=== PATIENT | female | born 1960 | race Caucasian/White ===

== ENCOUNTER → 2017-04-05 | Outpatient (CLI) | payer MEDICAID | LOC: MERGE 11:41 → CARD 11:41 | PROVIDERS: ATTEND Nurse Practitioner Adult Health | DX: Z51.81 Encounter for therapeutic drug level monitoring (principal); C50.511 Malignant neoplasm of lower-outer quadrant of right female breast; Z79.899 Other long term (current) drug therapy ==

== ENCOUNTER → 2017-04-06 | Outpatient (CLI) | payer MEDICAID ==
[~2017-04-06] MED LIST: BARIUM SUSPENSION 2.1% (VANILLA SILQ) 450 ML PO ONE; IOHEXOL 350 MG/ML 100 ML (OMNIPAQUE 350) VIAL IV ONE; NS 100 ML (IVPB) BAG IV ONE
--- NOTE | 2017-04-06 09:24 | Diagnostic Imaging Report ---
PROCEDURE: CT chest with contrast, CT abdomen and pelvis with and without contrast. TECHNIQUE: Pre and post intravenous contrast axial imaging of the abdomen and pelvis and post contrast axial imaging of the chest were performed. DATE: 04/06/2017. COMPARISON: Chest radiographs 01/21/2017. Nuclear medicine whole-body bone scan 03/25/2017. INDICATION: 56-year-old female, breast cancer. FINDINGS: There is a small sclerotic focus involving the upper sternum on axial image 11 which measures 3 mm in size. This is entirely nonspecific. There is radiotracer activity projecting in the region of the sternum and this bone lesion on comparison nuclear medicine bone scan. There is a calcified left lower lobe pulmonary nodule on axial image 47 which measures 6 mm in size. There is no identified noncalcified pulmonary nodule or lung mass. There is no focal airspace consolidation. There is no pneumothorax. There is no pleural effusion. The central airways are patent. The heart is not enlarged. There is no pericardial effusion. There is no identified central pulmonary embolus. The main pulmonary artery is normal in caliber. There is no identified abnormally enlarged mediastinal or hilar lymph node which meets CT size criteria for adenopathy. There are multiple surgical clips in the right axilla which likely relates to prior axillary lymph node dissection. There are somewhat spiculated areas of soft tissue type attenuation adjacent to the surgical clips which may potentially reflect scarring although are nonspecific. There are also surgical clips in the regions of the soft tissues at the expected locations of the right and left breast. There is no currently identified abnormally enlarged axillary lymph node which specifically meets CT size criteria for adenopathy. The liver is normal in size and contour. There is no identified liver lesion. The main, right, and left portal veins are patent. The superior mesenteric vein is patent. The splenic vein is patent. The patient is status post cholecystectomy. There is no intrahepatic or extrahepatic bile duct dilation. The main pancreatic duct is not abnormally dilated. Unremarkable appearance of the pancreatic parenchyma. The spleen is not enlarged. The adrenal glands are unremarkable. There is a probable accessory splenule on axial image 55. Unremarkable appearance of the renal parenchyma. The urinary collecting systems are not distended. There is no identified renal or ureteral stone. The urinary bladder is unremarkable in appearance. The uterus is not seen and may be surgically absent. The intestinal tract is not distended. There is no free intraperitoneal air. There is no drainable fluid collection. There is no free pelvic fluid. There are atherosclerotic calcifications. There is a retroaortic left renal vein. There is no identified abnormally enlarged lymph node in the abdomen or pelvis which meets CT size criteria for adenopathy. There are mild facet degenerative changes bilaterally at L4-L5. There is mild disc height loss at L4-L5 and L5-S1. There is no CT apparent bone lesion concerning for bone metastasis at the level of L5. There is a previously noted radiotracer uptake in the region of L5 most likely are degenerative related. There is a oblong sclerotic lesion in the right iliac bone measuring 10 mm in size on coronal image 54. This demonstrates internal attenuation of 900 Hounsfield units. This likely relates to a benign bone island. There are small sclerotic foci in the right femoral head measuring up to approximately 5 mm in size. Internal attenuation is measured at up to 850 Hounsfield units for the larger lesion. These lesions are entirely nonspecific. There is no corresponding radiotracer avid lesion on recent bone scan. IMPRESSION: CT CHEST, ABDOMEN AND PELVIS. 1. A 3 mm sclerotic lesion in the sternum which does correlate with an area of radiotracer uptake on comparison nuclear medicine bone scan. This is indeterminate in etiology. Metastatic lesion cannot be excluded. 2. Previously noted radiotracer uptake at the level of L5 is degenerative related. 3. A 10 mm sclerotic lesion in the right iliac bone highly likely to represent benign bone island and sclerotic foci in the right femoral head not able to be definitively characterized. 4. No additional potential metastatic lesion identified at the level of the chest, abdomen, or pelvis. 5. Status post right axillary lymph node dissection. Postoperative changes in the regions of the right and left breast. Dictated by: Dictated on workstation # [id number]
== END ==
LOC: RAD 07:38 → MERGE 08:15
PROVIDERS: ATTEND Nurse Practitioner Adult Health
DX: C50.511 Malignant neoplasm of lower-outer quadrant of right female breast (principal); M89.9 Disorder of bone, unspecified; M54.5 Low back pain; Z98.890 Other specified postprocedural states
CPT/HCPCS: 71260; 74178

== ENCOUNTER → 2017-04-07 | Outpatient (CLI) | payer MEDICAID ==
[~2017-04-07] MED LIST changes: -BARIUM SUSPENSION 2.1% (VANILLA SILQ) 450 ML PO ONE; +GADOBUTROL 7.5 MMOL/7.5 ML (GADAVIST) VIAL IV ONE; -IOHEXOL 350 MG/ML 100 ML (OMNIPAQUE 350) VIAL IV ONE; -NS 100 ML (IVPB) BAG IV ONE
--- NOTE | 2017-04-07 13:51 | Diagnostic Imaging Report ---
PROCEDURE: MRI lumbar spine with and without contrast. TECHNIQUE: Multiplanar, multisequence MRI of the lumbar spine was performed with and without contrast. DATE: 04/07/2017. COMPARISON: CT chest, abdomen and pelvis 04/06/2017. Nuclear medicine whole-body bone scan 03/25/2017. INDICATION: 56-year-old female, followup bone scan. History of breast cancer. Low back pain. FINDINGS: There is normal lumbosacral spine alignment. There is no evidence of diffuse marrow infiltrating or replacing process. There is no identified focal bone lesion concerning for bone metastasis. The visualized cord and conus medullaris is unremarkable and terminates at the L1-L2 level. The disc heights are well preserved. L1-L2: There is no disc bulge. The facet joints and ligamentum flavum are unremarkable. There is no foraminal narrowing. There is no spinal canal stenosis. L2-L3: There is no disc bulge. The facet joints and ligamentum flavum are unremarkable. There is no foraminal narrowing. There is no spinal canal stenosis. L3-L4: There is no disc bulge. The facet joints and ligamentum flavum are unremarkable. There is no foraminal narrowing. There is no spinal canal stenosis. L4-L5: There is minimal diffuse disc bulge. There are moderate bilateral facet degenerative changes. There are small bilateral facet joint effusions. There is enhancement adjacent to the bilateral L4-L5 facet articulations. There is very mild bilateral foraminal narrowing. There is no spinal canal stenosis. L5-S1: There is very mild diffuse disc bulge. The facet joints and ligamentum flavum are unremarkable. There is no foraminal narrowing. There is no spinal canal stenosis. IMPRESSION: 1. Moderate bilateral facet degenerative changes at L4-L5 with small facet joint effusions at this level and adjacent enhancement. This may reflect facet joint synovitis. There is this the likely cause of the radiotracer uptake on comparison nuclear medicine bone scan of 03/25/2017. There is very mild bilateral foraminal narrowing at L4-L5. 2. No evidence of metastatic disease to the lumbar spine. Dictated by: Dictated on workstation # [id number]
== END ==
LOC: RAD 10:38
PROVIDERS: ATTEND Nurse Practitioner Adult Health
DX: C50.511 Malignant neoplasm of lower-outer quadrant of right female breast (principal); M48.061 Spinal stenosis, lumbar region without neurogenic claudication; M47.816 Spondylosis without myelopathy or radiculopathy, lumbar region; M25.48 Effusion, other site
CPT/HCPCS: 72158

== ENCOUNTER 2017-05-25 09:14 | Outpatient (RCR) | payer MEDICAID ==
[2017-03-31 09:49] LABS: BASOPHILS % (AUTO) 1 % (0-10); EOSINOPHILS # (AUTO) 0.3 10^3/uL (0.0-0.3); EOSINOPHILS % (AUTO) 6 % (0-10); HEMATOCRIT 38 % (35-52); LYMPHOCYTES # (AUTO) 1.3 X 10^3 (1.0-4.0); LYMPHOCYTES % (AUTO) 24 % (12-44); MEAN CORPUSCULAR HEMOGLOBIN 31 PG (25-34); MEAN CORPUSCULAR HGB CONC 34 G/DL (32-36); MEAN CORPUSCULAR VOLUME 91 FL (80-99); MEAN PLATELET VOLUME 9.5 FL (7.4-10.4); MONOCYTES # (AUTO) 0.5 X 10^3 (0.0-1.0); MONOCYTES % (AUTO) 10 % (0-12); NEUTROPHILS # (AUTO) 3.2 X 10^3 (1.8-7.8); NEUTROPHILS % (AUTO) 60 % (42-75); PLATELET COUNT 259 10^3/uL (130-400); RED BLOOD COUNT 4.15 10^6/uL (4.35-5.85); RED CELL DISTRIBUTION WIDTH 14.4 % (10.0-14.5); WHITE BLOOD COUNT 5.3 10^3/uL (4.3-11.0)
[2017-03-31 10:12] LABS: ALANINE AMINOTRANSFERASE 42 U/L (0-55); ALBUMIN 3.9 GM/DL (3.2-4.5); ALKALINE PHOSPHATASE 61 U/L (40-136); BILIRUBIN,TOTAL 0.3 MG/DL (0.1-1.0); BUN/CREATININE RATIO 20; CALCIUM 9.6 MG/DL (8.5-10.1); CARBON DIOXIDE 26 MMOL/L (21-32); CHLORIDE 105 MMOL/L (98-107); GFR ESTIMATED > 60; GLUCOSE 114 MG/DL (70-105); SODIUM 142 MMOL/L (135-145); TOTAL PROTEIN 6.7 GM/DL (6.4-8.2)
[2017-04-28 10:00] LABS: BASOPHILS % (AUTO) 1 % (0-10); EOSINOPHILS # (AUTO) 0.3 10^3/uL (0.0-0.3); EOSINOPHILS % (AUTO) 6 % (0-10); HEMATOCRIT 36 % (35-52); HEMOGLOBIN 12.5 G/DL (11.5-16.0); LYMPHOCYTES # (AUTO) 1.2 X 10^3 (1.0-4.0); LYMPHOCYTES % (AUTO) 30 % (12-44); MEAN CORPUSCULAR HEMOGLOBIN 31 PG (25-34); MEAN CORPUSCULAR HGB CONC 35 G/DL (32-36); MEAN CORPUSCULAR VOLUME 90 FL (80-99); MEAN PLATELET VOLUME 9.5 FL (7.4-10.4); MONOCYTES # (AUTO) 0.5 X 10^3 (0.0-1.0); MONOCYTES % (AUTO) 13 % (0-12); NEUTROPHILS # (AUTO) 2.1 X 10^3 (1.8-7.8); NEUTROPHILS % (AUTO) 50 % (42-75); PLATELET COUNT 219 10^3/uL (130-400); RED BLOOD COUNT 4.01 10^6/uL (4.35-5.85); RED CELL DISTRIBUTION WIDTH 13.3 % (10.0-14.5); WHITE BLOOD COUNT 4.1 10^3/uL (4.3-11.0)
[2017-04-28 10:21] LABS: ALANINE AMINOTRANSFERASE 24 U/L (0-55); ALBUMIN 3.8 GM/DL (3.2-4.5); ALKALINE PHOSPHATASE 53 U/L (40-136); BILIRUBIN,TOTAL 0.5 MG/DL (0.1-1.0); BUN/CREATININE RATIO 26; CALCIUM 9.1 MG/DL (8.5-10.1); CARBON DIOXIDE 22 MMOL/L (21-32); CHLORIDE 107 MMOL/L (98-107); CREATININE SERUM 0.87 MG/DL (0.60-1.30); GFR ESTIMATED > 60; GLUCOSE 107 MG/DL (70-105); POTASSIUM 3.8 MMOL/L (3.6-5.0); SODIUM 140 MMOL/L (135-145); TOTAL PROTEIN 6.5 GM/DL (6.4-8.2)
[~2017-05-25] VITALS: Ht 160 cm; Wt 77.6 kg
[~2017-05-25 09:14] MED LIST changes: -GADOBUTROL 7.5 MMOL/7.5 ML (GADAVIST) VIAL IV ONE; +NORMAL SALINE IV SCH; +NS IV 500 ML (CANCER CENTER) IV SCH; +NS IV SCH; +TRASTUZUMAB IV SCH; +morphine INJ 4 MG/ML 1 ML (CANCER CTR) IV ONE; +morphine INJ 4 MG/ML 1 ML (CANCER CTR) ONE
[2017-05-25 09:35] LABS: BASOPHILS # (AUTO) 0.1 10^3/uL (0.0-0.1); BASOPHILS % (AUTO) 1 % (0-10); EOSINOPHILS # (AUTO) 0.2 10^3/uL (0.0-0.3); EOSINOPHILS % (AUTO) 5 % (0-10); HEMATOCRIT 36 % (35-52); HEMOGLOBIN 12.1 G/DL (11.5-16.0); LYMPHOCYTES % (AUTO) 22 % (12-44); MEAN CORPUSCULAR HEMOGLOBIN 31 PG (25-34); MEAN CORPUSCULAR HGB CONC 34 G/DL (32-36); MEAN CORPUSCULAR VOLUME 91 FL (80-99); MEAN PLATELET VOLUME 9.2 FL (7.4-10.4); MONOCYTES # (AUTO) 0.5 X 10^3 (0.0-1.0); MONOCYTES % (AUTO) 10 % (0-12); NEUTROPHILS # (AUTO) 2.8 X 10^3 (1.8-7.8); NEUTROPHILS % (AUTO) 61 % (42-75); PLATELET COUNT 241 10^3/uL (130-400); RED BLOOD COUNT 3.91 10^6/uL (4.35-5.85); RED CELL DISTRIBUTION WIDTH 13.5 % (10.0-14.5); WHITE BLOOD COUNT 4.6 10^3/uL (4.3-11.0)
[2017-05-25 09:55] LABS: ALANINE AMINOTRANSFERASE 34 U/L (0-55); ALBUMIN 3.9 GM/DL (3.2-4.5); ALKALINE PHOSPHATASE 62 U/L (40-136); BILIRUBIN,TOTAL 0.5 MG/DL (0.1-1.0); BUN/CREATININE RATIO 20; CALCIUM 9.1 MG/DL (8.5-10.1); CARBON DIOXIDE 20 MMOL/L (21-32); CHLORIDE 108 MMOL/L (98-107); CREATININE SERUM 0.87 MG/DL (0.60-1.30); GFR ESTIMATED > 60; GLUCOSE 128 MG/DL (70-105); POTASSIUM 3.8 MMOL/L (3.6-5.0); SODIUM 140 MMOL/L (135-145); TOTAL PROTEIN 6.5 GM/DL (6.4-8.2)
== END 2017-06-01 | disposition home or self-care (01) ==
LOC: ONC 09:14
PROVIDERS: ATTEND Internal Medicine Hematology & Oncology
DX: Z51.11 Encounter for antineoplastic chemotherapy (principal); C50.511 Malignant neoplasm of lower-outer quadrant of right female breast; Z80.3 Family history of malignant neoplasm of breast; Z87.891 Personal history of nicotine dependence; Z79.899 Other long term (current) drug therapy
CPT/HCPCS: 36591; 80053; 85025; 96374; 96413

== ENCOUNTER → 2017-07-02 | Outpatient (CLI) | payer MEDICAID | LOC: CARD 08:44 | PROVIDERS: ATTEND Internal Medicine Hematology & Oncology | DX: Z51.81 Encounter for therapeutic drug level monitoring (principal); C50.511 Malignant neoplasm of lower-outer quadrant of right female breast; Z79.899 Other long term (current) drug therapy | CPT/HCPCS: 93306 ==

== ENCOUNTER 2017-08-25 13:21 | Outpatient (RCR) | payer MEDICAID ==
[2017-06-23 11:41] LABS: BASOPHILS # (AUTO) 0.1 10^3/uL (0.0-0.1); BASOPHILS % (AUTO) 1 % (0-10); EOSINOPHILS # (AUTO) 0.3 10^3/uL (0.0-0.3); EOSINOPHILS % (AUTO) 5 % (0-10); HEMATOCRIT 37 % (35-52); HEMOGLOBIN 12.7 G/DL (11.5-16.0); LYMPHOCYTES # (AUTO) 1.6 X 10^3 (1.0-4.0); LYMPHOCYTES % (AUTO) 28 % (12-44); MEAN CORPUSCULAR HEMOGLOBIN 31 PG (25-34); MEAN CORPUSCULAR HGB CONC 35 G/DL (32-36); MEAN CORPUSCULAR VOLUME 90 FL (80-99); MEAN PLATELET VOLUME 9.3 FL (7.4-10.4); MONOCYTES # (AUTO) 0.6 X 10^3 (0.0-1.0); MONOCYTES % (AUTO) 10 % (0-12); NEUTROPHILS # (AUTO) 3.2 X 10^3 (1.8-7.8); NEUTROPHILS % (AUTO) 56 % (42-75); PLATELET COUNT 268 10^3/uL (130-400); WHITE BLOOD COUNT 5.7 10^3/uL (4.3-11.0)
[2017-06-23 12:07] LABS: ALANINE AMINOTRANSFERASE 35 U/L (0-55); ALBUMIN 4.1 GM/DL (3.2-4.5); ALKALINE PHOSPHATASE 66 U/L (40-136); BILIRUBIN,TOTAL 0.3 MG/DL (0.1-1.0); BUN/CREATININE RATIO 19; CALCIUM 9.8 MG/DL (8.5-10.1); CARBON DIOXIDE 30 MMOL/L (21-32); CHLORIDE 105 MMOL/L (98-107); CREATININE SERUM 0.85 MG/DL (0.60-1.30); GFR ESTIMATED > 60; GLUCOSE 120 MG/DL (70-105); POTASSIUM 3.6 MMOL/L (3.6-5.0); SODIUM 142 MMOL/L (135-145); TOTAL PROTEIN 6.7 GM/DL (6.4-8.2)
[2017-08-05 09:01] LABS: BASOPHILS % (AUTO) 1 % (0-10); EOSINOPHILS # (AUTO) 0.3 10^3/uL (0.0-0.3); EOSINOPHILS % (AUTO) 5 % (0-10); HEMATOCRIT 40 % (35-52); HEMOGLOBIN 13.6 G/DL (11.5-16.0); LYMPHOCYTES # (AUTO) 1.7 X 10^3 (1.0-4.0); LYMPHOCYTES % (AUTO) 27 % (12-44); MEAN CORPUSCULAR HEMOGLOBIN 31 PG (25-34); MEAN CORPUSCULAR HGB CONC 34 G/DL (32-36); MEAN CORPUSCULAR VOLUME 91 FL (80-99); MEAN PLATELET VOLUME 9.4 FL (7.4-10.4); MONOCYTES # (AUTO) 0.6 X 10^3 (0.0-1.0); MONOCYTES % (AUTO) 10 % (0-12); NEUTROPHILS # (AUTO) 3.7 X 10^3 (1.8-7.8); NEUTROPHILS % (AUTO) 58 % (42-75); PLATELET COUNT 298 10^3/uL (130-400); RED BLOOD COUNT 4.42 10^6/uL (4.35-5.85); WHITE BLOOD COUNT 6.3 10^3/uL (4.3-11.0)
[2017-08-05 09:21] LABS: ALANINE AMINOTRANSFERASE 35 U/L (0-55); ALBUMIN 4.1 GM/DL (3.2-4.5); ALKALINE PHOSPHATASE 62 U/L (40-136); BILIRUBIN,TOTAL 0.4 MG/DL (0.1-1.0); BUN/CREATININE RATIO 23; CALCIUM 9.2 MG/DL (8.5-10.1); CARBON DIOXIDE 22 MMOL/L (21-32); CHLORIDE 109 MMOL/L (98-107); GFR ESTIMATED > 60; GLUCOSE 137 MG/DL (70-105); POTASSIUM 3.7 MMOL/L (3.6-5.0); SODIUM 142 MMOL/L (135-145); TOTAL PROTEIN 6.8 GM/DL (6.4-8.2)
[~2017-08-25] VITALS: Ht 160 cm; Wt 77.1 kg
[~2017-08-25 13:21] MED LIST changes: -NORMAL SALINE IV SCH; +NS IV ONE; +TRASTUZUMAB IV ONE; -morphine INJ 4 MG/ML 1 ML (CANCER CTR) IV ONE; -morphine INJ 4 MG/ML 1 ML (CANCER CTR) ONE
== END 2017-08-31 | disposition home or self-care (01) ==
LOC: ONC 13:21
PROVIDERS: ATTEND Internal Medicine Hematology & Oncology
DX: Z51.11 Encounter for antineoplastic chemotherapy (principal); C50.511 Malignant neoplasm of lower-outer quadrant of right female breast; C77.3 Secondary and unspecified malignant neoplasm of axilla and upper limb lymph nodes; J06.9 Acute upper respiratory infection, unspecified; R19.5 Other fecal abnormalities; M47.896 Other spondylosis, lumbar region; Z17.0 Estrogen receptor positive status [ER+]; Z87.891 Personal history of nicotine dependence; Z90.13 Acquired absence of bilateral breasts and nipples; Z79.899 Other long term (current) drug therapy; Z79.811 Long term (current) use of aromatase inhibitors; Z80.3 Family history of malignant neoplasm of breast
CPT/HCPCS: 36591; 80053; 85025; 96372; 96413

== ENCOUNTER → 2017-10-07 | Outpatient (CLI) | payer MEDICAID ==
[~2017-10-07] MED LIST changes: +BARIUM SUSPENSION 2.1% (VANILLA SILQ) 450 ML PO ONE; +CATHETER FLUSH 10 ML SYR IV PRN; +IOHEXOL 350 MG/ML 100 ML (OMNIPAQUE 350) VIAL IV ONE; +NS 250 ML (IVPB) BAG IV ONE; -NS IV 500 ML (CANCER CENTER) IV SCH; -NS IV ONE; -NS IV SCH; -TRASTUZUMAB IV ONE; -TRASTUZUMAB IV SCH
--- NOTE | 2017-10-07 12:19 | Diagnostic Imaging Report ---
PROCEDURE: CT chest and abdomen with contrast. TECHNIQUE: Multiple contiguous axial images were obtained through the chest and abdomen after the administration of intravenous contrast. INDICATION: Breast carcinoma. COMPARISON: Comparison is made with prior CT from 04/06/2017. FINDINGS: CT CHEST: Postsurgical changes of bilateral mastectomy is noted. There are surgical clips in the right axilla. Area of soft tissue density in the right axilla similar to prior exam. No definite axillary lymphadenopathy is seen. No internal mammary, mediastinal or hilar lymphadenopathy is detected. No pericardial or pleural fluid is detected. Calcified granuloma left lower lobe is again seen. No noncalcified nodules or masses are identified. Tiny sclerotic focus in the upper sternum is stable. No other bony abnormalities are seen. IMPRESSION: Stable CT chest when compared with exam from 04/06/2017. No thoracic lymphadenopathy or evidence of pulmonary metastatic disease is identified. CT ABDOMEN: No discrete liver mass is detected. The gallbladder is surgically absent. The pancreas and spleen are unremarkable. No adrenal mass is detected. The kidneys are unremarkable. Aorta is non-aneurysmal. No central retroperitoneal or mesenteric lymphadenopathy is seen. Small and large bowel loops are normal caliber. No ascites. IMPRESSION: Stable CT of the abdomen. There is no evidence of abdominal lymphadenopathy or metastatic disease. No acute features seen. Dictated by: Dictated on workstation # [id number]
--- NOTE | 2017-10-07 14:26 | Diagnostic Imaging Report ---
INDICATION: Breast cancer. TECHNIQUE: Patient was administered 26.0 mCi technetium 99m MDP intravenously and whole-body imaging was performed after 3 hour delay. COMPARISON: Correlation is made with prior whole body bone scan from 03/25/2017. FINDINGS: There is normal uptake of activity by the axial and appendicular skeleton. There is uptake by both kidneys with excretion into the urinary bladder. Previously noted small focus of activity in the sternum is similar to prior exam. There is some lower lumbar activity as well asymmetric to the right and left, likely owing to facet degenerative change. No new foci of tracer accumulation is seen. IMPRESSION: Stable whole body bone scan when compared with prior exam from 03/25/2017. Dictated by: Dictated on workstation # [id number]
== END ==
LOC: CARD 10:42
PROVIDERS: ATTEND Nurse Practitioner Adult Health
DX: C50.511 Malignant neoplasm of lower-outer quadrant of right female breast (principal)
CPT/HCPCS: 71260; 74160; 78306

== ENCOUNTER 2017-11-25 09:17 | Outpatient (RCR) | payer MEDICAID ==
[2017-09-01 10:13] LABS: BASOPHILS % (AUTO) 1 % (0-10); EOSINOPHILS # (AUTO) 0.2 10^3/uL (0.0-0.3); EOSINOPHILS % (AUTO) 3 % (0-10); HEMATOCRIT 37 % (35-52); HEMOGLOBIN 12.4 G/DL (11.5-16.0); LYMPHOCYTES # (AUTO) 1.5 X 10^3 (1.0-4.0); LYMPHOCYTES % (AUTO) 26 % (12-44); MEAN CORPUSCULAR HEMOGLOBIN 31 PG (25-34); MEAN CORPUSCULAR HGB CONC 33 G/DL (32-36); MEAN CORPUSCULAR VOLUME 92 FL (80-99); MEAN PLATELET VOLUME 9.1 FL (7.4-10.4); MONOCYTES # (AUTO) 0.7 X 10^3 (0.0-1.0); MONOCYTES % (AUTO) 12 % (0-12); NEUTROPHILS # (AUTO) 3.5 X 10^3 (1.8-7.8); NEUTROPHILS % (AUTO) 59 % (42-75); PLATELET COUNT 244 10^3/uL (130-400); RED BLOOD COUNT 4.02 10^6/uL (4.35-5.85); RED CELL DISTRIBUTION WIDTH 14.6 % (10.0-14.5); WHITE BLOOD COUNT 5.9 10^3/uL (4.3-11.0)
[2017-09-01 10:35] LABS: ALANINE AMINOTRANSFERASE 26 U/L (0-55); ALBUMIN 3.8 GM/DL (3.2-4.5); ALKALINE PHOSPHATASE 67 U/L (40-136); BILIRUBIN,TOTAL 0.3 MG/DL (0.1-1.0); BUN/CREATININE RATIO 24; CALCIUM 9.1 MG/DL (8.5-10.1); CARBON DIOXIDE 23 MMOL/L (21-32); CHLORIDE 107 MMOL/L (98-107); CREATININE SERUM 0.93 MG/DL (0.60-1.30); GFR ESTIMATED > 60; GLUCOSE 104 MG/DL (70-105); SODIUM 141 MMOL/L (135-145); TOTAL PROTEIN 6.5 GM/DL (6.4-8.2)
[2017-10-14 12:54] LABS: BASOPHILS % (AUTO) 1 % (0-10); EOSINOPHILS # (AUTO) 0.2 10^3/uL (0.0-0.3); EOSINOPHILS % (AUTO) 3 % (0-10); HEMATOCRIT 38 % (35-52); HEMOGLOBIN 13.2 G/DL (11.5-16.0); LYMPHOCYTES # (AUTO) 1.7 X 10^3 (1.0-4.0); LYMPHOCYTES % (AUTO) 28 % (12-44); MEAN CORPUSCULAR HEMOGLOBIN 32 PG (25-34); MEAN CORPUSCULAR HGB CONC 35 G/DL (32-36); MEAN CORPUSCULAR VOLUME 92 FL (80-99); MEAN PLATELET VOLUME 9.3 FL (7.4-10.4); MONOCYTES # (AUTO) 0.5 X 10^3 (0.0-1.0); MONOCYTES % (AUTO) 9 % (0-12); NEUTROPHILS # (AUTO) 3.6 X 10^3 (1.8-7.8); NEUTROPHILS % (AUTO) 60 % (42-75); PLATELET COUNT 282 10^3/uL (130-400); RED BLOOD COUNT 4.12 10^6/uL (4.35-5.85); RED CELL DISTRIBUTION WIDTH 14.3 % (10.0-14.5)
[2017-10-14 13:13] LABS: ALANINE AMINOTRANSFERASE 45 U/L (0-55); ALBUMIN 4.2 GM/DL (3.2-4.5); ALKALINE PHOSPHATASE 65 U/L (40-136); BILIRUBIN,TOTAL 0.5 MG/DL (0.1-1.0); BUN/CREATININE RATIO 24; CALCIUM 9.7 MG/DL (8.5-10.1); CARBON DIOXIDE 26 MMOL/L (21-32); CHLORIDE 107 MMOL/L (98-107); CREATININE SERUM 0.89 MG/DL (0.60-1.30); GFR ESTIMATED > 60; GLUCOSE 184 MG/DL (70-105); POTASSIUM 3.7 MMOL/L (3.6-5.0); SODIUM 141 MMOL/L (135-145)
[~2017-11-25 09:17] MED LIST changes: -BARIUM SUSPENSION 2.1% (VANILLA SILQ) 450 ML PO ONE; -CATHETER FLUSH 10 ML SYR IV PRN; -IOHEXOL 350 MG/ML 100 ML (OMNIPAQUE 350) VIAL IV ONE; -NS 250 ML (IVPB) BAG IV ONE; +NS IV 500 ML (CANCER CENTER) IV SCH; +NS IV SCH; +TRASTUZUMAB IV SCH
== END 2017-11-30 | disposition home or self-care (01) ==
LOC: ONC 09:17
PROVIDERS: ATTEND Internal Medicine Hematology & Oncology
DX: Z51.11 Encounter for antineoplastic chemotherapy (principal); C50.511 Malignant neoplasm of lower-outer quadrant of right female breast; C77.3 Secondary and unspecified malignant neoplasm of axilla and upper limb lymph nodes; M47.9 Spondylosis, unspecified; Z17.0 Estrogen receptor positive status [ER+]; Z87.891 Personal history of nicotine dependence; Z79.811 Long term (current) use of aromatase inhibitors; Z79.899 Other long term (current) drug therapy; Z45.2 Encounter for adjustment and management of vascular access device; Z90.13 Acquired absence of bilateral breasts and nipples; Z80.3 Family history of malignant neoplasm of breast
CPT/HCPCS: 36591; 80053; 82306; 83735; 85025; 96413; 96523

== ENCOUNTER 2018-02-17 09:14 | Outpatient (RCR) | payer MEDICAID ==
[2018-01-06 13:48] LABS: BASOPHILS % (AUTO) 0 % (0-10); EOSINOPHILS # (AUTO) 0.2 10^3/uL (0.0-0.3); EOSINOPHILS % (AUTO) 3 % (0-10); HEMATOCRIT 39 % (35-52); HEMOGLOBIN 13.3 G/DL (11.5-16.0); LYMPHOCYTES # (AUTO) 1.4 X 10^3 (1.0-4.0); LYMPHOCYTES % (AUTO) 25 % (12-44); MEAN CORPUSCULAR HEMOGLOBIN 30 PG (25-34); MEAN CORPUSCULAR HGB CONC 34 G/DL (32-36); MEAN CORPUSCULAR VOLUME 89 FL (80-99); MEAN PLATELET VOLUME 9.3 FL (7.4-10.4); MONOCYTES # (AUTO) 0.7 X 10^3 (0.0-1.0); MONOCYTES % (AUTO) 12 % (0-12); NEUTROPHILS # (AUTO) 3.3 X 10^3 (1.8-7.8); NEUTROPHILS % (AUTO) 59 % (42-75); PLATELET COUNT 289 10^3/uL (130-400); RED CELL DISTRIBUTION WIDTH 13.5 % (10.0-14.5); WHITE BLOOD COUNT 5.6 10^3/uL (4.3-11.0)
== END 2018-03-28 14:13 | disposition home or self-care (01) ==
LOC: ONC 09:14
PROVIDERS: ATTEND Internal Medicine Hematology & Oncology
DX: C50.511 Malignant neoplasm of lower-outer quadrant of right female breast (principal); C77.3 Secondary and unspecified malignant neoplasm of axilla and upper limb lymph nodes; Z17.0 Estrogen receptor positive status [ER+]; Z87.891 Personal history of nicotine dependence; Z79.811 Long term (current) use of aromatase inhibitors; Z79.899 Other long term (current) drug therapy; Z90.13 Acquired absence of bilateral breasts and nipples; Z45.2 Encounter for adjustment and management of vascular access device
CPT/HCPCS: 85025; 96523

== ENCOUNTER 2018-03-30 12:36 | Outpatient (RCR) | payer MEDICAID ==
[2018-03-30 13:15] LABS: BASOPHILS # (AUTO) 0.1 10^3/uL (0.0-0.1); BASOPHILS % (AUTO) 1 % (0-10); EOSINOPHILS # (AUTO) 0.2 10^3/uL (0.0-0.3); EOSINOPHILS % (AUTO) 3 % (0-10); HEMATOCRIT 42 % (35-52); HEMOGLOBIN 14.1 G/DL (11.5-16.0); LYMPHOCYTES # (AUTO) 1.8 X 10^3 (1.0-4.0); LYMPHOCYTES % (AUTO) 27 % (12-44); MEAN CORPUSCULAR HEMOGLOBIN 31 PG (25-34); MEAN CORPUSCULAR HGB CONC 34 G/DL (32-36); MEAN CORPUSCULAR VOLUME 91 FL (80-99); MEAN PLATELET VOLUME 9.7 FL (7.4-10.4); MONOCYTES # (AUTO) 0.9 X 10^3 (0.0-1.0); MONOCYTES % (AUTO) 14 % (0-12); NEUTROPHILS # (AUTO) 3.7 X 10^3 (1.8-7.8); NEUTROPHILS % (AUTO) 55 % (42-75); PLATELET COUNT 286 10^3/uL (130-400); RED CELL DISTRIBUTION WIDTH 14.6 % (10.0-14.5); WHITE BLOOD COUNT 6.7 10^3/uL (4.3-11.0)
[2018-03-30 13:33] LABS: ALANINE AMINOTRANSFERASE 22 U/L (0-55); ALBUMIN 4.4 GM/DL (3.2-4.5); ALKALINE PHOSPHATASE 65 U/L (40-136); BILIRUBIN,TOTAL 0.3 MG/DL (0.1-1.0); BUN/CREATININE RATIO 16; CALCIUM 10.2 MG/DL (8.5-10.1); CARBON DIOXIDE 25 MMOL/L (21-32); CHLORIDE 105 MMOL/L (98-107); CREATININE SERUM 0.93 MG/DL (0.60-1.30); GFR ESTIMATED > 60; GLUCOSE 123 MG/DL (70-105); SODIUM 140 MMOL/L (135-145); TOTAL PROTEIN 7.3 GM/DL (6.4-8.2)
== END 2018-05-11 09:27 | disposition home or self-care (01) ==
LOC: ONC 12:36
PROVIDERS: ATTEND Internal Medicine Hematology & Oncology
DX: C50.511 Malignant neoplasm of lower-outer quadrant of right female breast (principal); C77.3 Secondary and unspecified malignant neoplasm of axilla and upper limb lymph nodes; Z17.0 Estrogen receptor positive status [ER+]; Z87.891 Personal history of nicotine dependence; Z79.811 Long term (current) use of aromatase inhibitors; Z79.899 Other long term (current) drug therapy; Z90.13 Acquired absence of bilateral breasts and nipples
CPT/HCPCS: 36591; 80053; 85025

== ENCOUNTER 2018-06-08 11:12 | Emergency (ER) | payer MEDICAID ==
[~2018-06-08] VITALS: Ht 162.6 cm; Wt 68.0 kg
--- OUTSIDE RECORDS SUMMARY | 2018-06-08 11:18 | XMS REPORT ---
Author Author OVIDIO TREVIÑO [facility] [address] Address [address] [place] [address] Care Team Providers Care Stamp Classifier Name Role Phone OVIDIO TREVIÑO Unavailable PROBLEMS Unknown Problems ALLERGIES No Known Allergies ENCOUNTERS Encounter Location Date Diagnosis [facility] [id number] [place] [phone] Feb, [facility] [id number] [place] [phone] Feb, [facility] [address] [place] [phone] Dec, Dental examination Z01.20 and Caries K02.9 [facility] [address] [place] [phone] Nov, Dental examination Z01.20 and Caries K02.9 [facility] [address] [place] [phone] Oct, [facility] [address] [place] [phone] Oct, Dental examination Z01.20 [facility] [id number] [place] [phone] Jun, Dental caries K02.9 [facility] [id number] [place] [phone] Apr, Dental examination Z01.20 [facility] [address] [place] [address] Nov, [facility] [address] [place] [phone] Jun, Dental examination Z01.20 [facility] [place] [address] [place] [address] Jun, Dental examination Z01.20 [facility] [address] [place] [address] 11 May, 2015 Dental examination Z01.20 [facility] [address] [facility] [id number] [place] [phone] Oct, Dental examination V72.2 IMMUNIZATIONS No Known Immunizations SOCIAL HISTORY Never Assessed REASON FOR VISIT Extraction PLAN OF CARE Activity Details Follow Up JUVENCIO Reason:TE? VITAL SIGNS Blood pressure systolic 111 mmHg 2018-01-04 Blood pressure diastolic 64 mmHg 2018-01-04 MEDICATIONS Medication Instructions Dosage Frequency Start Date End Date Duration Status Carney 7.5-325 MG Orally every 6 hrs 1 tablet as needed 6h Nov, Not-Taking D3 Adult Active Magic Mouthwash Apply medicated swab to sore areas of the mouth to numb the pain As needed Dip cotton swab into medication Oct, As needed Not-Taking Magic Mouthwash Apply medicated swab to sore areas of the mouth to numb the pain As needed Dip cotton swab into medication Oct, As needed Not-Taking Omeprazole Active Amoxicillin 500 MG Orally 4 times a day 2 capsules stat and then take 1 capsule 6h Nov, 10 days Not-Taking Amoxicillin 500 MG Orally 4 times a day 2 capsules stat and then take 1 capsule 6h 10 days Not-Taking Xanax Active Furosemide Not-Taking Propranolol HCl Active Diazepam Not-Taking Hydrocodone-Acetaminophen Not-Taking Stool Softener Not-Taking Xiidra Not-Taking Letrozole Active Flexeril Not-Taking Tramadol HCl Active Amoxicillin 500 MG Orally 4 times a day 2 capsules stat and then take 1 capsule 6h 10 days Not-Taking Meloxicam Not-Taking Calcium Active Duloxetine HCl Active Citalopram Hydrobromide Not-Taking RESULTS No Results PROCEDURES Procedure Date Ordered Result Body Site PANORAMIC FILM SEE ALSO CODE 53391 Jan 04, 2018 EXTRAC ERUPTED TOOTH/EXPOSED ROOT Jan 04, 2018 EXTRAC ERUPTED TOOTH/EXPOSED ROOT Jan 04, 2018 INSTRUCTIONS MEDICATIONS ADMINISTERED No Known Medications MEDICAL (GENERAL) HISTORY Type Description Date Medical History heart palpitations Medical History fluid retention Medical History inflammation Medical History depression Medical History glaucoma Medical History muscle spasms Medical History anxiety Medical History Breast cancer-chemo,radiation Surgical History gallbladder Surgical History hysterectomy Surgical History appendectomy Surgical History four left ear surgeries Surgical History carpal tunnel Surgical History both breasts removed Hospitalization History see surgical Hx
--- OUTSIDE RECORDS SUMMARY | 2018-06-08 11:18 | XMS REPORT ---
Author Author OVIDIO TREVIÑO [facility] [address] Address [address] [place] [address] Care Team Providers Care Cutter Down Name Role Phone OVIDIO TREVIÑO Unavailable PROBLEMS Unknown Problems ALLERGIES No Known Allergies ENCOUNTERS Encounter Location Date Diagnosis [facility] [id number] [place] [phone] Feb, [facility] [id number] [place] [phone] Feb, [facility] [place] [address] [place] [phone] Nov, [facility] [address] [place] [phone] Oct, [facility] [address] [place] [phone] Oct, Dental examination Z01.20 [facility] [id number] [place] [phone] Jun, Dental caries K02.9 [facility] [id number] [place] [phone] Apr, Dental examination Z01.20 [facility] [address] [place] [address] Nov, [facility] [address] [place] [address] Jun, Dental examination Z01.20 [facility] [address] [place] [address] Jun, Dental examination Z01.20 [facility] [address] [place] [address] May, Dental examination Z01.20 [facility] [id number] [place] [phone] Oct, Dental examination V72.2 IMMUNIZATIONS No Known Immunizations SOCIAL HISTORY Never Assessed REASON FOR VISIT [facility] PLAN OF CARE Activity Details Follow Up 45 min TE Reason: VITAL SIGNS Blood pressure systolic 114 mmHg 2017-11-04 Blood pressure diastolic 68 mmHg 2017-11-04 MEDICATIONS Medication Instructions Dosage Frequency Start Date End Date Duration Status Amoxicillin 500 MG Orally 4 times a day 2 capsules stat and then take 1 capsule 6h 10 days Active Propranolol HCl Active Diazepam Not-Taking Magic Mouthwash Apply medicated swab to sore areas of the mouth to numb the pain As needed Dip cotton swab into medication Oct, As needed Active Hydrocodone-Acetaminophen Not-Taking Meloxicam Not-Taking Calcium Active Xiidra Not-Taking Duloxetine HCl Active Omeprazole Active Letrozole Active Furosemide Not-Taking Stool Softener Not-Taking Citalopram Hydrobromide Not-Taking Flexeril Not-Taking D3 Adult Active Tramadol HCl Active Xanax Active RESULTS No Results PROCEDURES Procedure Date Ordered Result Body Site LTD ORAL EVALUATION - PROBLEM FOCUS Nov 04, 2017 INTRAORL-PERIAPICAL 1 FILM 81181 Nov 04, 2017 INTRAORL-PERIAPICAL 1 FILM 18750 May 14, 2017 INTRAORL-PERIAPICAL 1 FILM 32141 May 14, 2017 BITEWING - SINGLE FILM May 14, 2017 INSTRUCTIONS MEDICATIONS ADMINISTERED No Known Medications MEDICAL [...]
--- OUTSIDE RECORDS SUMMARY | 2018-06-08 11:18 | XMS REPORT ---
Author Author OVIDIO TREVIÑO [facility] [address] Address [address] [place] [address] Care Team Providers Care Dust Collector Name Role Phone OVIDIO TREVIÑO Unavailable PROBLEMS Unknown Problems ALLERGIES No Known Allergies ENCOUNTERS Encounter Location Date Diagnosis [facility] [id number] [place] [phone] Feb, [facility] [id number] [place] [phone] Feb, [facility] [address] [place] [phone] Dec, [facility] [place] [address] [place] [phone] Nov, Dental examination Z01.20 and Caries K02.9 [facility] [address] [place] [phone] Oct, [facility] [address] [place] [phone] Oct, Dental examination Z01.20 [facility] [id number] [place] [phone] Jun, Dental caries K02.9 [facility] [id number] [place] [phone] Apr, Dental examination Z01.20 [facility] [address] [place] [address] Nov, [facility] [address] [place] [phone] Jun, Dental examination Z01.20 [facility] [address] [place] [phone] Jun, Dental examination Z01.20 [facility] [address] [place] [phone] 11 May, 2015 Dental examination Z01.20 [facility] [id number] [phone] Oct, Dental examination V72.2 IMMUNIZATIONS No Known Immunizations SOCIAL HISTORY Never Assessed REASON FOR VISIT ExtractionTALHA PLAN OF CARE Activity Details Follow Up #28 TE Reason:45 MINS VITAL SIGNS Blood pressure systolic 108 mmHg 2017-12-17 Blood pressure diastolic 85 mmHg 2017-12-17 MEDICATIONS Medication Instructions Dosage Frequency Start Date End Date Duration Status Stool Softener Not-Taking Magic Mouthwash Apply medicated swab to sore areas of the mouth to numb the pain As needed Dip cotton swab into medication Oct, As needed Not-Taking Meloxicam Not-Taking [place]ombe 7.5-325 MG Orally every 6 hrs 1 tablet as needed 6h Nov, Active Xanax Active Xiidra Not-Taking Flexeril Not-Taking Tramadol HCl Active Propranolol HCl Active D3 Adult Active Duloxetine HCl Active Diazepam Not-Taking Amoxicillin 500 MG Orally 4 times a day 2 capsules stat and then take 1 capsule 6h Nov, 10 days Active Citalopram Hydrobromide Not-Taking Magic Mouthwash Apply medicated swab to sore areas of the mouth to numb the pain As needed Dip cotton swab into medication Oct, As needed Not-Taking Calcium Active Hydrocodone-Acetaminophen Not-Taking Furosemide Not-Taking Omeprazole Active Amoxicillin 500 MG Orally 4 times a day 2 capsules stat and then take 1 capsule 6h 10 days Not-Taking Amoxicillin 500 MG Orally 4 times a day 2 capsules stat and then take 1 capsule 6h 10 days Not-Taking Letrozole Active RESULTS No Results PROCEDURES Procedure Date Ordered Result Body Site INTRAORL-PERIAPICAL 1 FILM 68052 Dec 17, 2017 EXTRAC ERUPTED TOOTH/EXPOSED ROOT Dec 17, 2017 EXTRAC ERUPTED TOOTH/EXPOSED ROOT Dec 17, 2017 INSTRUCTIONS MEDICATIONS ADMINISTERED No Known Medications [...]
--- OUTSIDE RECORDS SUMMARY | 2018-06-08 11:18 | XMS REPORT ---
Author Author OVIDIO TREVIÑO Organization [facility] [address] Address [address] [place] [address] Care Team Providers Care Auto Accessories Installer Name Role Phone OVIDIO TREVIÑO Unavailable PROBLEMS Unknown Problems ALLERGIES No Information ENCOUNTERS Encounter Location Date Diagnosis [facility] [id number] [place] [phone] Feb, [facility] [id number] [place] [phone] Feb, [facility] [place] [address] [place] [phone] Nov, [facility] [address] [place] [address] [place] [phone] Oct, [facility] [place] [address] [place] [phone] Oct, Dental examination Z01.20 [facility] [id number] [place] [phone] Jun, Dental caries K02.9 [facility] [id number] [place] [phone] Apr, Dental examination Z01.20 [facility] [address] [place] [address] Nov, [facility] [address] [place] [phone] Jun, Dental examination Z01.20 [facility] [address] [place] [address] Jun, Dental examination Z01.20 [facility] [address] [place] [address] May, Dental examination Z01.20 [facility] [id number] [place] [phone] Oct, Dental examination V72.2 IMMUNIZATIONS No Known Immunizations SOCIAL HISTORY Never Assessed REASON FOR VISIT PLAN OF CARE VITAL SIGNS MEDICATIONS Medication Instructions Dosage Frequency Start Date End Date Duration Status Amoxicillin 500 MG Orally 4 times a day 2 capsules stat and then take 1 capsule 6h 10 days Active Magic Mouthwash Apply medicated swab to sore areas of the mouth to numb the pain As needed Dip cotton swab into medication Oct, As needed Active RESULTS No Results PROCEDURES No Known procedures INSTRUCTIONS MEDICATIONS ADMINISTERED No Known Medications MEDICAL [...]
--- OUTSIDE RECORDS SUMMARY | 2018-06-08 11:18 | XMS REPORT ---
Author Author DENIA ZELAYA [facility] Address Unknown Care Team Providers Care Combat Rifle Crewmember Name Role Phone DENIA ZELAYA Unavailable PROBLEMS Unknown Problems ALLERGIES No Known Allergies ENCOUNTERS Encounter Location Date Diagnosis [facility] [address] [id number] Feb, [facility] [id number] [place] [id number] Feb, [facility] [id number] [place] [phone] Jun, Dental caries K02.9 [facility] [id number] [place] [phone] Apr, Dental examination Z01.20 [facility] [address] [place] [address] Nov, [facility] [address] [place] [phone] Jun, Dental examination Z01.20 [facility] [address] [place] [address] Jun, Dental examination Z01.20 [facility] [address] [place] [address] May, Dental examination Z01.20 [facility] [address] [phone] Oct, Dental examination V72.2 IMMUNIZATIONS No Known Immunizations SOCIAL HISTORY Never Assessed REASON FOR VISIT TE PLAN OF CARE Activity Details Follow Up prn Reason:Hygiene VITAL SIGNS Blood pressure systolic 110 mmHg 2017-06-24 Blood pressure diastolic 70 mmHg 2017-06-24 MEDICATIONS Medication Instructions Dosage Frequency Start Date End Date Duration Status Letrozole Active Xiidra Active Omeprazole Active Hydrocodone-Acetaminophen Active Calcium Active Furosemide Not-Taking Meloxicam Not-Taking D3 Adult Active Stool Softener Active Xanax Active Diazepam Not-Taking Propranolol HCl Active Duloxetine HCl Active Flexeril Not-Taking Citalopram Hydrobromide Not-Taking RESULTS No Results PROCEDURES Procedure Date Ordered Result Body Site EXTRAC ERUPTED TOOTH/EXPOSED ROOT June 24, 2017 INSTRUCTIONS MEDICATIONS ADMINISTERED No Known Medications MEDICAL (GENERAL) HISTORY Type Description Date Medical History heart palpitations Medical History fluid retention Medical History inflammation Medical History depression Medical History glaucoma Medical History muscle spasms Medical History anxiety Surgical History gallbladder Surgical History hysterectomy Surgical History appendectomy Surgical History four left ear surgeries Surgical History carpal tunnel Surgical History both breasts removed Hospitalization History see surgical Hx
--- OUTSIDE RECORDS SUMMARY | 2018-06-08 11:18 | XMS REPORT ---
Author Author DENIA ZELAYA Organization [facility] Address Unknown Care Team Providers Care Casting Inspector Name Role Phone DENIA ZELAYA Unavailable PROBLEMS Unknown Problems ALLERGIES No Known Allergies ENCOUNTERS Encounter Location Date Diagnosis [facility] [address] [facility] [id number] [phone] Feb, [facility] [id number] [phone] Feb, [facility] [address] [phone] Jun, Dental caries K02.9 [facility] [address] [phone] Apr, Dental examination Z01.20 [facility] [place] [id number] [place] [phone] Nov, [facility] [place] [address] [id number] [place] [phone] Jun, Dental examination Z01.20 [facility] [place] [address] [id number] [place] [id number] Jun, Dental examination Z01.20 [facility] [place] [address] [id number] [place] [id number] May, Dental examination Z01.20 [facility] [address] [facility] [id number] [phone] Oct, Dental examination V72.2 IMMUNIZATIONS No Known Immunizations SOCIAL HISTORY Never Assessed REASON FOR VISIT [facility] PLAN OF CARE Activity Details Follow Up prn Reason:TE #31 VITAL SIGNS MEDICATIONS Medication Instructions Dosage Frequency Start Date End Date Duration Status Citalopram Hydrobromide Not-Taking Letrozole Active Furosemide Not-Taking Hydrocodone-Acetaminophen Active Duloxetine HCl Active Xanax Active Stool Softener Active Amoxicillin 500 MG Orally every 8 hrs 1 capsule 8h 23 Apr, 2017 May, 7 days Active Flexeril Not-Taking Omeprazole Active Calcium Active Meloxicam Not-Taking Diazepam Not-Taking Xiidra Active Propranolol HCl Active D3 Adult Active RESULTS No Results PROCEDURES Procedure Date Ordered Result Body Site LTD ORAL EVALUATION - PROBLEM FOCUS May 14, 2017 INTRAORL-PERIAPICAL 1 FILM [id number] May 14, 2017 BITEWING - SINGLE FILM May 14, 2017 INTRAORL-PERIAPICAL EA ADD FILM May 14, 2017 INSTRUCTIONS MEDICATIONS ADMINISTERED [...]
[2018-06-08] MEDS ORDERED: FAMOTIDINE 20 MG (PEPCID) TABLET PO STA (11:26)
[2018-06-08] MEDS ORDERED: ASPIRIN 81 MG CHEW (CHILDREN'S ASA) PO ONE (11:30)
[2018-06-08] MEDS ORDERED: LIDOCAINE 2% VISCOUS 15 ML UDC PO ONE (11:30)
[2018-06-08] MEDS ORDERED: ANTACID SUSP 30 ML UDC (MYLANTA) PO ONE (11:30)
--- NOTE | 2018-06-08 11:36 | ED Chest Pain ---
General Stated Complaint: CHEST PAIN; SOB Source: patient Exam Limitations: no limitations History of Present Illness Date Seen by Provider: Jun 08, 2018 Time Seen by Provider: 11:10 Initial Comments Patient presents to ER by private conveyance with chief complaint of about 20 minutes prior to arrival she had a sharp stabbing midsternal chest pain. Her chest wall is been tender ever since 2016 when she had a bilateral mastectomy with right lymph node dissection. She's been in remission for breast cancer for less than a year. She has no radiation of the pain to her shoulders or neck or jaw. No nausea sweats or chills. Initially she was a little short of breath but that went away along with the pain within the first 30 minutes. She's had a dry nonproductive, nagging cough for the past several months. She denies fever or chills. Bowels are moving okay and no dysuria. She has no history of coronary disease but she has had 2 cardiac catheterizations neither one found any coronary disease per patient report and she has no history of stents or heart attack. No significant familial history. She does have elevated blood pressure and cholesterol but no diabetes, hypothyroidism and she quit smoking many years ago. She was told at the time that she had COPD and had an albuterol inhaler but has not had one in many years and has not needed it. She denies any wheezing. She's not having any palpitations today but she does have a history of palpitations for which she's worn monitors in the past and they've not found anything. They have her on propranolol for her heart palpitations and this has helped. She does not take antiplatelets or blood thinners. Allergies and Home Medications Allergies Coded Allergies: acetaminophen (Verified Allergy, Unknown, 04/05/17) oxycodone (Verified Allergy, Unknown, 04/05/17) Patient Home Medication List Home Medication List Reviewed: Yes Review of Systems Review of Systems Constitutional: No chills, No fever, No malaise EENTM: No Blurred Vision, No Double Vision Respiratory: Cough (nonproductive), Shortness of Air; Denies Wheezing Cardiovascular: See HPI, Chest Pain; Denies Edema, Denies Irregular Heart Rate , Denies Palpitations, Denies Syncope Gastrointestinal: Denies Abdomen Distended, Denies Abdominal Pain, Denies Constipated, Denies Diarrhea, Denies Nausea Genitourinary: Denies Burning, Denies Discharge Musculoskeletal: No back pain, No joint pain Past Lszgogp-Qiqgwt-Khwyqv Hx Patient Social History Alcohol Use: Denies Use Recreational Drug Use: No Smoking Status: Former Smoker Type Used: Cigarettes Recent Foreign Travel: No Physical Exam Vital Signs Capillary Refill : Height, Weight, BMI Height: 5'3.00" Weight: 173lbs. oz. 78.295395vs; BMI Method:Stated General Appearance: WD/WN, Anxious HEENT: PERRL/EOMI, Moist Mucous Membranes, TM Abnormal (L) (mild injection and dull but nontender on manipulation); No TM Abnormal (R), No Tonsillar Exudate, No Tonsillar Enlargement; Other (retropharyngeal erythema and mild nasal congestion) Neck: Full Range of Motion, Normal Inspection, Non Tender Respiratory: Lungs Clear, Normal Breath Sounds, No Accessory Muscle Use, No Respiratory Distress, Other (chest wall is exquisitely tender to direct palpation over the manubrium) Cardiovascular: Regular Rate, Rhythm, No Edema, No Murmur, Normal Peripheral Pulses Gastrointestinal: Normal Bowel Sounds, Non Tender, Soft Neurologic/Psychiatric: Alert, Oriented x3, No Motor/Sensory Deficits Skin: Normal Color, Warm/Dry Progress/Results/Core Measures Results/Orders Lab Results Laboratory Tests Test 06/08/18 11:35 06/08/18 13:35 Range/Units White Blood Count 12.9 H 4.3-11.0 10^3/uL Red Blood Count 4.40 4.35-5.85 10^6/uL Hemoglobin 13.4 11.5-16.0 G/DL Hematocrit 40 35-52 % Mean Corpuscular Volume 92 80-99 FL Mean Corpuscular Hemoglobin 30 25-34 PG Mean Corpuscular Hemoglobin Concent 33 32-36 G/DL Red Cell Distribution Width 14.2 10.0-14.5 % Platelet Count 299 130-400 10^3/uL Mean Platelet Volume 9.4 7.4-10.4 FL Neutrophils (%) (Auto) 68 42-75 % Lymphocytes (%) (Auto) 22 12-44 % Monocytes (%) (Auto) 10 0-12 % Eosinophils (%) (Auto) 0 0-10 % Basophils (%) (Auto) 0 0-10 % Neutrophils # (Auto) 8.8 H 1.8-7.8 X 10^3 Lymphocytes # (Auto) 2.8 1.0-4.0 X 10^3 Monocytes # (Auto) 1.3 H 0.0-1.0 X 10^3 Eosinophils # (Auto) 0.0 0.0-0.3 10^3/uL Basophils # (Auto) 0.0 0.0-0.1 10^3/uL Prothrombin Time 13.5 12.2-14.7 SEC INR Comment 1.0 0.8-1.4 Activated Partial Thromboplast Time 54 H 24-35 SEC Sodium Level 141 135-145 MMOL/L Potassium Level 3.5 L 3.6-5.0 MMOL/L Chloride Level 103 98-107 MMOL/L Carbon Dioxide Level 22 21-32 MMOL/L Anion Gap 16 H 5-14 MMOL/L Blood Urea Nitrogen 14 7-18 MG/DL Creatinine 0.80 0.60-1.30 MG/DL Estimat Glomerular Filtration Rate > 60 BUN/Creatinine Ratio 18 Glucose Level 98 70-105 MG/DL Calcium Level 9.6 8.5-10.1 MG/DL Corrected Calcium 9.4 8.5-10.1 MG/DL Magnesium Level 2.0 1.8-2.4 MG/DL Total Bilirubin 0.4 0.1-1.0 MG/DL Aspartate Amino Transf (AST/SGOT) 16 5-34 U/L Alanine Aminotransferase (ALT/SGPT) 17 0-55 U/L Alkaline Phosphatase 67 40-136 U/L Troponin T <= 6 < 6 <=10 NG/L Pro-B-Type Natriuretic Peptide 172.2 H <75.0 PG/ML Total Protein 7.1 6.4-8.2 GM/DL Albumin 4.3 3.2-4.5 GM/DL My Orders Orders - LANIE,KRUNAL J Cbc With Automated Diff (06/08/18 11:26) Magnesium (06/08/18 11:26) Chest 1 View Ap/Pa Only (06/08/18 11:26) Ekg Tracing (06/08/18 11:26) Comprehensive Metabolic Panel (06/08/18 11:26) Myoglobin Serum (06/08/18 11:26) Protime With Inr (06/08/18 11:26) Partial Thromboplastin Time (06/08/18 11:26) O2 (06/08/18 11:26) Monitor-Rhythm Ecg Trace Only (06/08/18 11:26) Lipid Panel (06/09/18 06:00) Aspirin Chewable Tablet (Baby Aspirin Ch (06/08/18 11:30) Saline Lock/Iv-Start (06/08/18 11:26) Troponin T (06/08/18 11:26) Probnp Fs (06/08/18 11:26) Lidocaine 2% Viscous 15 Ml (Xylocaine Vi (06/08/18 11:30) Famotidine Tablet (Pepcid Tablet) (06/08/18 11:26) Antacid Suspension (Mylanta Suspension (06/08/18 11:30) Troponin T (06/08/18 13:30) Medications Given in ED Current Medications Medications Dose Ordered Sig/Tacho Route Start Time Stop Time Status Last Admin Dose Admin Al Hydrox/Mg Hydrox/Simethicone 30 ml ONCE ONCE PO 06/08/18 11:30 06/08/18 11:31 DC 06/08/18 12:45 30 ML Aspirin 324 mg ONCE ONCE PO 06/08/18 11:30 06/08/18 11:31 DC 06/08/18 12:45 324 MG Lidocaine HCl 15 ml ONCE ONCE PO 06/08/18 11:30 06/08/18 11:31 DC 06/08/18 12:45 15 ML Progress Progress Note #1: Time: 11:39 Progress Note Her pain is only a 1 out of 10 so we plan to give her a GI cocktail instead of nitroglycerin and obtain a chest pain workup. Her report of negative previous angiograms is reassuring. Her chest pain is reproduced on direct palpation. Echocardiogram by Dr. Gaytan June 2017: EF of 60-65%. Normal cavity and wall thickness size. PAP 25 mmHg. ED ACS is 2 points. Low risk by the EDACS Score. If the patient also has: (1) EKG without new ischemic changes and (2) negative initial and 2-hour troponins, then this patient is safe for discharge to early outpatient follow-up investigation (or proceed to earlier inpatient testing). If EKG with ischemic changes or positive troponin, they are not low risk and require normal risk stratification. Progress Note #2: Time: 14:13 Progress Note The patient's pain had resolved before her GI cocktail was given but she's feeling much better and after a delta troponin being negative we are going to allow her to go home. Follow-up with cardiology. Initial ECG Impression Date: Jun 08, 2018 Initial ECG Impression Time: 11:17 Initial ECG Rate: 64 Initial ECG Rhythm: Normal Sinus Initial ECG Intervals: Normal Initial ECG Impression: Normal Initial ECG Comparisson: No Previous ECG Available Comment No ST elevation or depression. Diagnostic Imaging Diagonstic Imaging: Xray Plain Films/CT/US/NM/MRI: chest (1v) Comments No acute cardiopulmonary processes noted. Reviewed: Reviewed by Me Departure Impression Primary Impression: Chest wall pain Disposition: HOME, SELF-CARE Condition: Stable Departure-Patient Inst. Decision time for Depature: 14:15 Referrals: ANIL GAYTAN MD [facility] KEVYN GAMBLE APRN (PCP) Primary Care Physician Patient Instructions: Chest Pain That Is Not Caused by the Heart (DC) Add. Discharge Instructions: Call Dr. Gaytan, cardiology and ask his clinic for an appointment later this week or early next week. Return to the ER if you have significant chest pain that does not go away after a minute or 2. If you have chest pain go ahead and chew up and swallow 325 mg of aspirin. Copy Copies To 1: [facility] [place] Jun 08, 2018 11:36
[2018-06-08 11:51] LABS: HEMATOCRIT 40 % (35-52); HEMOGLOBIN 13.4 G/DL (11.5-16.0); MEAN CORPUSCULAR HEMOGLOBIN 30 PG (25-34); MEAN CORPUSCULAR VOLUME 92 FL (80-99); MEAN PLATELET VOLUME 9.4 FL (7.4-10.4); PLATELET COUNT 299 10^3/uL (130-400); RED CELL DISTRIBUTION WIDTH 14.2 % (10.0-14.5); WHITE BLOOD COUNT 12.9 10^3/uL (4.3-11.0)
[2018-06-08 11:52] LABS: BASOPHILS % (AUTO) 0 % (0-10); EOSINOPHILS % (AUTO) 0 % (0-10); LYMPHOCYTES # (AUTO) 2.8 X 10^3 (1.0-4.0); LYMPHOCYTES % (AUTO) 22 % (12-44); MEAN CORPUSCULAR HGB CONC 33 G/DL (32-36); MONOCYTES # (AUTO) 1.3 X 10^3 (0.0-1.0); MONOCYTES % (AUTO) 10 % (0-12); NEUTROPHILS # (AUTO) 8.8 X 10^3 (1.8-7.8); NEUTROPHILS % (AUTO) 68 % (42-75)
--- NOTE | 2018-06-08 12:03 | Diagnostic Imaging Report ---
Indication: Chest pain Portable chest 10:56 AM Left subclavian Port-A-Cath tip projects over the SVC. Heart size and pulmonary vascular normal. Lungs are clear. There are no effusions or pneumothoraces. Impression: Negative chest Dictated by: Dictated on workstation # [id number]
[2018-06-08 12:29] LABS: ALANINE AMINOTRANSFERASE 17 U/L (0-55); ALKALINE PHOSPHATASE 67 U/L (40-136); BILIRUBIN,TOTAL 0.4 MG/DL (0.1-1.0); BUN/CREATININE RATIO 18; CALCIUM 9.6 MG/DL (8.5-10.1); CARBON DIOXIDE 22 MMOL/L (21-32); CHLORIDE 103 MMOL/L (98-107); GFR ESTIMATED > 60; GLUCOSE 98 MG/DL (70-105); POTASSIUM 3.5 MMOL/L (3.6-5.0); SODIUM 141 MMOL/L (135-145)
[2018-06-08 12:30] LABS: ALBUMIN 4.3 GM/DL (3.2-4.5); TOTAL PROTEIN 7.1 GM/DL (6.4-8.2)
[2018-06-08 12:59] LABS: PROTHROMBIN TIME PATIENT 13.5 SEC (12.2-14.7)
[2018-06-08 14:35] VITALS: BP 117/68
[2018-06-08 15:06] LABS: MYOGLOBIN SERUM 36.9 NG/ML (10.0-92.0)
== END 2018-06-08 14:40 | disposition home or self-care (01) ==
LOC: EDUNIT# 11:12 → ER FS 11:14
DX: R07.89 Other chest pain (principal); Z88.6 Allergy status to analgesic agent; Z88.5 Allergy status to narcotic agent; Z87.891 Personal history of nicotine dependence
CPT/HCPCS: 36415; 71045; 80053; 83735; 83874; 83880; 84484; 85025; 85610; 85730; 93005; 93041

== ENCOUNTER 2018-06-21 10:23 | Outpatient (RCR) | payer MEDICAID ==
[2018-06-21 10:55] LABS: BASOPHILS % (AUTO) 1 % (0-10); EOSINOPHILS # (AUTO) 0.2 10^3/uL (0.0-0.3); EOSINOPHILS % (AUTO) 2 % (0-10); HEMATOCRIT 40 % (35-52); HEMOGLOBIN 13.3 G/DL (11.5-16.0); LYMPHOCYTES # (AUTO) 1.5 X 10^3 (1.0-4.0); LYMPHOCYTES % (AUTO) 23 % (12-44); MEAN CORPUSCULAR HEMOGLOBIN 30 PG (25-34); MEAN CORPUSCULAR HGB CONC 33 G/DL (32-36); MEAN CORPUSCULAR VOLUME 91 FL (80-99); MEAN PLATELET VOLUME 9.7 FL (7.4-10.4); MONOCYTES # (AUTO) 0.8 X 10^3 (0.0-1.0); MONOCYTES % (AUTO) 13 % (0-12); NEUTROPHILS % (AUTO) 62 % (42-75); PLATELET COUNT 258 10^3/uL (130-400); RED CELL DISTRIBUTION WIDTH 14.3 % (10.0-14.5); WHITE BLOOD COUNT 6.5 10^3/uL (4.3-11.0)
[2018-06-21 11:15] LABS: ALANINE AMINOTRANSFERASE 20 U/L (0-55); ALKALINE PHOSPHATASE 63 U/L (40-136); BILIRUBIN,TOTAL 0.6 MG/DL (0.1-1.0); BUN/CREATININE RATIO 21; CARBON DIOXIDE 24 MMOL/L (21-32); CHLORIDE 105 MMOL/L (98-107); GFR ESTIMATED > 60; GLUCOSE 114 MG/DL (70-105); POTASSIUM 4.1 MMOL/L (3.6-5.0); SODIUM 139 MMOL/L (135-145); TOTAL PROTEIN 6.7 GM/DL (6.4-8.2)
[2018-07-24] MEDS ORDERED: ROSU10TA27 (07:33)
[2018-07-24] MEDS ORDERED: DICL100G31 (07:33)
[2018-07-24] MEDS ORDERED: DULO30CA48 (07:33)
[2018-07-24] MEDS ORDERED: EXEM25TA4 (07:33)
[2018-07-24] MEDS ORDERED: ALBUTEROL (07:33)
[2018-07-24] MEDS ORDERED: TRAM50TA2 (07:33)
[2018-07-24] MEDS ORDERED: PROP20TA5 (07:33)
== END 2018-08-09 | disposition home or self-care (01) ==
LOC: ONC 10:23
PROVIDERS: ATTEND Internal Medicine Hematology & Oncology
DX: C50.511 Malignant neoplasm of lower-outer quadrant of right female breast (principal); C77.3 Secondary and unspecified malignant neoplasm of axilla and upper limb lymph nodes; Z17.0 Estrogen receptor positive status [ER+]; Z87.891 Personal history of nicotine dependence; Z79.811 Long term (current) use of aromatase inhibitors; Z79.899 Other long term (current) drug therapy; Z90.13 Acquired absence of bilateral breasts and nipples; Z45.2 Encounter for adjustment and management of vascular access device
CPT/HCPCS: 36591; 80053; 85025; 96523

== ENCOUNTER → 2018-07-20 | Outpatient (CLI) | payer MEDICAID ==
--- NOTE | 2018-07-20 14:37 | Diagnostic Imaging Report ---
INDICATION: Epigastric pain. COMPARISON: 10/07/2017. FINDINGS: Supine and upright views the abdomen demonstrate nonobstructive small bowel gas pattern. Moderate amount of air and stool are seen scattered throughout the ascending and transverse colon. No abnormal air-fluid levels or large collection of free intraperitoneal air is seen. No abnormal extraosseous calcifications or radiopaque foreign bodies are identified. Bony structures are age-appropriate. IMPRESSION: 1. Nonobstructive small bowel gas pattern. 2. Moderate colonic air and stool. Please correlate for constipation. Dictated by: Dictated on workstation # [id number]
== END ==
LOC: RAD FS 13:58
PROVIDERS: ATTEND Nurse Practitioner Family
DX: R10.13 Epigastric pain (principal)
CPT/HCPCS: 74019

== ENCOUNTER 2018-07-24 06:56 | Emergency (ER) | payer MEDICAID ==
[~2018-07-24] VITALS: Ht 160 cm; Wt 78.5 kg
--- OUTSIDE RECORDS SUMMARY | 2018-07-24 07:03 | XMS REPORT | Continuity of Care Document ---
Author Organization Unknown Address Unknown Allergies There is no data. Medications There is no data. Problems There is no data. Procedures There is no data. Results There is no data. Encounters ACCT No. Visit Date/Time Discharge Status Pt. Type Provider Facility Loc./Unit Complaint [id number] 07/14/2018 10:40:00 07/14/2018 23:59:59 CLS Outpatient KEVYN GAMBLE [facility]
[2018-07-24] MEDS ORDERED: BISACODYL 10 MG SUPP (DULCOLAX) ONE (07:05)
[2018-07-24] MEDS ORDERED: NS IV 1000 ML 1,000 ML IV ONE (07:15)
[2018-07-24] MEDS ORDERED: ONDANSETRON 4 MG (ZOFRAN) ORAL DISSOLVE TAB ONE (07:20)
[2018-07-24] MEDS ORDERED: ONDANSETRON 4 MG (ZOFRAN) ORAL DISSOLVE TAB SL STA (07:21)
--- NOTE | 2018-07-24 07:21 | ED Abdominal Pain ---
General Stated Complaint: PROBLEMS GOING TO BATHROOM Source of Information: Patient Exam Limitations: No Limitations History of Present Illness Date Seen by Provider: July 24, 2018 Time Seen by Provider: 07:04 Initial Comments Here with report of constipation and difficulty with stooling for the last 11 days. She had x-ray on 07/20/18 that showed constipation. She has tried over-the- counter therapy including magnesium citrate, Metamucil and stool softeners as well as fleets suppositories. She states she only gets just a little bit of stool that has fairly significant cramping but no significant results. She states that she feels bloated and not well. Does have history of breast cancer with mastectomy bilaterally. She takes oral chemotherapy and states that the cancer has been clear. Timing/Duration: Changing Over Time, Getting Worse, Other (11 days) Severity/Quality: Moderate, Cramping Location: Generalized Abdomen Radiation: No Radiation Activities at Onset: None Modifying Factors: Improves With Defecating Associated Symptoms: No Back Pain, No Chest Pain, No Fever/Chills; Nausea/ Vomiting, Swelling/Mass in Abdomen; No Weakness Allergies and Home Medications Allergies Coded Allergies: acetaminophen (Verified Allergy, Unknown, 04/05/17) oxycodone (Verified Allergy, Unknown, 04/05/17) Patient Home Medication List Home Medication List Reviewed: Yes Review of Systems Review of Systems Constitutional: see HPI; No chills, No fever EENTM: No Symptoms Reported Respiratory: No Symptoms Reported Cardiovascular: No Symptoms Reported Gastrointestinal: See HPI, Abdomen Distended, Abdominal Pain, Constipated, Nausea; Denies Rectal Bleeding; Vomiting Genitourinary: No Symptoms Reported Musculoskeletal: no symptoms reported Skin: no symptoms reported Psychiatric/Neurological: No Symptoms Reported All Other Systems Reviewed Negative Unless Noted: Yes Past Muiqvcs-Fyntig-Jmekie Hx Past Med/Social Hx: Reviewed Nursing Past Med/Soc Hx Patient Social History Alcohol Use: Denies Use Type Used: Cigarettes 2nd Hand Smoke Exposure: No Recent Foreign Travel: No Contact w/Someone Who Travel: No Recent Hopitalizations: No Seasonal Allergies Seasonal Allergies: No Past Medical History Surgeries: Yes (mastectomy) Breast Respiratory: No Cardiac: Yes (heart cath x 2) High Cholesterol Neurological: No Genitourinary: No Gastrointestinal: No Musculoskeletal: No Endocrine: No HEENT: No Cancer: Yes (in remission as of 06/08/18) Breast Did You Recieve Any Treatments: Yes What Type of Treatment Did You: Chemotherapy, Surgical Intervention Psychosocial: No Blood Disorders: No Family Medical History Reviewed Nursing Family Hx Physical Exam Vital Signs Vital Signs - First Documented 07/24/18 07:05 Temp 97.9 Pulse 71 Resp 16 B/P (MAP) 129/102 (111) Pulse Ox 97 Capillary Refill : Height/Weight/BMI Height: 5'4.00" Weight: 150lbs. oz. 68.174966hg; BMI Method:Estimated General Appearance: WD/WN, no apparent distress Respiratory: lungs clear, normal breath sounds Cardiovascular: regular rate, rhythm, no murmur Gastrointestinal: non tender, soft, abnormal bowel sounds (hypoactive) Extremities: non-tender, normal inspection Back: normal inspection, no CVA tenderness, no vertebral tenderness Neurologic/Psychiatric: alert, oriented x 3 Skin: normal color, warm/dry Progress/Results/Core Measures Results/Orders Lab Results Laboratory Tests Test 07/24/18 07:37 07/24/18 08:05 Range/Units White Blood Count 8.9 4.3-11.0 10^3/uL Red Blood Count 4.66 4.35-5.85 10^6/uL Hemoglobin 13.9 11.5-16.0 G/DL Hematocrit 41 35-52 % Mean Corpuscular Volume 89 80-99 FL Mean Corpuscular Hemoglobin 30 25-34 PG Mean Corpuscular Hemoglobin Concent 34 32-36 G/DL Red Cell Distribution Width 14.7 H 10.0-14.5 % Platelet Count 315 130-400 10^3/uL Mean Platelet Volume 9.6 7.4-10.4 FL Neutrophils (%) (Auto) 60 42-75 % Lymphocytes (%) (Auto) 26 12-44 % Monocytes (%) (Auto) 12 0-12 % Eosinophils (%) (Auto) 2 0-10 % Basophils (%) (Auto) 1 0-10 % Neutrophils # (Auto) 5.3 1.8-7.8 X 10^3 Lymphocytes # (Auto) 2.3 1.0-4.0 X 10^3 Monocytes # (Auto) 1.1 H 0.0-1.0 X 10^3 Eosinophils # (Auto) 0.2 0.0-0.3 10^3/uL Basophils # (Auto) 0.1 0.0-0.1 10^3/uL Sodium Level 139 135-145 MMOL/L Potassium Level 3.7 3.6-5.0 MMOL/L Chloride Level 106 98-107 MMOL/L Carbon Dioxide Level 23 21-32 MMOL/L Anion Gap 10 5-14 MMOL/L Blood Urea Nitrogen 14 7-18 MG/DL Creatinine 1.01 0.60-1.30 MG/DL Estimat Glomerular Filtration Rate 56 BUN/Creatinine Ratio 14 Glucose Level 94 70-105 MG/DL Calcium Level 10.1 8.5-10.1 MG/DL Corrected Calcium 9.8 8.5-10.1 MG/DL Magnesium Level 2.1 1.8-2.4 MG/DL Total Bilirubin 0.6 0.1-1.0 MG/DL Aspartate Amino Transf (AST/SGOT) 19 5-34 U/L Alanine Aminotransferase (ALT/SGPT) 22 0-55 U/L Alkaline Phosphatase 70 40-136 U/L Total Protein 7.1 6.4-8.2 GM/DL Albumin 4.4 3.2-4.5 GM/DL Urine Color YELLOW Urine Clarity CLEAR Urine pH 8 5-9 Urine Specific [place] 1.010 L 1.016-1.022 Urine Protein NEGATIVE NEGATIVE Urine Glucose (UA) NEGATIVE NEGATIVE Urine Ketones NEGATIVE NEGATIVE Urine Nitrite NEGATIVE NEGATIVE Urine Bilirubin NEGATIVE NEGATIVE Urine Urobilinogen NORMAL NORMAL MG/DL Urine Leukocyte Esterase NEGATIVE NEGATIVE Urine RBC (Auto) NEGATIVE NEGATIVE Urine RBC NONE /HPF Urine WBC NONE /HPF Urine Squamous Epithelial Cells RARE /HPF Urine Crystals NONE /LPF Urine Bacteria NEGATIVE /HPF Urine Casts NONE /LPF Urine Mucus NEGATIVE /LPF Urine Culture Indicated NO My Orders Orders - DIONNA PAGE MD Bisacodyl Suppository (Dulcolax Supposit (07/24/18 07:05) Cbc With Automated Diff (07/24/18 07:15) Comprehensive Metabolic Panel (07/24/18 07:15) Magnesium (07/24/18 07:15) Ua Culture If Indicated (07/24/18 07:15) Ed Iv/Invasive Line Start (07/24/18 07:15) Ns Iv 1000 Ml (Sodium Chloride 0.9%) (07/24/18 07:15) Ondansetron Oral Dissolve Tab (Zofran (07/24/18 07:21) Ondansetron Oral Dissolve Tab (Zofran (07/24/18 07:20) Ct Abdomen/Pelvis W (07/24/18 08:44) Ondansetron Injection (Zofran Injectio (07/24/18 09:31) Iohexol Injection (Omnipaque 350 Mg/Ml 1 (07/24/18 10:00) Received Contrast (Hold Metformin- Contr (07/24/18 10:00) Medications Given in ED Current Medications Medications Dose Ordered Sig/Tacho Route Start Time Stop Time Status Last Admin Dose Admin Bisacodyl 10 mg STK-MED ONCE .ROUTE 07/24/18 07:05 07/24/18 07:10 DC 07/24/18 07:15 10 MG Iohexol 100 ml ONCE ONCE IV 07/24/18 10:00 07/24/18 10:01 DC 07/24/18 09:52 100 ML Ondansetron HCl 4 mg STK-MED ONCE .ROUTE 07/24/18 09:31 07/24/18 09:34 DC 07/24/18 09:35 4 MG Sodium Chloride 1,000 ml @ 0 mls/hr Q0M ONCE IV 07/24/18 07:15 07/24/18 07:19 DC 07/24/18 07:39 1,000 MLS/HR Vital Signs/I&O 07/24/18 07:05 Temp 97.9 Pulse 71 Resp 16 B/P (MAP) 129/102 (111) Pulse Ox 97 Progress Progress Note : Progress Note Seen and evaluated. IV via port access, labs, normal saline 1 L bolus, Zofran 4 mg by mouth pending access for the nausea and vomiting. Rectal exam performed and Dulcolax suppository 10 mg dose 2 placed. No obvious mass on rectal exam. Hemoccult negative. Anticipate CT scan. Patient did have moderate stool but still has pain. Given her history of cancer we will get CT abdomen and pelvis. 1055: CT complete. No significant findings. There does seem to be a fair amount of stool in the ascending and transverse colon. This was discussed with the patient. We will stop the smgk-zey-nelpnex laxatives and continue only with MiraLAX and clear diet. Patient verbalize understanding. Discharged home with return precautions. Patient verbalize understanding instructions and agreement with plan. Diagnostic Imaging Diagonstic Imaging: CT Plain Films/CT/US/NM/MRI: abdomen, pelvis Comments [facility]. [place], [place] NAME: CHRISTIE CHILDERS [facility] REC#: [id number] PT STATUS: REG ER : 1960 PHYSICIAN: DIONNA PAGE MD ADMIT DATE: 07/24/18/ER Draft Date of Exam:07/24/18 CT ABDOMEN/PELVIS W PROCEDURE: CT abdomen and pelvis with contrast. TECHNIQUE: Multiple contiguous axial images were obtained through the abdomen and pelvis after administration of intravenous contrast. Auto Exposure Controls were utilized during the CT exam to meet ALARA standards for radiation dose reduction. INDICATION: Abdominal pain. COMPARISON: Abdominal radiograph 07/20/2018. CT chest, abdomen and pelvis 04/06/2017. FINDINGS: Calcified granuloma in the left lung base. Mild scarring in the lung bases. Cholecystectomy. The liver, pancreas, spleen, adrenals, kidneys, collecting systems and partially opacified bladder are negative. Hysterectomy. Reported appendectomy. No free intraperitoneal air or fluid. No lymphadenopathy. No evidence of bowel obstruction. Mild atherosclerotic calcifications including a normal caliber abdominal aorta. No acute osseous findings. IMPRESSION: No acute CT findings in the abdomen or pelvis. Chronic and incidental findings as above. Dictated on workstation # [id number] Dict: 07/24/18 1007 Trans: 07/24/18 1040 [place] [id number] Interpreted by: NANCY BRUNO MD Electronically signed by: Departure Impression Primary Impression: Diffuse abdominal pain Additional Impression: Constipation Qualified Codes: K59.00 - Constipation, unspecified Disposition: HOME, SELF-CARE Condition: Improved Departure-Patient Inst. Decision time for Depature: 10:57 Referrals: KEVYN GAMBLE [employer] (PCP/Family) Primary Care Physician Patient Instructions: Acute Abdomen (Belly Pain), Adult (DC), Constipation in Adults Add. Discharge Instructions: You may use MiraLAX or the generic, one capful twice daily for the next 3 days and then one capful daily thereafter to keep stools soft. Do not use laxatives or other stool producing medications for a few days. Clear liquid or light diet for the next few days and then advance as tolerated. Follow-up with your doctor this week for recheck and further evaluation. Return for worse pain, swelling, weakness, breathing problems, blood in your stool, vomiting or other concerns as needed. DIONNA PAGE MD July 24, 2018 07:21
[2018-07-24] MEDS ORDERED: ALBUTEROL (07:33)
[2018-07-24] MEDS ORDERED: DICL100G31 (07:33)
[2018-07-24] MEDS ORDERED: TRAM50TA2 (07:33)
[2018-07-24] MEDS ORDERED: ROSU10TA27 (07:33)
[2018-07-24] MEDS ORDERED: DULO30CA48 (07:33)
[2018-07-24] MEDS ORDERED: EXEM25TA4 (07:33)
[2018-07-24] MEDS ORDERED: PROP20TA5 (07:33)
[2018-07-24 07:46] LABS: BASOPHILS # (AUTO) 0.1 10^3/uL (0.0-0.1); BASOPHILS % (AUTO) 1 % (0-10); EOSINOPHILS # (AUTO) 0.2 10^3/uL (0.0-0.3); EOSINOPHILS % (AUTO) 2 % (0-10); HEMATOCRIT 41 % (35-52); HEMOGLOBIN 13.9 G/DL (11.5-16.0); LYMPHOCYTES # (AUTO) 2.3 X 10^3 (1.0-4.0); LYMPHOCYTES % (AUTO) 26 % (12-44); MEAN CORPUSCULAR HEMOGLOBIN 30 PG (25-34); MEAN CORPUSCULAR HGB CONC 34 G/DL (32-36); MEAN CORPUSCULAR VOLUME 89 FL (80-99); MEAN PLATELET VOLUME 9.6 FL (7.4-10.4); MONOCYTES # (AUTO) 1.1 X 10^3 (0.0-1.0); MONOCYTES % (AUTO) 12 % (0-12); NEUTROPHILS # (AUTO) 5.3 X 10^3 (1.8-7.8); NEUTROPHILS % (AUTO) 60 % (42-75); PLATELET COUNT 315 10^3/uL (130-400); RED CELL DISTRIBUTION WIDTH 14.7 % (10.0-14.5); WHITE BLOOD COUNT 8.9 10^3/uL (4.3-11.0)
[2018-07-24 08:04] LABS: ALBUMIN 4.4 GM/DL (3.2-4.5); BILIRUBIN,TOTAL 0.6 MG/DL (0.1-1.0); CALCIUM 10.1 MG/DL (8.5-10.1); CREATININE SERUM 1.01 MG/DL (0.60-1.30); MAGNESIUM 2.1 MG/DL (1.8-2.4); POTASSIUM 3.7 MMOL/L (3.6-5.0); TOTAL PROTEIN 7.1 GM/DL (6.4-8.2)
[2018-07-24 08:11] LABS: BILIRUBIN,URINE NEGATIVE (NEGATIVE); CLARITY,URINE CLEAR; COLOR,URINE YELLOW; GLUCOSE, URINE (UA) NEGATIVE (NEGATIVE); KETONES,URINE NEGATIVE (NEGATIVE); LEUKOCYTE ESTERASE ,URINE NEGATIVE (NEGATIVE); NITRITE,URINE NEGATIVE (NEGATIVE); PH,URINE 8 (5-9); PROTEIN,URINE NEGATIVE (NEGATIVE); UROBILINOGEN,URINE NORMAL (NORMAL)
[2018-07-24 08:18] LABS: BACTERIA,URINE NEGATIVE /HPF; SQUAMOUS EPITHELIAL CELL,UR RARE /HPF
--- NOTE | 2018-07-24 09:15 | NUR ---
PT HAD BM SMALL BM
[2018-07-24] MEDS ORDERED: ONDANSETRON 4 MG/2 ML (SDV) Z0FRAN ONE (09:31)
[2018-07-24] MEDS ORDERED: IOHEXOL 350 MG/ML 100 ML (OMNIPAQUE 350) VIAL IV ONE (10:00)
[2018-07-24] MEDS ORDERED: HOLD METFORMIN - RECEIVED CONTRAST 20 ML VIAL IV SCH (10:00)
--- NOTE | 2018-07-24 10:40 | Diagnostic Imaging Report ---
PROCEDURE: CT abdomen and pelvis with contrast. TECHNIQUE: Multiple contiguous axial images were obtained through the abdomen and pelvis after administration of intravenous contrast. Auto Exposure Controls were utilized during the CT exam to meet ALARA standards for radiation dose reduction. INDICATION: Abdominal pain. COMPARISON: Abdominal radiograph 07/20/2018. CT chest, abdomen and pelvis 04/06/2017. FINDINGS: Calcified granuloma in the left lung base. Mild scarring in the lung bases. Cholecystectomy. The liver, pancreas, spleen, adrenals, kidneys, collecting systems and partially opacified bladder are negative. Hysterectomy. Reported appendectomy. No free intraperitoneal air or fluid. No lymphadenopathy. No evidence of bowel obstruction. Mild atherosclerotic calcifications including a normal caliber abdominal aorta. No acute osseous findings. IMPRESSION: No acute CT findings in the abdomen or pelvis. Chronic and incidental findings as above. Dictated by: Dictated on workstation # [id number]
[2018-07-24 11:15] VITALS: BP 129/102
== END 2018-07-24 11:17 | disposition home or self-care (01) ==
LOC: EDUNIT# 06:56 → ER 06:58
DX: K59.00 Constipation, unspecified (principal); E78.00 Pure hypercholesterolemia, unspecified; Z95.9 Presence of cardiac and vascular implant and graft, unspecified; Z85.3 Personal history of malignant neoplasm of breast; Z90.13 Acquired absence of bilateral breasts and nipples; Z88.8 Allergy status to other drugs, medicaments and biological substances; Z88.5 Allergy status to narcotic agent; Z92.21 Personal history of antineoplastic chemotherapy
CPT/HCPCS: 36415; 74177; 80053; 81000; 83735; 85025; 96361; 96374

== ENCOUNTER 2018-11-03 10:10 | Outpatient (RCR) | payer MEDICAID ==
[~2018-11-03 10:10] MED LIST changes: +ALBUTEROL; +DICL100G31; +DULO30CA49; +EXEM25TA4; -NS IV 500 ML (CANCER CENTER) IV SCH; -NS IV SCH; +PROP20TA5; +ROSU10TA28; +TRAM50TA2; -TRASTUZUMAB IV SCH
[2018-11-10] MEDS ORDERED: DOCU-143 PO (12:30)
[2018-11-10] MEDS ORDERED: MECL-124 PO (12:30)
== END 2018-12-07 10:09 | disposition home or self-care (01) ==
PROVIDERS: ATTEND Internal Medicine
DX: M54.5 Low back pain (principal)

== ENCOUNTER 2018-11-10 09:47 | Emergency (ER) | payer MEDICAID ==
[~2018-11-10] VITALS: Ht 160 cm; Wt 78.5 kg
[2018-11-10] MEDS ORDERED: morphine INJ 10 MG/ML 1ML (SYR OR VIAL) IVP STA (10:01)
[2018-11-10] MEDS ORDERED: ONDANSETRON 4 MG/2 ML (SDV) Z0FRAN IVP ONE (10:15)
[2018-11-10] MEDS ORDERED: IOHEXOL 350 MG/ML 100 ML (OMNIPAQUE 350) VIAL IV ONE (10:15)
[2018-11-10] MEDS ORDERED: HOLD METFORMIN - RECEIVED CONTRAST 20 ML VIAL IV SCH (10:15)
[2018-11-10] MEDS ORDERED: DIAZEPAM INJ 10 MG/2 ML (VALIUM) SYR IVP PRN (10:15)
[2018-11-10] MEDS ORDERED: NS 100 ML (IVPB) BAG IV ONE (10:15)
[2018-11-10] MEDS ORDERED: CATHETER FLUSH 10 ML SYR IV PRN (10:15)
--- NOTE | 2018-11-10 10:21 | ED Abdominal Pain ---
General Chief Complaint: Abdominal/GI Problems Stated Complaint: DISTENDED ABD; DIZZINESS Nursing Triage Note: Patient c/o abdominal pain, bloating, dizziness, and headache. States that her abdominal pain and bloating has been going on four the past 4 days. Reports that when she stands her abdomen becomes distended, hard, and feels as though its going to explode. She states that she felt this way in the past when she had a growth on her colon the size of an egg that she had to have removed. She also reports that her headache and dizziness started 2 days ago. She was seen at urgent care earlier this week and they told her that her liver enzymes are elevated. Sepsis Screen: No Definite Risk History of Present Illness Date Seen by Provider: Nov 10, 2018 Time Seen by Provider: 09:50 Initial Comments The patient is a very pleasant 58-year-old female who presents for evaluation of abdominal pain and bloating, dizziness, and headache. She reports that the abdom inal pain and distention has been present for the last 4 days. She says that when she lays flat it seems that her abdomen is soft when she stands up it seems to feel more firm. She states that she went to an urgent care last week and was told that her liver enzymes were elevated. She says she had a similar abdominal discomfort and distention when she was told that she had a growth on her colon which she had to have removed. She is also complaining of a headache and some dizziness/vertigo. This is been bothering her since yesterday. She is alert and oriented 4, calm, appears uncomfortable, but is in no distress at this time. She denies fevers or chills, neck pain or neck stiffness, vision changes, focal weakness or focal numbness, back or flank pain, chest pain or shortness of breath, rectal bleeding, hematemesis, urinary complaints, vaginal bleeding or discharge, palpitations, or syncope. Allergies and Home Medications Allergies Coded Allergies: acetaminophen (Verified Allergy, Unknown, 04/05/17) oxycodone (Verified Allergy, Unknown, 04/05/17) Patient Home Medication List Home Medication List Reviewed: Yes Review of Systems Review of Systems Constitutional: dizziness EENTM: No Symptoms Reported Respiratory: No Symptoms Reported Cardiovascular: No Symptoms Reported Gastrointestinal: Abdomen Distended, Abdominal Pain, Constipated Genitourinary: No Symptoms Reported Musculoskeletal: no symptoms reported Skin: no symptoms reported Psychiatric/Neurological: No Symptoms Reported Endocrine: No Symptoms Reported Hematologic/Lymphatic: No Symptoms Reported All Other Systems Reviewed Negative Unless Noted: Yes Past Nedypug-Uczgrc-Wdyiim Hx Past Med/Social Hx: Reviewed Nursing Past Med/Soc Hx Patient Social History Type Used: Cigarettes 2nd Hand Smoke Exposure: No Recent Foreign Travel: No Contact w/Someone Who Travel: No Recent Infectious Disease Expo: No Recent Hopitalizations: No Physical Abuse: No Sexual Abuse: No Mistreated: No Fear: No Seasonal Allergies Seasonal Allergies: No Past Medical History Surgeries: Yes (mastectomy) Breast Respiratory: No Cardiac: Yes (heart cath x 2) High Cholesterol Neurological: No [employer]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 oz. 78.795538oc; BMI Method:Stated General Appearance: WD/WN, no apparent distress HEENT: PERRL/EOMI, normal ENT inspection Neck: non-tender, full range of motion, supple, normal inspection Respiratory: chest non-tender, lungs clear, normal breath sounds, no respiratory distress Cardiovascular: regular rate, rhythm, no edema, no JVD Gastrointestinal: normal bowel sounds, soft, no organomegaly, no pulsatile mass, other (idkw-vl-dgodfttt distention, mild generalized tenderness, no focal tenderness) Extremities: non-tender, no pedal edema, no calf tenderness Back: normal inspection, no CVA tenderness, no vertebral tenderness 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, no motor/sensory deficits, alert, normal mood/affect, oriented x 3 Skin: normal color, warm/dry Progress/Results/Core Measures Results/Orders Lab Results Laboratory Tests Test 11/10/18 09:50 11/10/18 10:00 Range/Units Urine Color YELLOW Urine Clarity CLEAR Urine pH 7.0 5-9 Urine Specific [place] <=1.005 1.016-1.022 Urine Protein NEGATIVE NEGATIVE Urine Glucose (UA) NEGATIVE NEGATIVE Urine Ketones NEGATIVE NEGATIVE Urine Nitrite NEGATIVE NEGATIVE Urine Bilirubin NEGATIVE NEGATIVE Urine Urobilinogen 0.2 NORMAL MG/DL Urine Leukocyte Esterase NEGATIVE NEGATIVE Urine RBC (Auto) NEGATIVE NEGATIVE Urine RBC NONE /HPF Urine WBC RARE /HPF Urine Squamous Epithelial Cells RARE /HPF Urine Crystals NONE /LPF Urine Bacteria NEGATIVE /HPF Urine Casts NONE /LPF Urine Mucus NEGATIVE /LPF Urine Culture Indicated NO White Blood Count 6.7 4.3-11.0 10^3/uL Red Blood Count 4.36 4.35-5.85 10^6/uL Hemoglobin 13.8 11.5-16.0 G/DL Hematocrit 41 35-52 % Mean Corpuscular Volume 95 80-99 FL Mean Corpuscular Hemoglobin 32 25-34 PG Mean Corpuscular Hemoglobin Concent 33 32-36 G/DL Red Cell Distribution Width 14.8 H 10.0-14.5 % Platelet Count 261 130-400 10^3/uL Mean Platelet Volume 9.6 7.4-10.4 FL Neutrophils (%) (Auto) 58 42-75 % Lymphocytes (%) (Auto) 27 12-44 % Monocytes (%) (Auto) 11 0-12 % Eosinophils (%) (Auto) 3 0-10 % Basophils (%) (Auto) 1 0-10 % Neutrophils # (Auto) 3.9 1.8-7.8 X 10^3 Lymphocytes # (Auto) 1.8 1.0-4.0 X 10^3 Monocytes # (Auto) 0.8 0.0-1.0 X 10^3 Eosinophils # (Auto) 0.2 0.0-0.3 10^3/uL Basophils # (Auto) 0.1 0.0-0.1 10^3/uL Sodium Level 142 135-145 MMOL/L Potassium Level 3.5 L 3.6-5.0 MMOL/L Chloride Level 100 98-107 MMOL/L Carbon Dioxide Level 27 21-32 MMOL/L Anion Gap 15 H 5-14 MMOL/L Blood Urea Nitrogen 18 7-18 MG/DL Creatinine 1.03 0.60-1.30 MG/DL Estimat Glomerular Filtration Rate 55 BUN/Creatinine Ratio 17 Glucose Level 90 70-105 MG/DL Calcium Level 9.5 8.5-10.1 MG/DL Corrected Calcium 9.3 8.5-10.1 MG/DL Total Bilirubin 0.3 0.1-1.0 MG/DL Aspartate Amino Transf (AST/SGOT) 20 5-34 U/L Alanine Aminotransferase (ALT/SGPT) 29 0-55 U/L Alkaline Phosphatase 73 40-136 U/L Troponin I < 0.30 <0.30 NG/ML Total Protein 6.7 6.4-8.2 GM/DL Albumin 4.3 3.2-4.5 GM/DL Amylase Level 77 25-125 U/L Lipase 50 8-78 U/L Smear Scan My Orders Orders - TOSHA GUY DO Comprehensive Metabolic Panel (11/10/18 10:01) Lipase (11/10/18 10:01) Amylase (11/10/18 10:01) Ua Culture If Indicated (11/10/18 10:01) Ed Iv/Invasive Line Start (11/10/18 10:01) Cbc With Automated Diff (11/10/18 10:01) Ct Abdomen/Pelvis W (11/10/18 10:01) Ct Head Wo (11/10/18 10:01) Ondansetron Injection (Zofran Injectio (11/10/18 10:15) Morphine Injection (Morphine Injection (11/10/18 10:01) Meclizine Tablet (Antivert Tablet) (11/10/18 10:30) Iohexol Injection (Omnipaque 350 Mg/Ml 1 (11/10/18 10:15) Received Contrast (Hold Metformin- Contr (11/10/18 10:15) Sodium Chloride Flush (Catheter Flush Sy (11/10/18 10:15) Ns (Ivpb) (Sodium Chloride 0.9% Ivpb Bag (11/10/18 10:15) Fentanyl Injection (Sublimaze Injection (11/10/18 10:30) Fentanyl Injection (Sublimaze Injection (11/10/18 10:22) Troponin I (11/10/18 10:38) Ekg Tracing (11/10/18 10:38) Creatine Kinase Mb (11/10/18 10:00) Medications Given in ED Current Medications Medications Dose Ordered Sig/Tacho Route Start Time Stop Time Status Last Admin Dose Admin Fentanyl Citrate 50 mcg ONCE ONCE IVP 11/10/18 10:30 11/10/18 10:31 DC 11/10/18 10:34 50 MCG Iohexol 100 ml ONCE ONCE IV 11/10/18 10:15 11/10/18 10:24 DC 11/10/18 11:29 100 ML Meclizine HCl 25 mg ONCE ONCE PO 11/10/18 10:30 11/10/18 10:31 DC 11/10/18 10:35 25 MG Ondansetron HCl 4 mg ONCE ONCE IVP 11/10/18 10:15 11/10/18 10:16 DC 11/10/18 10:10 4 MG Sodium Chloride 10 ml NEEDED PRN IV 11/10/18 10:15 11/10/18 11:30 10 ML Sodium Chloride 100 ml ONCE ONCE IV 11/10/18 10:15 11/10/18 10:24 DC 11/10/18 11:29 80 ML Vital Signs/I&O 11/10/18 09:55 Temp 97.9 Pulse 70 Resp 18 B/P (MAP) 121/66 (84) Pulse Ox 100 O2 Delivery Room Air Blood Pressure Mean: 84 Progress Progress Note : Progress Note @1222 - Patient on lab and imaging results which are essentially unremarkable. Workup today fails to reveal any emergent pathology. The patient states she is feeling better and has no complaints. Advised patient to follow up with her PCP in the next 24 hours and to return to the emergency Department immediately for new or worsening symptoms. She expresses verbal understanding and agreement with the plan and is stable for discharge. EKG : Comment @1120 - Normal sinus rhythm, rate of 63, normal axis, no acute ischemic findings noted, no STEMI, reviewed and interpreted by myself Diagnostic Imaging Comments [facility]. [place], [place] NAME: CHRISTIE CHILDERS [facility] REC#: [id number] PT STATUS: REG ER : 1960 PHYSICIAN: TOSHA GUY DO ADMIT DATE: 11/10/18/ER FS Draft Date of Exam:11/10/18 CT HEAD WO Clinical indication: Patient has been very dizzy. Exam: Axial CT scan of the brain performed without IV contrast. Comparison: None. Findings: There is no evidence of acute cerebral infarct, intracranial hemorrhage, or gross mass effect. The brain parenchymal volume appears appropriate for patient's age. There are a few very subtle focal low-attenuation white matter changes involving both cerebral hemispheres, likely related to minimal chronic small vessel ischemic changes. There is normal aly-white matter distinction. There is no significant midline shift or herniation. There is no evidence of hydrocephalus. The basal cisterns are unremarkable. The skull, extracranial soft tissue, and orbits are unremarkable. The paranasal sinuses are unremarkable. There is hypo-aeration of the left mastoid process with sclerosis. Impression: 1: Unremarkable CT scan of the brain for age. 2: Suspected chronic left mastoid bone changes. Dictated on workstation # [id number] Dict: 11/10/18 1124 Trans: 11/10/18 1131 [facility] [id number] Interpreted by: KIM ARMSTRONG MD Electronically signed by: Departure Impression Primary Impression: Abdominal pain Additional Impression: Abdominal distension Disposition: 01 HOME, SELF-CARE Condition: Stable Departure-Patient Inst. Decision time for Depature: 12:30 Referrals: [facility]/ (PCP) Primary Care Physician KEVYN GAMBLE APRN (Family) Primary Care Physician Patient Instructions: Acute Abdomen (Belly Pain) Add. Discharge Instructions: Follow-up with your doctor in the next 24 hours. Return to the emergency De partment immediately for new or worsening symptoms. Take the prescribed medications as directed. Scripts Meclizine HCl (Meclizine HCl) 25 Mg Tab.chew 25 MG PO Q6H PRN for DIZZINESS, #20 TAB Prov: TOSHA GUY DO 11/10/18 Docusate Sodium (Colace) 100 Mg Capsule 100 MG PO TID PRN for CONSTIPATION-1ST LINE for 20 Days, CAP Prov: TOSHA GUY DO 11/10/18 TOSHA GUY DO Nov 10, 2018 10:21
[2018-11-10] MEDS ORDERED: fentaNYL INJECTION 100 MCG/2 ML AMP ONE (10:22)
[2018-11-10] MEDS ORDERED: fentaNYL INJECTION 100 MCG/2 ML AMP IVP ONE (10:30)
[2018-11-10] MEDS ORDERED: MECLIZINE 25 MG (ANTIVERT) TAB PO ONE (10:30)
[2018-11-10 10:37] LABS: BACTERIA,URINE NEGATIVE /HPF; BILIRUBIN,URINE NEGATIVE (NEGATIVE); CLARITY,URINE CLEAR; COLOR,URINE YELLOW; GLUCOSE, URINE (UA) NEGATIVE (NEGATIVE); KETONES,URINE NEGATIVE (NEGATIVE); LEUKOCYTE ESTERASE ,URINE NEGATIVE (NEGATIVE); NITRITE,URINE NEGATIVE (NEGATIVE); PROTEIN,URINE NEGATIVE (NEGATIVE); UROBILINOGEN,URINE 0.2 MG/DL (NORMAL); WBC,URINE RARE /HPF
[2018-11-10 10:38] LABS: HEMATOCRIT 41 % (35-52); HEMOGLOBIN 13.8 G/DL (11.5-16.0); MEAN CORPUSCULAR HEMOGLOBIN 32 PG (25-34); MEAN CORPUSCULAR VOLUME 95 FL (80-99); WHITE BLOOD COUNT 6.7 10^3/uL (4.3-11.0)
[2018-11-10 10:38] LABS: SQUAMOUS EPITHELIAL CELL,UR RARE /HPF
[2018-11-10 10:39] LABS: BASOPHILS # (AUTO) 0.1 10^3/uL (0.0-0.1); BASOPHILS % (AUTO) 1 % (0-10); EOSINOPHILS # (AUTO) 0.2 10^3/uL (0.0-0.3); EOSINOPHILS % (AUTO) 3 % (0-10); LYMPHOCYTES # (AUTO) 1.8 X 10^3 (1.0-4.0); LYMPHOCYTES % (AUTO) 27 % (12-44); MEAN CORPUSCULAR HGB CONC 33 G/DL (32-36); MEAN PLATELET VOLUME 9.6 FL (7.4-10.4); MONOCYTES # (AUTO) 0.8 X 10^3 (0.0-1.0); MONOCYTES % (AUTO) 11 % (0-12); NEUTROPHILS # (AUTO) 3.9 X 10^3 (1.8-7.8); NEUTROPHILS % (AUTO) 58 % (42-75); PLATELET COUNT 261 10^3/uL (130-400); RED CELL DISTRIBUTION WIDTH 14.8 % (10.0-14.5)
[2018-11-10 11:03] LABS: BILIRUBIN,TOTAL 0.3 MG/DL (0.1-1.0); CALCIUM 9.5 MG/DL (8.5-10.1); CREATININE SERUM 1.03 MG/DL (0.60-1.30); POTASSIUM 3.5 MMOL/L (3.6-5.0)
[2018-11-10 11:04] LABS: ALBUMIN 4.3 GM/DL (3.2-4.5); TOTAL PROTEIN 6.7 GM/DL (6.4-8.2)
--- NOTE | 2018-11-10 11:32 | Diagnostic Imaging Report ---
Clinical indication: Patient has been very dizzy. Exam: Axial CT scan of the brain performed without IV contrast. Comparison: None. Findings: There is no evidence of acute cerebral infarct, intracranial hemorrhage, or gross mass effect. The brain parenchymal volume appears appropriate for patient's age. There are a few very subtle focal low-attenuation white matter changes involving both cerebral hemispheres, likely related to minimal chronic small vessel ischemic changes. There is normal aly-white matter distinction. There is no significant midline shift or herniation. There is no evidence of hydrocephalus. The basal cisterns are unremarkable. The skull, extracranial soft tissue, and orbits are unremarkable. The paranasal sinuses are unremarkable. There is hypo-aeration of the left mastoid process with sclerosis. Impression: 1: Unremarkable CT scan of the brain for age. 2: Suspected chronic left mastoid bone changes. Dictated by: Dictated on workstation # [id number]
--- NOTE | 2018-11-10 11:58 | Diagnostic Imaging Report ---
PROCEDURE: CT abdomen and pelvis with contrast. TECHNIQUE: Multiple contiguous axial images were obtained through the abdomen and pelvis after administration of intravenous contrast. Auto Exposure Controls were utilized during the CT exam to meet ALARA standards for radiation dose reduction. INDICATION: Upper abdominal pain for 4 days. Patient also complains of bloating. Correlation is made with prior CT from 07/24/2018. The lung bases are clear. No discrete liver mass is detected. The gallbladder is surgically absent. No biliary ductal dilatation is seen. The pancreas and spleen are unremarkable. No adrenal mass is detected. Kidneys are unremarkable. The aorta is non-aneurysmal. No central retroperitoneal or mesenteric lymphadenopathy is identified. The small and large bowel loops are normal caliber. No obstruction is identified. There is no ascites. Bladder is unremarkable. No pelvic lymphadenopathy is seen. No inflammatory changes are identified. The bony structures are nonacute. IMPRESSION: Essentially unremarkable CT of the abdomen and pelvis. No acute feature is detected. Dictated by: Dictated on workstation # [id number]
[2018-11-10] MEDS ORDERED: DOCU-143 PO (12:30)
[2018-11-10] MEDS ORDERED: MECL-124 PO (12:30)
[2018-11-10 12:47] VITALS: BP 127/72
== END 2018-11-10 12:52 | disposition home or self-care (01) ==
LOC: EDUNIT# 09:47 → ER FS 09:48
DX: R14.0 Abdominal distension (gaseous) (principal); R10.84 Generalized abdominal pain; E78.00 Pure hypercholesterolemia, unspecified; Z90.710 Acquired absence of both cervix and uterus; Z88.5 Allergy status to narcotic agent; Z85.3 Personal history of malignant neoplasm of breast; Z95.9 Presence of cardiac and vascular implant and graft, unspecified
CPT/HCPCS: 36415; 70450; 74177; 80053; 81000; 82150; 82553; 83690; 84484; 85025; 93005

== ENCOUNTER 2018-11-22 13:48 | Emergency (ER) | payer MEDICAID ==
[~2018-11-22] VITALS: Ht 160 cm; Wt 78.5 kg
[~2018-11-22 13:48] MED LIST changes: +DOCU-143 PO; +MECL-124 PO
[2018-11-22] MEDS ORDERED: HYDROcodone/APAP 5 MG/325 MG (LORTAB) TAB PO ONE (14:15)
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
[2018-11-22] MEDS ORDERED: KETOROLAC 30 MG/ML VIAL IM ONE (14:30)
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
[2018-11-22 15:54] VITALS: BP 132/86
== END 2018-11-22 15:54 | disposition home or self-care (01) ==
LOC: EDUNIT# 13:48 → ER 13:50
DX: S00.83XA Contusion of other part of head, initial encounter (principal); E78.00 Pure hypercholesterolemia, unspecified; Z88.5 Allergy status to narcotic agent; Z85.3 Personal history of malignant neoplasm of breast; Z90.13 Acquired absence of bilateral breasts and nipples; Z90.710 Acquired absence of both cervix and uterus; Y04.8XXA Assault by other bodily force, initial encounter
CPT/HCPCS: 70450; 71046; 72100; 72125

== ENCOUNTER 2018-12-22 12:34 | Outpatient (RCR) | payer MEDICAID ==
[2018-09-29 13:24] LABS: BASOPHILS % (AUTO) 1 % (0-10); EOSINOPHILS # (AUTO) 0.1 10^3/uL (0.0-0.3); EOSINOPHILS % (AUTO) 2 % (0-10); HEMATOCRIT 40 % (35-52); HEMOGLOBIN 13.6 G/DL (11.5-16.0); LYMPHOCYTES # (AUTO) 1.8 X 10^3 (1.0-4.0); LYMPHOCYTES % (AUTO) 30 % (12-44); MEAN CORPUSCULAR HEMOGLOBIN 31 PG (25-34); MEAN CORPUSCULAR HGB CONC 34 G/DL (32-36); MEAN CORPUSCULAR VOLUME 91 FL (80-99); MEAN PLATELET VOLUME 9.4 FL (7.4-10.4); MONOCYTES # (AUTO) 0.5 X 10^3 (0.0-1.0); MONOCYTES % (AUTO) 8 % (0-12); NEUTROPHILS # (AUTO) 3.6 X 10^3 (1.8-7.8); NEUTROPHILS % (AUTO) 60 % (42-75); PLATELET COUNT 260 10^3/uL (130-400); RED CELL DISTRIBUTION WIDTH 14.3 % (10.0-14.5); WHITE BLOOD COUNT 6.1 10^3/uL (4.3-11.0)
[2018-09-29 13:43] LABS: ALBUMIN 4.2 GM/DL (3.2-4.5); BILIRUBIN,TOTAL 0.4 MG/DL (0.1-1.0); CALCIUM 9.7 MG/DL (8.5-10.1); CREATININE SERUM 0.96 MG/DL (0.60-1.30); POTASSIUM 3.7 MMOL/L (3.6-5.0); TOTAL PROTEIN 6.7 GM/DL (6.4-8.2)
[2018-12-22 13:37] LABS: BASOPHILS % (AUTO) 1 % (0-10); EOSINOPHILS # (AUTO) 0.2 10^3/uL (0.0-0.3); EOSINOPHILS % (AUTO) 4 % (0-10); HEMATOCRIT 40 % (35-52); HEMOGLOBIN 13.5 G/DL (11.5-16.0); LYMPHOCYTES # (AUTO) 1.9 X 10^3 (1.0-4.0); LYMPHOCYTES % (AUTO) 32 % (12-44); MEAN CORPUSCULAR HEMOGLOBIN 31 PG (25-34); MEAN CORPUSCULAR HGB CONC 34 G/DL (32-36); MEAN CORPUSCULAR VOLUME 93 FL (80-99); MEAN PLATELET VOLUME 9.7 FL (7.4-10.4); MONOCYTES # (AUTO) 0.6 X 10^3 (0.0-1.0); MONOCYTES % (AUTO) 10 % (0-12); NEUTROPHILS # (AUTO) 3.2 X 10^3 (1.8-7.8); NEUTROPHILS % (AUTO) 54 % (42-75); PLATELET COUNT 241 10^3/uL (130-400); WHITE BLOOD COUNT 5.9 10^3/uL (4.3-11.0)
[2018-12-22 13:56] LABS: ALBUMIN 4.3 GM/DL (3.2-4.5); BILIRUBIN,TOTAL 0.4 MG/DL (0.1-1.0); CALCIUM 9.7 MG/DL (8.5-10.1); CREATININE SERUM 0.99 MG/DL (0.60-1.30); POTASSIUM 3.8 MMOL/L (3.6-5.0); TOTAL PROTEIN 6.8 GM/DL (6.4-8.2)
== END 2018-12-28 | disposition home or self-care (01) ==
LOC: ONC 12:34
PROVIDERS: ATTEND Internal Medicine Hematology & Oncology
DX: C50.511 Malignant neoplasm of lower-outer quadrant of right female breast (principal); C77.3 Secondary and unspecified malignant neoplasm of axilla and upper limb lymph nodes; Z17.0 Estrogen receptor positive status [ER+]; Z87.891 Personal history of nicotine dependence; Z79.811 Long term (current) use of aromatase inhibitors; Z79.899 Other long term (current) drug therapy; Z90.13 Acquired absence of bilateral breasts and nipples; Z45.2 Encounter for adjustment and management of vascular access device
CPT/HCPCS: 36591; 80053; 85025

== ENCOUNTER 2019-02-03 13:57 | Emergency (ER) | payer MEDICAID ==
[~2019-02-03] VITALS: Ht 160 cm; Wt 79.7 kg
[2019-02-03] MEDS ORDERED: NS IV 1000 ML 1,000 ML IV SCH (14:33)
[2019-02-03] MEDS ORDERED: DIAZEPAM 2 MG (VALIUM) TAB PO PRN (14:45)
[2019-02-03] MEDS ORDERED: KETOROLAC 30 MG/ML VIAL IVP ONE (14:45)
[2019-02-03] MEDS ORDERED: DIAZEPAM 5 MG (VALIUM) TABLET ONE (14:56)
--- NOTE | 2019-02-03 14:57 | ED General ---
General Chief Complaint: General Problems/Pain Stated Complaint: MUSCLE SPASMS History of Present Illness Date Seen by Provider: Feb 03, 2019 Time Seen by Provider: 14:20 Initial Comments The patient is a 58-year-old female with a history of essential tremor on propanolol as well as hyperlipidemia, recurrent problems with muscle spasm and cramping on home Flexeril, chronic pain on home opiates. The patient presents with concern for acute onset of generalized muscle spasm and cramping affecting bilateral arms and back worse than other areas, all with onset about 1.5 hours prior to arrival and largely resolved within the past 20 minutes, though continuing to have some mild symptoms. Patient reports that symptoms had onset while she was walking around [facility] with family. She reports that after the cramping started she began feeling lightheaded and as though she would faint, although she did not. She went out to the car and took a Flexeril and family were concerned that she was hypoglycemic and took her to [place] but eating did not seem to help her spasms or lightheadedness so she elected to present to the emergency department for evaluation. The patient was in her normal state of health before onset of symptoms. She specifically denies fevers, headache, focal weakness, numbness, tingling, neck stiffness/pain/meningismus, vision changes aside from some mild narrowing of vision when she was lightheaded, shortness of breath or chest pain at any time prior to, during or subsequent to other symptoms, abdominal pain, flank pain, dysuria or hematuria, changes in bowel habits. Patient is speaking comfortably in full sentences and is alert and oriented in absolutely no distress with appropriate vital signs upon initial evaluation in the emergency department. She states that since her Flexeril has kicked in she feels much better. Allergies and Home Medications Allergies Coded Allergies: acetaminophen (Verified Allergy, Unknown, 04/05/17) oxycodone (Verified Allergy, Unknown, 04/05/17) Home Medications Docusate Sodium 100 Mg Capsule, 100 MG PO TID PRN for CONSTIPATION-1ST LINE Prescribed by: TOSHA GUY on 11/10/18 1230 Meclizine HCl 25 Mg Tab.chew, 25 MG PO Q6H PRN for DIZZINESS Prescribed by: TOSHA GUY on 11/10/18 1230 Patient Home Medication List Home Medication List Reviewed: Yes Review of Systems Review of Systems Constitutional: see HPI All Other Systems Reviewed Negative Unless Noted: Yes (Negative excepted noted.) Past Scfttig-Afneoj-Ftcrfg Hx Past Med/Social Hx: Reviewed Nursing Past Med/Soc Hx Patient Social History Type Used: Cigarettes 2nd Hand Smoke Exposure: No Recent Hopitalizations: No Seasonal Allergies Seasonal Allergies: No Past Medical History Surgeries: Yes (Bilateral Mastectomy) Breast Respiratory: No Cardiac: Yes (heart cath x 2) High Cholesterol, Palpitations 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 oz. 78.212816uv; BMI Method:Stated General Appearance: No Apparent Distress Comments This is an older female appearing nontoxic and in no acute distress. Head is normocephalic and atraumatic. Neck is supple and nontender. Oropharynx is moist. Lungs are clear to auscultation in all stations. There is a normal S1 and S2 without rubs or gallops and capillary refill is appropriate, less than 2 seconds globally. Abdomen is soft, nontender and nondistended. Skin is warm and dry without cyanosis, clubbing or edema. Psychiatrically, the patient demonstrates appropriate mood and affect and is alert. Neurologically, cranial nerves II through XII are intact and there are no lateralizing deficits noted. Speech is normal. Language is normal. Coordination is normal. There is no dysmetria with alktkm-qy-tcqf or ofaa-nl-hgog bilaterally. Strength is 5 out of 5 in all joints of bilateral upper and lower extremities. Sensation is intact to light touch in bilateral upper and lower extremities. Patient is ambulatory with a narrow, steady gait in the emergency department. She is alert and oriented 4. Progress/Results/Core Measures Suspected Sepsis SIRS Temperature: Pulse: Respiratory Rate: Laboratory Tests 02/03/19 14:54: White Blood Count 6.8 Blood Pressure / Mean: Laboratory Tests 02/03/19 14:54: Creatinine 0.94, Platelet Count 265, Total Bilirubin 0.4 Results/Orders Lab Results Laboratory Tests Test 02/03/19 14:54 Range/Units White Blood Count 6.8 4.3-11.0 10^3/uL Red Blood Count 4.52 4.35-5.85 10^6/uL Hemoglobin 14.2 11.5-16.0 G/DL Hematocrit 42 35-52 % Mean Corpuscular Volume 93 80-99 FL Mean Corpuscular Hemoglobin 31 25-34 PG Mean Corpuscular Hemoglobin Concent 34 32-36 G/DL Red Cell Distribution Width 13.2 10.0-14.5 % Platelet Count 265 130-400 10^3/uL Mean Platelet Volume 9.5 7.4-10.4 FL Neutrophils (%) (Auto) 69 42-75 % Lymphocytes (%) (Auto) 19 12-44 % Monocytes (%) (Auto) 9 0-12 % Eosinophils (%) (Auto) 2 0-10 % Basophils (%) (Auto) 1 0-10 % Neutrophils # (Auto) 4.6 1.8-7.8 X 10^3 Lymphocytes # (Auto) 1.3 1.0-4.0 X 10^3 Monocytes # (Auto) 0.6 0.0-1.0 X 10^3 Eosinophils # (Auto) 0.2 0.0-0.3 10^3/uL Basophils # (Auto) 0.1 0.0-0.1 10^3/uL Sodium Level 141 135-145 MMOL/L Potassium Level 4.0 3.6-5.0 MMOL/L Chloride Level 102 98-107 MMOL/L Carbon Dioxide Level 25 21-32 MMOL/L Anion Gap 14 5-14 MMOL/L Blood Urea Nitrogen 20 H 7-18 MG/DL Creatinine 0.94 0.60-1.30 MG/DL Estimat Glomerular Filtration Rate > 60 BUN/Creatinine Ratio 21 Glucose Level 173 H 70-105 MG/DL Calcium Level 9.5 8.5-10.1 MG/DL Corrected Calcium 9.3 8.5-10.1 MG/DL Magnesium Level 1.9 1.6-2.4 MG/DL Total Bilirubin 0.4 0.1-1.0 MG/DL Aspartate Amino Transf (AST/SGOT) 20 5-34 U/L Alanine Aminotransferase (ALT/SGPT) 15 0-55 U/L Alkaline Phosphatase 63 40-136 U/L Troponin I < 0.30 <0.30 NG/ML Total Protein 7.1 6.4-8.2 GM/DL Albumin 4.3 3.2-4.5 GM/DL My Orders Orders - GERALDINE JANG MD Cbc With Automated Diff (02/03/19 14:33) Comprehensive Metabolic Panel (02/03/19 14:33) Creatine Kinase (02/03/19 14:33) Magnesium (02/03/19 14:33) Phosphorus (02/03/19 14:33) Troponin I Fs (02/03/19 14:33) Ekg Tracing (02/03/19 14:33) Chest 1 View Ap/Pa Only (02/03/19 14:33) Diazepam Tablet (Valium Tablet) (02/03/19 14:45) Ketorolac Injection (Toradol Injection) (02/03/19 14:45) Ed Iv/Invasive Line Start (02/03/19 14:33) Ns Iv 1000 Ml (Sodium Chloride 0.9%) (02/03/19 14:33) Vitamin D 25-Hydroxy (02/03/19 14:39) Diazepam Tablet (Valium Tablet) (02/03/19 14:56) Medications Given in ED Current Medications Medications Dose Ordered Sig/Tacho Route Start Time Stop Time Status Last Admin Dose Admin Diazepam 2.5 mg Q6H PRN PO 02/03/19 14:45 02/03/19 15:02 2.5 MG Ketorolac Tromethamine 30 mg ONCE ONCE IVP 02/03/19 14:45 02/03/19 14:46 DC 02/03/19 15:02 30 MG Vital Signs/I&O 02/03/19 14:09 Temp 36.7 Pulse 111 Resp 18 B/P (MAP) 129/79 (96) Pulse Ox 97 Capillary Refill : Progress Note : Time: 14:59 Progress Note 58-year-old female without any known cardiorespiratory comorbidities and with a history of chronic pain and muscle spasm who presents with an apparent episode of relatively generalized muscle spasm beginning about an hour prior to arrival and much improved after Flexeril. Associated lightheadedness which may represent vasovagal response in the setting of pain from muscle spasm. We will check labs including full electrolyte panel as noted, CPK and troponin/EKG/chest x-ray given lightheadedness, though as above patient is low risk by Hume criteria for her presyncope and I do suspect a vasovagal response. We'll give some IV fluids, a small dose of Valium and some Toradol. We will then reevaluate. If workup is reassuring and the patient feels better, likely plan will be for discharge to follow up very closely with primary care after the weekend. Patient and family understand and agree with this plan of care. Update 1610: Patient is resting comfortably in no acute distress and states that symptoms remain essentially resolved at this time. Workup unremarkable and reassuring. In re-discussing the patient's presenting symptoms with her and her family members, she now discloses to me that she was profusely diaphoretic for at least an hour and that in fact the lightheadedness and diaphoresis and shortness of breath started well before the muscle spasms, making a vasovagal cause for presyncope rather unlikely. In view of the diaphoresis and shortness of breath, I do feel that this patient merits an observation admission for telemetry monitoring, likely echocardiogram and further care as indicated. Dr. Garcia graciously accepts. ECG EKG : Comment Sinus rhythm, rate 105, no acute ST elevation or depression, [place] 148, QRS 99, QTc 442, EP interpretation. Departure Impression Primary Impression: Pre-syncope Additional Impression: Muscle spasm Disposition: XFER SHT-TRM HOSP Condition: Stable Transfer Transfer Reason: Patient preference Time Spoke to Accepting Phy: 16:00 Transfer Progress Notes Patient and family state they get all of their care at [facility] and want to be admitted there. Transfer Facility: [facility] Method of Transfer: EMS Departure-Patient Inst. Referrals: ADITHYA AMIN DO (PCP) Primary Care Physician NO,LOCAL PHYSICIAN (Family) Primary Care Physician GERALDINE JANG MD Feb 03, 2019 14:57 POS
[2019-02-03 15:05] LABS: BASOPHILS # (AUTO) 0.1 10^3/uL (0.0-0.1); BASOPHILS % (AUTO) 1 % (0-10); EOSINOPHILS # (AUTO) 0.2 10^3/uL (0.0-0.3); EOSINOPHILS % (AUTO) 2 % (0-10); HEMATOCRIT 42 % (35-52); HEMOGLOBIN 14.2 G/DL (11.5-16.0); LYMPHOCYTES # (AUTO) 1.3 X 10^3 (1.0-4.0); LYMPHOCYTES % (AUTO) 19 % (12-44); MEAN CORPUSCULAR HEMOGLOBIN 31 PG (25-34); MEAN CORPUSCULAR HGB CONC 34 G/DL (32-36); MEAN CORPUSCULAR VOLUME 93 FL (80-99); MEAN PLATELET VOLUME 9.5 FL (7.4-10.4); MONOCYTES # (AUTO) 0.6 X 10^3 (0.0-1.0); MONOCYTES % (AUTO) 9 % (0-12); NEUTROPHILS # (AUTO) 4.6 X 10^3 (1.8-7.8); NEUTROPHILS % (AUTO) 69 % (42-75); PLATELET COUNT 265 10^3/uL (130-400); RED CELL DISTRIBUTION WIDTH 13.2 % (10.0-14.5); WHITE BLOOD COUNT 6.8 10^3/uL (4.3-11.0)
[2019-02-03 15:22] LABS: ALANINE AMINOTRANSFERASE 15 U/L (0-55); ALBUMIN 4.3 GM/DL (3.2-4.5); ALKALINE PHOSPHATASE 63 U/L (40-136); BILIRUBIN,TOTAL 0.4 MG/DL (0.1-1.0); BUN/CREATININE RATIO 21; CALCIUM 9.5 MG/DL (8.5-10.1); CARBON DIOXIDE 25 MMOL/L (21-32); CHLORIDE 102 MMOL/L (98-107); CREATININE SERUM 0.94 MG/DL (0.60-1.30); GFR ESTIMATED > 60; GLUCOSE 173 MG/DL (70-105); MAGNESIUM 1.9 MG/DL (1.6-2.4); SODIUM 141 MMOL/L (135-145); TOTAL PROTEIN 7.1 GM/DL (6.4-8.2)
--- NOTE | 2019-02-03 15:26 | Diagnostic Imaging Report ---
Patient History: Muscle spasms. Not feeling well.. Technique: Frontal view of the chest. Comparison: 11/22/2018 FINDINGS: The left-sided port-a-cath tip projects over the cavoatrial junction. Multiple surgical clips overlie the chest. Lung volumes are normal. No focal consolidation is seen. There is no pleural effusion or pneumothorax. The cardiac silhouette is normal in size. IMPRESSION: No acute pulmonary abnormality seen. Dictated by: Dictated on workstation # [id number]
[2019-02-03 16:57] VITALS: BP 137/60
[2019-02-04 15:14] LABS: CREATINE KINASE 59 U/L (29-168); PHOSPHORUS 2.9 MG/DL (2.3-4.7)
== END 2019-02-03 18:24 | disposition short-term general hospital (02) ==
LOC: EDUNIT# 13:57 → ER FS 13:59
DX: R55 Syncope and collapse (principal); M62.838 Other muscle spasm; E78.5 Hyperlipidemia, unspecified; E78.00 Pure hypercholesterolemia, unspecified; Z90.710 Acquired absence of both cervix and uterus; Z95.9 Presence of cardiac and vascular implant and graft, unspecified; Z85.3 Personal history of malignant neoplasm of breast; Z88.6 Allergy status to analgesic agent; Z88.5 Allergy status to narcotic agent; Z90.13 Acquired absence of bilateral breasts and nipples
CPT/HCPCS: 36415; 71045; 80053; 82306; 82550; 83735; 84100; 84484; 85025; 93005; 96361; 96374

== ENCOUNTER 2019-04-27 12:24 | Outpatient (RCR) | payer MEDICAID ==
[~2019-04-27 12:24] MED LIST changes: -TRAM50TA2; +TRM50T
== END 2019-05-03 | disposition home or self-care (01) ==
LOC: ONC 12:24
PROVIDERS: ATTEND Internal Medicine Hematology & Oncology
DX: C50.919 Malignant neoplasm of unspecified site of unspecified female breast (principal); C77.3 Secondary and unspecified malignant neoplasm of axilla and upper limb lymph nodes; Z17.0 Estrogen receptor positive status [ER+]; Z87.891 Personal history of nicotine dependence; Z79.811 Long term (current) use of aromatase inhibitors; Z79.899 Other long term (current) drug therapy; Z90.13 Acquired absence of bilateral breasts and nipples; Z45.2 Encounter for adjustment and management of vascular access device
CPT/HCPCS: 96523

== ENCOUNTER → 2019-07-21 | Outpatient (CLI) | payer MEDICAID ==
--- NOTE | 2019-07-21 09:14 | Diagnostic Imaging Report ---
INDICATION: Trauma to nasal bone. FINDINGS: There does appear to be mild indentation along the right anterior aspect of the nasal bone. The bridge of the nasal bones intact. Nasal septum is intact. Paranasal sinuses are clear. IMPRESSION: Probable minimal depressed fracture along the tip of the nasal bone on the right side. This could be acute or chronic. Clinical correlation. Dictated by: Dictated on workstation # [id number]
--- NOTE | 2019-07-21 09:16 | Diagnostic Imaging Report ---
INDICATION: Pain in the right shoulder, fall. Time of exam 8:56 AM 2 views right shoulder were obtained. Glenohumeral and acromioclavicular alignment are normal. Acromiohumeral space is normal. No fracture or dislocation is seen. Multiple surgical clips overlie the right chest and right axilla. IMPRESSION: No acute bony abnormality is detected. Dictated by: Dictated on workstation # [id number]
== END ==
LOC: RAD FS 08:43
PROVIDERS: ATTEND Nurse Practitioner Family
DX: S09.92XA Unspecified injury of nose, initial encounter (principal); M25.511 Pain in right shoulder; W19.XXXA Unspecified fall, initial encounter
CPT/HCPCS: 70140; 73030

== ENCOUNTER → 2019-08-15 | Outpatient (CLI) | payer MEDICAID ==
--- NOTE | 2019-08-15 13:14 | Diagnostic Imaging Report ---
INDICATION: Postmenopausal state. COMPARISON: 03/25/2017 FINDINGS: AP Spine L1-L4: [BMD (g/cm2): 1.083] [T-Score: -1.0] [Z-Score: -0.3] [BMD Previous: 1.143] [BMD % Change: -5.2] LT Hip Neck: [BMD (g/cm2): 0.813] [T-Score: -1.6] [Z-Score: -0.7] LT Hip Total: [BMD (g/cm2):0.902] [T-Score:-0.8] [Z-Score: -0.3] [BMD Previous: 0.891] [BMD % Change: 1.2] RT Hip Neck: [BMD (g/cm2):0.886] [T-Score:-1.1] [Z-Score:-0.2] RT Hip Total: [BMD (g/cm2):0.967] [T-score:-0.3] [Z-Score:0.2] [BMD Previous:0.955] [BMD % Change:1.3] *Indicates significant change from prior examination based on 95% confidence level. World Health Organization criteria for BMD interpretation classify patients as Normal (T-score at or above -1.0), Osteopenic (T-score between -1.0 and -2.5) or Osteoporotic (T-score at or below -2.5). LIMITATIONS AND MODIFICATION: None. FRACTURE RISK (FRAX SCORE): The ten year probability of (%): Major Osteoporotic Fracture: [13] Hip Fracture: [1.5] IMPRESSION: 1. Osteopenia (Low bone mass). 2. No significant change in bone mineral density since prior examination. 3. See below National Osteoporosis Foundation guidelines on when to potentially initiate pharmacologic therapy. Based on the National Osteoporosis Foundation Guidelines, pharmacologic treatment should be initiated in any of the following, unless clinical conditions suggest otherwise: * Any patient with prior fragility fracture of the hip or vertebrae. A spine fracture indicates 5X risk for subsequent spine fracture and 2X risk for subsequent hip fracture. * Osteoporosis (T-score <-2.5). * Postmenopausal women and men age 50 and older with low bone mass/osteopenia (T-score between -1.0 and -2.5) by DXA and 10-year major osteoporotic fracture greater than 20% or a 10-year probability of hip fracture greater than 3%. These fracture risks are supplied above in the FRAX score, if applicable. * Clinician judgement and/or patient preferences may indicate treatment for people with 10-year fracture probabilities above or below these levels. Dictated by: Dictated on workstation # [id number]
== END ==
LOC: RAD 10:33
PROVIDERS: ATTEND Nurse Practitioner Adult Health
DX: M85.89 Other specified disorders of bone density and structure, multiple sites (principal); C50.511 Malignant neoplasm of lower-outer quadrant of right female breast; Z79.811 Long term (current) use of aromatase inhibitors; Z78.0 Asymptomatic menopausal state
CPT/HCPCS: 77080

== ENCOUNTER 2019-12-25 11:00 | Outpatient (CLI) | payer MEDICAID ==
[~2019-12-25] VITALS: Ht 160 cm; Wt 78.6 kg
[~2019-12-25 11:00] MED LIST changes: -EXEM25TA4; +EXEM25TA4 PO; -PROP20TA5; +PROP20TA5 PO; -TRM50T; +TRM50T PO
[2019-12-25] MEDS ORDERED: CYCL10TA9 PO (11:25)
[2019-12-25] MEDS ORDERED: CLON0.5T4 PO (11:25)
[2019-12-25] MEDS ORDERED: DULO60CA59 PO (11:25)
[2019-12-25] MEDS ORDERED: TURM500C4 PO (11:25)
[2019-12-25] MEDS ORDERED: CLC600T PO (11:25)
== END 2019-12-25 12:15 ==
LOC: PREOP 11:00
PROVIDERS: ATTEND Surgery
DX: Z01.818 Encounter for other preprocedural examination (principal)

== ENCOUNTER → 2019-12-26 | Outpatient (CLI) | payer MEDICAID ==
[~2019-12-26] MED LIST changes: +CLC600T PO; +CLON0.5T4 PO; +CYCL10TA9 PO; +DULO60CA59 PO; +TURM500C4 PO
== END ==
LOC: LABNPT 06:08
PROVIDERS: ATTEND Surgery
DX: Z01.812 Encounter for preprocedural laboratory examination (principal); Z20.828 Contact with and (suspected) exposure to other viral communicable diseases
CPT/HCPCS: 87635

== ENCOUNTER 2019-12-27 08:48 | Day surgery (SDC) | payer MEDICAID ==
[~2019-12-27] VITALS: Ht 160 cm; Wt 78.6 kg
--- NOTE | 2019-12-27 08:54 | Progress Note-Pre Operative ---
Pre-Operative Progress Note H&P Reviewed The H&P was reviewed, patient examined and no changes noted. Time Seen by Provider: 08:54 Date H&P Reviewed: Dec 27, 2019 Time H&P Reviewed: 08:54 Pre-Operative Diagnosis: Lucy-cath removal FITZ SHAH DO Dec 27, 2019 08:54
[2019-12-27] MEDS ORDERED: LACTATED RINGERS 1,000 ML IV PRN (09:12)
[2019-12-27] MEDS ORDERED: ceFAZolin 2 GM IV Premixed 50 ML IV ONE (09:15)
[2019-12-27 09:28] VITALS: BP 133/68
[2019-12-27] MEDS ORDERED: BUP/EPI 0.25% 1:200,000 (MARCAINE) 30 ML VIAL ONE (09:43)
[2019-12-27] MEDS ORDERED: CATHETER FLUSH 10 ML SYR IV PRN (09:45)
[2019-12-27] MEDS ORDERED: PROPOFOL INJECTION 50 ML IV ONE (10:05)
[2019-12-27] MEDS ORDERED: MIDAZOLAM 2 MG/2 ML (VERSED) VIAL ONE (10:05)
[2019-12-27] MEDS ORDERED: fentaNYL INJECTION 100 MCG/2 ML AMP ONE (10:07)
--- NOTE | 2019-12-27 10:43 | Progress Note-Post Operative ---
Post-Operative Progess Note Surgeon (s)/Mechanical Cad Drafter (s) Surgeon FITZ SHAH DO Mechanical Cad Drafter: RON Lawrence Pre-Operative Diagnosis Lucy-cath removal Post-Operative Diagnosis same Procedure & Operative Findings Date of Procedure 12/27/19 Procedure Performed/Findings PROCEDURE: Removal of port, Left anterior chest wall. COMPLICATIONS: None. INDICATIONS: The patient is a 59 year-old female who had a port previously placed. Patient is ok to have port removed. The patient was explained risk and benefits of the procedure and wished to proceed with procedure. Consent was signed on the chart. PROCEDURE: The patient was taken to the operating suite and was prepped and draped in sterile fashion. A surgical pause was performed. Local anesthetic was infiltrated to the area around the port. A number 15 blade scalpel was used to make an incision. Cautery was used to dissect down to the port which was then grasped and then dissected around. The catheter was removed in its entirety. The port was then able to be dissected out of the pocket and elevated. The wound was then irrigated with copious amounts of irrigation. Hemostasis had been achieved. The subcutaneous tissues were then reapproximated using 3-0 Vicryl. Skin was then closed using 4-0 Vicryl with three interrupted subcuticular stitches. The area was then washed and dried and Skin Affix placed over the incision. The patient tolerated the procedure well without complication and was taken to recovery room in stable condition. Anesthesia Type IV sedation by PALS SPECIALIST Estimated Blood Loss Estimated blood loss (mL): scant Specimens/Packing Specimens Removed port - not sent to pathology FITZ SHAH DO Dec 27, 2019 10:43
[2019-12-27 10:44] VITALS: BP 139/83
--- NOTE | 2019-12-27 10:44 | Discharge Inst-Surgical ---
Discharge Inst-Surgical Depart Medication/Instructions New, Converted or Re-Newed RX: Other (take ibuprofen at home for pain) Patient Instructions Follow up Appt: Make appointment for 1 week. [phone] Instructions: No lifting greater than 20 pounds. No strenuous activity. May shower in 24 hours, no tub bath or soaking. Use incentive spirometer at home as directed. No Smoking Skin/Wound Care: May remove bandages in am. You need to leave the Dermabond on incision it will fall off on it's own. Symptoms to Report: Appetite Changes, Extremity Discoloration, Numbness/Tingling, Swelling Increased, Bleeding Excessive, Eyesight Changes, Pain Increased, Urine Color Change, Constipation(Persistent), Fever over 101 degree F, Pain/Pressure in ch est, Urinating Difficulty, Cough Up/Vomit Blood, Heart Beat Irreg/Pounding, Pain/Pressure in jaw, Cramps in feet or legs, Lightheadedness, Pain/Pressure in shoulder, Diarrhea(Persistent), Memory Changes Suddenly, Questions/Concerns, Weight gain consecutive days, Dizziness/Fainting, Nausea/Vomiting, Shortness of Breath, Weight gain over 2 pounds If questions or concerns contact your physician Or seek help at emergency department. Activity Activity as Tolerated: Yes Activity Instructions: Avoid Stress to Incision Driving Instructions: You May Drive Diet Discharge Diet: No Restrictions Diet After 24 Hours: Clear Liquid if Nauseous If Any Problems/Questions/Issu: Contact Your Physician, Go to Emergency Room Skin/Wound Care Infection Signs and Symptoms: Increased Redness, Foul Odor of Wound, Increased Drainage, Skin Itchy or Has a Rash, Increased Swelling, Temperature Above 101 F Bathing Instructions: Shower Stitches/[place]/Dermabond Dis: Dermabond Ice Pack: Ice On and Off Site FITZ SHAH DO Dec 27, 2019 10:44
[2019-12-27 10:50] VITALS: BP 133/85
[2019-12-27 11:00] VITALS: BP 133/85
--- NOTE | 2019-12-27 11:02 | Anesthesia-General Post-Op ---
MAC Patient Condition Mental Status/LOC: Same as Preop Cardiovascular: Satisfactory Nausea/Vomiting: Absent Respiratory: Satisfactory Pain: Controlled Complications: Absent Post Op Complications Complications None Follow Up Care/Instructions Patient Instructions None needed. Anesthesiology Discharge Order Discharge Order Patient is doing well, no complaints, stable vital signs, no apparent adverse anesthesia problems. No complications reported per nursing. LUIS DOCKERY CRNA Dec 27, 2019 11:02
[2019-12-27 11:10] VITALS: BP_SYST 134; BP_SYST 141; BP_DIAS 86; BP_DIAS 89
[2019-12-27 11:40] VITALS: BP 144/96
== END 2019-12-27 11:40 | disposition home or self-care (01) ==
LOC: SDC 08:48
PROVIDERS: ATTEND Surgery
DX: Z45.2 Encounter for adjustment and management of vascular access device (principal); F41.9 Anxiety disorder, unspecified; Z79.899 Other long term (current) drug therapy; Z88.5 Allergy status to narcotic agent; Z87.891 Personal history of nicotine dependence; Z90.710 Acquired absence of both cervix and uterus; Z85.3 Personal history of malignant neoplasm of breast; Z86.010 Personal history of colon polyps; Z80.3 Family history of malignant neoplasm of breast; Z80.49 Family history of malignant neoplasm of other genital organs; Z83.3 Family history of diabetes mellitus
CPT/HCPCS: 87081

== ENCOUNTER → 2020-01-30 | Outpatient (CLI) | payer MEDICAID ==
--- NOTE | 2020-01-30 13:15 | Diagnostic Imaging Report ---
INDICATION: Cough. Time of exam 12:55 p.m. Comparison is made with prior chest from 02/03/2019. Heart size is stable. There are surgical clips overlying the right chest. The lungs are clear. No infiltrates are seen. There is no effusion or pneumothorax. IMPRESSION: No acute cardiopulmonary process is detected. Dictated by: Dictated on workstation # [id number]
== END ==
LOC: RAD FS 12:49
PROVIDERS: ATTEND Nurse Practitioner Family
DX: R05 Cough (principal)
CPT/HCPCS: 71046

== ENCOUNTER → 2020-03-21 | Outpatient (CLI) | payer MEDICAID ==
--- NOTE | 2020-03-21 12:47 | Diagnostic Imaging Report ---
INDICATION: Bilateral foot pain COMPARISON: None. FINDINGS: Multiple radiographic views of the bilateral feet were obtained and demonstrate no acute fracture or dislocation. There are no focal osseous lesions. There is no soft tissue swelling. Joint spaces are well maintained. No radiopaque foreign bodies are seen. IMPRESSION: Unremarkable radiographic exam of the bilateral feet. Dictated by: Dictated on workstation # [id number]
== END ==
LOC: RAD FS 10:44
PROVIDERS: ATTEND Nurse Practitioner Family
DX: M79.671 Pain in right foot (principal); M79.672 Pain in left foot

== ENCOUNTER → 2020-04-09 | Outpatient (CLI) | payer MEDICAID | LOC: LAB FS 10:00 | PROVIDERS: ATTEND Emergency Medicine | DX: Z01.812 Encounter for preprocedural laboratory examination (principal); Z20.822 Contact with and (suspected) exposure to COVID-19 | CPT/HCPCS: 87635 ==

== ENCOUNTER → 2020-04-25 | Outpatient (CLI) | payer MEDICAID ==
[2020-04-25 11:17] LABS: BASOPHILS # (AUTO) 0.1 10^3/uL (0.0-0.1); BASOPHILS % (AUTO) 1 % (0-10); EOSINOPHILS # (AUTO) 0.2 10^3/uL (0.0-0.3); EOSINOPHILS % (AUTO) 3 % (0-10); HEMATOCRIT 44 % (35-52); HEMOGLOBIN 14.9 g/dL (11.5-16.0); LYMPHOCYTES # (AUTO) 1.8 10^3/uL (1.0-4.0); LYMPHOCYTES % (AUTO) 26 % (12-44); MEAN CORPUSCULAR HEMOGLOBIN 31 pg (25-34); MEAN CORPUSCULAR HGB CONC 34 g/dL (32-36); MEAN CORPUSCULAR VOLUME 93 fL (80-99); MEAN PLATELET VOLUME 9.3 fL (9.0-12.2); MONOCYTES # (AUTO) 0.8 10^3/uL (0.0-1.0); MONOCYTES % (AUTO) 11 % (0-12); NEUTROPHILS # (AUTO) 4.3 10^3/uL (1.8-7.8); NEUTROPHILS % (AUTO) 60 % (42-75); PLATELET COUNT 310 10^3/uL (130-400); WHITE BLOOD COUNT 7.2 10^3/uL (4.3-11.0)
[2020-04-25 11:40] LABS: ALBUMIN 4.5 GM/DL (3.2-4.5); BILIRUBIN,TOTAL 0.7 MG/DL (0.1-1.0); CALCIUM 9.8 MG/DL (8.5-10.1); CREATININE SERUM 0.96 MG/DL (0.60-1.30); POTASSIUM 3.6 MMOL/L (3.6-5.0); TOTAL PROTEIN 7.3 GM/DL (6.4-8.2)
== END ==
LOC: EDSTATUS 11-06 14:33 → ONC 10:57
PROVIDERS: ATTEND Internal Medicine Hematology & Oncology
DX: C50.511 Malignant neoplasm of lower-outer quadrant of right female breast (principal); M85.80 Other specified disorders of bone density and structure, unspecified site; I10 Essential (primary) hypertension; Z79.811 Long term (current) use of aromatase inhibitors
CPT/HCPCS: 80053; 85025; G0463; 99213

== ENCOUNTER 2020-07-16 11:35 | Emergency (ER) | payer MEDICAID ==
[~2020-07-16] VITALS: Ht 160 cm; Wt 76.1 kg
[~2020-07-16 11:35] MED LIST changes: +CALC600T91 PO; -CLC600T PO
[2020-07-16 12:06] LABS: HEMATOCRIT 42 % (35-52); HEMOGLOBIN 14.3 G/DL (11.5-16.0); MEAN CORPUSCULAR HEMOGLOBIN 31 PG (25-34); WHITE BLOOD COUNT 7.3 10^3/uL (4.3-11.0)
[2020-07-16 12:07] LABS: BASOPHILS % (AUTO) 1 % (0-10); EOSINOPHILS % (AUTO) 4 % (0-10); LYMPHOCYTES % (AUTO) 31 % (12-44); MEAN CORPUSCULAR HGB CONC 34 G/DL (32-36); MEAN CORPUSCULAR VOLUME 91 FL (80-99); MEAN PLATELET VOLUME 9.1 FL (7.4-10.4); MONOCYTES % (AUTO) 11 % (0-12); NEUTROPHILS % (AUTO) 53 % (42-75); PLATELET COUNT 327 10^3/uL (130-400)
[2020-07-16 12:08] LABS: BASOPHILS # (AUTO) 0.1 10^3/uL (0.0-0.1); EOSINOPHILS # (AUTO) 0.3 10^3/uL (0.0-0.3); LYMPHOCYTES # (AUTO) 2.2 X 10^3 (1.0-4.0); MONOCYTES # (AUTO) 0.8 X 10^3 (0.0-1.0); NEUTROPHILS # (AUTO) 3.9 X 10^3 (1.8-7.8)
[2020-07-16 12:28] LABS: CARBON DIOXIDE 23 MMOL/L (21-32); CHLORIDE 106 MMOL/L (98-107); POTASSIUM 3.7 MMOL/L (3.6-5.0); SODIUM 142 MMOL/L (135-145)
[2020-07-16 12:29] LABS: ALANINE AMINOTRANSFERASE 31 U/L (0-55); ALBUMIN 4.5 GM/DL (3.2-4.5); ALKALINE PHOSPHATASE 69 U/L (40-136); BILIRUBIN,TOTAL 0.4 MG/DL (0.1-1.0); BUN/CREATININE RATIO 21; CALCIUM 10.6 MG/DL (8.5-10.1); CREATININE SERUM 0.86 MG/DL (0.60-1.30); GFR ESTIMATED > 60; GLUCOSE 93 MG/DL (70-105)
[2020-07-16] MEDS ORDERED: CATHETER FLUSH 10 ML SYR IV PRN (12:45)
[2020-07-16] MEDS ORDERED: IOHEXOL 350 MG/ML 100 ML (OMNIPAQUE 350) VIAL IV ONE (12:45)
[2020-07-16] MEDS ORDERED: HOLD METFORMIN - RECEIVED CONTRAST 20 ML VIAL IV SCH (12:45)
[2020-07-16] MEDS ORDERED: NS 100 ML (IVPB) BAG IV ONE (12:45)
--- NOTE | 2020-07-16 13:41 | Diagnostic Imaging Report ---
PROCEDURE: CT angiography of the head and CT angiography of the neck with and without contrast. TECHNIQUE: Contiguous noncontrast images were obtained from the skull base through the vertex. After intravenous contrast administration, helical CT angiography of the neck was performed. Source data was reformatted into 3D MIP projections. Delayed post contrast acquisition was also obtained. Auto Exposure Controls were utilized during the CT exam to meet ALARA standards for radiation dose reduction. INDICATION: Blurred vision and headache. FINDINGS: The noncontrast head CT demonstrates ventricles and sulci to be within normal limits. No sulcal effacement or midline shift is identified. No acute intra-axial or extra-axial hemorrhage is detected. The delayed postcontrast imaging is without evidence of an enhancing lesion. CT angiogram neck: Right and left common carotid arteries are widely patent. The right and left carotid bifurcations are widely patent. There is some tortuosity to the internal carotid arteries, however these appear to be widely patent to the skull base. The left vertebral artery is dominant. Right and left vertebral arteries are widely patent. No stenosis is identified. CTA head: Basilar artery is widely patent. The right and left posterior cerebral arteries appear widely patent. The bilateral carotid siphons are widely patent. The M1 and M2 segments of the right and left middle cerebral arteries appear to be patent. No filling defect or thromboembolism is identified. Right and left anterior cerebral arteries appear to be patent. IMPRESSION: Unremarkable CT angiogram of the head and neck. No large branch occlusion is identified. Dictated by: Dictated on workstation # [id number]
--- NOTE | 2020-07-16 14:08 | ED General ---
General Chief Complaint: Eye Problems Stated Complaint: LT EYE ALTERED VISION Nursing Triage Note: Patient reports she was driving and the vision in her left eye became obscured. 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 She reports a headache on arrival to the ED. Nursing Sepsis Screen: No Definite Risk History of Present Illness Date Seen by Provider: Jul 16, 2020 Time Seen by Provider: 12:35 Initial Comments Patient is a 59-year-old female who presents with loss of vision in the left eye lateral visual arango 2 hours prior to ED arrival. Patient initially reports kaleidoscope vision in the left eye followed by blurring or loss of vision in left lateral visual arango. Vision has since started to return.. Patient also reports mild headache to this region. She denies tenderness over temporal artery, nausea, vomiting, sweats. She denies chest pain palpitations. She denies history of arrhythmia. She does not have focal extremity weakness or loss of sensation. She denies dizziness lightheadedness loss of balance, change of smell taste or difficulty speaking. No other acute symptoms or complaints. Patient has had cataract repair. No history of glaucoma. She is scheduled to see her eye doctor tomorrow. Timing/Duration: 1-3 Hours Severity: Moderate Modifying Factors: improves with Other Allergies and Home Medications Allergies Coded Allergies: acetaminophen (Verified Adverse Reaction, Unknown, itching, 07/16/20) oxycodone (Verified Adverse Reaction, Unknown, itching, 07/16/20) Home Medications Calcium Carbonate 600 Mg Tablet, 600 MG PO DAILY, (Reported) Clonazepam 0.5 Mg Tablet, 0.5 MG PO DAILY, (Reported) Cyclobenzaprine HCl 10 Mg Tablet, 10 MG PO BID, (Reported) Duloxetine HCl 60 Mg Capsule.dr, 60 MG PO BID, (Reported) Exemestane 25 Mg Tablet, 25 MG PO DAILY, (Reported) Propranolol HCl 20 Mg Tablet, 20 MG PO TID, (Reported) Tramadol HCl 50 Mg Tablet, 50 MG PO QID PRN for PAIN-MODERATE (5-7), (Reported) Turmeric/Turmeric Root Extract 1 Each Capsule, 1 EACH PO DAILY, (Reported) Patient Home Medication List Home Medication List Reviewed: Yes Review of Systems Review of Systems Constitutional: see HPI EENTM: see HPI Respiratory: see HPI Cardiovascular: see HPI Genitourinary: see HPI Musculoskeletal: see HPI Skin: see HPI Psychiatric/Neurological: See HPI Hematologic/Lymphatic: See HPI Immunological/Allergic: see HPI All Other Systems Reviewed Negative Unless Noted: Yes Past Jqhnzlr-Cnnpyz-Lhsnid Hx Past Med/Social Hx: Reviewed Nursing Past Med/Soc Hx Patient Social History Alcohol Use: Denies Use Smoking Status: Former Smoker Type Used: Cigarettes Former Smoker, Quit: Dec 24, 2005 2nd Hand Smoke Exposure: No Recent Infectious Disease Expo: No Recent Hopitalizations: No Seasonal Allergies Seasonal Allergies: No Past Medical History Surgeries: Yes (Bilateral Mastectomy, port, ear sx x4) Appendectomy, Breast, Gallbladder, Hysterectomy Respiratory: No Cardiac: Yes (heart cath x 2) High Cholesterol, Irregular Heartbeat, Palpitations Neurological: No 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 oz. 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 Norm as Tested Focused Exam Sepsis Stage: Ruled Out Progress/Results/Core Measures Suspected Sepsis Recent Fever Within 48 Hours: No Infection Criteria Present: None New/Unexplained Altered Menta: No Sepsis Screen: No Definite Risk SIRS Temperature: Pulse: 84 Respiratory Rate: 16 Laboratory Tests 07/16/20 12:00: White Blood Count 7.3 Blood Pressure 124 /74 Mean: 91 Laboratory Tests 07/16/20 12:00: Creatinine 0.86, Platelet Count 327, Total Bilirubin 0.4 Results/Orders Lab Results Laboratory Tests Test 07/16/20 12:00 Range/Units White Blood Count 7.3 4.3-11.0 10^3/uL Red Blood Count 4.64 4.35-5.85 10^6/uL Hemoglobin 14.3 11.5-16.0 G/DL Hematocrit 42 35-52 % Mean Corpuscular Volume 91 80-99 FL Mean Corpuscular Hemoglobin 31 25-34 PG Mean Corpuscular Hemoglobin Concent 34 32-36 G/DL Red Cell Distribution Width 14.0 10.0-14.5 % Platelet Count 327 130-400 10^3/uL Mean Platelet Volume 9.1 7.4-10.4 FL Immature Granulocyte % (Auto) 1 % Neutrophils (%) (Auto) 53 42-75 % Lymphocytes (%) (Auto) 31 12-44 % Monocytes (%) (Auto) 11 0-12 % Eosinophils (%) (Auto) 4 0-10 % Basophils (%) (Auto) 1 0-10 % Neutrophils # (Auto) 3.9 1.8-7.8 X 10^3 Lymphocytes # (Auto) 2.2 1.0-4.0 X 10^3 Monocytes # (Auto) 0.8 0.0-1.0 X 10^3 Eosinophils # (Auto) 0.3 0.0-0.3 10^3/uL Basophils # (Auto) 0.1 0.0-0.1 10^3/uL Immature Granulocyte # (Auto) 0.1 0.0-0.1 10^3/uL Sodium Level 142 135-145 MMOL/L Potassium Level 3.7 3.6-5.0 MMOL/L Chloride Level 106 98-107 MMOL/L Carbon Dioxide Level 23 21-32 MMOL/L Anion Gap 13 5-14 MMOL/L Blood Urea Nitrogen 18 7-18 MG/DL Creatinine 0.86 0.60-1.30 MG/DL Estimat Glomerular Filtration Rate > 60 BUN/Creatinine Ratio 21 Glucose Level 93 70-105 MG/DL Calcium Level 10.6 H 8.5-10.1 MG/DL Corrected Calcium 10.2 H 8.5-10.1 MG/DL Total Bilirubin 0.4 0.1-1.0 MG/DL Aspartate Amino Transf (AST/SGOT) 26 5-34 U/L Alanine Aminotransferase (ALT/SGPT) 31 0-55 U/L Alkaline Phosphatase 69 40-136 U/L Total Protein 7.0 6.4-8.2 GM/DL Albumin 4.5 3.2-4.5 GM/DL My Orders Orders - RYAN CHILDERS DO Cbc With Automated Diff (07/16/20 11:45) Comprehensive Metabolic Panel (07/16/20 11:45) Ct Angio Head/Neck (07/16/20 11:45) Ekg Tracing (07/16/20 11:45) Iohexol Injection (Omnipaque 350 Mg/Ml 1 (07/16/20 12:45) Received Contrast (Hold Metformin- Contr (07/16/20 12:45) Sodium Chloride Flush (Catheter Flush Sy (07/16/20 12:45) Ns (Ivpb) (Sodium Chloride 0.9% Ivpb Bag (07/16/20 12:45) Medications Given in ED Current Medications Medications Dose Ordered Sig/Tacho Route Start Time Stop Time Status Last Admin Dose Admin Iohexol 75 ml ONCE ONCE IV 07/16/20 12:45 07/16/20 12:46 DC 07/16/20 13:01 75 ML Sodium Chloride 10 ml NEEDED PRN IV 07/16/20 12:45 07/16/20 13:01 10 ML Sodium Chloride 100 ml ONCE ONCE IV 07/16/20 12:45 07/16/20 12:46 DC 07/16/20 13:01 80 ML Vital Signs/I&O 07/16/20 11:36 Temp 36.9 Pulse 84 Resp 16 B/P (MAP) 124/74 (91) Pulse Ox 97 O2 Delivery Room Air Capillary Refill : Less Than 3 Seconds Blood Pressure Mean: 91 Departure Communication (Admissions) EK07/16/2020 normal sinus rhythm, normal TN interval, normal QRS, and no acute ST-T wave changes. Patient with no focal motor or neurologic deficits suggestive of stroke symptoms. CT angio does not show evidence of vasculitis or occlusion. Suspect vitreous/retinal detachment. 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 Return precautions reviewed. Patient verbalizes understanding agreement discharge instructions prior to departure. Impression Primary Impression: Blurred vision, left eye Disposition: 01 HOME, SELF-CARE Condition: Stable Departure-Patient Inst. Decision time for Depature: 14:07 Referrals: KEVYN GAMBLE APRN (PCP) Primary Care Physician [facility]ANNE MARIE (Family) Primary Care Physician Add. Discharge Instructions: You were evaluated in the emergency department for partial vision loss involving your left eye. Please take daily baby aspirin and follow-up with your eye doctor tomorrow as scheduled. Return to the ED if new or concerning symptoms. All discharge instructions reviewed with patient and/or family. Voiced understanding. RYAN CHILDERS DO Jul 16, 2020 14:08
[2020-07-16 14:12] VITALS: BP 127/87
== END 2020-07-16 14:15 | disposition home or self-care (01) ==
LOC: EDUNIT# 11:35 → ER FS 11:37
DX: H53.8 Other visual disturbances (principal); F41.9 Anxiety disorder, unspecified; Z88.5 Allergy status to narcotic agent; Z88.6 Allergy status to analgesic agent; Z87.891 Personal history of nicotine dependence; Z79.899 Other long term (current) drug therapy
CPT/HCPCS: 36415; 70496; 70498; 80053; 85025; 93005

== ENCOUNTER → 2020-09-05 | Outpatient (CLI) | payer MEDICAID ==
--- NOTE | 2020-09-05 10:54 | Diagnostic Imaging Report ---
Right ankle at 10:30 INDICATION: Ankle pain 3 views were obtained. There are no prior studies available for comparison. There is no fracture, dislocation or acute bony abnormality evident. The ankle mortise is not widened and the talar dome is smooth. There is soft tissue edema over the lateral malleolus. IMPRESSION: There is no evidence for an acute bony abnormality. Dictated by: Dictated on workstation # [id number]
== END ==
LOC: RAD FS 10:17
PROVIDERS: ATTEND Nurse Practitioner Family
DX: S99.911A Unspecified injury of right ankle, initial encounter (principal); X58.XXXA Exposure to other specified factors, initial encounter
CPT/HCPCS: 73610

== ENCOUNTER → 2020-11-29 | Outpatient (CLI) | payer MEDICAID ==
[~2020-11-29] MED LIST changes: +DICL100G13; -DICL100G31
--- NOTE | 2020-11-29 16:04 | Diagnostic Imaging Report ---
PROCEDURE: US carotid duplex, bilateral. TECHNIQUE: Multiple real-time grayscale images were obtained over the carotid arteries in various projections, bilaterally. Additional spectral analysis and color Doppler duplex images were also obtained. INDICATION: Amaurosis fugax of the right eye. COMPARISON: None available. FINDINGS: Mild plaque noted. The peak systolic velocities and the IC:CC ratios demonstrate no evidence of hemodynamically significant stenosis in the internal carotid arteries. No significant common carotid artery or external carotid artery stenosis. Bilateral vertebral arteries demonstrate antegrade flow. IMPRESSION:1. No evidence of hemodynamically significant stenosis. Parameters based on the consensus panel Preciado-Scale and Doppler ultrasound criteria published January 2003, Radiology, Volume 229. DOPPLER (peak systolic velocity M/S Right Left CCA .83 1.2 ICA Proximal .60 .88 ICA Mid .90 .57 ICA Distal .80 .79 RATIO 1.1 .8 ECA .85 .81 VERT .49 .52 Dictated by: Dictated on workstation # [id number]
== END ==
LOC: RAD 12:30
PROVIDERS: ATTEND Allergy & Immunology
DX: G45.3 Amaurosis fugax (principal)
CPT/HCPCS: 93880

== ENCOUNTER → 2020-12-03 | Outpatient (CLI) | payer MEDICAID ==
--- NOTE | 2020-12-03 15:16 | Diagnostic Imaging Report ---
Clinical indication: Patient has been having headaches and recent loss of vision/amaurosis fugax of right eye. EXAM: MRA of the [place] performed without IV contrast using 3-D [id number]. Rotating 3-D MIP images were created. COMPARISON: CT angiogram of the head/neck dated 07/16/2020. FINDINGS: There is interval development of tapering of the proximal aspect of left P2 NEEDLE LOOM TENDER leading to a focal area of severe stenosis. There is diminished signal seen distal to this area of severe stenosis and also demonstrates decreased caliber involving the distal left P2 and P3 NEEDLE LOOM TENDER vessels. This finding is new compared to the prior CT angiogram. The remainder of the visualized [place] vascular structures are stable and patent with no other significant stenosis, vascular malformation, aneurysm, as visualized. IMPRESSION: 1: There is interval development of severe focal stenosis involving the proximal left P2 NEEDLE LOOM TENDER with diminished signal and diminished caliber of the distal left P2 and P3 NEEDLE LOOM TENDER regions. Given that the patient has recent correlating symptoms and a previous normal comparison CT angiogram exam, intravascular clot is of concern. Referral to a tertiary center stroke service for evaluation is recommended. CT angiogram of the head and neck and/or digital subtraction cerebral angiogram would also help better evaluate. 2: The remainder of the [place] vascular structures are stable and patent, as visualized. Results of this report discussed with Dr. Indira Wang via the telephone on 12/03/2020 at 1316 hours. Dictated by: Dictated on workstation # [id number]
== END ==
LOC: RAD 11:00
PROVIDERS: ATTEND Allergy & Immunology
DX: G45.3 Amaurosis fugax (principal)
CPT/HCPCS: 70544

== ENCOUNTER 2020-12-15 13:52 | Emergency (ER) | payer MEDICAID ==
[~2020-12-15] VITALS: Ht 160 cm; Wt 72.0 kg
--- OUTSIDE RECORDS SUMMARY | 2020-12-15 13:56 | XMS REPORT | Encounter Summary ---
Author Author [facility] Organization [facility] Address Unknown Phone Unavailable Care Team Providers Care Recovery Room Rn Name Role Phone Valentine Goodman MD Unavailable Chin Tolentino MD Unavailable Ingrid Cavazos AUD Unavailable Magdalene Newton PA-C Unavailable Anika Ac AUD Unavailable Cindi Esquivel NP PCP Reason for Visit * Reason Onset Date Comments Follow-up Phone Call 12/06/2020 Encounter Details Care Team Description Date Type Department Amarjit Casiano MD [address] [place] [id number] Follow-up Phone Call 12/06/2020 Telephone Neurosurgery: [facility] [place], [address] [place] [address] Social History Date Tobacco Use Types Packs/Day Years Used Quit: 05/21/2005 Former Smoker Cigarettes 1 34 Smokeless Tobacco: Never Used Comments Alcohol Use Standard Drinks/Week No 0 (1 standard drink = 0.6 o z pure alcohol) Sex Assigned at Date Recorded Not on file Date Recorded COVID-19 Exposure Response 12/04/2020 9:31 AM CDT In the last month, have you been in contact with No / Unsure someone who was confirmed or suspected to have Coronavirus / COVID-19? documented as of this encounter Functional Status Date of Assessment Functional Status Response 03/20/2019 Does the patient have a hearing impairment: No 03/20/2019 Does the patient have a visual impairment: Yes 03/20/2019 Does the patient have impaired ambulation: No 03/20/2019 Does the patient have an activity of daily living No (ADL) impairment: 03/20/2019 Does the patient have an instrumental activity of No daily living (IADL) impairment: Date of Assessment Cognitive Status Response 03/20/2019 Does the patient have a cognitive impairment: No documented as of this encounter Miscellaneous Notes * Telephone Encounter - Dacia Stearns BSN - 12/06/2020 11:08 AM CDT Call placed to [facility] with no answer. Left voice message informing her that Dr.Mi grullon would like an Angiogram sometime next week. Contacted IR to set up an eduin ointment. documented in this encounter Plan of Treatment Not on filedocumented as of this encounter Visit Diagnoses Not on filedocumented in this encounter Additional Health Concerns Assessment Noted Time A fall risk assessment has been completed for the pat ient 12/04/2020 10:00 AM CDT documented as of this encounter
--- OUTSIDE RECORDS SUMMARY | 2020-12-15 13:56 | XMS REPORT | Clinical Summary ---
Author Author [facility] Organization [facility] Address Unknown Phone Unavailable Care Team Providers Care Sample Preparation Supervisor Name Role Phone Valentine Goodman MD Unavailable Chin Tolentino MD Unavailable Ingrid Cavazos AUD Unavailable Magdalene Newton PAPennyC Unavailable Anika Ac AUD Unavailable Cindi Esquivel NP PCP Source Comments Some departments are not documenting in the electronic medical record. If you d o not see the information that you expected, contact Release of Information in Pending sale to [facility] Information Management department at [phone] for further assistan ce in locating additional records.[facility] Allergies Comments Active Allergy Reactions Severity Noted Date Per patient "got red bumps that itch across shoulders and neck, also red bumps in mouth and gums were sore" Iodinated Contrast Media HIVES, High 06/07 BLISTERS Oxycodone-Acetaminophen ITCHING Medium 2012 Medications End Date Status Medication Sig Dispensed Refills Start Date Active propranolol (INDERAL) 10 Take 10 mg by 0 mg tablet mouth twice daily. Active duloxetine DR (CYMBALTA) Take 1 Cap by 90 Cap 3 30 mg capsule mouth daily. 7 x7 days. Then take 2 tablets daily. Additional Information Patient taking differently: 30 mg Oral AT BEDTIME DAILY, x7 days. Then take 2 tablets daily., Reported on 10/29/2016 Active cholecalciferol (VITAMIN Take 2,000 0 D-3) 1,000 units tablet Units by mouth daily. Active calcium carbonate Take 1 tablet 0 (CALCIUM 600 PO) by mouth daily. Active exemestane (AROMASIN) 25 Take 25 mg by 0 mg tab mouth daily. Take after a meal. Active rosuvastatin (CRESTOR) 10 Take 10 mg by 0 mg tablet mouth daily. Active aspirin 325 mg tablet Take 325 mg 0 by mouth daily. Take with food. Active predniSONE (DELTASONE) 50 Take one 3 tablet 0 mg tablet tablet by 1 mouth daily. Active Problems Problem Noted Date TIA (transient ischemic attack) 12/04/2020 Hypercholesterolemia 12/04/2020 Palpitations 12/04/2020 Malignant neoplasm of central portion of right breast in female, estrogen 05/07/2016 receptor positive Cancer Staging: Clinical stage from 04/23: Stage IIB (T2, N1, M0) - Signed by Arnulfo Pop MD on 2016 Pathologic stage from 10/29/2016: Stage IIA (yT1b, N1a, cM0) - Signed by Deb Gillette PA-C on 02/26/2017 Overview: Formatting of this note might be differ ent from the original. DIAGNOSIS: 1. Right grade 2 IDC (ER100%, PR3%, HER 2 3+, Ki-67 37%) SA with involved axillary lymph node, dx 04/2016 2. Rickey negative HISTORY: Ms. Malone is a femal e who presented to [facility] on 05/25/2016 at age 55 for evaluation of right breast cancer. She initially saw Kasia Godfrey PA-C on 05/07/2016 for evaluation of right nipple inversion and breast redne ss. Ms. Malone noted right breast redness next to the areola at the begin of April 2016. Ms Malone has a history of a right breast excisional bi opsy in 2011 which showed atypical columnar cell hyperplasia. A right skin punch biopsy was performed on 05/07/16 () which revealed somewhat di lated lymphatic spaces. Right breast sono-guided biopsy 05/12/16 () grade 2 invasive ductal carcinoma. Right axillary sono-guided biopsy 05/12/16 ( ) revealed metastatic carcinoma. Ms. Malone underwent breast MRI and there was 4.8 cm of nonmass enhancement surrounding the known cancer. An MR-rao ded biopsy was recommended to evaluate extent of disease since Ms. Florez ll preferred BCT. Right MR-guided biopsy 06/03/16 ([facility]) revealed nodular sc lerosing adenosis, associated with microcalcifications. Ms. Malone underwent bilateral total mastectomy/right ALND on 10/29/16. Final pathology reveal ed ER/OR positive HER2 negative IDC and she was previously HER2 positive. She completed radiation therapy with Dr. Garcia in [place], [place]. PATHOLOGY: Tumor: Size/Extent of Tumor Bed: 3.1 x 2.7 cm Size/Extent of Residual Invasive Tumor: 0.8 x 0.2 cm Overall Residual Cellularity of the Gordon or Bed: 20 % Margins Free From Tumor: Yes ER: positive OR: negative Her 2: negative Grade: 2 Lymph Nodes: 05/09; largest met 5 mm LVSI: no Extranodal extension: yes BREAST IMAGING: Mammogram: -- Bilateral screening mammogram 08/22/15 ([place], [place]) revealed heterogeneously dense breast tissue. Dean rgical changes were present in the right breast. No residual suspicious ca lcifications. No suspicious masses or architectural distortion. -- Right diagnostic mammogram 05/07/16 ( ) revealed scattered fibroglandular densities. In the inferi or right breast, deep near the chest wall there was an irregular high densit y mass with indistinct margins measuring approximately 2 cm. There was skin thickening seen about the nipple and areola. Ultrasound: -- Targeted right breast ultrasound 04/22 09/05 ([facility]) revealed at 6:00, 4 cm from the nipple there was a hypoechoic irregular mass with spiculated margins and internal areas of increased echogenicity measuring 1.6 x 1.3 x 1.2 cm highly suspicious for breast can cer. Skin thickening was present surrounding the areola measuring up to 0.6 cm thickness. In the right axilla there was a rounded lymph node w hich measures 1.9 x 1.1 cm with eccentric thickening of the cortex ramona uring up to 1.4 cm thickness, suspicious for young metastasis. Sonogr aphic guided sono guided biopsy of the right breast mass and right axillar y lymph node will be scheduled. MRI: -- Bilateral breast MRI 05/26/16 ([facility]) rev ealed in the right breast at 6:00, posterior depth there was an irregular enhancing mass measuring 1.8 cm AP x 2.1 cm TV x 1.7 cm CC with predominant washout kinetics. Biopsy clip artifact was noted centrally within the mass. There was contiguous linear nonmass enhancement with washout kineti cs extending anteriorly from posterior to mid depth measuring 4.8 cm AP when included within the mass. There is bright T2 signal involving the skin of the periareolar right breast without significant enhancement or appreciable skin thickening consistent with the biopsy reporting di lated lymphatic spaces. There was a single morphologically abnormal right a xillary lymph node measuring 1.7 cm with biopsy clip noted. This node was l ocated at the lateral margin of the pectoralis minor and is felt to be a le jimi 1 node rather than an interpectoral node (Judi's node). In the left breast there was no suspicious mass or nonmass enhancement. No axillary/internal mammary adenopathy . Other: -- CT CAP 06/05/16 () revealed CHEST: 1. Right breast mass and mildly enlarged right axillary lymph node, con sistent with previously biopsied tumor and metastasis. No additional jnanet picious thoracic adenopathy is identified. 2. Small left lower lobe groundglass nodule, likely benign. Attention on future follow is recommend ed. 3. Injected intravenous contrast surrounding in the left chest wall secondary to infiltration after port injection. Clinical follow-up is r ecommended. ABDOMEN AND PELVIS: No metastatic disease the abdomen or pelvi s. -- Bone scan 06/05/16 ([facility]) revealed limi roland examination due to extensive extravasation of administered radionucl angel. There was no evidence of osseous metastatic disease. REPRODUCTIVE HEALTH: Age at first Menarche: 15 Age at First Live : 20 Age at Menopause: BRANDAN/BSO at 51, no HR T : 4 Para: 4 : 2-3 months PROCEDURE: 1. Right breast excisional biopsy, 2011 (outside) 2. Bilateral total mastectomy/right ALN D, 10/29/16 ([facility]) PERTINENT PMH: GERD, back pain, IBS, a nxiety FAMILY HISTORY: Mother-Breast cancer; Sister-Ovarian cancer PHYSICAL EXAM on PRESENTATION: Left - No palpable breast masses. No skin, nipple, or areolar change. Right - Well healed excisional biopsy. 4 x 2 cm area of redness medial to the areola. N ipple inversion present for 5 years. No supraclavicular or axillary adenopat hy. MEDICAL ONCOLOGY: Dr. May/Dr. Henrietta butler NEOADJUVANT THERAPY: TCPH - perjeta removed after cycle 2 due to si de effects; finished 09/21/16 PRESENT THERAPY: Letrozole, switched to [facility] in REFERRED BY: Self Last Assessment & Plan: Formatting of this note might be differ ent from the original. Impression: 1. Stage IIB (cT2 N1 M0) high-grade ER positive, HER-2 positive, invasive ductal carcinoma of the right breast on elvin-adjuvant TCHP 2. Grade 2 nausea 3. Grade 2 rash 4. Grade 1 diarrhea 5. Recent extravasation of IV contrast 6. Right axillary lymph node metastasis , biopsy-proven 7. Non-mass enhancement of the right br east extending to the subareolar region with benign findings on biopsy 8. Subcentimeter ground glass pulmonary nodule 9. Family history of breast and cervica l cancers in first-degree relatives with negative BRCA 1 and 2 testing 10. Former 34 pack/year smoker 11. Significant anxiety improved on Cym katelyn 12. Fibromyalgia, improved on Cymbalta 13. Irritable bowel syndrome 14. History of multiple back injuries 15. Palpitations with two normal heart catheterizations 16. ECOG PS 0 Plan: 1. Doing well. Reviewed her staging im aging. Overall, there are no compelling features suggestive of metas tatic disease and I do not recommend further investigation right now. Her L LL nodule requires follow up given her smoking history and a [address] is indicated. We will get this in November 2016. 2. She additionally has had a significa nt rash that has developed. It is unclear to me whether this represents a contrast allergy or reaction to her docetaxel. We will see if it develops with her next cycle of treatment. If not, then we will add intravenous co ntrast as an allergy. 3. Add fosaprepitant on day 1 with next cycle given grade 2 nausea 4. Instructed on taking loperamide 2 ta blets twice a day until diarrhea resolves. She can take more with a max imum of up to 8 tablets daily. 5. Complete Benadryl and Medrol Dosepak . Prescribed triamcinolone today for her rash. 6. Continue TCHP at standard dosing wit h C1D8 = 06/08/16. 7. Neulasta day 4 = 06/04/16 8. She was not a candidate for the [facility] study. 9. Genetics referral for completion mujica el testing has been placed with results pending. 10. Continue Cymbalta 60mg PO daily. H er fibromyalgia and anxiety symptoms have dramatically improved with this. 11. She is considering having some of h er treatments performed later on down in the [place] area under the d irection of Dr. Alma Harman. I let her know that this would be perfectly f ine and that we can work out the timing moving forward. 12. RTC with me in 2 weeks or sooner sh ould new or concerning symptoms develop. I have discussed the diagnosis and surjit tment plan with the patient and she expresses understanding and wishes to p jong. Tympanic membrane retraction 01/24/2013 Overview: Formatting of this note might be differ ent from the original. Left with hx of type 1 tymp x 2 elsewhe re, now with residual conductive hearing loss myringostapediopexy. OR 12-'13 - large pocket resection. Sec ond look September 2013 Osteoarthritis 05/22/2011 Degenerative disc disease 05/22/2011 Resolved Problems Problem Noted Date Resolved Date Tympanic membrane perforation 01/24/2013 01/25/20 13 Encounters Care Team Description Date Type Specialty Amarjit Casiano MD Coppenbarger, Tina, RN Lacy Orellana, RT(R)(CT)(),LRT Tiago Campa MD TIA (transient ischemic attack) 12/11/2020 Hospital Radiology Encounter 12/11/2020 Travel Fidelia Layne RN 12/06/2020 Orders Only Radiology Amarjit Casiano MD Follow-up Phone Call 12/06/2020 Telephone Neurosurgery 12/05/2020 Documentation Radiology Amarjit Casiano MD Headache 12/05/2020 Telephone Neurosurgery Amarjit Casiano MD TIA (transient ischemic attack) (Primary Dx); Hypercholesterolemia; Palpitations 12/04/2020 Office Visit Neurosurgery Amarjit Casiano MD Referral 12/04/2020 Telephone Neurosurgery 12/04/2020 Travel Arrived 12/03/2020 Hospital Radiology Encounter Arrived 11/29/2020 Hospital Radiology Encounter Delano Ibrahim, DO Cancer Follow up 10/09/2020 Telephone Oncology Delano Ibrahim, DO Breast Cancer 10/09/2020 Telephone Oncology from Last 3 Months Immunizations Name Administration Dates Next Due FLU VACCINE >3YO 12/02/2010 (Preservative Free) Flu Vaccine =>3 YO 11/28/2017, 12/14/2016, , 11/14/2014, (Historical) 12/29/2013, 12/07/2012 Flu Vaccine =>6 Months 12/07/2018 Quadrivalent PF Tdap Vaccine 10/01/2016, 08/19/2010 Surgical History Surgery Date Site/Laterality Comments HX APPENDECTOMY COLONOSCOPY HX POLYPECTOMY Colon CYSTOURETHROSCOPY HX TUBAL LIGATION 1988 TYMPANOMASTOIDECTOMY 03/01/13 Dr Tolentino, LEFT umu astic graft, 2nd look 12/02 CARPAL TUNNEL RELEASE OTHER SURGICAL HISTORY radial tunnel TYMPANOMASTOIDECTOMY 10/19/2013 Dr Tolentino, 2nd look , PET, cartilage HX HYSTERECTOMY 2011 OOPHORECTOMY 2011 LAP CHOLECYSTECTOMY unknown HEART CATHETERIZATION 2001,2005 MASTECTOMY 10/29/2016 Breast/Bilatera Bilateral Tota l Mastectomy, Right [place] Lymph l Node Biopsy performed by Delano Ramesh DO at [facility] OR/PERIOP LYMPH NODE DISSECTION 10/29/2016 Axilla/Right Axillary Lymph Node Injection performed by Delano Ibrahim DO at [facility] OR/PERIOP PORTACATH PLACEMENT 05/28/2016 Chest/Left INSERTION VENOUS ACCESS PORT performed by Evaristo Neely MD at [facility] OR/PERIOP Medical devices from this surgery are i n the Implants section. Medical History Medical History Date Comments Back injury Panic attacks Colon polyps Heart palpitations Cluster headache Headache(784.0) GERD (gastroesophageal reflux disease) IBS (irritable bowel syndrome) Arthritis Cancer (HCC) 04/2016 R breast High cholesterol Atrial fibrillation (HCC) Depression Glaucoma Family History Medical History Relation Name Comments Alcohol abuse Brother Arthritis Brother Asthma Brother COPD Brother Cancer Brother Diabetes Brother Hearing Loss Brother Heart Disease Brother Hernia Brother Hypertension Brother Arthritis Father COPD Father Cancer Father Diabetes Father Heart Attack Father Heart Disease Father Stroke Father Arthritis Mother Cancer Mother Breast Cancer-Breast Mother Heart Disease Mother Cancer Sister Cervical Relation Name Status Comments Brother Father Alive Mother Alive Sister Social History Date Tobacco Use Types Packs/Day Years Used Quit: 05/21/2005 Former Smoker Cigarettes 1 34 Smokeless Tobacco: Never Used Comments Alcohol Use Standard Drinks/Week No 0 (1 standard drink = 0.6 o z pure alcohol) Sex Assigned at Date Recorded Not on file Date Recorded COVID-19 Exposure Response 12/11/2020 10:14 AM CDT In the last month, have you been in contact with No / Unsure someone who was confirmed or suspected to have Coronavirus / COVID-19? 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 Respiratory Rate 98% 12/11/2020 4:00 PM CDT Oxygen Saturation - - Inhaled Oxygen Concentration 83 kg (183 lb) 12/04/2020 9:53 AM CDT Weight 160 cm (5' 3") 12/04/2020 9:53 AM CDT Height 32.42 12/04/2020 9:53 AM CDT Body Mass Index Plan of Treatment Health Maintenance Due Date Last Done Comments HIV SCREENING 07/30/1975 PHYSICAL (COMPREHENSIVE) 1978 EXAM CERVICAL CANCER SCREENING 1981 BREAST CANCER SCREENING 2000 COLORECTAL CANCER 2010 SCREENING SHINGLES RECOMBINANT 2010 VACCINE (1 of 2) INFLUENZA VACCINE 10/20/2020 11/16/2019, 12/07/2018, 11/28/2017, Additional history exists DTAP/TDAP VACCINES (3 - 10/01/2026 10/01/2016, Td or Tdap) 08/19/2010 HEPATITIS C SCREENING Completed 05/22/2011 Implants Device Identifier Shelf Expiration Date Model / Serial / L ot Implanted Type Area Manufactur er 02/16/2017 [id number] / N/A / [id number] Port Implantable 8 Float Point Unit Left: Chest C R Siom Intermediate BARD:ACCES Implanted: Qty: 1 on 05/28/2016 by Evaristo Anaya Jr., MD at [facility] [id number] 05/19/2022 [id number] / N/A / [id number] Dev Clsr Vasc Exoseal 6f - Sn/A CORDIS Implanted: Qty: 1 on 12/11/[address] [facility] Procedures Comments Procedure Name Priority Date/Time Associated Diag nosis IR CEREBRAL ARTERIOGRAM Routine 12/11/2020 TIA (t ransient ischemic DIAGNOSTIC 1:37 PM CDT attack) MRA HEAD EXTERNAL IMAGING Routine 12/03/2020 12:00 AM CDT US CAROTID EXTERNAL Routine 11/29/2020 IMAGING 12:00 AM CDT from Last 3 Months Results * IR CEREBRAL ARTERIOGRAM DIAGNOSTIC (12/11/2020 1:37 PM CDT) Specimen Impressions Performed At 1. Focal moderate to high-grade stenosi s of the proximal left P2 segment of the [facility] RES[facility] posterior cerebral artery. This could p otentially reflect a focal area of intracranial atherosclerotic disease al though no other vascular territory demonstrates this finding. Alternativel y, this could have reflected an area of mild focal narrowing which underwent mo re remote thrombosis with subsequent recanalization. 2. The rest of the vasculature remains smooth and normal caliber. No angiographic evidence for vasculitis. I, Tiago aCmpa M.D., the attendi interventional radiologist, performed the entire procedure, personally review ed the images, and formulated the interpretations and opinions expressed in this report. @TT Finalized by Tiago Campa M.D. on 8:10 AM. Dictated by Tiago Campa M.D. on 12/12/2020 7:55 AM. Narrative Performed At Diagnostic cerebral angiogram [facility] Ultrasound-guided femoral artery access CLINICAL HISTORY: Left ASSOCIATE SOFTWARE APPLICATION ENGINEER stenosis, stroke, TIA, homonymous hemianopsia INTERVENTIONALIST: Edison Campa M.D. COMPARISON STUDY: MRA December 03 0, CTA July 16, 2020 PROCEDURES PERFORMED: Cerebral angiogra phy with selective catheterization and angiographic interpretation of: 10 ve ssels Right common femoral arteriogram Brachiocephalic arteriogram with cervic al view Bilateral common carotid arteriograms w ith cervical views Bilateral internal carotid arteriograms with intracranial views Bilateral external carotid arteriograms with cranial views Bilateral vertebral arteriograms with i ntracranial views Ultrasound-guided common femoral artery access RADIATION DOSE: 1517 mgy SEDATION: I was personally responsible for the administration of moderate sedation services during the procedure performed and I confirm requirements described in CPT section on moderate se dation were followed, including the use of an independent trained observer who had no other duties during the procedure. See nursing log for complete details ; the drugs utilized were: IV fentanyl, Versed MEDICATIONS: 2% lidocaine CONTRAST: 150 mL Omnipaque 300 ACCESS SITE: Right common femoral art tanisha. Access was obtained under ultrasound guidance. The needle was visualized ent ering the vessel was documented. A hardcopy ultrasound image was saved and stored in PACS. HEMOSTASIS: Exoseal PROCEDURE: The risks, benefits, and alternatives t o the procedure and sedation were explained to the patient, and written i nformed consent obtained. The patient was placed in supine positi on on the angiography table and both groins were prepped and draped in the u sual sterile fashion. The skin and subcutaneous tissue overlying the right common femoral artery were infiltrated with 2% lidocaine for local anesthetic. The common femoral artery was accessed with micropuncture technique and a 4F t ransitional sheath was placed. Access was obtained under ultrasound guidance with direct visualization of the needle entering the vessel. A sheath angiogram was performed demonstrating the common femoral artery to be of normal size and appearance for closure device. The transitional catheter was exchanged for a 6 Nauruan vascular sheath which was attached to a heparinized pressurized b ag of saline. A 5 F Berenstein catheter was attached to a continuous flush syst em. This catheter and a 0.038 Glidewire was then advanced into the proximal janice cending aorta and after ensuring an air free system, the above mentioned vessel s were selected and diagnostic angiograms were obtained. Following the diagnostic study, the cat heter and sheath were removed and hemostasis was achieved with the closur e device. The procedure was well-tolerated, and the patient dischar ged in stable baseline neurologic condition. FINDINGS: Right common femoral artery: Widely pat ent with normal size for closure device. Right common carotid artery: Carotid bi furcation is widely patent with no stenosis identified. Right external carotid artery: External carotid artery and branches are widely patent. Vessels are smooth. No dural AV fistula identified. Right internal carotid artery: Cervical ICA is widely patent and smooth. Anterior and middle cerebral arteries a re also widely patent. Vessel caliber is normal. Vessels are smooth. No stenosis , aneurysm, or AVM is identified. Capillary and venous phases are normal. Dural venous sinuses are patent. Brachiocephalic artery: Mild tortuosity of the brachiocephalic artery and proximal subclavian artery. Common dasilva tid artery is widely patent. Right vertebral artery: Distal cervical vertebral artery is normal. Posterior inferior cerebellar artery is also with in normal limits with a low takeoff. Basilar artery and both posterior cereb ral arteries are patent. Distal vasculature is otherwise smooth. Focal narrowing of the left proximal P2 junction which will be described on lef t vertebral artery injection. No aneurysm is identified. Capillary and venous pha ses are normal. Left vertebral artery: Distal cervical vertebral artery is normal. Posterior inferior cerebellar artery is also norm al. There is a focal moderate to high-grade stenosis of the proximal lef t P2 segment of the posterior cerebral artery. Although there is minimally dec reased asymmetrical flow compared to the right ASSOCIATE SOFTWARE APPLICATION ENGINEER, the overall perfusion of the left ASSOCIATE SOFTWARE APPLICATION ENGINEER territory is robust. There are duplicated superior cerebellar salvatore leonarda which is a normal variant. Capillary and venous phases are normal. Dural lorena ous sinuses are patent. Left common carotid artery: Carotid bif urcation is widely patent with no stenosis identified. Left internal carotid artery: Mild tort uosity of the cervical ICA. Anterior and middle cerebral arteries are widely pat ent with no intracranial aneurysm, stenosis, or AVM. There is filling of t he posterior communicating artery which also shows the focal stenosis of the pr oximal left P2 segment. Visualization of the middle meningeal artery arising fro m a branch of the ophthalmic artery is noted as a normal variant. Otherwise, c apillary and venous phases are normal. Dural venous sinuses are patent. Left external carotid artery: External carotid artery branches are widely patent. Middle meningeal artery is not visualized as this is a normal variant. It arises from the ophthalmic artery as described above. Procedure Note Interface, Radiant Results - 12/12/2020 8:13 AM CDT Diagnostic cerebral angiogram Ultrasound-guided femoral artery access CLINICAL HISTORY: Left ASSOCIATE SOFTWARE APPLICATION ENGINEER stenosis, stroke, TIA, homonymous hemianopsia INTERVENTIONALIST: Edison Campa M.D. COMPARISON STUDY: MRA December 04, 2019, CTA July 16, 2020 PROCEDURES PERFORMED: Cerebral angiography with selective catheterization and angiographic interpretation of: 10 vessels Right common femoral arteriogram Brachiocephalic arteriogram with cervical view Bilateral common carotid arteriograms with cervical views Bilateral internal carotid arteriograms with intracranial views Bilateral external carotid arteriograms with cranial views Bilateral vertebral arteriograms with intracranial views Ultrasound-guided common femoral artery access RADIATION DOSE: 1517 mgy SEDATION: I was personally responsible for the administration of moderate sedation services during the procedure performed and I confirm requirements described in CPT section on moderate sedation were followed, including the use of an independent trained observer who had no other duties during the procedure. See nursing log for complete details; the drugs utilized were: IV fentanyl, Versed MEDICATIONS: 2% lidocaine CONTRAST: 150 mL Omnipaque 300 ACCESS SITE: Right common femoral artery. Access was obtained under ultrasound guidance. The needle was visualized entering the vessel was documented. A hardcopy ultrasound image was saved and stored in PACS. HEMOSTASIS: Exoseal PROCEDURE: The risks, benefits, and alternatives to the procedure and sedation were explained to the patient, and written informed consent obtained. The patient was placed in supine position on the angiography table and both groins were prepped and draped in the usual sterile fashion. The skin and subcutaneous tissue overlying the right common femoral artery were infiltrated with 2% lidocaine for local anesthetic. The common femoral artery was accessed with micropuncture technique and a 4F transitional sheath was placed. Access was obtained under ultrasound guidance with direct visualization of the needle entering the vessel. A sheath angiogram was performed demonstrating the common femoral artery to be of normal size and appearance for closure device. The transitional catheter was exchanged for a 6 [place] vascular sheath which was attached to a heparinized pressurized bag of saline. A 5 F Berenstein catheter was attached to a continuous flush system. This catheter and a 0.038 Glidewire was then advanced into the proximal descending aorta and after ensuring an air free system, the above mentioned vessels were selected and diagnostic angiograms were obtained. Following the diagnostic study, the catheter and sheath were removed and hemostasis was achieved with the closure device. The procedure was well- tolerated, and the patient discharged in stable baseline neurologic condition. FINDINGS: Right common femoral artery: Widely patent with normal size for closure device. Right common carotid artery: Carotid bifurcation is widely patent with no stenosis identified. Right external carotid artery: External carotid artery and branches are widely patent. Vessels are smooth. No dural AV fistula identified. Right internal carotid artery: Cervical ICA is widely patent and smooth. Anterior and middle cerebral arteries are also widely patent. Vessel caliber is normal. Vessels are smooth. No stenosis, aneurysm, or AVM is identified. Capillary and venous phases are normal. Dural venous sinuses are patent. Brachiocephalic artery: Mild tortuosity of the brachiocephalic artery and proximal subclavian artery. Common carotid artery is widely patent. Right vertebral artery: Distal cervical vertebral artery is normal. Posterior inferior cerebellar artery is also within normal limits with a low takeoff. Basilar artery and both posterior cerebral arteries are patent. Distal vasculature is otherwise smooth. Focal narrowing of the left proximal P2 junction which will be described on left vertebral artery injection. No aneurysm is identified. Capillary and venous phases are normal. Left vertebral artery: Distal cervical vertebral artery is normal. Posterior inferior cerebellar artery is also normal. There is a focal moderate to high- grade stenosis of the proximal left P2 segment of the posterior cerebral artery. 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 There are duplicated superior cerebellar arteries which is a normal variant. Capillary and venous phases are normal. Dural venous sinuses are patent. Left common carotid artery: Carotid bifurcation is widely patent with no stenosis identified. Left internal carotid artery: Mild tortuosity of the cervical ICA. Anterior and middle cerebral arteries are widely patent with no intracranial aneurysm, stenosis, or AVM. There is filling of the posterior communicating artery which also shows the focal stenosis of the proximal left P2 segment. Visualization of the middle meningeal artery arising from a branch of the ophthalmic artery is noted as a normal variant. Otherwise, capillary and venous phases are normal. Dural venous sinuses are patent. Left external carotid artery: External carotid artery branches are widely patent. Middle meningeal artery is not visualized as this is a normal variant. It arises from the ophthalmic artery as described above. IMPRESSION 1. Focal moderate to high-grade stenosis of the proximal left P2 segment of the posterior cerebral artery. This could potentially reflect a focal area of intracranial atherosclerotic disease although no other vascular territory demonstrates this finding. Alternatively, this could have reflected an area of mild focal narrowing which underwent more remote thrombosis with subsequent recanalization. 2. The rest of the vasculature remains s mooth and normal caliber. No angiographic evidence for vasculitis. I, Tiago J Madarang, M.D., the attending interventional radiologist, performed the entire procedure, personally reviewed the images, and formulated the interpretations and opinions expressed in this report. @TT Finalized by Tiago Campa M.D. on 12/12/2020 8:10 AM. Dictated by Tiago Campa M.D. on 12/12/2020 7:55 AM. Performing Organization Address City/State/ZIP Code P cresencio Number [facility] RESULTS * [facility] HEAD EXTERNAL IMAGING (12/03/2020 12:00 AM CDT) Specimen Narrative Performed At This order has been auto finalized and does not contain a result. * US CAROTID EXTERNAL IMAGING (11/29/2020 12:00 AM CDT) Specimen Narrative Performed At This order has been auto finalized and does not contain a result. 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 10/30/2016 5:20 PM Full Code 10/29/2016 6:21 PM Provider has discussed Code Status Yes w/Patient or Family?
--- OUTSIDE RECORDS SUMMARY | 2020-12-15 13:56 | XMS REPORT | Encounter Summary ---
Author Author [facility] Organization [facility] Address Unknown Phone Unavailable Care Team Providers Care Medical Director/Head Team Physician Name Role Phone Valentine Goodman MD Unavailable Chin Tolentino MD Unavailable Ingrid Cavazos AUD Unavailable Magdalene Newotn PA-C Unavailable Anika Ac AUD Unavailable Cindi Esquivel NP PCP Encounter Details Care Team Description Date Type Department 12/05/2020 Documentation Imaging: [facility] [place] [address] [place] [address] Social History Date Tobacco Use [...] impairment: No documented as of this encounter Plan of Treatment Not on filedocumented as of this encounter Visit Diagnoses Not on filedocumented in this encounter Additional Health Concerns Assessment Noted Time A fall risk assessment has been completed for the pat ient 12/04/2020 10:00 AM CDT documented as of this encounter
--- OUTSIDE RECORDS SUMMARY | 2020-12-15 13:56 | XMS REPORT | Encounter Summary ---
Author Author [facility] Organization [facility] Address Unknown Phone Unavailable Care Team Providers Care Tooth Cutter Pinion Name Role Phone Valentine Goodman MD Unavailable Chin Tolentino MD Unavailable Ingrid Cavazos AUD Unavailable Magdalene Newton PA-C Unavailable Anika Ac AUD Unavailable Cindi Esquivel NP PCP Encounter Details Care Team Description Date Type Department 12/11/2020 Travel Social History Date Tobacco Use Types Packs/Day [...] has been completed for the pat ient 12/11/2020 11:15 AM CDT documented as of this encounter
--- OUTSIDE RECORDS SUMMARY | 2020-12-15 13:56 | XMS REPORT | Encounter Summary ---
Author Author [facility] Organization [facility] Address Unknown Phone Unavailable Care Team Providers Care Topper Press Operator Automatic Name Role Phone Valentine Goodman MD Unavailable Chin Tolentino MD Unavailable Ingrid Cavazos AUD Unavailable Magdalene Newton PAPennyC Unavailable Anika Ac AUD Unavailable Cindi Esquivel NP PCP Encounter Details Care Team Description Date Type Department Fidelia Layne RN 12/06/2020 Orders Only Interventional Radi oly: [facility] [place], [address], [address] [facility] [place] [id number] Social History Date Tobacco Use Types Packs/Day [...] impairment: No documented as of this encounter Ordered Prescriptions Start Date End Date Prescription Sig Dispensed Refills 12/06/2020 predniSONE (DELTASONE) 50 Take one 3 tablet 0 mg tablet tablet by mouth daily. documented in this encounter Plan of Treatment Not on filedocumented as of this encounter Visit Diagnoses Not on filedocumented in this encounter Additional Health Concerns Assessment Noted Time A fall risk assessment has been completed for the pat ient 12/04/2020 10:00 AM CDT documented as of this encounter
--- OUTSIDE RECORDS SUMMARY | 2020-12-15 13:56 | XMS REPORT | Encounter Summary ---
Author Author [facility] Address Unknown Phone Unavailable Care Team Providers Care Set Up Person Name Role Phone Valentine Goodman MD Unavailable Chin Tolentino MD Unavailable Ingrid Cavazos AUD Unavailable Magdalene Newton PA-C Unavailable Anika Ac AUD Unavailable Cindi Esquivel NP PCP Reason for Referral * Radiology Services (Routine) Referred By Contact Referred To Contact Status Reason Specialty Diagnoses / Procedures Amarjit Casiano MD [address] [place] [address] Ca[address] [place] [address] [place] [phone] Authorized Radiology Diagnoses TIA (transient ischemic attack) P rocedures IR CEREBRAL ARTERIOGRAM DIAGNOSTIC Electronically signed by Amarjit Casiano MD at Reason for Visit * Radiology Services (Routine) Referred By Contact Referred To Contact Status Reason Specialty Diagnoses / Procedures Amarjit Casiano MD [address] [place] [address] [place] [address] [place] [id number] Authorized Radiology Diagnoses TIA (transient ischemic attack) P rocedures IR CEREBRAL ARTERIOGRAM DIAGNOSTIC Encounter Details Care Team Description Date Type Department Amarjit Casiano MD [address] [place] [address] Florina Peters, Lacy Brown, RT(R)(CT)(),LRT Tiago Campa MD [address] [place] [address] TIA (transient ischemic attack) 12/11/2020 Hospital [facility] [address] [facility] [address] [place] [address] Social History Date Tobacco Use Types Packs/Day [...] / COVID-19? documented as of this encounter Last Filed Vital Signs Reading Time Taken Comments Vital Sign 124/81 12/11/2020 4:00 PM CDT Blood Pressure 82 12/11/2020 4:00 PM CDT Pulse 36.9 C (98.4 F) 12/11/2020 1:50 PM CDT Temperature - - Respiratory Rate 98% 12/11/2020 4:00 PM CDT Oxygen Saturation - - Inhaled Oxygen Concentration - - Weight - - Height - - Body Mass Index documented in this encounter Functional Status Date of Assessment [...] impairment: No documented as of this encounter Discharge Instructions * Patient Instructions* Cyndee Barajas, KAT - 12/11/2020 10:51 AM CDT Images from the original note were not included. INTERVENTIONAL RADIOLOGY DISCHARGE INSTRUCTIONS At [facility] [place], [place] ARTERIOGRAM An arteriogram or angiogram is a procedure in which a tiny catheter is inserted into an artery and fluoroscopy (x-rays) and contrast dye are used by the Interve ntional Radiologist to diagnose or treat certain conditions. Some examples of conditions that involve arteriography include narrowed or blocked arteries, salvatore rial malformations, and arterial bleeding that may occur from trauma. Arteriogra phy can be used in many different parts of the body and may also be used during treatment of certain malignancies. AFTER YOUR PROCEDURE: You will recover in Interventional Radiology for a minimum of 2 hours after y our procedure. During that period you must remain completely flat. POST-PROCEDURE PAIN: Pain control following your procedure is a priority for both you and your Phy sicians. Some soreness or tenderness at the site is to be expected for several days. W e recommend taking over the counter analgesics to help relieve this pain. Alternative methods for pain relief include but not limited to heat or cold c ompress, relaxation techniques, rest, and changing of positions. If pain continues after 5-7 days or you have severe pain not relieved by medi cation, please contact us as directed below. POST-PROCEDURE ACTIVITY: A responsible adult must drive you home. If you receive sedation, narcotic pain medication or anesthesia for the proce dure, you should not drive or operate heavy machinery or do anything that requir es concentration for at least 24 hours after procedure completion. It is recommended that a responsible adult be with you until morning. Avoid any exertion for one week. Exertion is lifting over 10 lbs., pushing, pulling or straining. Avoid excessive bending, stooping, or stair climbing for 2 days. It is okay to go up stairs or bend over but take it slowly and keep it to a minimum. You may be up and about while relaxing at home as you recover. POST-PROCEDURE SITE CARE: You will have a small bandage over the procedure site. Keep this dry. You may remove it in 24 hours. You may shower in 24 hours, after removing the bandage. Do not submerge the procedure site for 1 week (no bathtub, swimming, hot tub, etc.) Do not use ointments, creams or powders on the puncture site. Be sure your hands are clean when touching near the site Inspect the site daily. DIET/MEDICATIONS: You may resume your previous diet after the procedure. If you receive sedation or narcotic pain medications, avoid any foods or beve rages containing alcohol for at least 24 hours after the procedure. Please see the Medication Reconciliation sheet for instructions regarding res uming your home medications WHEN TO CALL THE DOCTOR: If you have significant bleeding (more than a teaspoon) or swelling at the si te (bigger than a golf ball), lie down, apply firm pressure to the site and call 911. Bleeding from a large vessel requires professional help. If you havesevere pain unrelieved by medication. It is common to have mil d soreness or slight swelling at the puncture site for 1-2 weeks. If you have numbness, tingling, or weakness in the leg below the puncture sit e or your leg becomes cold and pale. If you have persistent nausea or vomiting. You have signs of infection such as: fever greater than 101F, chills, redness , warmth, swelling, drainage or pus from the puncture site. For any of the above symptoms or for problems or concerns related to the procedu re that was performed at the [facility], [phone] Mo nd-Wednesday from 7-5p. After-hours and weekends, please [phone] and ask for the Interventional Group Controller on-call. YOU OR YOUR CAREGIVER SHOULD CALL 911 FOR ANY SEVERE SYMPTOMS SUCH EXCESSIVE BLEEDING, SEVERE DIZZINESS, TROUBLE BREATHING OR LOSS OF CONSCIOUSNESS. documented in this encounter Medications at Time of Discharge Start Date End Date Medication Sig Dispensed Refills aspirin 325 mg tablet Take 325 mg 0 by mouth daily. Take with food. calcium carbonate Take 1 tablet 0 (CALCIUM 600 PO) by mouth daily. cholecalciferol (VITAMIN Take 2,000 0 D-3) 1,000 units tablet Units by mouth daily. 05/19/[address] (CYMBALTA) Take 1 Cap by 90 Cap 3 30 mg capsule mouth daily. x7 days. Then take 2 tablets daily. exemestane (AROMASIN) 25 Take 25 mg by 0 mg tab mouth daily. Take after a meal. 12/06/2020 predniSONE (DELTASONE) 50 Take one 3 tablet 0 mg tablet tablet by mouth daily. propranolol (INDERAL) 10 Take 10 mg by 0 mg tablet mouth twice daily. rosuvastatin (CRESTOR) 10 Take 10 mg by 0 mg tablet mouth daily. documented as of this encounter Discharge Disposition Code Departure Means Destination Disposition Wheelchair Home or Self Care documented in this encounter Progress Notes * Cyndee Barajas BSN - 12/11/2020 4:06 PM CDT Pt recovery complete. Ambulatory status: Ambulatory. Vitals stable. Dressing is clean, dry, and intact. Pain level returned to baseline. Discharge instructions reviewed with: patient AVS signed and provided to patient. Pt discharged to [facility] via wheelchair transport. * Cyndee Barajas BSN - 12/11/2020 12:43 PM CDT Sedation physician present in room. Recent vitals and patient condition reviewed between sedating physician and nurse. Reassessment completed. Determination made to proceed with planned sedation. * Fidelia Layne RN - 12/11/2020 12:00 PM CDT Dear Charito Thank you for choosing [facility] Interventional Rad iology for your procedure. Your appointment information is listed below: You are scheduled for a Cerebral angiogram with Dr Campa on 12/11 at 1200 PM. Please check into admission of the [facility] A at 1100am and bring a drive r. [facility] [place]: [address] [place] [address] Parking: [address] INTERVENTIONAL RADIOLOGY PRE-PROCEDURE INSTRUCTIONS SEDATION You are scheduled for a procedure in Interventional Radiology with procedural se dation. Please follow these instructions and any direction from your Primary Ca re/Managing Physician. If you have questions about your procedure or need to re schedule please call [phone]. Medication Instructions: You may take your medications with a sip of water. Prednisone has been called to your pharmacy, please take 50mg 13hrs. 7hrs and 1 hr prior to the procedure Diet Instructions: a. At 4 AM on 12/11, (8) hours before your procedure, stop your regular diet and start a clear liquid diet. b. At 6 Rishabh 12/11, (6) hours before your procedure, discontinue tube feedings an d chewing tobacco. c. At 10 AM on 12/11, (2) hours before your procedure discontinue clear liquids. You should have nothing by mouth. This includes GUM or CANDY. Clear Liquid Diet Water Apple or White Grape Juice Coffee or tea without cr eam Tea White Cranberry Juice Chicken Bouillon or Broth (no noodles) Soda Pop Popsicles Beef Bouillon o r Broth (no noodles) Day of Exam Instructions: 1. Bathe or shower with an antibacterial soap prior to your appointment. 2. If you have a history of Obstructive Sleep Apnea (NOÉ) bring your CPAP/BIPAP. 3. Bring a list of your current medications and the dosages. 4. Wear comfortable clothing and leave valuables at home. 5. Arrive (1) hour prior to your appointment. This time will be spent registeri ng, interviewing, assessing, educating and preparing you for the test. You will be with us anywhere from 30 minutes to 6 hours after your exam marlys kumari on your procedure. 6. You may be sedated for the procedure. A responsible adult must drive you home (no Uber, taxis or buses are allowed) and stay with you overnight. If you do not have a non cdl driver we will be unable to perform your procedure. 7. You will not be able to return to work or drive the same day if receiving sed ation. documented in this encounter H&P Notes * Angelique Enriquez APRN-DEVONTE - 12/11/2020 11:22 AM CDT Pre Procedure History and Physical/Sedation Plan-OP Procedure Date: 12/11/2020 Planned Procedure(s): Cerebral angiogram Indication for exam: Diagnostic testing Chief Complaint: Episodic TIA History of Present Illness: Charito Malone is a 60 y.o. female with episodic T IAs who presents for procedure today. Pt denies complaints. Patient Active Problem List Diagnosis Date Noted TIA (transient ischemic attack) 12/04/2020 Hypercholesterolemia 12/04/2020 Palpitations 12/04/2020 Malignant neoplasm of central portion of right breast in female, estrogen re ceptor positive (HCC) 05/07/2016 Tympanic membrane retraction 01/24/2013 Osteoarthritis 05/22/2011 Degenerative disc disease 05/22/2011 Medical History: Diagnosis Date Arthritis Atrial fibrillation (HCC) Back injury Cancer (HCC) 04/2016 R breast Cluster headache Colon polyps Depression GERD (gastroesophageal reflux disease) Glaucoma Headache(784.0) Heart palpitations High cholesterol IBS (irritable bowel syndrome) Panic attacks Surgical History: Procedure Laterality Date HX TUBAL LIGATION 1988 HX HYSTERECTOMY 2011 OOPHORECTOMY 2011 TYMPANOMASTOIDECTOMY 03/01/13 Dr Tolentino, LEFT silastic graft, 2nd look 12/02 TYMPANOMASTOIDECTOMY 10/19/2013 Dr Tolentino, 2nd look, PET, cartilage INSERTION VENOUS ACCESS PORT Left 05/28/2016 Performed by Evaristo Neely MD at [facility] OR Bilateral Total Mastectomy, Right [place] Lymph Node Biopsy Bilateral 2016 Performed by Delano Ibrahim DO at [facility] OR Axillary Lymph Node Injection Right 10/29/2016 Performed by Delano Ibrahim DO at [facility] OR CARPAL TUNNEL RELEASE COLONOSCOPY CYSTOURETHROSCOPY HEART CATHETERIZATION 2001,2005 HX APPENDECTOMY HX POLYPECTOMY Colon LAP CHOLECYSTECTOMY unknown OTHER SURGICAL HISTORY radial tunnel Medications Prior to Admission Medication Sig Dispense Refill Last Dose aspirin 325 mg tablet Take 325 mg by mouth daily. Take with food. calcium carbonate (CALCIUM 600 PO) Take 1 tablet by mouth daily. 12/10/2020 cholecalciferol (VITAMIN D-3) 1,000 units tablet Take 2,000 Units by mouth d aily. 12/10/[address] (CYMBALTA) 30 mg capsule Take 1 Cap by mouth daily. x7 days. T hen take 2 tablets daily. (Patient taking differently: Take 30 mg by mouth at be dtime daily. x7 days. Then take 2 tablets daily.) 90 Cap 3 12/10/2020 exemestane (AROMASIN) 25 mg tab Take 25 mg by mouth daily. Take after a meal . 12/10/2020 predniSONE (DELTASONE) 50 mg tablet Take one tablet by mouth daily. 3 tablet 0 12/11/2020 propranolol (INDERAL) 10 mg tablet Take 10 mg by mouth twice daily. >1 Month rosuvastatin (CRESTOR) 10 mg tablet Take 10 mg by mouth daily. 12/10/2020 Allergies Allergen Reactions Iv Contrast Dye, Iodine Containing [Iodinated Contrast Media] HIVES and BLIS TERS Per patient "got red bumps that itch across shoulders and neck, also red bumps in mouth and gums were sore" Percocet [Oxycodone-Acetaminophen] ITCHING Social History: Social History Tobacco Use Smoking status: Former Smoker Packs/day: 1.00 Years: 34.00 Pack years: 34.00 Types: Cigarettes Quit date: 05/21/2005 Years since quittin.5 Smokeless tobacco: Never Used Substance Use Topics Alcohol use: No Alcohol/week: 0.0 standard drinks Family History Problem Relation Age of Onset Cancer Mother Breast Arthritis Mother Cancer-Breast Mother Heart Disease Mother Heart Disease Father Cancer Father Arthritis Father Stroke Father Heart Attack Father COPD Father Diabetes Father Cancer Sister Cervical Heart Disease Brother Cancer Brother Arthritis Brother Hearing Loss Brother Alcohol abuse Brother Asthma Brother COPD Brother Diabetes Brother Hernia Brother Hypertension Brother Review of Systems Constitutional: negative for fevers Respiratory: negative for cough or increased work of breathing Cardiovascular: negative for chest pain Gastrointestinal: negative for nausea and vomiting Previous Anesthetic/Sedation History: Reviewed Code Status: Full Code Physical Exam: Vital Signs: Last Filed In 24 Hours Vital Signs: 24 Hour Range BP: 139/90 (12/11 1105) Temp: 36.8 C (98.3 F) (12/11 1105) Pulse: 93 (12/11 1105) Respirations: 13 PER MINUTE (12/11 1105) SpO2: 98 % (12/11 1105) SpO2 Pulse: 93 (12/11 1105) BP: (139)/(90) Temp: [36.8 C (98.3 F)] Pulse: [93] Respirations: [13 PER MINUTE] SpO2: [98 %] General appearance: alert and no distress Neurologic: Grossly normal, at baseline Lungs: Nonlabored with normal effort Abdomen: soft, non-tender. Extremities: extremities normal, atraumatic, no cyanosis or edema Airway: airway assessment performed Mallampati I (soft palate, uvula, fauces, tonsillar pillars visible) Anesthesia Classification: ASA III (A patient with a severe systemic disease th at limits activity, but is not incapacitating) Pre procedure anxiolysis plan: Midazolam Sedation/Medication Plan: Fentanyl, Lidocaine and Midazolam Personal history of sedation complications: Denies adverse event. Family history of sedation complications: Denies adverse event. Medications for Reversal: Naloxone and Flumazenil Discussion/Reviews: Physician has discussed risks and alternatives of this type of sedation and above planned procedures with patient NPO Status: Acceptable Status: Not Lab/Radiology/Other Diagnostic Tests: Labs: No pertinent labs Angelique Enriquez APRN-EDUCATION PROGRAM SPECIALIST Pager [phone] documented in this encounter Miscellaneous Notes * Procedures (Immed Post or Bedside) - Sheila Torrez MD - 12/11/2020 2:40 PM CDT Immediate Post Procedure Note Date: 12/11/2020 Attending Physician: Jax Campa MD Operating Physician: Sheila Torrez M.D. Consent: Consent obtained from patient. Time out performed: Consent obtained, correct patient verified, correct procedur e verified, correct site verified, patient marked as necessary. Pre/Post Procedure Diagnosis/Indication: Episodic TIA Anesthesia: moderate sedation Procedure(s): Diagnostic angiogram. Please see separate PACS dictation for furt her detail. Findings: high grade stenosis of the left P2 segment Estimated Blood Loss: None/Negligible Specimen(s) Removed/Disposition: none Complications: None Patient Tolerated Procedure: Well Post-Procedure Condition: Stable documented in this encounter Plan of Treatment Not on filedocumented as of this encounter Procedures Comments Procedure Name Priority Date/Time Associated Diag nosis IR CEREBRAL ARTERIOGRAM Routine 12/11/2020 TIA (t ransient ischemic DIAGNOSTIC 1:37 PM CDT attack) documented in this encounter Results * IR CEREBRAL ARTERIOGRAM DIAGNOSTIC (12/11/2020 [...] normal caliber. No angiographic evidence for vasculitis. ITiago M.D., the attendi interventional radiologist, performed the entire procedure, personally review ed the images, and formulated the interpretations and opinions expressed in this report. @TT Finalized by Tiago Campa M.D. on 8:10 AM. Dictated by Tiago Campa M.D. on 12/12/2020 7:55 AM. Narrative Performed At Diagnostic cerebral angiogram [facility] Ultrasound-guided femoral artery access CLINICAL HISTORY: Left OUTBOARD SYSTEM OPERATOR stenosis, stroke, TIA, homonymous hemianopsia INTERVENTIONALIST: Edison [...] transitional catheter was exchanged for a 6 Peruvian vascular sheath which was attached to a [...] reased asymmetrical flow compared to the right OUTBOARD SYSTEM OPERATOR, the overall perfusion of the left OUTBOARD SYSTEM OPERATOR territory is robust. There are duplicated superior [...] Ultrasound-guided femoral artery access CLINICAL HISTORY: Left OUTBOARD SYSTEM OPERATOR stenosis, stroke, TIA, homonymous hemianopsia INTERVENTIONALIST: Edison [...] transitional catheter was exchanged for a 6 Peruvian vascular sheath which was attached to a [...] decreased asymmetrical flow compared to the right OUTBOARD SYSTEM OPERATOR, the overall perfusion of the left OUTBOARD SYSTEM OPERATOR territory is robust. There are duplicated superior [...] normal caliber. No angiographic evidence for vasculitis. ITiago M.D., the attending interventional radiologist, performed the entire procedure, personally reviewed the images, and formulated the interpretations and opinions expressed in this report. @ Finalized by Tiago Campa M.D. on 12/12/2020 8:10 AM. Dictated by Tiago Campa M.D. on 12/12/2020 7:55 AM. Performing Organization Address City/State/ZIP Code P cresencio Number [facility] documented in this encounter Visit Diagnoses Diagnosis TIA (transient ischemic attack) Unspecified transient cerebral ischemia documented in this encounter Administered Medications Action Date Dose Rate Site Medication Order MAR Action 12/11/2020 12:00 PM CDT 50 mg diphenhydrAMINE HCL (BENADRYL) injection Given 50 mg 50 mg, Intravenous, ONCE, 1 dose, On 12/11/20 at 1245 12/11/2020 1:35 PM CDT 50 mcg fentaNYL citrate PF (SUBLIMAZE) Given injection INTRA-PROCEDURE MED, Starting on Wed12/11/20 at 1243, Until Wed12/11/20 at 1335 50 mcg Given 12/11/2020 12:59 PM CDT 50 mcg Given 12/11/2020 12:43 PM CDT 12/11/2020 1:48 PM CDT 150 mL iohexoL (OMNIPAQUE-300) 300 mg/mL Given injection 150 mL 150 mL, Intra-arterial, ONCE, 1 dose, O n Wed12/11/20 at 1400, NOTE: This is a HIGH ALERT Medication. 12/11/2020 12:30 PM CDT 1 mg midazolam (VERSED) injection 1 mg Given 1 mg, Intravenous, ONCE, 1 dose, On Wed12/11/20 at 1245 12/11/2020 1:24 PM CDT 1 mg midazolam (VERSED) injection Given INTRA-PROCEDURE MED, Starting on Wed12/11/20 at 1247, Until Wed12/11/20 at 1324 1 mg Given 12/11/2020 12:47 PM CDT documented in this encounter Active and Recently Administered Medications Times are shown in CDT. 12/10/2020 12/11/2020 Medication Order 12/09/2020 1200 (Given - Provider: Anju Khan RN) diphenhydrAMINE HCL (BENADRYL) injectio n 50 mg (COMPLETED) 50 mg, Intravenous, ONCE, 1 dose, On d 12/11/20 at 1245 1348 (Given - Provider: Heath Jiang(R)(),LRT) iohexoL (OMNIPAQUE-300) 300 mg/mL injection 150 mL (COMPLETED) 150 mL, Intra-arterial, ONCE, 1 dose, O n Wed12/11/20 at 1400, NOTE: This is a HIGH ALERT Medication. 1230 (Given - Provider: Tata Frazier) midazolam (VERSED) injection 1 mg (COMPLETED) 1 mg, Intravenous, ONCE, 1 dose, On Wed12/11/20 at 1245 12/10/2020 12/11/2020 Medication Order 12/09/2020 1243 (Given - Provider: Tata Frazier)1259 (Given - Provider: Florina Peters, CELSO)1335 (Given - Provider: Florina Peters RN) fentaNYL citrate PF (SUBLIMAZE) injection (COMPLETED) INTRA-PROCEDURE MED, Starting on Wed12/11/20 at 1243, Until Wed12/11/20 at 1335 1247 (Given - Provider: Tata Frazier)1324 (Given - Provider: Florina Peters RN) midazolam (VERSED) injection (COMPLETED ) INTRA-PROCEDURE MED, Starting on Wed12/11/20 at 1247, Until Wed12/11/20 at 1324 documented in this encounter Additional Health Concerns Assessment Noted Time A fall risk assessment has been completed for the pat ient 12/11/2020 11:15 AM CDT documented as of this encounter
--- OUTSIDE RECORDS SUMMARY | 2020-12-15 13:56 | XMS REPORT | Encounter Summary ---
Author Author [facility] Organization [facility] Address Unknown Phone Unavailable Care Team Providers Care International Specialist Name Role Phone Valentine Goodman MD Unavailable Chin Tolentino MD Unavailable Ingrid Cavazos AUD Unavailable Magdalene Newton PA-C Unavailable Anika Ac AUD Unavailable Cindi Esquivel NP PCP Reason for Visit * Reason Onset Date Comments Headache 12/05/2020 Encounter Details Care Team Description Date Type Department Amarjit Casiano MD [address] [place] [id number] Headache 12/05/2020 Telephone Neurosurgery: [facility], [address] [place] [address] Social History Date Tobacco Use [...] encounter Miscellaneous Notes * Telephone Encounter - Anju Tate RN - 12/05/2020 1:10 PM CDT Patient called and reported that she had a mild headache. Denies any other neuro logical symptoms. Educated patient to present to ED with any change in neurologi elzbieta symptoms or in the event of a thunderclap or severe/intractable MENDEZ. Patient verbalized understanding and will call clinic with any additional questions or c oncerns. documented in this encounter Plan of Treatment Not on filedocumented as of this encounter Visit Diagnoses Not on filedocumented in this encounter Additional Health Concerns Assessment Noted Time A fall risk assessment has been completed for the pat ient 12/04/2020 10:00 AM CDT documented as of this encounter
--- OUTSIDE RECORDS SUMMARY | 2020-12-15 13:57 | XMS REPORT | Encounter Summary ---
Author Author [facility] Organization [facility] Address Unknown Phone Unavailable Care Team Providers Care Senior Escrow Officer Name Role Phone Valentine Goodman MD Unavailable Chin Tolentino MD Unavailable Ingrid Cavazos AUD Unavailable Magdalene Newton PA-C Unavailable Anika Ac AUD Unavailable Cindi Esquivel NP PCP Reason for Referral * Radiology Services (Routine) Referred By Contact Referred To Contact Status Reason Specialty Diagnoses / Procedures Amarjit Casiano MD [address] [place] [address] Ca2 [facility] [address] [facility] [address] [place] [address] Authorized Radiology Diagnoses TIA (transient ischemic attack) P rocedures IR CEREBRAL ARTERIOGRAM DIAGNOSTIC Electronically signed by Amarjit Casiano MD at * Consult, Test & Treat (Urgent) Referred By Contact Referred To Contact Status Reason Specialty Diagnoses / Procedures Amarjit Casiano MD [address] [place] [address] [facility] [address] [place] [address] Authorized Specialty Services Neurology Diagnoses Required TIA (transient ischemic attack) Hypercholesterolem ia Scheduling Instructions Contact Phone Numbers for each area if questions arise: General: [phone] Epilepsy: [phone] Multiple Sclerosis: [phone] Parkinson's: [phone] [facility]: Stroke & Neuromuscular: [place]: [phone] Comments Stroke neurology. [place] TIA. Right homonymous hemifield flashing, episode of visual loss. Episodes of visual-spatial disorientation and word finding/speech hesitancy. Left P2 stenosis on MRA. NSGY office is getting carotid u/s and (?MRI) from via [facility] (if done). Electronically signed by Amarjit Casiano MD at Reason for Visit * Reason Comments New Patient Discuss Homonymous hemiano psia * Consult, Test & Treat (Routine) Referred By Contact Referred To Contact Status Reason Specialty Diagnoses / Procedures Cindi Esquivel, DEVONTE [address] [place] [address] [facility] [address] [facility] [place] [address] New Request Neurological Diagnoses Surgery / Abnormal findings Neurosurgery on diagnostic imaging of other specified body structures Amaurosis fugax Encounter Details Care Team Description Date Type Department Amarjit Casiano MD [address] [place] [address] TIA (transient ischemic attack) (Primary Dx); Hypercholesterolemia; Palpitations 12/04/2020 Office Visit Neurosurgery: [facility] [place] [address] [facility] [place] [address] Social History Date Tobacco Use [...] Signs Reading Time Taken Comments Vital Sign 110/73 12/04/2020 9:53 AM CDT Blood Pressure 93 12/04/2020 9:53 AM CDT Pulse - - Temperature - - Respiratory Rate - - Oxygen Saturation - - Inhaled Oxygen Concentration 83 kg (183 lb) 12/04/2020 9:53 AM CDT Weight 160 cm (5' 3") 12/04/2020 9:53 AM CDT Height 32.42 12/04/2020 9:53 AM CDT Body Mass Index documented in this encounter [...] impairment: No documented as of this encounter Progress Notes * Amarjit Casiano MD - 12/04/2020 9:45 AM CDT NEUROSURGERY CLINIC CONSULT NOTE 12/04/2020 NAME: Charito Malone : 1960 PRIMARY CARE PROVIDER: Cindi Esquivel REFERRING PROVIDER: Cindi Esquivel NP CONSULT DATE: 12/04/2020 Reason for Visit: New Patient (Discuss Homonymous hemianopsia) HISTORY OF PRESENT ILLNESS: I am seeing Charito Malone in neurosurgical consultatio n today at the request of Cindi Esquivel NP for the evaluation of and treatment recommendations regarding episodes of visual change and MRA evidence of left P2 segment BIOCHEMICAL ENGINEER stenosis. She is a 60 y.o. female with a history of mixed hyperlipid emia, peripheral edema, breast cancer currently in remission, and a history of p alpitations previously on propranolol who on approximately 11/25/2020 experienced 3 episodes of a sparkling sensation in the right side of her vision that was vis ible both in the right eye and the left eye. She experienced associated headach e. She reports of the recent but separate episodes of difficulties with word fi nding/speech arrest as well as separate episodes of disorientation/confusion. S he saw her local eye doctor, Dr. Benjamin, in [place], [place]. He told her he found no evidence of visual abnormality but was concerned that the episodes repr esented TIA/stroke and recommended an urgent evaluation by her primary care prov ider. She reports that she was sent for carotid ultrasound but has not yet hear d the results. She also had an MRA which demonstrated stenosis/irregularity of the left P2 segment with possible intravascular thrombosis. She is not certain if she had an MRI of the brain. After the MRA results, she was instructed to be gin aspirin 325 mg daily. She was referred for neurosurgical evaluation of the BIOCHEMICAL ENGINEER segment abnormality. She denies any recurrent episodes since starting aspirin. She denies any curren t or previous symptoms with hemibody numbness or weakness, dysarthria, dysphagia , diplopia, facial weakness or numbness, dysarthria. She currently denies any v isual symptoms, gait difficulties, imbalance, vertigo, disequilibrium, speech di fficulties, difficulties with left or right. I reviewed her MRA of the head performed without contrast on 12/03/2020. This de monstrates an area of focal signal dropout at the P1/P2 junction with decreased flow signal throughout the remainder of the BIOCHEMICAL ENGINEER distally. I reviewed recent laboratory studies from 11/28/2020 which included total choleste rol 260, LDL 176, triglycerides 176, glucose 98, creatinine 1.03, sodium 142, po tassium 4.1, and normal liver function tests. PAST MEDICAL HISTORY: Medical History: Diagnosis Date Arthritis Atrial fibrillation (HCC) Back injury Cancer (HCC) 04/2016 R breast Cluster headache Colon polyps Depression GERD (gastroesophageal reflux disease) Glaucoma Headache(784.0) Heart palpitations High cholesterol IBS (irritable bowel syndrome) Panic attacks PAST SURGICAL HISTORY: Surgical History: Procedure Laterality Date HX TUBAL LIGATION 1988 HX HYSTERECTOMY 2011 OOPHORECTOMY 2011 TYMPANOMASTOIDECTOMY 03/01/13 Dr Tolentino, LEFT silastic graft, 2nd look 12/02 TYMPANOMASTOIDECTOMY 10/19/2013 Dr Tolentino, 2nd look, PET, cartilage INSERTION VENOUS ACCESS PORT Left 05/28/2016 Performed by Evaristo Neely MD at [facility] OR Bilateral Total Mastectomy, Right [place] Lymph Node Biopsy Bilateral 2016 Performed by Delano Ibrahim DO at [facility] OR Axillary Lymph Node Injection Right 10/29/2016 Performed by Delano Ibrahim DO at [facility] OR CARPAL TUNNEL RELEASE COLONOSCOPY CYSTOURETHROSCOPY HEART CATHETERIZATION 2001,2005 HX APPENDECTOMY HX POLYPECTOMY Colon LAP CHOLECYSTECTOMY unknown OTHER SURGICAL HISTORY radial tunnel ALLERGIES: Allergies Allergen Reactions Iv Contrast Dye, Iodine Containing [Iodinated Contrast Media] HIVES and BLIS TERS Per patient "got red bumps that itch across shoulders and neck, also red bumps in mouth and gums were sore" Percocet [Oxycodone-Acetaminophen] ITCHING HOME MEDICATIONS: aspirin 325 mg tablet Take 325 mg by mouth daily. Take with food. calcium carbonate (CALCIUM 600 PO) Take 1 tablet by mouth daily. cholecalciferol (VITAMIN D-3) 1,000 units tablet Take 2,000 Units by mouth d aily. duloxetine DR (CYMBALTA) 30 mg capsule Take 1 Cap by mouth daily. x7 days. T hen take 2 tablets daily. (Patient taking differently: Take 30 mg by mouth at be dtime daily. x7 days. Then take 2 tablets daily.) exemestane (AROMASIN) 25 mg tab Take 25 mg by mouth daily. Take after a meal . propranolol (INDERAL) 10 mg tablet Take 10 mg by mouth twice daily. rosuvastatin (CRESTOR) 10 mg tablet Take 10 mg by mouth daily. FAMILY HISTORY: Family History Problem Relation Age of Onset Cancer Mother Breast Arthritis Mother Cancer-Breast Mother Heart Disease Mother Heart Disease Father Cancer Father Arthritis Father Stroke Father Heart Attack Father COPD Father Diabetes Father Cancer Sister Cervical Heart Disease Brother Cancer Brother Arthritis Brother Hearing Loss Brother Alcohol abuse Brother Asthma Brother COPD Brother Diabetes Brother Hernia Brother Hypertension Brother SOCIAL HISTORY: Social History Tobacco Use Smoking status: Former Smoker Packs/day: 1.00 Years: 34.00 Pack years: 34.00 Types: Cigarettes Quit date: 05/21/2005 Years since quittin.5 Smokeless tobacco: Never Used Substance Use Topics Alcohol use: No Alcohol/week: 0.0 standard drinks Drug use: Not Currently Types: Methamphetamines Comment: quit in 2005 REVIEW OF SYSTEMS: Review of Systems Constitutional: Positive for fatigue and unexpected weight change. HENT: Positive for hearing loss. Eyes: Positive for visual disturbance. Respiratory: Negative. Cardiovascular: Positive for palpitations. Gastrointestinal: Positive for constipation. Heart burn Endocrine: Positive for cold intolerance. Cold feet Genitourinary: Positive for enuresis, frequency and urgency. Musculoskeletal: Positive for back pain, myalgias and neck pain. Skin: Negative. Allergic/Immunologic: Negative. Neurological: Positive for dizziness, weakness and headaches. Unsteady gait Hematological: Bruises/bleeds easily. Psychiatric/Behavioral: Positive for decreased concentration, dysphoric mood and sleep disturbance. The patient is nervous/anxious. PHYSICAL EXAM: Vitals: 12/04/20 0953 BP: 110/73 BP Source: Arm, Left Upper Patient Position: Sitting Pulse: 93 Weight: 83 kg (183 lb) Height: 160 cm (63") PainSc: Four Neuro: Awake and alert. Speech-language are normal. Extraocular movements are fu ll without nystagmus or diplopia. Visual arango full to confrontation. Trigemina l sensation is intact. Facial movement is symmetric. The palate elevates symmetr ically. The tongue protrudes in the midline. Strength is full in both upper and lower extremities. Sensation is intact to light touch throughout both upper and lower extremities. Station and gait are normal and steady. Cewgnc-abqs-relpiv an d rapid alternating movements are normal. ASSESSMENT/PLAN: 1. TIA (transient ischemic attack) 2. Hypercholesterolemia 3. Palpitations Charito Malone is a 60 y.o. woman with a history of hyperlipidemia and palpita tions currently being evaluated for possible underlying atrial fibrillation who presents after recently experiencing multiple episodes of 3 distinct neurologic types (a) sparkling sensation in the right hemifield of both eyes, (b) difficult ies with word finding/speech arrest, (c) 3D visual-spatial disorientation/confus ion. She also reports a single episode of vision loss involving the right eye. All of these episodes have been transient. She is currently asymptomatic. Her MRA demonstrates a proximal stenosis of the left P2 segment. All of her sympto matic episodes could be related to TIA phenomenon in the left BIOCHEMICAL ENGINEER territory. Rj hammond has had no further spells since starting aspirin. Apparently she was told she was going to need acute intervention, however since she is neurologically asymp tomatic, there is no indication for acute stroke intervention or hospitalization . There is no surgical intervention for thrombosis or atherosclerosis in the po sterior cerebral artery territory. She needs an urgent work-up based on her recent history of TIA symptoms. She is going to be evaluated by a desktop manager for atrial fibrillation. Her hyperlipi demia remains poorly controlled despite Crestor 10 mg daily. Her primary care p aurelio will need to complete her stroke risk factor adjustment and prescribe ap propriate additional/changes to her medical management. I will refer her to [facility] neurology for an urgent/TIA work-up. We will obtain imaging and reports for any other stroke work-up studies that hav e been completed so far, particularly her carotid ultrasound, and an MRI of the head if one was done. All of her symptoms are referable to the left temporal parietal occipital juncti on region except for the episode of complete vision loss in the right eye (possi ble amaurosis fugax) which if related to artery to artery embolus would have to be related to high-grade right internal carotid artery stenosis, a distinct vasc ular territory. I will review her locally performed carotid ultrasound report. If there is high-grade right internal carotid artery stenosis, it would be reas onable to consider carotid endarterectomy after she completes an urgent TIA work -up. If the carotid ultrasound demonstrates no evidence of high-grade stenosis, she would require no neurosurgical follow-up. ADDENDUM: 12/06/20 1015. Reviewed at multidisciplinary cerebrovascular case tobias siu. Additional differential diagnostic consideration was raised: vasculitis. Options of CTA vs cerebral angio were discussed. Groups consensus recommendation is cerebral angiogram. Attempted to contact patient to discuss. Voice mail w/o identifying message. Will ask clinical staff to contact patient and arrange frederick bell. Amarjit Casiano MD FAANS Carpenter Maintenance - Neurosurgery [facility] O: [phone] F: [phone] P: [phone] documented in this encounter Plan of Treatment Order Schedule Name Type Priority Associated Diag noses Ordered: 12/04/2020 AMB REFERRAL TO NEUROLOGY Outpatient [facility] TIA (transient ischemic Referral attack) Hypercholesterolemia documented as of this encounter Results * IR CEREBRAL ARTERIOGRAM [...] No angiographic evidence for vasculitis. I, Tiago Campa M.D., the attendi interventional radiologist, performed the entire procedure, personally review ed the images, and formulated the interpretations and opinions expressed in this report. @TT Finalized by Tiago Campa M.D. on 8:10 AM. Dictated by Tiago Campa M.D. on 12/12/2020 7:55 AM. Narrative Performed At Diagnostic cerebral angiogram [facility] RESULTS Ultrasound-guided femoral artery access CLINICAL HISTORY: Left BIOCHEMICAL ENGINEER stenosis, stroke, TIA, homonymous hemianopsia INTERVENTIONALIST: Edison Campa M.D. COMPARISON STUDY: MRA December 03, CTA July 16, 2020 PROCEDURES PERFORMED: Cerebral [...] transitional catheter was exchanged for a 6 [place] vascular sheath which was attached to a [...] reased asymmetrical flow compared to the right BIOCHEMICAL ENGINEER, the overall perfusion of the left BIOCHEMICAL ENGINEER territory is robust. There are duplicated [...] Ultrasound-guided femoral artery access CLINICAL HISTORY: Left BIOCHEMICAL ENGINEER stenosis, stroke, TIA, homonymous hemianopsia INTERVENTIONALIST: [...] transitional catheter was exchanged for a 6 [place] vascular sheath which was attached to a heparinized pressurized bag of saline. A 5 F [employer] catheter was attached to a continuous flush [...] decreased asymmetrical flow compared to the right BIOCHEMICAL ENGINEER, the overall perfusion of the left BIOCHEMICAL ENGINEER territory is robust. There are duplicated [...] No angiographic evidence for vasculitis. I, Tiago Campa M.D., the attending interventional radiologist, performed the [...] Visit Diagnoses Diagnosis TIA (transient ischemic attack) - Prima ry Unspecified transient cerebral ischemia Hypercholesterolemia Pure hypercholesterolemia Palpitations documented in this encounter Historical Medications * This list may reflect changes made after this encounter. Start Date End Date Medication Sig Dispensed Refills aspirin 325 mg tablet Take 325 mg 0 by mouth daily. Take with food. added in this encounter Additional Health Concerns Assessment Noted Time A fall risk assessment has been completed for the pat ient 12/04/2020 10:00 AM CDT documented as of this encounter
--- OUTSIDE RECORDS SUMMARY | 2020-12-15 13:57 | XMS REPORT | Encounter Summary ---
Author Author [facility] Organization [facility] Address Unknown Phone Unavailable Care Team Providers Care Payroll Auditor Name Role Phone Valentine Goodman MD Unavailable Chin Tolentino MD Unavailable Ingrid Cavazos AUD Unavailable Magdalene Newton PA-C Unavailable Anika Ac AUD Unavailable Cindi Esquivel NP PCP Encounter Details Care Team Description Date Type Department Arrived 11/29/2020 Hospital [facility]: [facility] [place] [address], [address] [place] [address] Social History Date Tobacco Use Types Packs/Day Years Used Quit: 05/21/2005 Former Smoker Cigarettes 1 34 Smokeless Tobacco: Never Used Comments Alcohol Use Standard Drinks/Week No 0 (1 standard drink = 0.6 o z pure alcohol) Sex Assigned at Date Recorded Not on file documented as of this encounter Functional Status [...] impairment: No documented as of this encounter Medications at Time of Discharge Start Date End Date Medication Sig Dispensed Refills calcium carbonate Take 1 tablet 0 (CALCIUM [...] tab mouth daily. Take after a meal. propranolol (INDERAL) 10 Take 10 mg by 0 mg tablet mouth twice daily. rosuvastatin (CRESTOR) 10 Take 10 mg by 0 mg tablet mouth daily. documented as of this encounter Discharge Disposition Code Departure Means Destination Disposition Home Home or Self Care documented in this encounter Plan of Treatment Not on filedocumented as of this encounter Procedures Comments Procedure Name Priority Date/Time Associated Diag nosis US CAROTID EXTERNAL Routine 11/29/2020 IMAGING 12:00 AM CDT documented in this encounter Results * US CAROTID EXTERNAL IMAGING (11/29/2020 12:00 AM CDT) Specimen Narrative Performed At This order has been auto finalized and does not contain a result. documented in this encounter Visit Diagnoses Not on filedocumented in this encounter Additional Health Concerns Assessment Noted Time A fall risk assessment has been completed for the pat ient 03/20/2019 10:32 AM CONSTRUCTION SALES REPRESENTATIVE documented as of this encounter
--- OUTSIDE RECORDS SUMMARY | 2020-12-15 13:57 | XMS REPORT | Encounter Summary ---
Author Author [facility] Organization [facility] Address Unknown Phone Unavailable Care Team Providers Care Tile Presser Name Role Phone Valentine Goodman MD Unavailable Chin Tolentino MD Unavailable Ingrid Cavazos AUD Unavailable Magdalene Newton PA-C Unavailable Anika Ac AUD Unavailable Cindi Esquivel NP PCP Encounter Details Care Team Description Date Type Department 12/04/2020 Travel Social History Date Tobacco Use Types [...]
--- OUTSIDE RECORDS SUMMARY | 2020-12-15 13:57 | XMS REPORT | Encounter Summary ---
Author Author [facility] Organization [facility] Address Unknown Phone Unavailable Care Team Providers Care Rolloff Truck Driver Name Role Phone Valentine Goodman MD Unavailable Chin Tolentino MD Unavailable Ingrid Cavazos AUD Unavailable Magdalene Newton PA-C Unavailable Anika Ac AUD Unavailable Cindi Esquivel NP PCP Reason for Visit * Reason Onset Date Comments Referral 12/04/2020 Encounter Details Care Team Description Date Type Department Amarjit Casiano MD [address] [place] [address] Referral 12/04/2020 Telephone Neurosurgery: [facility], [address] [place] [address] Social History Date Tobacco Use [...] encounter Miscellaneous Notes * Telephone Encounter - Magdalene Soto MA - 12/04/2020 2:40 PM CDT Sister Michelle P: [phone] left message; states her sister was scheduled with Dr Friedman 01/22/21, and told to contact Dr. Casiano for him to try and get her a ppt moved to an earlier date. documented in this encounter Plan of Treatment Not on filedocumented as of this encounter Visit Diagnoses Not on filedocumented in this encounter Additional Health Concerns Assessment Noted Time A fall risk assessment has been completed for the pat ient 12/04/2020 10:00 AM CDT documented as of this encounter
--- OUTSIDE RECORDS SUMMARY | 2020-12-15 13:57 | XMS REPORT | Encounter Summary ---
Author Author [facility] Organization [facility] Address Unknown Phone Unavailable Care Team Providers Care Cryptologic Technician Operator/Analyst Name Role Phone Valentine Goodman MD Unavailable Chin Tolentino MD Unavailable Ingrid Cavazos AUD Unavailable Magdalene Newton PA-C Unavailable Anika Ac AUD Unavailable Cindi Esquivel NP PCP Encounter Details Care Team Description Date Type Department Arrived 12/03/2020 Hospital [facility] [place] [address] [place] [address] Social History Date Tobacco Use [...] Procedure Name Priority Date/Time Associated Diag nosis MRA HEAD EXTERNAL IMAGING Routine 12/03/2020 12:00 AM CDT documented in this encounter Results * MRA HEAD EXTERNAL IMAGING (12/03/2020 12:00 AM CDT) Specimen Narrative Performed At This order has been auto finalized and does not contain a result. documented in this encounter Visit Diagnoses Not on filedocumented in this encounter Additional Health Concerns Assessment Noted Time A fall risk assessment has been completed for the pat ient 03/20/2019 10:32 AM MUTUEL CLERK documented as of this encounter
[2020-12-15 14:18] LABS: HEMATOCRIT 41 % (35-52); HEMOGLOBIN 14.2 g/dL (11.5-16.0); MEAN CORPUSCULAR HEMOGLOBIN 31 pg (25-34); MEAN CORPUSCULAR HGB CONC 35 g/dL (32-36); MEAN CORPUSCULAR VOLUME 90 fL (80-99); MEAN PLATELET VOLUME 9.3 fL (9.0-12.2); NEUTROPHILS % (AUTO) 54 % (42-75); PLATELET COUNT 328 10^3/uL (130-400); WHITE BLOOD COUNT 8.2 10^3/uL (4.3-11.0)
[2020-12-15 14:19] LABS: BASOPHILS # (AUTO) 0.1 10^3/uL (0.0-0.1); BASOPHILS % (AUTO) 1 % (0-10); EOSINOPHILS # (AUTO) 0.3 10^3/uL (0.0-0.3); EOSINOPHILS % (AUTO) 4 % (0-10); LYMPHOCYTES # (AUTO) 2.5 X 10^3 (1.0-4.0); LYMPHOCYTES % (AUTO) 30 % (12-44); MONOCYTES # (AUTO) 0.9 X 10^3 (0.0-1.0); MONOCYTES % (AUTO) 11 % (0-12); NEUTROPHILS # (AUTO) 4.4 X 10^3 (1.8-7.8)
--- NOTE | 2020-12-15 14:21 | ED General ---
General Chief Complaint: Eye Problems Stated Complaint: BLURRY VISION Nursing Triage Note: PT WAS DRIVING AND HAD SUDDEN BLURRED VISION AND FLOATERS. EMS ARRIVED AND CHECKED HER BLOOD SUGAR AND IT WAS 61, SH EHAD NOT EATEN SINCE 0800. AFTER THE 1/2 AMP OF D50 HER VISION RETURNED TO NORMAL AND SHE FEELS FINE. Source of Information: Patient Exam Limitations: No Limitations History of Present Illness Date Seen by Provider: Dec 15, 2020 Time Seen by Provider: 13:55 Initial Comments Patient is a 60-year-old female presents with decreased vision with sparkles in the right eye lasting 5 minutes generalized weakness. Symptoms lasted 5 minutes. On EMS arrival, the patient had a blood sugar of 60. D50 was given and symptoms resolved. Patient denies headache, facial weakness, difficulty speaking, difficulty swallowing or focal extremity weakness or loss of sensation. No dizziness, confusion headache nausea or vomiting. Timing/Duration: 1/2 Hour Severity: Mild Modifying Factors: improves with Other Associated Systoms: Other Allergies and Home Medications Allergies Coded Allergies: acetaminophen (Verified Adverse Reaction, Unknown, itching, 07/16/20) oxycodone (Verified Adverse Reaction, Unknown, itching, 07/16/20) Patient Home Medication List Home Medication List Reviewed: Yes Calcium Carbonate (Calcium) 600 Mg Tablet, 600 MG PO DAILY, (Reported) Entered as Reported by: VASQUEZ ANDERSEN on 12/25/191124 Clonazepam (Clonazepam) 0.5 Mg Tablet, 0.5 MG PO DAILY, (Reported) Entered as Reported by: VASQUEZ ANDERSEN on 12/25/191124 Cyclobenzaprine HCl (Cyclobenzaprine HCl) 10 Mg Tablet, 10 MG PO BID, (Reported) Entered as Reported by: VASQUEZ ANDERSEN on 12/25/19 112 Duloxetine HCl (Duloxetine HCl) 60 Mg Capsule.dr, 60 MG PO BID, (Reported) Entered as Reported by: VASQUEZ ANDERSEN on 12/25/19 112 Exemestane (Exemestane) 25 Mg Tablet, 25 MG PO DAILY, (Reported) Entered as Reported by: MARISA MCCLELLAN on 07/24/18 0733 Propranolol HCl (Propranolol HCl) 20 Mg Tablet, 20 MG PO TID, (Reported) Entered as Reported by: MARISA MCCLELLAN on 07/24/18 0733 Tramadol HCl (Tramadol HCl) 50 Mg Tablet, 50 MG PO QID PRN for PAIN-MODERATE (5- 7), (Reported) Entered as Reported by: MARISA MCCLELLAN on 07/24/18 0733 Turmeric/Turmeric Root Extract (Turmeric 500 mg Capsule) 1 Each Capsule, 1 EACH PO DAILY, (Reported) Entered as Reported by: VASQUEZ ANDERSEN on 12/25/19 1125 Review of Systems Review of Systems Constitutional: see HPI EENTM: see HPI Respiratory: see HPI Cardiovascular: see HPI Gastrointestinal: see HPI Genitourinary: see HPI Musculoskeletal: see HPI Skin: see HPI Psychiatric/Neurological: See HPI Hematologic/Lymphatic: See HPI Immunological/Allergic: see HPI All Other Systems Reviewed Negative Unless Noted: Yes Past Lkfxetg-Jufptc-Baacwz Hx Patient Social History Tobacco Use?: Yes Smoking Status: Former Smoker Use of E-Cig and/or Vaping dev: No Substance use?: No Alcohol Use?: No Pt feels they are or have been: No Immunizations Up To Date First/Initial COVID19 Vaccinat: SEPTEMBER 2020 Second COVID19 Vaccination Micheal: OCTOBER 2020 COVID19 Vaccine City Designer: xAd Seasonal Allergies Seasonal Allergies: No Past Medical History Surgeries: Yes (Bilateral Mastectomy, port, ear sx x4) Appendectomy, Breast, Gallbladder, Hysterectomy Respiratory: No Cardiac: Yes (heart cath x 2) High Cholesterol, Irregular Heartbeat, Palpitations Neurological: No 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 oz. 78.815309bb; 28.00 BMI Method:Stated General Appearance: No Apparent Distress, WD/WN Eyes: Bilateral Eye Normal Inspection, Bilateral Eye PERRL, Bilateral Eye EOMI HEENT: PERRL/EOMI, Normal ENT Inspection, Pharynx Normal Neck: Full Range of Motion, Normal Inspection, Non Tender Respiratory: Lungs Clear Cardiovascular: Regular Rate, Rhythm Gastrointestinal: Non Tender, Soft Extremity: Non Tender Neurologic/Psychiatric: Oriented x3, No Motor/Sensory Deficits, supervising chef II-XII Norm as Tested Skin: Normal Color Focused Exam Sepsis Stage: Ruled Out Progress/Results/Core Measures Suspected Sepsis SIRS Temperature: Pulse: 94 Respiratory Rate: 18 Laboratory Tests 12/15/20 14:13: White Blood Count 8.2 Blood Pressure 132 /88 Mean: 103 Laboratory Tests 12/15/20 14:13: Creatinine 1.04, INR Comment 1.0, Platelet Count 328, Total Bilirubin 0.3 Results/Orders Lab Results Laboratory Tests Test 12/15/20 13:59 12/15/20 14:13 Range/Units Glucometer 198 H 70-110 MG/DL White Blood Count 8.2 4.3-11.0 10^3/uL Red Blood Count 4.60 3.80-5.11 10^6/uL Hemoglobin 14.2 11.5-16.0 g/dL Hematocrit 41 35-52 % Mean Corpuscular Volume 90 80-99 fL Mean Corpuscular Hemoglobin 31 25-34 pg Mean Corpuscular Hemoglobin Concent 35 32-36 g/dL Red Cell Distribution Width 14.3 10.0-14.5 % Platelet Count 328 130-400 10^3/uL Mean Platelet Volume 9.3 9.0-12.2 fL Immature Granulocyte % (Auto) 1 % Neutrophils (%) (Auto) 54 42-75 % Lymphocytes (%) (Auto) 30 12-44 % Monocytes (%) (Auto) 11 0-12 % Eosinophils (%) (Auto) 4 0-10 % Basophils (%) (Auto) 1 0-10 % Neutrophils # (Auto) 4.4 1.8-7.8 X 10^3 Lymphocytes # (Auto) 2.5 1.0-4.0 X 10^3 Monocytes # (Auto) 0.9 0.0-1.0 X 10^3 Eosinophils # (Auto) 0.3 0.0-0.3 10^3/uL Basophils # (Auto) 0.1 0.0-0.1 10^3/uL Immature Granulocyte # (Auto) 0.1 0.0-0.1 10^3/uL Prothrombin Time 13.1 12.2-14.7 SEC INR Comment 1.0 0.8-1.4 Activated Partial Thromboplast Time 24 24-35 SEC Sodium Level 140 135-145 MMOL/L Potassium Level 3.3 L 3.6-5.0 MMOL/L Chloride Level 104 98-107 MMOL/L Carbon Dioxide Level 24 21-32 MMOL/L Anion Gap 12 5-14 MMOL/L Blood Urea Nitrogen 20 H 7-18 MG/DL Creatinine 1.04 0.60-1.30 MG/DL Estimat Glomerular Filtration Rate 54 BUN/Creatinine Ratio 19 Glucose Level 142 H 70-105 MG/DL Calcium Level 9.7 8.5-10.1 MG/DL Corrected Calcium 9.6 8.5-10.1 MG/DL Magnesium Level 1.9 1.6-2.4 MG/DL Total Bilirubin 0.3 0.1-1.0 MG/DL Aspartate Amino Transf (AST/SGOT) 17 5-34 U/L Alanine Aminotransferase (ALT/SGPT) 14 0-55 U/L Alkaline Phosphatase 59 40-136 U/L Total Protein 6.7 6.4-8.2 GM/DL Albumin 4.1 3.2-4.5 GM/DL My Orders Orders - RYAN CHILDERS DO Cbc With Automated Diff (12/15/20 13:58) Comprehensive Metabolic Panel (12/15/20 13:58) Ekg-Prn For Chest Pain Or Rhyt (12/15/20 13:58) Ct Head Wo (12/15/20 13:58) Accucheck Stat ONCE (12/15/20 13:58) Protime With Inr (12/15/20 13:58) Partial Thromboplastin Time (12/15/20 13:58) Urinalysis (12/15/20 13:58) Magnesium (12/15/20 13:58) Ct Angio Head/Neck (12/15/20 14:01) Ekg Tracing (12/15/20 14:09) Diphenhydramine Injection (Benadryl Inje (12/15/20 14:45) Methylprednisolone Sod Succ (Solu-Medrol (12/15/20 14:45) Iohexol Injection (Omnipaque 350 Mg/Ml 1 (12/15/20 15:00) Received Contrast (Hold Metformin- Contr (12/15/20 15:00) Sodium Chloride Flush (Catheter Flush Sy (12/15/20 15:00) Ns (Ivpb) (Sodium Chloride 0.9% Ivpb Bag (12/15/20 15:00) Medications Given in ED Current Medications Medications Dose Ordered Sig/Tacho Route Start Time Stop Time Status Last Admin Dose Admin Diphenhydramine HCl 25 mg ONCE ONCE IM 12/15/20 14:45 12/15/20 14:46 DC 12/15/20 14:41 25 MG Methylprednisolone Sodium Succinate 125 mg ONCE ONCE IM 12/15/20 14:45 12/15/20 14:46 DC 12/15/20 14:41 125 MG Vital Signs/I&O 12/15/20 13:55 Temp 36.6 Pulse 94 Resp 18 B/P (MAP) 132/88 (103) Pulse Ox 99 O2 Delivery Room Air Capillary Refill : Less Than 3 Seconds Blood Pressure Mean: 103 Point of Care Testing Finger Stick Blood Glucose: 198 Blood Glucose Action Taken: NONE Departure Communication (Admissions) CT Head: EKG: Sinus rhythm, rate 85, no acute ST-T wave changes. Patient with NIH stroke score of 0. Symptoms fully resolved. Lab and imaging EKG reviewed nondiagnostic. Given patient's history of vertebrobasilar insufficiency it is recommended the patient have a CT angio of head and neck with results to reviewed with [facility] with possible transfer. Patient does not wish to have a CT angiogram or have any additional care. She requests for the IV to be removed so she can go home and eat. She states after eating she will drive to . I explained to the patient that she is at risk of missed and delayed diagnosis due to incomplete testing and neurologic consultation with [facility] specialist prior to leaving the emergency department. I explained this does not meet the standard of care. Patient verbalizes understanding the risk benefits of alternatives of co ntinued treatment in the emergency department and will be discharged home at her request AMA. Impression Primary Impression: Blurry vision, right eye Additional Impression: CVA (cerebral vascular accident) Disposition: 01 HOME, SELF-CARE Condition: Against Medical Advice Departure-Patient Inst. Decision time for Depature: 15:18 Referrals: KEVYN GAMBLE APRN (PCP) Primary Care Physician [facility] (Family) Primary Care Physician Patient Instructions: Risk Factors for Stroke Add. Discharge Instructions: You were evaluated in the emergency department for possible stroke. No diagnosis was made or excluded. It is important that since you have declined further evaluation in the emergency department that you follow-up with your stroke specialist as soon as possible. If you change your mind regarding further evaluation, return to the emergency department immediately. All discharge instructions reviewed with patient and/or family. Voiced understanding. RYAN CHILDERS DO Dec 15, 2020 14:21
[2020-12-15 14:30] LABS: PROTHROMBIN TIME PATIENT 13.1 SEC (12.2-14.7)
--- NOTE | 2020-12-15 14:32 | Diagnostic Imaging Report ---
EXAMINATION: CT head without contrast. TECHNIQUE: Multiple contiguous axial images were obtained through the brain without the use of intravenous contrast. All CT scans use one or more of the following dose optimizing techniques: automated exposure control, MA and/or KvP adjustment based on patient size and exam type or iterative reconstruction. HISTORY: Altered mental status COMPARISON: 07/16/2020 FINDINGS: The aly-white matter differentiation is normal. No mass effect or midline shift. The ventricles are normal in size and configuration. Basilar cisterns are patent. There are no intra- or extra-axial fluid collections. There is no intracranial hemorrhage. The orbits are normal. Paranasal sinuses are normal. Mastoid air cells are clear. No soft tissue abnormality is seen. No osseus lesions or fractures are seen. IMPRESSION: 1. No acute intracranial abnormality. Dictated by: Dictated on workstation # [id number]
[2020-12-15 14:37] LABS: ALBUMIN 4.1 GM/DL (3.2-4.5); BILIRUBIN,TOTAL 0.3 MG/DL (0.1-1.0); CALCIUM 9.7 MG/DL (8.5-10.1); CREATININE SERUM 1.04 MG/DL (0.60-1.30); MAGNESIUM 1.9 MG/DL (1.6-2.4); POTASSIUM 3.3 MMOL/L (3.6-5.0); TOTAL PROTEIN 6.7 GM/DL (6.4-8.2)
[2020-12-15] MEDS ORDERED: diphenhydrAMINE 50 MG/ML INJ (BENADRYL) IM ONE (14:45)
[2020-12-15] MEDS ORDERED: methylPREDNISolone 125 MG (Solu-MEDROL) VIAL IM ONE (14:45)
[2020-12-15] MEDS ORDERED: NS 100 ML (IVPB) BAG IV ONE (15:00)
[2020-12-15] MEDS ORDERED: CATHETER FLUSH 10 ML SYR IV PRN (15:00)
[2020-12-15] MEDS ORDERED: HOLD METFORMIN - RECEIVED CONTRAST 20 ML VIAL IV SCH (15:00)
[2020-12-15] MEDS ORDERED: IOHEXOL 350 MG/ML 100 ML (OMNIPAQUE 350) VIAL IV ONE (15:00)
[2020-12-15 15:23] VITALS: BP 119/65
== END 2020-12-15 15:25 | disposition home or self-care (01) ==
LOC: EDUNIT# 13:52 → ER FS 13:53
DX: I63.9 Cerebral infarction, unspecified (principal); F41.9 Anxiety disorder, unspecified; R29.700 NIHSS score 0; Z87.891 Personal history of nicotine dependence; Z79.899 Other long term (current) drug therapy
CPT/HCPCS: 36415; 70450; 80053; 82947; 83735; 85025; 85610; 85730; 93005

== ENCOUNTER → 2020-12-16 | Outpatient (CLI) | payer MEDICAID | LOC: LAB 13:32 | PROVIDERS: ATTEND Internal Medicine Cardiovascular Disease | DX: E66.3 Overweight (principal); I70.90 Unspecified atherosclerosis; Z86.73 Personal history of transient ischemic attack (TIA), and cerebral infarction without residual deficits | CPT/HCPCS: 36415; 81240; 81241; 83036; 84443; 85307; 85610; 85613; 85705; 85730; 86146; 86147 ==

== ENCOUNTER 2020-12-24 15:00 | Outpatient (RCR) | payer MEDICAID ==
[~2020-12-24 15:00] MED LIST changes: +CYCL10TA25 PO; -CYCL10TA9 PO
--- NOTE | 2021-01-28 08:39 | 30 Day Event Recorder ---
30-DAY EVENT RECORDER 30-DAY EVENT RECORDER DATE OF PROCEDURE: 12/27/2020-01/25/2021. INDICATION: Personal history of transient ischemic attack. PROCEDURE: A 30-day event recorder was obtained for a total of 22 days and 18 hours. 38 rhythm strips were presented for review. The study quality is adequate except not obtained for the full 30 days. RESULTS: 1. Baseline sinus rhythm with an average heart rate of 87 bpm, ranging from 55- 146 bpm with rare, isolated premature supraventricular and premature ventricular complexes each representing less than 1% of the total recording time. 2. There was no evidence of atrial fibrillation. 3. There were 8 patient triggered events that correlated to sinus rhythm during 5 events and sinus tachycardia during 3 events with heart rates ranging from 90- 113 bpm with an isolated premature supraventricular complex during 2 of the events. IMPRESSION: 1. This is a 30-day event recorder that was obtained for total of 22 days and 18 hours and 38 rhythm strips were presented for review. 2. Baseline sinus rhythm with an average heart rate of 87 bpm, ranging from 55- 146 bpm with rare, isolated premature supraventricular and premature ventricular complexes each representing less than 1% of the total recording time. 2. There was no evidence of atrial fibrillation. 3. There were 8 patient triggered events that correlated to sinus rhythm during 5 events and sinus tachycardia during 3 events with heart rates ranging from 90- 113 bpm with an isolated premature supraventricular complex during 2 of the events. Certain portions of this document may have been dictated utilizing voice recog nition technology. Inherent to this technology, typographical and grammatical errors may exist. As much as I am diligent to identify and correct these mistakes, some errors may remain in the document. OVIDIO JOLLY JR, MD Jan 28, 2021 08:39
== END 2021-03-21 | disposition home or self-care (01) ==
LOC: CARD 15:00
PROVIDERS: ATTEND Internal Medicine Cardiovascular Disease
DX: Z86.73 Personal history of transient ischemic attack (TIA), and cerebral infarction without residual deficits (principal)

== ENCOUNTER → 2020-12-24 | Outpatient (CLI) | payer MEDICAID ==
[~2020-12-24] MED LIST changes: +GADOBUTROL 7.5 MMOL/7.5 ML (GADAVIST) VIAL IV ONE
--- NOTE | 2020-12-24 15:03 | Diagnostic Imaging Report ---
PROCEDURE: MR imaging of the brain with and without contrast. TECHNIQUE: Multiplanar, multisequence MR imaging of the brain was performed with and without contrast. INDICATION: Vision loss. Headaches. COMPARISON: 12/03/2020. Findings: No acute ischemia, mass, or hemorrhage. No abnormal enhancement. Small amount of focal T2 hyperintense signal lesions are seen in the subcortical white matter, greatest in the left parietal lobe. The ventricles, cortical sulci, and basilar cisterns are symmetric and unremarkable. The sellar and suprasellar regions have a normal appearance. The brainstem and posterior fossa are unremarkable. The paranasal sinuses and mastoid air cells demonstrate normal signal characteristics. The globes and orbits are symmetric and unremarkable. The scalp and calvarium have a normal appearance. IMPRESSION: 1. No acute ischemia, mass, or hemorrhage. No abnormal enhancement. 2. Small amount of focal T2 hyperintense signal in the subcortical white matter, greatest in the left parietal lobe. Findings can be seen with sequelae of migraine and/or chronic microvascular disease. Demyelination can also have this appearance in the correct clinical setting. Dictated by: Dictated on workstation # [id number]
== END ==
LOC: CARD 11:51
PROVIDERS: ATTEND Internal Medicine Cardiovascular Disease
DX: H54.7 Unspecified visual loss (principal); R51.9 Headache, unspecified; Z86.73 Personal history of transient ischemic attack (TIA), and cerebral infarction without residual deficits
CPT/HCPCS: 70553; 93306

== ENCOUNTER → 2020-12-31 | Outpatient (CLI) | payer MEDICAID ==
[~2020-12-31] MED LIST changes: -CYCL10TA25 PO; +CYCL10TA9 PO; -GADOBUTROL 7.5 MMOL/7.5 ML (GADAVIST) VIAL IV ONE
[2020-12-31 14:52] LABS: BASOPHILS # (AUTO) 0.1 10^3/uL (0.0-0.1); BASOPHILS % (AUTO) 1 % (0-10); EOSINOPHILS # (AUTO) 0.3 10^3/uL (0.0-0.3); EOSINOPHILS % (AUTO) 4 % (0-10); HEMATOCRIT 44 % (35-52); HEMOGLOBIN 14.7 g/dL (11.5-16.0); LYMPHOCYTES % (AUTO) 25 % (12-44); MEAN CORPUSCULAR HEMOGLOBIN 31 pg (25-34); MEAN CORPUSCULAR HGB CONC 34 g/dL (32-36); MEAN CORPUSCULAR VOLUME 91 fL (80-99); MEAN PLATELET VOLUME 9.5 fL (9.0-12.2); MONOCYTES % (AUTO) 12 % (0-12); NEUTROPHILS # (AUTO) 4.6 10^3/uL (1.8-7.8); NEUTROPHILS % (AUTO) 58 % (42-75); PLATELET COUNT 323 10^3/uL (130-400)
[2020-12-31 15:12] LABS: ALBUMIN 4.5 GM/DL (3.2-4.5); BILIRUBIN,TOTAL 0.8 MG/DL (0.1-1.0); CALCIUM 10.3 MG/DL (8.5-10.1); CREATININE SERUM 1.07 MG/DL (0.60-1.30); POTASSIUM 3.6 MMOL/L (3.6-5.0); TOTAL PROTEIN 7.6 GM/DL (6.4-8.2)
== END ==
LOC: ONC 14:39
PROVIDERS: ATTEND Internal Medicine Hematology & Oncology
DX: C50.511 Malignant neoplasm of lower-outer quadrant of right female breast (principal); M85.88 Other specified disorders of bone density and structure, other site; E66.9 Obesity, unspecified; Z92.21 Personal history of antineoplastic chemotherapy; Z90.13 Acquired absence of bilateral breasts and nipples; Z92.3 Personal history of irradiation
CPT/HCPCS: 80053; 82306; 85025; G0463; 99213

== ENCOUNTER → 2021-02-20 | Day surgery (SDC) | payer MEDICAID ==
[~2021-02-20] VITALS: Ht 160 cm; Wt 73.0 kg
[~2021-02-20] MED LIST changes: +CYCL10TA25 PO; -CYCL10TA9 PO; +LIDOCAINE 1% INJ 20 ML 20 ML VIAL INJ ONE; +LIDOCAINE 1% INJ 20 ML 20 ML VIAL ONE
--- OUTSIDE RECORDS SUMMARY | 2021-02-20 08:19 | XMS REPORT | Encounter Summary ---
Author Author [facility] Organization [facility] Address Unknown Phone Unavailable Care Team Providers Care Ensemble Member Name Role Phone Valentine Goodman MD Unavailable Chin Tolentino MD Unavailable Ingrid Cavazos AUD Unavailable Magdalene Newton PA-C Unavailable Anika Ac AUD Unavailable Cindi Esquivel NP PCP Reason for Visit * Reason Comments Research [id number] [facility] 937 Meeting Rem ion Call Encounter Details Care Team Description Date [place] [address] [place] [address] Research ([id number] [facility] 937 Meeting Remind er Call) 02/18/2021 Documentation Oncology: Jeni resendez, [facility] [address] [place] [id number] Social History Date Tobacco Use Types Packs/Day Years Used Quit: 05/21/2005 Former Smoker Cigarettes 1 34 Smokeless Tobacco: Never Used Comments Alcohol Use Standard Drinks/Week No 0 (1 standard drink = 0.6 o z pure alcohol) Sex Assigned at Date Recorded Not on file documented as of this encounter Functional Status Date of Assessment Functional Status Response 12/23/2020 Does the patient have a hearing impairment: No 12/23/2020 Does the patient have a visual impairment: Yes 12/23/2020 Does the patient have impaired ambulation: No 12/23/2020 Does the patient have an activity of daily living No (ADL) impairment: 12/23/2020 Does the patient have an instrumental activity of No daily living (IADL) impairment: Date of Assessment Cognitive Status Response 12/23/2020 Does the patient have a cognitive impairment: No documented as of this encounter Miscellaneous Notes * Research - Omaira Ley - 02/18/2021 2:29 PM CUSTOMER SERVICE OFFICER CLINICAL RESEARCH NOTE FOR [facility] [place]#[id number] "A Randomized Phase III Trial Evaluating the Role of Axillary Lymph Node Dissection in Breast Cancer Patients (cT1-3 N1) Who Have Positive Haskell Lymph Node Disease After Neoadjuvant Chemotherapy" [facility] [place]: 937 PID# [id number] Addition of biobank option for study participants requires reconsent for patient s continuing to be followed in the above-named trial. Participant continues in f ollow-up for trial. Participant has also not signed Addendum A to extend trial f ollow-up from 5 years to 8 years. automotive parts coordinator called participant previously to meet participant at [facility] on on 02/19/2021 after appointment with [facility] to complete consenting. [facility] coordinator called participant to remind her of planned meeting. Lab draw dong s been scheduled. Omaira Ley [phone] OMER SERVICE OFFICER documented in this encounter Plan of Treatment Not on filedocumented as of this encounter Visit Diagnoses Not on filedocumented in this encounter Additional Health Concerns Noted Time Assessment 12/23/2020 12:23 PM CDT PHQ-2 Depression Total Score: 0 documented as of this encounter Care Teams Start Date End Date Ensemble Member Relationship Specialty 02/16/18 Cindi Esquivel NP PCP - General Nurse [address] [place] [address] Practitioner [place], [place] [id number] 05/13/11 Valentine Goodman MD Rheumatology [address] [place] [id number] 01/24/13 Chin Tolentino MD Otolaryngolo [address] [facility] [address] [place] [address] 08/15/13 Ingrid Cavazos AUD Otolaryngolo [address] [place] [address] 10/24/13 Magdalene Newton, [facility] Otolaryngolo [address] [facility] [address] [place] [id number] 11/27/14 Anika Ac AUD [address] [facility] [address] [place] [id number] documented as of this encounter
--- OUTSIDE RECORDS SUMMARY | 2021-02-20 08:19 | XMS REPORT | Clinical Summary ---
Author Author [facility] Organization [facility] Address Unknown Phone Unavailable Care Team Providers Care Hospitalist Physician Name Role Phone Valentine Goodman MD Unavailable Chin Tolentino MD Unavailable Ingrid Cavazos AUD Unavailable Magdalene Newton PA-C Unavailable Anika Ac AUD Unavailable Cindi Esquivel NP PCP Source Comments Some departments are not documenting in the electronic medical record. If you d o not see the information that you expected, contact Release of Information in [facility] Information Management department at [phone] for further assistan ce in locating additional records.[facility] Allergies Comments Active Allergy Reactions Severity Noted [...] mouth daily. Take after a meal. Active aspirin 325 mg tablet Take 325 mg 0 by mouth daily. Take with food. Active predniSONE (DELTASONE) 50 Take one 3 tablet 0 mg tablet tablet by 1 mouth daily. Active Miscellaneous Medical Take 1-2 1 each 0 Supply misc times per 1 day. Active atorvastatin (LIPITOR) 80 Take one 90 tablet 1 mg tablet tablet by 1 mouth daily. 02/19/2021 Discontinued (Per Provider) rosuvastatin (CRESTOR) 10 Take 10 mg by 0 mg tablet mouth daily. 02/19/2021 Discontinued (Per Provider) omeprazole DR (PRILOSEC) Take one 90 capsule 1 1 40 mg capsule capsule by 1 mouth daily before breakfast. Active Problems Problem Noted Date TIA (transient [...] on 02/26/2017 Overview: Formatting of this note is different fr om the original. DIAGNOSIS: 1. Right grade 2 [...] next to the areola at the begin April 2016. Ms Malone has a history [...] ll preferred BCT. Right MR-guided biopsy 06/03/16 () revealed nodular sc lerosing adenosis, associated with microcalcifications. Ms. Malone underwent bilateral total mastectomy/right ALND on 10/29/16. Final pathology reveal ed ER/AR positive HER2 negative IDC and she was previously HER2 positive. She completed radiation therapy with Dr. Garcia in [place], [place]. PATHOLOGY: Tumor: Size/Extent of Tumor Bed: 3.1 x 2.7 cm Size/Extent of Residual Invasive Tumor: 0.8 x 0.2 cm Overall Residual Cellularity of the Gordon or Bed: 20 % Margins Free From Tumor: Yes ER: positive AR: negative Her 2: negative Grade: 2 Lymph Nodes: /18; largest met 5 mm LVSI: no Extranodal extension: yes BREAST IMAGING: Mammogram: -- Bilateral screening mammogram 08/22/15 ([place], [place]) revealed heterogeneously dense breast tissue. Dean [...] -- Targeted right breast ultrasound 04/22 09/05 () revealed at 6:00, 4 cm from the [...] scheduled. MRI: -- Bilateral breast MRI 05/26/16 () rev ealed in the right breast at [...] previously biopsied tumor and metastasis. No additional jannet picious thoracic adenopathy is identified. 2. Small left lower lobe groundglass nodule, likely benign. Attention on future follow is recommend ed. 3. Injected intravenous contrast surrounding in the left chest wall secondary to infiltration after port injection. Clinical follow-up is r ecommended. ABDOMEN AND PELVIS: No metastatic disease the abdomen or pelvi s. -- Bone scan 06/05/16 () revealed limi roland examination due to extensive [...] finished 09/21/16 PRESENT THERAPY: Letrozole, switched to Lambert in REFERRED BY: Self Last Assessment & [...] She was not a candidate for the [facility] study. 9. Genetics referral for completion mujica el testing has been placed with results pending. 10. Continue Cymbalta 60mg PO daily. H er fibromyalgia and anxiety symptoms have dramatically improved with this. 11. She is considering having some of h er treatments performed later on down in the [facility] under the d irection of Dr. Alma [...] Encounters Care Team Description Date Type Specialty Isatu Haas MD Cognitive changes (Primary Dx); Visual field defect; History of cerebral artery stenosis 02/19/2021 Office Visit Neurology Delano Ibrahim, DO Research ([id number] [facility] 937 Step 2 Registr ation) 02/19/2021 Documentation Oncology Delano Ibrahim DO Research ([id number] [facility] 937 Reconsent) 02/19/2021 Documentation Oncology 02/19/2021 Travel Delano Ibrahim DO Research ([id number] [facility] 937 Meeting Remind er Call) 02/18/2021 Documentation Oncology Delano Ibrahim DO Examination of participant in clinical t rial (Primary Dx); Malignant neoplasm of central portion of right breast in female, estrogen receptor positive (HCC) 02/17/2021 Orders Only Oncology Delano Ibrahim DO Research ([id number] [address] ) 02/12/2021 Documentation Oncology Isatu Haas MD Imaging 01/15/2021 Telephone Neurology Isatu Haas MD 01/09/2021 Telephone Neurology 12/24/2020 Hospital Radiology Encounter Ross Friedman MD Slavin, Sabreena J, MD TIA (transient ischemic attack) (Primary Dx) 12/23/2020 Office Visit Neurology 12/23/2020 Travel Amarjit Casiano MD Eye Problem; Low Blood Sugar 12/16/2020 Telephone Neurosurgery Davie Luna, CELSO 12/16/2020 Documentation Neurosurgery Amarjit Casiano MD Coppenbarger, Tina, RN Lacy Orellana, RT(R)(CT)(),LRT Tiago Campa MD TIA (transient ischemic attack) 12/11/2020 Hospital Radiology Encounter 12/11/2020 Travel Fidelia Layne, CELSO 12/06/2020 Orders Only Radiology Amarjit Casiano MD Follow-up Phone Call 12/06/2020 Telephone Neurosurgery 12/05/2020 Documentation Radiology Amarjit Casiano MD Headache 12/05/2020 Telephone Neurosurgery Amarjit Casiano MD TIA (transient ischemic attack) (Primary Dx); Hypercholesterolemia; Palpitations 12/04/2020 Office Visit Neurosurgery Amarjit Casiano MD Referral 12/04/2020 Telephone Neurosurgery 12/04/2020 Travel 12/03/2020 Hospital Radiology Encounter 11/29/2020 Hospital Radiology Encounter from Last 3 Months Immunizations Name Administration [...] 10/29/2016 Breast/Bilatera Bilateral Tota l Mastectomy, Right [place] Lymph l Node Biopsy performed by Delano Ramesh DO at [facility] OR/PERIOP LYMPH NODE DISSECTION 10/29/2016 Axilla/Right Axillary Lymph Node Injection performed by Delano Ibrahim DO at [facility] OR/PERIOP PORTACATH PLACEMENT 05/28/2016 Chest/Left INSERTION VENOUS ACCESS PORT performed by Evaristo Neely MD at [facility] OR/PERIOP Medical devices from this surgery are i n the Implants section. Medical History Medical History Date Comments Back injury Panic attacks Colon polyps Heart palpitations Cluster headache Headache(784.0) GERD (gastroesophageal reflux disease) IBS (irritable bowel syndrome) Arthritis Cancer (HCC) 04/2016 R breast High cholesterol Atrial fibrillation (HCC) Depression Glaucoma Stroke (HCC) Family History Medical History Relation Name Comments [...] on file Date Recorded COVID-19 Exposure Response 02/19/2021 9:01 AM PRODUCT DEVELOPER In the last month, have you been [...] Signs Reading Time Taken Comments Vital Sign 121/87 02/19/2021 9:05 AM PRODUCT DEVELOPER Blood Pressure 89 02/19/2021 9:05 AM PRODUCT DEVELOPER Pulse 36.7 C (98.1 F) 12/23/2020 12:14 PM CDT Temperature 18 02/19/2021 9:05 AM PRODUCT DEVELOPER Respiratory Rate 99% 12/23/2020 12:14 PM CDT RA Oxygen Saturation - - Inhaled Oxygen Concentration 73 kg (161 lb) 02/19/2021 9:05 AM PRODUCT DEVELOPER Weight 160 cm (5' 2.99") 02/19/2021 9:05 AM PRODUCT DEVELOPER Height 28.53 02/19/2021 9:05 AM PRODUCT DEVELOPER Body Mass Index Plan of Treatment Health Maintenance Due Date Last Done Comments HIV SCREENING 07/30/1975 PHYSICAL (COMPREHENSIVE) 1978 EXAM CERVICAL CANCER SCREENING 1981 BREAST CANCER SCREENING 2000 COLORECTAL CANCER 2010 SCREENING SHINGLES RECOMBINANT 2010 VACCINE (1 of 2) INFLUENZA VACCINE 10/20/2020 12/07/2018, 11/28/2017, 12/14/2016, Additional history exists DTAP/TDAP VACCINES (3 - 10/01/2026 10/01/2016, Td or Tdap) 08/19/2010 HEPATITIS C SCREENING Completed 05/22/2011 Implants Device Identifier Shelf Expiration Date Model / Serial / L ot Implanted Type Area Manufactur er 02/16/2017 [id number] / N/A / [id number] Port Implantable 8 Float Point Unit Left: Chest C R Siom Intermediate BARD:ACCES Implanted: Qty: 1 on 05/28/2016 by Evaristo Anaya Jr., MD at [facility] [id number] 05/19/2022 [id number] / N/A / [id number] Dev Clsr Vasc Exoseal 6f - Sn/A CORDIS Implanted: Qty: 1 on 12/11/2020 at [facility] Procedures Comments Procedure Name Priority Date/Time Associated Diag nosis MRI HEAD EXTERNAL IMAGING Routine 12/24/2020 12:00 AM CDT IR CEREBRAL ARTERIOGRAM Routine 12/11/2020 TIA (t ransient ischemic DIAGNOSTIC 1:37 PM CDT attack) MRA HEAD EXTERNAL IMAGING Routine 12/03/2020 12:00 AM CDT US CAROTID EXTERNAL Routine 11/29/2020 IMAGING 12:00 AM CDT from Last 3 Months Results * MRI HEAD EXTERNAL IMAGING (12/24/2020 12:00 AM CDT) Modality Anatomical Region Laterality Computed Radiography Specimen Narrative Scheduling, Silent - 01/15/2021 12:49 PM CDT This order has been auto finalized and does not contain a result. * IR CEREBRAL ARTERIOGRAM DIAGNOSTIC (12/11/2020 1:37 PM CDT) Modality Anatomical Region Laterality X-Ray Angiography Specimen Impressions [facility] RAD RESULTS - 12/12/2020 8:10 AM CDT 1. Focal moderate to high-grade stenosis of [...] Campa M.D. on 12/12/2020 7:55 AM. Narrative [facility] RAD RESULTS - 12/12/2020 8:10 AM CDT Diagnostic cerebral angiogram Ultrasound-guided femoral artery access CLINICAL HISTORY: Left LIQUOR BRIDGE OPERATOR HELPER stenosis, stroke, TIA, homonymous hemianopsia INTERVENTIONALIST: Edison [...] transitional catheter was exchanged for a 6 Beninese vascular sheath which was attached to a [...] decreased asymmetrical flow compared to the right LIQUOR BRIDGE OPERATOR HELPER, the overall perfusion of the left LIQUOR BRIDGE OPERATOR HELPER territory is robust. There are duplicated superior [...] ophthalmic artery as described above. Procedure Note Tiago Campa MD - 12/12/2020 Diagnostic cerebral angiogram Ultrasound-guided femoral artery access CLINICAL HISTORY: Left LIQUOR BRIDGE OPERATOR HELPER stenosis, stroke, TIA, homonymous hemianopsia INTERVENTIONALIST: Edison [...] transitional catheter was exchanged for a 6 Beninese vascular sheath which was attached to a [...] decreased asymmetrical flow compared to the right LIQUOR BRIDGE OPERATOR HELPER, the overall perfusion of the left LIQUOR BRIDGE OPERATOR HELPER territory is robust. There are duplicated superior [...] HEAD EXTERNAL IMAGING (12/03/2020 12:00 AM CDT) Modality Anatomical Region Laterality Computed Radiography Specimen Narrative Scheduling, Silent - 12/05/2020 12:30 PM CDT This order has been auto finalized and does not contain a result. * US CAROTID EXTERNAL IMAGING (11/29/2020 12:00 AM CDT) Modality Anatomical Region Laterality Computed Radiography Specimen Narrative Scheduling, Silent - 12/05/2020 12:32 PM CDT This order has been auto finalized and does not contain a result. from Last 3 Months Insurance Type Payer Benefit Subscriber ID Effective Phone Address Plan / Dates Group Medicaid [facility] MEDICAID [facility] [id number] 2018-P [address] [facility] [address] [place] [address] 7770 1 Advance Directives Patient Brass Sorter Explanation Type Date Recorded Advance 08/25/2017 8:52 AM Directive/DPOA Date Inactivated Comments Code Status Date Activated 12/11/2020 6:13 PM Full Code 12/11/2020 11:50 AM Provider has discussed Code Status Yes w/Patient or Family? 10/30/2016 5:20 PM Full Code 10/29/2016 6:21 PM Provider has discussed Code Status Yes w/Patient or Family? Care Teams Start Date End Date Hospitalist Physician Relationship Specialty 02/16/18 Cindi Esquivel NP PCP - General Nurse [address] [place] [address] [place] [address] 05/13/11 Valentine Goodman MD Rheumatology [address] [place] [address] 01/24/13 Chin Tolentino MD [facility] [address]vl [address] [place] [address] 08/15/13 Ingrid Cavazos AUD Otolaryngolo [address] [place] [address] 10/24/13 Magdalene Newton, GLORIA Otolaryngolo [address] gy Ortho/Med Pavilion Lvl [address] [place] [address] 11/27/14 Anika Ac AUD [address] Ortho/Med Pavilion Lvl [address] [place] [address] [phone]
--- OUTSIDE RECORDS SUMMARY | 2021-02-20 08:19 | XMS REPORT | Encounter Summary ---
Author Author [facility] Organization [facility] Address Unknown Phone Unavailable Care Team Providers Care Residential Case Manager Name Role Phone Valentine Goodman MD Unavailable Chin Tolentino MD Unavailable Ingrid Cavazos AUD Unavailable Magdalene Newton PAPennyC Unavailable Anika Ac AUD Unavailable Cindi Esquivel NP PCP Encounter Details Care Team Description Date Type Department Delano Ibrahim, [address] [place] [address] Examination of participant in clinical t rial (Primary Dx); Malignant neoplasm of central portion of right breast in female, estrogen receptor positive (HCC) 02/17/2021 Orders Only Oncology: [facility] [address] 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 In the last month, have you been [...] filedocumented as of this encounter Visit Diagnoses Diagnosis Examination of participant in clinical trial - Primary Malignant neoplasm of central portion o f right breast in female, estrogen receptor positive (HCC) documented in this encounter Additional Health Concerns Noted Time Assessment 12/23/2020 12:23 PM CDT PHQ-2 Depression Total Score: 0 documented as of this encounter Care Teams Start Date End Date Residential Case Manager Relationship Specialty 02/16/18 Cindi Esquivel NP PCP - General Nurse [address] [place] [address] [place] [address] 05/13/11 Valentine Goodman MD Rheumatology [address] [place], [place] [id number] 01/24/13 Chin Tolentino MD Otolaryngolo [address] gy Ortho/Med Pavilion Lvl [address] [place] [address] 08/15/13 Ingrid Cavazos AUD Otolaryngolo [address] [place] [address] 10/24/13 Magdalene Newton PA-C Otolaryngolo [address] gy Ortho/Med Pavilion Lvl [address] [place] [address] 11/27/14 Anika Ac AUD [address] [facility]ilion [address] [address] documented as of this encounter
--- OUTSIDE RECORDS SUMMARY | 2021-02-20 08:19 | XMS REPORT | Encounter Summary ---
Author Author [facility] Organization [facility] Address Unknown Phone Unavailable Care Team Providers Care Reinsurance Accountant Name Role Phone Valentine Goodman MD Unavailable Chin Tolentino MD Unavailable Ingrid Cavazos AUD Unavailable Magdalene Newton PA-C Unavailable Anika Ac AUD Unavailable Cindi Esquivel NP PCP Reason for Visit * Reason Comments Research [id number] [facility] 937 Step [address] Cecile [address]ation Encounter Details Care Team Description Date Type Department Delano Ibrahim, [address] [place] [address] Research ([id number] [facility] 937 Step 2 Registr ation) 02/19/2021 Documentation Oncology: [facility] [address] [place] [address] Social History Date Tobacco Use Types Packs/Day Years Used Quit: 05/21/2005 Former Smoker Cigarettes 1 34 Smokeless Tobacco: Never Used Comments Alcohol Use Standard Drinks/Week No 0 (1 standard drink = 0.6 o z pure alcohol) Sex Assigned at Date Recorded Not on file Date Recorded COVID-19 Exposure Response 02/19/2021 9:01 AM BUSINESS INFORMATION CONSULTANT In the last month, have you been [...] Notes * Research - Omaira Ley - 02/19/2021 11:41 AM BUSINESS INFORMATION CONSULTANT Images from the original note were not included. Study Title: A Randomized Phase III Trial Comparing Axillary Lymph Node Dissecti on to Axillary Radiation in Breast Cancer Patients (cT1-3 N1) who have Positive [place] Lymph Node Disease after Neoadjuvant Chemotherapy HSC: 937 Consent Version Date: Version #7, PVD 09/30/20 PID: [id number] Treatment Arm: Treatment Arm 1: ALND + Tanner RT Participant consented "yes" to Consent Addendum B: Optional [id number] Biobanking t o collect biosamples at time of registration, 5-6 years after surgery, and 8 yea rs after end of radiation therapy. Participant was registered to Step 2 in OPEN. Per protocol, tissue specimen will be requested to send to central lab. NESS INFORMATION CONSULTANT documented in this encounter Plan of Treatment Not on filedocumented as of this encounter Visit Diagnoses Not on filedocumented in this encounter Additional Health Concerns Noted Time Assessment 02/19/2021 9:17 AM BUSINESS INFORMATION CONSULTANT A fall risk assessment has been complet ed for the patient 02/19/2021 9:17 AM BUSINESS INFORMATION CONSULTANT PHQ-2 Depression Total Score: 0 documented as of this encounter Care Teams Start Date End Date Reinsurance Accountant Relationship Specialty 02/16/18 Cindi Esquivel NP PCP - General Nurse [address] [place] [address] Practitioner [place], [place] [address] 05/13/11 Valentine Goodman MD Rheumatology [address] [place] [address] 01/24/13 Chin Tolentino MD Otolaryngolo [address] gy Ortho/Med Pavilion Lvl [address] [place] [address] 08/15/13 Ingrid Cavazos AUD Otolaryngolo [address] [place] [address] 10/24/13 Magdalene Newton, PAPennyC Otolaryngolo [address] gy Ortho/Med Pavilion Lvl [address] [place] [address] 11/27/14 Anika Ac AUD [address] Ortho/Med Pavilion Lvl [address] [place] [address] documented as of this encounter
--- OUTSIDE RECORDS SUMMARY | 2021-02-20 08:19 | XMS REPORT | Encounter Summary ---
Author Author [facility] Organization [facility] Address Unknown Phone Unavailable Care Team Providers Care Litigation Counsel Name Role Phone Valentine Goodman MD Unavailable Chin Tolentino MD Unavailable Ingrid Cavazos AUD Unavailable Magdalene Newton PA-C Unavailable Anika Ac AUD Unavailable Cindi Esquivel NP PCP Encounter Details Care Team Description Date Type Department 12/24/2020 Hospital Imaging: [facility] [address], [address] [place] [address] Social History Date Tobacco Use Types Packs/Day Years Used Quit: 05/21/2005 Former Smoker Cigarettes 1 34 Smokeless Tobacco: Never Used Comments Alcohol Use Standard Drinks/Week No 0 (1 standard drink = 0.6 o z pure alcohol) Sex Assigned at Date Recorded Not on file Date Recorded COVID-19 Exposure Response 12/23/2020 11:45 AM CDT In the last month, have [...] 0 by mouth daily. Take with food. 12/23/2020 atorvastatin (LIPITOR) 80 Take one 90 tablet 1 mg tablet tablet by mouth daily. calcium carbonate Take 1 tablet 0 (CALCIUM 600 PO) by mouth daily. cholecalciferol (VITAMIN Take 2,000 0 D-3) 1,000 units tablet Units by mouth daily. 05/19/2016 duloxetine (CYMBALTA) Take 1 Cap by 90 Cap 3 30 mg capsule mouth daily. x7 days. Then take 2 tablets daily. exemestane (AROMASIN) 25 Take 25 mg by 0 mg tab mouth daily. Take after a meal. 12/23/2020 Miscellaneous Medical Take 1-2 1 each 0 Supply misc times per day. 12/06/2020 predniSONE (DELTASONE) 50 Take one 3 tablet 0 mg tablet tablet by mouth daily. propranolol (INDERAL) 10 Take 10 mg by 0 mg tablet mouth twice daily. 12/23/2020 02/19/2021 omeprazole (PRILOSEC) Take one 90 capsule 1 40 mg capsule capsule by mouth daily before breakfast. 02/19/2021 rosuvastatin (CRESTOR) 10 Take 10 mg by 0 mg tablet mouth daily. documented as of this encounter Discharge Disposition Code Departure Means Destination Disposition Home Home or Self Care documented in this encounter Plan of Treatment Not on filedocumented as of this encounter Procedures Comments Procedure Name Priority Date/Time Associated Diag nosis MRI HEAD EXTERNAL IMAGING Routine 12/24/2020 12:00 AM CDT documented in this encounter Results * MRI HEAD EXTERNAL IMAGING (12/24/2020 [...] encounter Care Teams Start Date End Date Litigation Counsel Relationship Specialty 02/16/18 Cindi Esquivel NP PCP - General Nurse [address] [place] [address] [place] [address] 05/13/11 Valentine Goodman MD Rheumatology [address] [place], [place] [phone] 01/24/13 Chin Tolentino MD Otolaryngolo [address] Ortho/Med Pavilion Lvl [address] [place] [address] 08/15/13 Ingrid Cavazos AUD Otolaryngolo [address] [place] [address] 10/24/13 Magdalene Newton, PA-C Otolaryngolo [address] Ortho/Med Pavilion Lvl [address] [place] [address] 11/27/14 Anika Ac AUD [address] Ortho/Med Pavilion Lvl [address] [place] [address] documented as of this encounter
--- OUTSIDE RECORDS SUMMARY | 2021-02-20 08:19 | XMS REPORT | Encounter Summary ---
Author Author [facility] Organization [facility] Address Unknown Phone Unavailable Care Team Providers Care Oil Driller Name Role Phone Valentine Goodman MD Unavailable Chin Tolentino MD Unavailable Ingrid Cavazos AUD Unavailable Magdalene Newton PA-C Unavailable Anika Ac AUD Unavailable Cindi Esquivel NP PCP Reason for Visit * Reason Comments Research [id number] [facility] 937 Biobank [facility] Encounter Details Care Team Description Date [place] [address] [place] [address] Research ([id number] [facility] 937 Biobank Meetup ) 02/12/2021 Documentation Oncology: Jeni resendez, [facility] [address] [place] [phone] Social History Date Tobacco Use Types Packs/Day [...] Notes * Research - Omaira Ley - 02/12/2021 10:58 AM BRUSH HEAD MAKER CLINICAL RESEARCH NOTE FOR [facility]#[id number] "A Randomized Phase III Trial Evaluating the Role of Axillary Lymph Node Dissection in Breast Cancer Patients (cT1-3 N1) Who Have Positive [place] Lymph Node Disease After Neoadjuvant Chemotherapy" [facility]: 937 PID# [id number] Addition of biobank option for study participants requires reconsent for patient s continuing to be followed in the above-named trial. Participant continues in f ollow-up for trial. Participant has also not signed Addendum A to extend trial f ollow-up from 5 years to 8 years. milieu coordinator called participant to assess interest in biobank and interest in extended follow-up. Participant is interested in biobank and extended follow- up. milieu coordinator arranged time to meet participant at location on 2020 after appointment with [facility] to complete consenting. Study melanie dumont also sent scheduling request to O scheduling for lab draw. Omaira Jil [phone] H HEAD MAKER documented in this encounter Plan of Treatment Not on filedocumented as of this encounter Visit Diagnoses Not on filedocumented in this encounter Additional Health Concerns Noted Time Assessment 12/23/2020 12:23 PM CDT PHQ-2 Depression Total Score: 0 documented as of this encounter Care Teams Start Date End Date Oil Driller Relationship Specialty 02/16/18 Cindi Esquivel NP PCP - General Nurse [address] [place] [address] Practitioner [place], [place] [address] 05/13/11 Valentine Goodman MD Rheumatology [address] [place] [address] 01/24/13 Chin Tolentino MD Otolaryngolo [address] Ortho/Med Pavilion [address] [place] [address] 08/15/13 Ingrid Cavazos AUD Otolaryngolo [address] [place] [address] 10/24/13 Magdalene Newton, GLORIA Otolaryngolo [address] Ortho/Med Pavilion [address]vl [address] [place] [address] 11/27/14 Anika Ac AUD [address] Ortho/Med Pavilion Lvl [address] [place] [address] documented as of this encounter
--- OUTSIDE RECORDS SUMMARY | 2021-02-20 08:19 | XMS REPORT | Encounter Summary ---
Author Author [facility] Organization [facility] Address Unknown Phone Unavailable Care Team Providers Care Gambling Floor Supervisor Name Role Phone Valentine Goodman MD Unavailable Chin Tolentino MD Unavailable Ingrid Cavazos AUD Unavailable Magdalene Newton PA-C Unavailable Anika Ac AUD Unavailable Cindi Esquivel NP PCP Reason for Visit * Reason Comments Research [id number] [facility] Reconsent Encounter Details Care Team Description Date Type Department Delano Ibrahim, [address] [place] [address] Research ([id number] [facility] Reconsent) 02/19/2021 Documentation Oncology: [facility] [address] [place] [address] Social History Date Tobacco Use Types Packs/Day Years Used Quit: 05/21/2005 Former Smoker Cigarettes 1 34 Smokeless Tobacco: Never Used Comments Alcohol Use Standard Drinks/Week No 0 (1 standard drink = 0.6 o z pure alcohol) Sex Assigned at Date Recorded Not on file Date Recorded COVID-19 Exposure Response 02/19/2021 9:01 AM COUNSELLORS In the last month, have you been [...] * Research - Omaira Ley - 02/19/2021 11:08 AM COUNSELLORS Re-Consent Template Clinical research note for Study # [id number] Consent version: Version #7, 09/30/20 Most recent approved IRB consent was discussed with the participant during this visit. Participant was alert and oriented during consent discussion. We again di scussed the research nature of the trial. Participant was informed that clinical trial is voluntary and she may withdraw consent at any time for any reason by n otifying study team. New changes involving follow-up extension from 5 years to 8 years and biobanking option were also discussed in detail and participant verb alized understanding. Participant was given time to consider participation. Questions asked were answered to participant's satisfaction and participant voic ed desire to sign consent today. She continues to give consent for study partic ipation. She signed consent without coercion and undue influence. A copy of the signed consent was given to the participant and scanned to participant's medical record. Participant consented yes to follow-up extension from 5 years to 8 years, and ye s to biobank. Biobank registration will be documented in a separate note. Omaira Ley [phone] SELLORS documented in this encounter Plan of Treatment Not on filedocumented as of this encounter Visit Diagnoses Not on filedocumented in this encounter Additional Health Concerns Noted Time Assessment 02/19/2021 9:17 AM COUNSELLORS A fall risk assessment has been complet ed for the patient 02/19/2021 9:17 AM COUNSELLORS PHQ-2 Depression Total Score: 0 documented as of this encounter Care Teams Start Date End Date Gambling Floor Supervisor Relationship Specialty 02/16/18 Cindi Esquivel NP PCP - General Nurse [address] [place] [address] [place] [address] 05/13/11 Valentine Goodman MD [facility] [address] [place] [address] 01/24/13 Chin Tolentino MD Otolaryngolo [address] [facility] L[facility] [address] [place] [address] 08/15/13 Ingrid Cavaozs AUD Otolaryngolo [address] [place] [address] 10/24/13 Magdalene Newton, PAPennyC Otolaryngolo [address] [facility] Lvl [address] [place] [address] 11/27/14 Anika Ac AUD [address] [facility] Lvl [address] [place] [address] documented as of this encounter
--- OUTSIDE RECORDS SUMMARY | 2021-02-20 08:19 | XMS REPORT | Encounter Summary ---
Author Author [facility] Organization [facility] Address Unknown Phone Unavailable Care Team Providers Care Industrial Locomotive Operator Name Role Phone Valentine Goodman MD Unavailable Chin Tolentino MD Unavailable Ingrid Cavazos AUD Unavailable Magdalene Newton PA-C Unavailable Anika Ac AUD Unavailable Cindi Esquivel NP PCP Encounter Details Care Team Description Date Type Department 12/23/2020 Travel Social History Date Tobacco Use Types [...] encounter Care Teams Start Date End Date Industrial Locomotive Operator Relationship Specialty 02/16/18 Cindi Esquivel NP PCP - General Nurse [address] [place] [address] [place] [address] 05/13/11 Valentine Goodman MD Rheumatology [address] [place], [place] [id number] 01/24/13 Chin Tolentino MD Otolaryngolo [address] [facility] Lvl [address] [place] [address] 08/15/13 Ingrid Cavazos AUD Otolaryngolo [address] [place] [address] 10/24/13 Magdalene Newton, PA-C Otolaryngolo [address] [facility] Lvl [address] [place] [address] 11/27/14 Anika Ac AUD [address] [facility] Lvl [address] [place] [address] documented as of this encounter
--- OUTSIDE RECORDS SUMMARY | 2021-02-20 08:19 | XMS REPORT | Encounter Summary ---
Author Author [facility] Organization [facility] Address Unknown Phone Unavailable Care Team Providers Care Preparation Department Supervisor Name Role Phone Valentine Goodman MD Unavailable Chin Tolentino MD Unavailable Ingrid Cavazos AUD Unavailable Magdalene Newton PA-C Unavailable Anika Ac AUD Unavailable Cindi Esquivel NP PCP Reason for Visit * Reason Comments New Patient stroke * Consult, Test & Treat (Urgent) - Authorized Diagnoses / Procedures Referred By Contact Referred To Conta ct Specialty Diagnoses TIA (transient ischemic attack) Hypercholesterolemia Amarjit Casiano MD [address] [place] [address] [facility] [address] [place] [address]. [place] [address] Neurology Referral ID Status Reason Start Date Expiration Visits Vi sits Date Requested Authorized [id number] Authorized Specialty Services 12/04/2020 12/04/2021 1 1 Required Encounter Details Care Team Description Date Type Department Ross Friedman MD [address] [place] [address] Isatu Haas MD [address] [place] [address] TIA (transient ischemic attack) (Primary Dx) 12/23/2020 Office Visit Neurology: [facility] [address] [place] [id number] Social History Date Tobacco Use Types Packs/Day [...] Signs Reading Time Taken Comments Vital Sign 111/70 12/23/2020 12:14 PM CDT Blood Pressure 88 12/23/2020 12:14 PM CDT Pulse 36.7 C (98.1 F) 12/23/2020 12:14 PM CDT Temperature 18 12/23/2020 12:14 PM CDT Respiratory Rate 99% 12/23/2020 12:14 PM CDT RA Oxygen Saturation - - Inhaled Oxygen Concentration 73.5 kg (162 lb) 12/23/2020 12:14 PM CDT Weight 160 cm (5' 2.99") 12/23/2020 12:14 PM CDT Height 28.7 12/23/2020 12:14 PM CDT Body Mass Index documented in this [...] Date End Date Prescription Sig Dispensed Refills 12/23/2020 atorvastatin (LIPITOR) 80 Take one 90 tablet 1 mg tablet tablet by mouth daily. 12/23/2020 Miscellaneous Medical Take 1-2 1 each 0 Supply misc times per day. 12/23/2020 02/19/[address] ([facility]) Take one 90 capsule 1 40 mg capsule capsule by mouth daily before breakfast. documented in this encounter Progress Notes * Isatu Haas MD - 12/23/2020 12:00 PM CDT Date of Service: 12/23/2020 Referring physician: Dr. Amarjit Aviles Subjective: Charito Malone is a 60 y.o. female who is presenting for visual symptoms and c oncern for stroke/TIA. History of Present Illness Ms. Malone is a 60 year old woman with history of HLD, smoking (quit in 2005), alan ast cancer in remission, who is presenting for visual symptoms, headaches, memor y changes, word finding difficulty. She reports that the first onset of visual c hanges occurred in 11/25/20 - this consisted of sparkling lights in the right side of her vision which persisted when she closed either eye. This lasted about 5 m inutes and resolved. Since then, she has had at least five more episodes of estefany lar symptoms. She also gets a bilateral severe headache associated with these sy mptoms that last 10 minutes and goes away. The last episode was on 12/15/20 and a lso consisted of her vision going completely out on the R side for 5 minutes, fo r which she called 911 and was taken to ED and was noted that her blood sugar wa s in the 60's. There are other times separate from these vision changes when Ms. Malone has had word finding difficulties where she has intact comprehension, but cannot get her words out. These episodes began several years ago but have been m ore frequent recently. She also reports poor memory since her visual symptoms be nora. This is described as forgetting conversations, getting lost while driving, leaving the stove on. She lives with her son currently. She denies a history of diabetes or HTN. She does not typically take her blood sugar or blood pressure a t home. Since symptoms began, Ms. 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 Lipid panel on 11/28/20 showed LDL of 176. Since then, she has been on ASA 325 and Rosuvastatin 10. She was referred to Dr. Kathia melendez [place] [facility] [place] stenosis, which is not interventional. She then had an angiogram on 12/11 which confirmed this area of stenosis, otherwise vessel s are patent. Since her last episode of visual changes on 12/15, she saw cardiolo geno and has been started on Plavix. She is scheduled to get an MRI of her brain, echo, and have a 30 day Holter monitor tomorrow through [facility]. Of note, she has "atrial fibrillation" documented in her history, but denies carie post being diagnosed with this in the past. She does report subjective palpitations . She reports that since she started her Plavix, she has had some burning epigas tric sensation. Review of Systems Constitutional: Positive for fatigue. HENT: Negative. Eyes: Positive for visual disturbance. Respiratory: Positive for shortness of breath. Cardiovascular: Negative. Gastrointestinal: Positive for abdominal distention, abdominal pain, constipatio n and nausea. Endocrine: Positive for polyuria. Genitourinary: Positive for frequency. Musculoskeletal: Positive for arthralgias, back pain, gait problem, myalgias and neck pain. Allergic/Immunologic: Negative. Neurological: Positive for speech difficulty, weakness and headaches. Hematological: Bruises/bleeds easily. Psychiatric/Behavioral: The patient is nervous/anxious. All other systems reviewed and are negative. Objective: Medical History: Diagnosis Date Arthritis Atrial fibrillation (HCC) Back injury Cancer (HCC) 04/2016 R breast Cluster headache Colon polyps Depression GERD (gastroesophageal reflux disease) Glaucoma Headache(784.0) Heart palpitations High cholesterol IBS (irritable bowel syndrome) Panic attacks Stroke (HCC) Social History Socioeconomic History Marital status: Spouse name: Not on file Number of children: Not on file Years of education: Not on file Highest education level: Not on file Occupational History Not on file Tobacco Use Smoking status: Former Smoker Packs/day: 1.00 Years: 34.00 Pack years: 34.00 Types: Cigarettes Quit date: 05/21/2005 Years since quittin.6 Smokeless tobacco: Never Used Vaping Use Vaping Use: Never used Substance and Sexual Activity Alcohol use: No Alcohol/week: 0.0 standard drinks Drug use: Not Currently Types: Methamphetamines Comment: quit in 2005 Sexual activity: Not on file Other Topics Concern Not on file Social History Narrative Not on file Family History Problem Relation Age of Onset Cancer Mother Breast Arthritis Mother Cancer-Breast Mother Heart Disease Mother Heart Disease Father Cancer Father Arthritis Father Stroke Father Heart Attack Father COPD Father Diabetes Father Cancer Sister Cervical Heart Disease Brother Cancer Brother Arthritis Brother Hearing Loss Brother Alcohol abuse Brother Asthma Brother COPD Brother Diabetes Brother Hernia Brother Hypertension Brother aspirin 325 mg tablet Take 325 mg [...] mouth daily. Take after a meal . predniSONE (DELTASONE) 50 mg tablet Take one tablet by mouth daily. propranolol (INDERAL) 10 mg tablet Take 10 mg by mouth twice daily. rosuvastatin (CRESTOR) 10 mg tablet Take 10 mg by mouth daily. Vitals: 12/23/20 1214 BP: 111/70 BP Source: Arm, Left Upper Patient Position: Sitting Pulse: 88 Resp: 18 Temp: 36.7 C (98.1 F) TempSrc: Oral SpO2: 99% Weight: 73.5 kg (162 lb) Height: 160 cm (62.99") PainSc: Zero Body mass index is 28.7 kg/m. Physical Exam General: Well-appearing, well nourished, in no apparent distress HEENT: Normocephalic, atraumatic, moist mucus membranes CV: Regular rate and rhythm, no murmurs, no carotid bruits, intact peripheral pu lses Lungs: Clear to auscultation bilaterally Abdomen: Soft, nontender Extremities: Normal range of motion Neuro Exam: Mental Status: Alert and oriented to all modalities. Normal gross attention, mem ory, concentration, cognition Speech: Fluent without dysarthria CN: Visual arango full to confrontation, PERRLA, EOMI, no facial numbness, stren gth of facial muscles is full and symmetric, hearing intact to conversation, sym metric palate elevation, tongue midline, intact shoulder shrug Motor: Normal tone/bulk, strength 5/5 throughout Sensory: Grossly intact to light touch throughout DTRs: 2/4 and symmetric bilaterally Coordination: Normal finger to nose bilaterally, negative Romberg Gait: Normal, intact tandem gait Formal angiogram 12/11/20: IMPRESSION 1. Focal moderate to high-grade stenosis [...] normal caliber. No angiographic evidence for vasculitis. Assessment and Plan: Ms. Malone is a 60 year old woman with history of HLD, smoking (quit in 2005), alan ast cancer in remission, who is presenting for episodic R visual field symptoms, headaches, memory changes, word finding difficulty. 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 Plan - procedures: recommend 30 day event monitor, also consider implantable loop rec order if event monitor nondiagnostic - imaging: agree with MRI brain and echocardiogram which are scheduled - recommending antiplatelet medication of ASA + Plavix for at least 90 days for intracranial stenosis. After 90 days, may decide on monotherapy if symptoms have stabilized. While on dual antiplatelet, can also take Omeprazole for epigastric pain. Notify if continues or if any signs of GI bleeding - recommending risk factor management - control BP less than 130/80. Recommend to take BP 1-2 times daily - the patient's LDL is above goal of 70, recommending Atorvastatin 80 for maxim um benefit as LDL is above 170. Stop Rosuvastatin. Notify if side effects. - diabetic screening per PCP - patient nonsmoker - continue diet and exercise - patient has no symptoms or signs of sleep apnea - no therapy needs - risk factor education was completed with patient in clinic - stroke warning signs were discussed with patient, and instructed to call 911 i f experiencing any signs of stroke - continue routine follow up with primary care physician Will call for results of testing above after completion. RTC in 3 months. Isatu Haas MD documented in this encounter Miscellaneous Notes * Patient Instructions - Isatu Haas MD - 12/23/2020 12:00 PM CDT You have a blockage of one of the large arteries to the back of the brain on the left side, which controls vision on the right side of your body and it can also control spatial awareness, navigation, etc. The MRI of the brain will look for strokes in this area as well as other areas of the brain. You may have also had strokes in other areas of the brain that is affecting your memory. 1. Get the MRI brain, echo of your heart, and personnel monitor as you have been d irected to do at [facility]. We will call and get the results of you r tests after they are done. 2. Take your blood pressure at home 1-2 times a day for the next 2 months. Keep a log and bring this into your next primary care doctor appointment. If you have visual symptoms, take your blood pressure right away. 3. Stop taking your Rosuvastatin. Instead, take Atorvastatin 80 mg daily. Let us know if you have any side effects. 4. Take Aspirin and Plavix together for at least the next 3 months. 5. Take Omeprazole once a day while you are on Aspirin and Plavix together. If y ou still notice any stomach burning, or if you have any signs of bleeding in you r gut such as blood in stools, vomiting blood, or very black stools, let us know . 6. Stay on a heart healthy diet. Can also try the MIND diet for stroke. 7. Come back to see us here in 3 months. documented in this encounter Plan of Treatment Not on filedocumented as of this encounter Visit Diagnoses Diagnosis TIA (transient ischemic attack) - Prima ry Unspecified transient cerebral ischemia documented in this encounter Additional Health Concerns Noted Time Assessment 12/23/2020 12:23 PM CDT PHQ-2 Depression Total Score: 0 documented as of this encounter Care Teams Start Date End Date Preparation Department Supervisor Relationship Specialty 02/16/18 Cindi Esquivel NP PCP - General Nurse [address] [place] [address] [place] [address] 05/13/11 Valentine Goodman MD [address] [address] 01/24/13 Chin Tolentino MD Otolaryngolo [address] [facility] Lvl [address] [place] [address] 08/15/13 Ingrid Cavazos AUD Otolaryngolo [address] [place] [address] 10/24/13 Magdalene Newton, PA-C Otolaryngolo [address] [facility] Lvl [address] [place] [address] 11/27/14 Ankia Ac AUD [address] [facility] Lvl [address] [place] [address] documented as of this encounter
--- OUTSIDE RECORDS SUMMARY | 2021-02-20 08:19 | XMS REPORT | Encounter Summary ---
Author Author [facility] Organization [facility] Address Unknown Phone Unavailable Care Team Providers Care Impregnating Tank Operator Name Role Phone Valentine Goodman MD Unavailable Chin Tolentino MD Unavailable Ingrid Cavazos AUD Unavailable Magdalene Newton PA-C Unavailable Anika Ac AUD Unavailable Cindi Esquivel NP PCP Reason for Visit * Reason Onset Date Comments Imaging 01/15/2021 Encounter Details Care Team Description Date Type Department Isatu Haas MD [address] [place] [address] Imaging 01/15/2021 Telephone Neurology: [facility] [address] [facility] [place] [address] Social History Date Tobacco Use Types Packs/Day [...] encounter Care Teams Start Date End Date Impregnating Tank Operator Relationship Specialty 02/16/18 Cindi Esquivel NP PCP - General Nurse [address] [place] [address] [place] [address] 05/13/11 Valentine Goodman MD Rheumatology [address] [place] [address] 01/24/13 Chin Tolentino MD Otolaryngolo [address] [facility] Lvl [address] [place] [address] 08/15/13 Ingrid Cavazos AUD Otolaryngolo [address] [place] [address] 10/24/13 Magdalene Newton PAPennyC Otolaryngolo [address] [facility] Lvl [address] [place] [address] 11/27/14 Anika Ac AUD [address] [facility] Lvl [address] [place] [address] documented as of this encounter
--- OUTSIDE RECORDS SUMMARY | 2021-02-20 08:19 | XMS REPORT | Encounter Summary ---
Author Author [facility] Organization [facility] Address Unknown Phone Unavailable Care Team Providers Care Mattress Renovator Name Role Phone Valentine Goodman MD Unavailable Chin Tolentino MD Unavailable Ingrid Cavazos AUD Unavailable Magdalene Newton PA-C Unavailable Anika Ac AUD Unavailable Cindi Esquivel NP PCP Encounter Details Care Team Description Date Type Department Isatu Haas MD [address] [place] [address] 01/09/2021 Telephone Neurology: [facility] [address] [facility] [place] [address] Social History Date Tobacco Use [...] encounter Miscellaneous Notes * Telephone Encounter - Kanu Swan RN - 01/10/2021 9:19 AM CDT MRI result received, scanned and emailed to Dr. Haas for review. * Telephone Encounter - Kanu Swan RN - 01/09/2021 2:21 PM CDT Patient and her sister called and left voice message wanting to know if Dr. Blank in had seen patient's MRI. I have provided fax number for the report and let th em know I would be happy to scan it to Dr. Haas for review for them. She will call me back and let me know when they have done this. Ordering provider was gumaro van's spot sprayer Dr. Mooney?. documented in this encounter Plan of Treatment Not on filedocumented as of this encounter Visit Diagnoses Not on filedocumented in this encounter Additional Health Concerns Noted Time Assessment 12/23/2020 12:23 PM CDT PHQ-2 Depression Total Score: 0 documented as of this encounter Care Teams Start Date End Date Mattress Renovator Relationship Specialty 02/16/18 Cindi Esquivel NP PCP - General Nurse [address] [place] [address] Practitioner [place], [place] [phone] 05/13/11 Valentine Goodman MD Rheumatology [address] [place] [phone] 01/24/13 Chin Tolentino MD Otolaryngolo [address] [facility] [address] [place] [address] 08/15/13 Ingrid Cavazos AUD Otolaryngolo [address] [place] [address] 10/24/13 Magdalene Newton, PAMagda Otolaryngolo [address] [facility] Lvl [address] [place] [address] 11/27/14 Anika Ac AUD [address] [facility] Lvl [address] [place] [address] documented as of this encounter
--- OUTSIDE RECORDS SUMMARY | 2021-02-20 08:19 | XMS REPORT | Encounter Summary ---
Author Author [facility] Organization [facility] Address Unknown Phone Unavailable Care Team Providers Care Rn Mds Coordinator Name Role Phone Valentine Goodman MD Unavailable Chin Tolentino MD Unavailable Ingrid Cavazos AUD Unavailable Magdalene Newton PA-C Unavailable Anika Ac AUD Unavailable Cindi Esquivel NP PCP Encounter Details Care Team Description Date Type Department 02/19/2021 Travel Social History Date Tobacco Use Types Packs/Day Years Used Quit: 05/21/2005 Former Smoker Cigarettes 1 34 Smokeless Tobacco: Never Used Comments Alcohol Use Standard Drinks/Week No 0 (1 standard drink = 0.6 o z pure alcohol) Sex Assigned at Date Recorded Not on file Date Recorded COVID-19 Exposure Response 02/19/2021 9:01 AM NEON LIGHT INSTALLER In the last month, have you been [...] Concerns Noted Time Assessment 02/19/2021 9:17 AM NEON LIGHT INSTALLER A fall risk assessment has been complet ed for the patient 02/19/2021 9:17 AM NEON LIGHT INSTALLER PHQ-2 Depression Total Score: 0 documented as of this encounter Care Teams Start Date End Date Rn Mds Coordinator Relationship Specialty 02/16/18 Cindi Esquivel NP PCP - General Nurse [address] [place] [address] [place] [address] 05/13/11 Valentine Goodman MD Rheumatology [address] [place] [address] [phone] 01/24/13 Chin Tolentino MD Otolaryngolo [address] [facility] Lvl [address] [place] [address] 08/15/13 Ingrid Cavazos AUD Otolaryngolo [address] [place] [address] 10/24/13 Magdalene Newton, PA-C Otolaryngolo [address] [facility] Lvl [address] [place] [address] 11/27/14 Anika Ac AUD [address] [facility] Lvl [address] [place] [address] documented as of this encounter
--- OUTSIDE RECORDS SUMMARY | 2021-02-20 08:21 | XMS REPORT | Encounter Summary ---
Author Author [facility] Organization [facility] Address Unknown Phone Unavailable Care Team Providers Care Administrative Receptionist Name Role Phone Valentine Goodman MD Unavailable [...] Recorded COVID-19 Exposure Response 02/19/2021 9:01 AM FACILITY PRACTICE SPECIALIST In the last month, have you been [...] Concerns Noted Time Assessment 02/19/2021 9:17 AM FACILITY PRACTICE SPECIALIST A fall risk assessment has been complet ed for the patient 02/19/2021 9:17 AM FACILITY PRACTICE SPECIALIST PHQ-2 Depression Total Score: 0 documented as of this encounter Care Teams Start Date End Date Administrative Receptionist Relationship Specialty 02/16/18 Cindi Esquivel NP PCP - General Nurse [address] [place] [address] [place] [address] 05/13/11 Valentine Goodman MD Rheumatology [address] [place] [address] [id number] 01/24/13 Chin Tolentino MD Otolaryngolo [address] [facility] Lvl [address] [place] [address] 08/15/13 Ingrid Cavazos AUD Otolaryngolo [address] [place] [address] 10/24/13 Magdalene Newton, PA-C Otolaryngolo [address] [facility] Lvl [address] [place] [address] 11/27/14 Anika Ac AUD [address] [facility]ilion Lvl [address] [place] [address] documented as of this encounter
--- OUTSIDE RECORDS SUMMARY | 2021-02-20 08:21 | XMS REPORT | Encounter Summary ---
Author Author [facility] Organization [facility] Address Unknown Phone Unavailable Care Team Providers Care Egg Factory Worker Name Role Phone Valentine Goodman MD Unavailable Chin Tolentino MD Unavailable Ingrid Cavazos AUD Unavailable Magdalene Newton PA-C Unavailable Anika Ac AUD Unavailable Cindi Esquivel NP PCP Reason for Visit * Reason Comments Research [id number] [facility] [address] Encounter Details Care Team Description Date Type Department Delano Ibrahim, [address] [place] [address] Research ([id number] [facility] 937 Step 2 Registr ation) 02/19/2021 Documentation Oncology: [facility] [address] [place] [address] Social History Date Tobacco Use Types Packs/Day Years Used Quit: 05/21/2005 Former Smoker Cigarettes 1 34 Smokeless Tobacco: Never Used Comments Alcohol Use Standard Drinks/Week No 0 (1 standard drink = 0.6 o z pure alcohol) Sex Assigned at Date Recorded Not on file Date Recorded COVID-19 Exposure Response 02/19/2021 9:01 AM FLYING SQUAD SALESPERSON In the last month, have you been [...] - Omaira Ley - 02/19/2021 11:41 AM FLYING SQUAD SALESPERSON Images from the original note were not included. Study Title: A Randomized Phase III Trial Comparing Axillary Lymph Node Dissecti on to Axillary Radiation in Breast Cancer Patients (cT1-3 N1) who have Positive [place] Lymph Node Disease after Neoadjuvant Chemotherapy HSC: 937 Consent Version Date: Version #7, PVD 09/30/20 PID: [id number] Treatment Arm: Treatment Arm 1: ALND + Tanner RT Participant consented "yes" to Consent Addendum B: Optional [id number] Biobanking t o collect biosamples at time of registration, 5-6 years after surgery, and 8 yea rs after end of radiation therapy. Participant was registered to Step 2 in OPEN. Per protocol, tissue specimen will be requested to send to central lab. NG SQUAD SALESPERSON documented in this encounter Plan of Treatment Not on filedocumented as of this encounter Visit Diagnoses Not on filedocumented in this encounter Additional Health Concerns Noted Time Assessment 02/19/2021 9:17 AM FLYING SQUAD SALESPERSON A fall risk assessment has been complet ed for the patient 02/19/2021 9:17 AM FLYING SQUAD SALESPERSON PHQ-2 Depression Total Score: 0 documented as of this encounter Care Teams Start Date End Date Egg Factory Worker Relationship Specialty 02/16/18 Cindi Esquivel NP PCP - General Nurse [address] [place] [address] Practitioner [place], [place] [phone] 05/13/11 Valentine Goodman MD Rheumatology [address] [place] [address] 01/24/13 Chin Tolentino MD Otolaryngolo [address] [facility] Lvl [address] [place] [address] 08/15/13 Ingrid Cavazos AUD Otolaryngolo [address] [place] [address] 10/24/13 Magdalene Newton, PAPennyC Otolaryngolo [address] [facility] Lvl [address] [place] [address] 11/27/14 Anika Ac AUD [address] [facility]ilion Lvl [address] [place] [address] documented as of this encounter
--- OUTSIDE RECORDS SUMMARY | 2021-02-20 08:21 | XMS REPORT | Encounter Summary ---
Author Author [facility] Organization [facility] Address Unknown Phone Unavailable Care Team Providers Care Furnace Charger Name Role Phone Valentine Goodman MD Unavailable Chin Tolentino MD Unavailable Ingrid Cavazos AUD Unavailable Magdalene Newton PAPennyC Unavailable Anika Ac AUD Unavailable Cindi Esquivel NP PCP Encounter Details Care Team Description Date Type Department Delano Ibrahim, [address] [place] [address] Examination of participant in clinical t rial (Primary Dx); Malignant neoplasm of central portion of right breast in female, estrogen receptor positive (HCC) 02/17/2021 Orders Only Oncology: [facility] [address] [place] [address] Social History Date Tobacco Use Types Packs/Day Years Used Quit: 05/21/2005 Former Smoker Cigarettes 1 34 Smokeless Tobacco: Never Used Comments Alcohol Use Standard Drinks/Week No 0 (1 standard drink = 0.6 o z pure alcohol) Sex Assigned at Date Recorded Not on file Date Recorded COVID-19 Exposure Response 02/19/2021 9:01 AM DYE RANGE OPERATOR In the last month, have you been [...] encounter Care Teams Start Date End Date Furnace Charger Relationship Specialty 02/16/18 Cindi Esquivel NP PCP - General Nurse [address] [place] [address] [place] [address] 05/13/11 Valentine Goodman MD Rheumatology [address] [place], [place] [phone] 01/24/13 Chin Tolentino MD Otolaryngolo [address] [place] [address] [facility] Lvl [address] [place] [address] 08/15/13 Ingrid Cavazos AUD Otolaryngolo [address] [place] [address] 10/24/13 Magdalene Newton PA-C Otolaryngolo [address] [place] [address] [facility] Pavilion [address]vl [address] [place] [address] 11/27/14 Anika Ac AUD [address] [facility] Pavilion [address] [address] documented as of this encounter
--- OUTSIDE RECORDS SUMMARY | 2021-02-20 08:21 | XMS REPORT | Encounter Summary ---
Author Author [facility] Organization [facility] Address Unknown Phone Unavailable Care Team Providers Care Manager Military Name Role Phone Valentine Goodman MD Unavailable Chin Tolentino MD Unavailable Ingrid Cavazos AUD Unavailable Magdalene Newton PA-C Unavailable Anika Ac AUD Unavailable Cindi Esquivel NP PCP Reason for Visit * Reason Comments Research [id number] [facility] 937 Meeting Rem ion Call Encounter Details Care Team Description Date [place] [address] [place] [address] Research ([id number] [facility] 937 Meeting Remind er Call) 02/18/2021 Documentation Oncology: Jeni resendez, [facility] [address] [place] [phone] Social History Date Tobacco Use Types Packs/Day [...] - Omaira Ley - 02/18/2021 2:29 PM BLIND HANGER CLINICAL RESEARCH NOTE FOR [facility]#[id number] "A Randomized Phase III Trial Evaluating the Role of Axillary Lymph Node Dissection in Breast Cancer Patients (cT1-3 N1) Who Have Positive [place] Lymph Node Disease After Neoadjuvant Chemotherapy" [facility]: 937 PID# [id number] Addition of biobank option for study participants requires reconsent for patient s continuing to be followed in the above-named trial. Participant continues in f ollow-up for trial. Participant has also not signed Addendum A to extend trial f ollow-up from 5 years to 8 years. facilities coordinator called participant previously to meet participant at [facility] on on 02/19/2021 after appointment with [facility] to complete consenting. [facility] coordinator called participant to remind her of planned meeting. Lab draw dong s been scheduled. Omaira Ley [phone] D HANGER documented in this encounter Plan of Treatment Not on filedocumented as of this encounter Visit Diagnoses Not on filedocumented in this encounter Additional Health Concerns Noted Time Assessment 12/23/2020 12:23 PM CDT PHQ-2 Depression Total Score: 0 documented as of this encounter Care Teams Start Date End Date Manager Military Relationship Specialty 02/16/18 Cindi Esquivel NP PCP - General Nurse [address] [place] [address] Practitioner [place], [place] [address] 05/13/11 Valentine Goodman MD Rheumatology [address] [place] [address] 01/24/13 Chin Tolentino MD Otolaryngolo [address] Orth[facility] Pavilion Lvl [address] [place] [address] 08/15/13 Ingrid Cavazos AUD Otolaryngolo [address] [place] [address] 10/24/13 Magdalene Newton, CANDACEC Otolaryngolo [address] [facility]ilion Lvl [address] [place] [address] 11/27/14 Anika Ac AUD [address] [facility] Pavilion Lvl [address] [place] [address] documented as of this encounter
--- OUTSIDE RECORDS SUMMARY | 2021-02-20 08:21 | XMS REPORT | Encounter Summary ---
Author Author [facility] Organization [facility] Address Unknown Phone Unavailable Care Team Providers Care Local Government Legislator Name Role Phone Valentine Goodman MD Unavailable Chin Tolentino MD Unavailable Ingrid Cavazos AUD Unavailable Magdalene Newton PA-C Unavailable Anika Ac AUD Unavailable Cindi Esquivel NP PCP Reason for Visit * Reason Onset Date Comments Imaging 01/15/2021 Encounter Details Care Team Description Date Type Department Isatu Haas MD [address] [place] [address] Imaging 01/15/2021 Telephone Neurology: [facility] [address] [facility] [place] [address] Social History Date Tobacco Use [...] encounter Care Teams Start Date End Date Local Government Legislator Relationship Specialty 02/16/18 Cindi Esquivel NP PCP - General Nurse [address] [place] [address] [place] [address] 05/13/11 Valentine Goodman MD Rheumatology [address] [place] [address] 01/24/13 Chin Tolentino MD Otolaryngolo [address] [facility] Lvl [address] [place] [address] 08/15/13 Ingrid Cavazos AUD Otolaryngolo [address] [place] [address] 10/24/13 Magdalene Newton PAPennyC Otolaryngolo [address] [facility] Lvl [address] [place] [address] 11/27/14 Anika Ac AUD [address] [facility]ilion Lvl [address] [place] [address] documented as of this encounter
--- OUTSIDE RECORDS SUMMARY | 2021-02-20 08:21 | XMS REPORT | Encounter Summary ---
Author Author [facility] Organization [facility] Address Unknown Phone Unavailable Care Team Providers Care Diesel Mechanic Helper Name Role Phone Valentine Goodman MD Unavailable Chin Tolentino MD Unavailable Ingrid Cavazos AUD Unavailable Magdalene Newton PA-C Unavailable Anika Ac AUD Unavailable Cindi Esquivel NP PCP Reason for Visit * Reason Comments Research [id number] [facility] 937 Reconsent Encounter Details Care Team Description Date Type Department Delano Ibrahim, [address] [place] [address] Research ([id number] [facility] 937 Reconsent) 02/19/2021 Documentation Oncology: [facility] [address] [place] [address] Social History Date Tobacco Use Types Packs/Day Years Used Quit: 05/21/2005 Former Smoker Cigarettes 1 34 Smokeless Tobacco: Never Used Comments Alcohol Use Standard Drinks/Week No 0 (1 standard drink = 0.6 o z pure alcohol) Sex Assigned at Date Recorded Not on file Date Recorded COVID-19 Exposure Response 02/19/2021 9:01 AM ARTILLERY OR NAVAL GUNFIRE OBSERVER In the last month, have you been [...] - Omaira Ley - 02/19/2021 11:08 AM ARTILLERY OR NAVAL GUNFIRE OBSERVER Re-Consent Template Clinical research note for Study [...] in a separate note. Omaira Ley [phone] LLERY OR NAVAL GUNFIRE OBSERVER documented in this encounter Plan of Treatment Not on filedocumented as of this encounter Visit Diagnoses Not on filedocumented in this encounter Additional Health Concerns Noted Time Assessment 02/19/2021 9:17 AM ARTILLERY OR NAVAL GUNFIRE OBSERVER A fall risk assessment has been complet ed for the patient 02/19/2021 9:17 AM ARTILLERY OR NAVAL GUNFIRE OBSERVER PHQ-2 Depression Total Score: 0 documented as of this encounter Care Teams Start Date End Date Diesel Mechanic Helper Relationship Specialty 02/16/18 Cindi Esquivel NP PCP - General Nurse [address] [place] [address] [place] [address] 05/13/11 Valentine Goodman MD [facility] [address] [place] [address] 01/24/13 Chin Tolentino MD Otolaryngolo [address] [facility]ilion Lvl [address] [place] [address] 08/15/13 Ingrid Cavazos AUD Otolaryngolo [address] [place] [address] 10/24/13 Magdalene Newton, PAPennyC Otolaryngolo [address] [facility]ilion Lvl [address] [place] [address] 11/27/14 Anika Ac AUD [address] [facility] Pavilion Lvl [address] [place] [address] documented as of this encounter
--- OUTSIDE RECORDS SUMMARY | 2021-02-20 08:21 | XMS REPORT | Encounter Summary ---
Author Author [facility] Organization [facility] Address Unknown Phone Unavailable Care Team Providers Care Core Driller Helper Name Role Phone Valentine Goodman MD Unavailable Chin Tolentino MD Unavailable Ingrid Cavazos AUD Unavailable Magdalene Newton PA-C Unavailable Anika Ac AUD Unavailable Cindi Esquivel NP PCP Encounter Details Care Team Description Date Type Department Isatu Haas MD [address] [place] [address] 01/09/2021 Telephone Neurology: [facility] [address] [place] [address] Social History Date Tobacco Use [...] done this. Ordering provider was gumaro van's chalk extruding machine operator Dr. Mooney?. documented in this encounter Plan of Treatment Not on filedocumented as of this encounter Visit Diagnoses Not on filedocumented in this encounter Additional Health Concerns Noted Time Assessment 12/23/2020 12:23 PM CDT PHQ-2 Depression Total Score: 0 documented as of this encounter Care Teams Start Date End Date Core Driller Helper Relationship Specialty 02/16/18 Cindi Esquivel NP PCP - General Nurse [address] [place] [address] Practitioner [place], [place] [phone] 05/13/11 Valentine Goodman MD Rheumatology [address] [place] [address] [phone] 01/24/13 Chin Tolentino MD Otolaryngolo [address] [facility] Pavilion [address] [place] [address] 08/15/13 Ingrid Cavazos AUD Otolaryngolo [address] [place] [address] 10/24/13 Magdalene Newton, PAMagda Otolaryngolo [address] [facility] [address] [place] [address] 11/27/14 Anika Ac AUD [address] [facility] Lvl [address] [place] [address] documented as of this encounter
--- OUTSIDE RECORDS SUMMARY | 2021-02-20 08:21 | XMS REPORT | Encounter Summary ---
Author Author [facility] Organization [facility] Address Unknown Phone Unavailable Care Team Providers Care Risk And Insurance Manager Name Role Phone Valentine Goodman MD Unavailable Chin Tolentino MD Unavailable Ingrid Cavazos AUD Unavailable Magdalene Newton PA-C Unavailable Anika Ac AUD Unavailable Cindi Esquivel NP PCP Reason for Referral * Consult, Test & Treat (Routine) - New Request Diagnoses / Procedures Referred By [facility] Cognitive changes Isatu Haas MD [address] [place] [address] [facility] [address] [place] [address] Neuropsychology Referral ID Status Reason Start Date Expiration Visits Vi sits Date Requested Authorized [id number] New Request Specialty Services 02/19/2021 02/19/2022 1 1 Required Answer Question Neuropsychological Testing reasons Comments Symptoms of forgetting conversations, getting lost in neighborhood, leaving appliances on. Strong family history of Alzheimer's E FASTENERS INSPECTOR Reason for Visit * Reason Comments Follow Up Encounter Details Care Team Description Date Type Department Isatu Haas MD [address] [place] [address] Cognitive changes (Primary Dx); Visual field defect; History of cerebral artery stenosis 02/19/2021 Office Visit Neurology: [facility] [address] [place] [address] Social History Date Tobacco Use Types Packs/Day Years Used Quit: 05/21/2005 Former Smoker Cigarettes 1 34 Smokeless Tobacco: Never Used Comments Alcohol Use Standard Drinks/Week No 0 (1 standard drink = 0.6 o z pure alcohol) Sex Assigned at Date Recorded Not on file Date Recorded COVID-19 Exposure Response 02/19/2021 9:01 AM [employer] FASTENERS INSPECTOR In the last month, have you been in contact with No / Unsure someone who was confirmed or suspected to have Coronavirus / COVID-19? documented as of this encounter Last Filed Vital Signs Reading Time Taken Comments Vital Sign 121/87 02/19/2021 9:05 AM [employer]IDE FASTEN[employer] INSPECTOR Blood Pressure 89 02/19/2021 9:05 AM [employer]IDE FASTENERS INSPECTOR Pulse - - Temperature 18 02/19/2021 9:05 AM SLIDE FASTENERS INSPECTOR Respiratory Rate - - Oxygen Saturation - - Inhaled Oxygen Concentration 73 kg (161 lb) 02/19/2021 9:05 AM [employer]IDE FASTENERS INSPECTOR Weight 160 cm (5' 2.99") 02/19/2021 9:05 AM SLIDE FASTENERS INSPECTOR Height 28.53 02/19/2021 9:05 AM SLIDE FASTENERS INSPECTOR Body Mass Index documented in this encounter [...] as of this encounter Progress Notes * Isatu Haas MD - 02/19/2021 9:00 AM SLIDE FASTENERS INSPECTOR Date of Service: 02/19/2021 Subjective: Charito Malone is a 60 y.o. female who is following up post vascular stenosis. History of Present Illness Ms. Malone is a 60 year old woman with history of HLD, smoking (quit in 2005), alan ast cancer in remission, who is presenting for episodes of R sided visual sympto ms (consisting of sparkling in that visual field as well as complete blacking ou t of vision, headaches, memory changes, word finding difficulty which began in . She has had at least 6 episodes of symptoms, lasting few minutes each arpit e. She is also reporting cognitive and memory changes over the last several years. This is described as forgetting conversations, getting lost while driving, leavi ng the stove on. She lives with her son currently. She denies a history of diabe charles or HTN. Since symptoms began, Ms. 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 Lipid panel on 11/28/20 showed LDL of 176. Since then, she has been on ASA 325 and Rosuvastatin 10. She then had an angiogram on 12/11 which confirmed this area of stenosis, otherwise vessels are patent. Since her last episode of visual changes on 12/15, she saw cardiology and has been star roland on Plavix. Since starting on Plavix, she has not had any further visual epis odes. Since last visit, she obtained an MRI which was normal except for a small area o f L parietal white matter disease, and a 30 day Holter, which was reportedly unr emarkable. She is planning on getting an implantable loop recorder this week. Review of Systems Constitutional: Positive for fatigue. HENT: Negative. Eyes: Positive for visual disturbance. Respiratory: Negative. Cardiovascular: Positive for chest pain and palpitations. Endocrine: Negative. Genitourinary: Positive for frequency and urgency. Musculoskeletal: Positive for arthralgias, back pain and neck pain. Skin: Negative. Allergic/Immunologic: Negative. Neurological: Positive for headaches. Hematological: Bruises/bleeds easily. Psychiatric/Behavioral: Positive for confusion, decreased concentration and slee p disturbance. All other systems reviewed and are negative. Objective: aspirin 325 mg tablet Take 325 mg by mouth daily. Take with food. atorvastatin (LIPITOR) 80 mg tablet Take one tablet by mouth daily. calcium carbonate (CALCIUM 600 PO) Take 1 [...] mouth daily. Take after a meal . Miscellaneous Medical Supply misc Take 1-2 times per day. omeprazole DR (PRILOSEC) 40 mg capsule Take one capsule by mouth daily befor e breakfast. predniSONE (DELTASONE) 50 mg tablet Take one tablet by mouth daily. propranolol (INDERAL) 10 mg tablet Take 10 mg by mouth twice daily. rosuvastatin (CRESTOR) 10 mg tablet Take 10 mg by mouth daily. Vitals: 02/19/21 0905 Height: 160 cm (62.99") Body mass index is 28.7 kg/m. Physical Exam General: Well-appearing, well nourished, in no apparent distress HEENT: Normocephalic, atraumatic, moist mucus membranes Extremities: Normal range of motion Neuro Exam: Mental Status: Alert and oriented to all modalities. Normal gross attention, mem ory, concentration, cognition Speech: Fluent without dysarthria CN: Visual arango full to confrontation, PERRLA, EOMI, no facial numbness, stren gth of facial muscles is full and symmetric, hearing intact to conversation, sym metric palate elevation, tongue midline, intact shoulder shrug Motor: Normal tone/bulk, strength grossly intact Sensory: Grossly intact to light touch throughout Coordination: Normal finger to nose bilaterally, negative Romberg Gait: Normal casual gait MRI brain from [facility] 12/24/20: "small amount of focal T2 hyperintense signal is in the subcortical white matter , greatest in the left parietal lobe." Formal angiogram 12/11/20: IMPRESSION 1. Focal moderate [...] whi ch is likely causing fluctuating L DRYWALLER TIA's vs stroke with unmasking of symptom s, possibly triggered by hypoglycemia or BP fluctuations. Plan - procedures: recommend implantable loop recorder - imaging: no imaging at this time, will obtain records of echocardiogram which was done - recommending antiplatelet medication of ASA + Plavix for at least 90 days for intracranial stenosis. After 90 days, may decide on monotherapy if symptoms have stabilized. Plan to d/c ASA on 03/25/21. - recommending risk factor management - control BP less than 130/80. Recommend to take BP 1-2 times daily - the patient's LDL is above goal of 70, recommending Atorvastatin 80 for maximum benefit - diabetic screening per PCP - patient nonsmoker - continue diet and exercise - patient has no symptoms or signs of sleep apnea - no therapy needs - risk factor education was completed with patient in clinic - refer to neuropsychological testing for cognitive changes and family history o f Alzheimer's - stroke warning signs were discussed with patient, and instructed to call 911 i f experiencing any signs of stroke - continue routine follow up with primary care physician RTC in 3 months. Isatu Haas MD E FASTENERS INSPECTOR documented in this encounter Miscellaneous Notes * Patient Instructions - Isatu Haas MD - 02/19/2021 9:00 AM SLIDE FASTENERS INSPECTOR 1. In March 25, you can stop taking Aspirin and just stay on Plavix. 2. If your overedge sewer shows any arrhythmias that can cause strokes, we will start you on a stronger blood thinner. 3. Someone will call to schedule neuropsychological testing 4. Return here in 3-4 months. E FASTENERS INSPECTOR documented in this encounter Plan of Treatment Order Schedule Name Type Priority Associated Diag noses Ordered: 02/19/2021 AMB REFERRAL TO Outpatient Routine Cognitive blackwell ges NEUROPSYCHOLOGY Referral documented as of this encounter Visit Diagnoses Diagnosis Cognitive changes - Primary Other signs and symptoms involving cogn ition Visual field defect Visual field defect, unspecified History of cerebral artery stenosis Personal history of other diseases of c irculatory system documented in this encounter Discontinued Medications Start Date End Date Medication Sig Discontinue Reason 02/19/2021 rosuvastatin (CRESTOR) 10 Take 10 mg Per Provider mg tablet by mouth daily. 12/23/2020 02/19/[address] (PRILOSE) Take one Per Provider 40 mg capsule capsule by mouth daily before breakfast. documented as of this encounter Additional Health Concerns Noted Time Assessment 02/19/2021 9:17 AM SLIDE FASTENERS INSPECTOR A fall risk assessment has been complet ed for the patient 02/19/2021 9:17 AM SLIDE FASTENERS INSPECTOR PHQ-2 Depression Total Score: 0 documented as of this encounter Care Teams Start Date End Date Risk And Insurance Manager Relationship Specialty 02/16/18 Cindi Esquivel NP PCP - General Nurse [address] [place] [address] [place] [address] 05/13/11 Valentine Goodman MD Rheumatology [address] [place], [place] [id number] 01/24/13 Chin Tolentino MD Otolaryngolo [address] [facility] [address] [place] [id number] 08/15/13 Ingrid Cavazos AUD Otolaryngolo [address] [place] [address] 10/24/13 Magdalene Newton, PAPennyC Otolaryngolo [address] [facility] [address] [place] [id number] 11/27/14 Anika Ac, ELY [facility] [address] [id number] documented as of this encounter
[2021-02-20 08:24] VITALS: BP 140/77
--- NOTE | 2021-02-20 09:29 | Cardiac Procedure Note ---
Cardiology Procedures Date of Procedure 02/20/2021 LOOP RECORDER IMPLANTATION INDICATION: History of transient ischemic attack. PROCEDURE: After informed consent, the left pectoral area was prepped and draped in the usual sterile fashion. The skin and subcutaneous tissues were infiltrated with 15 mL of 2% lidocaine for local anesthesia. I subsequently made a chris in the skin in the midclavicular line at the fourth intercostal space with the insertion kit. Using the insertion tool, a Medtronic LINQ II loop recorder was inserted. Serial number [id number]. Dermabond was applied to the incision and a sterile antibiotic dressing was applied. IMPRESSION: 1. Status post implantable loop recorder insertion with a Medtronic LINQ II device, serial number [id number]. Certain portions of this document may have been dictated utilizing voice recognition technology. Inherent to this technology, typographical and grammatical errors may exist. As much as I am diligent to identify and correct these mistakes, some errors may remain in the document. OVIDIO JOLLY JR, MD Feb 20, 2021 09:29
== END | disposition home or self-care (01) ==
LOC: CATH 09:30
PROVIDERS: ATTEND Internal Medicine Cardiovascular Disease
DX: Z86.73 Personal history of transient ischemic attack (TIA), and cerebral infarction without residual deficits (principal); I65.23 Occlusion and stenosis of bilateral carotid arteries; I70.90 Unspecified atherosclerosis; E78.2 Mixed hyperlipidemia; E66.3 Overweight; I10 Essential (primary) hypertension; Z87.891 Personal history of nicotine dependence; Z79.899 Other long term (current) drug therapy; Z79.82 Long term (current) use of aspirin; Z79.811 Long term (current) use of aromatase inhibitors; Z85.3 Personal history of malignant neoplasm of breast; Z68.28 Body mass index [BMI] 28.0-28.9, adult
CPT/HCPCS: 33285; C1764

== ENCOUNTER 2021-04-16 14:06 | Emergency (ER) | payer MEDICAID ==
[~2021-04-16] VITALS: Ht 160 cm; Wt 72.9 kg
[~2021-04-16 14:06] MED LIST changes: -LIDOCAINE 1% INJ 20 ML 20 ML VIAL INJ ONE; -LIDOCAINE 1% INJ 20 ML 20 ML VIAL ONE
[2021-04-16] MEDS ORDERED: DICYCLOMINE 10 MG/ML (BENTYL) 2 ML AMP IM STA (14:23)
[2021-04-16] MEDS ORDERED: NS IV 1000 ML 1,000 ML IV STA (14:23)
[2021-04-16] MEDS ORDERED: ONDANSETRON 4 MG/2 ML (SDV) Z0FRAN IVP STA (14:23)
--- NOTE | 2021-04-16 14:27 | ED GI ---
General Chief Complaint: Abdominal/GI Problems Stated Complaint: ABD PAIN Source of Information: Patient History of Present Illness Date Seen by Provider: Apr 16, 2021 Time Seen by Provider: 14:08 Initial Comments 60-year-old female presenting with complaints of over 2 weeks of abdominal bloating and diffuse pain. She states that she has had x-rays and blood work that have not shown anything specific. She has had prior polyp removed from her colon. She does have a history of breast cancer and she has a family history of colon cancer. She is scheduled to have a follow-up with a provider in [place] and have a colonoscopy done but that is not until next week. Because she was continuing to have symptoms the clinic suggested that she go to the emergency department for CT scan. She is not having any fever, chills, vomiting but has had some dry heaves with nausea. She denies any blood in her urine or stool. She did take magnesium citrate because she thought she might be constipated but feels that she is completely cleaned out at this point. She states drinking water or take anything by mouth makes her feel bloated and makes her abdomen tight and distended. Timing/Duration: Other (over 2 weeks) Severity/Quality: Other (bloating) Location: Generalized Abdomen Activities at Onset: None Modifying Factors: Worsens With Eating Associated Symptoms: No Back Pain, No Chest Pain, No Diaphoresis, No Fever/Chills, No Fatigue, No Headache, No Heartburn; Nausea/Vomiting (nausea and dry heaves); No Rash, No Shortness of Air; Swelling/Mass in Abdomen (feels like abdomen swells and bloated); No Syncope, No Weakness Allergies and Home Medications Allergies Coded Allergies: acetaminophen (Verified Adverse Reaction, Unknown, itching, 07/16/20) oxycodone (Verified Adverse Reaction, Unknown, itching, 07/16/20) Patient Home Medication List Home Medication List Reviewed: Yes Calcium Carbonate (Calcium) 600 Mg Tablet, 600 MG PO DAILY, (Reported) Entered as Reported by: VASQUEZ ANDERSEN on 12/25/19 112 Clonazepam (Clonazepam) 0.5 Mg Tablet, 0.5 MG PO DAILY, (Reported) Entered as Reported by: VASQUEZ ANDERSEN on 12/25/19 1126 Cyclobenzaprine HCl (Cyclobenzaprine HCl) 10 Mg Tablet, 10 MG PO BID, (Reported) Entered as Reported by: VASQUEZ ANDERSEN on 12/25/19 112 Duloxetine HCl (Duloxetine HCl) 60 Mg Capsule.dr, 60 MG PO BID, (Reported) Entered as Reported by: VASQUEZ ANDERSEN on 12/25/191124 Exemestane (Exemestane) 25 Mg Tablet, 25 MG PO DAILY, (Reported) Entered as Reported by: MARISA MCCLELLAN on 07/24/1833 Ondansetron (Ondansetron Odt) 4 Mg Tab.rapdis, 4 MG PO Q6H PRN for NAUSEA/VOMITING Prescribed by: JOSH BAL on 04/16/211655 Pantoprazole Sodium (Pantoprazole Sodium) 40 Mg Tablet.dr, 40 MG PO DAILY Prescribed by: JOSH BAL on 04/16/211655 Propranolol HCl (Propranolol HCl) 20 Mg Tablet, 20 MG PO TID, (Reported) Entered as Reported by: MARISA MCCLELLAN on 07/24/18 0733 Tramadol HCl (Tramadol HCl) 50 Mg Tablet, 50 MG PO QID PRN for PAIN-MODERATE (5- 7), (Reported) Entered as Reported by: MARISA MCCLELLAN on 07/24/18 0733 Turmeric/Turmeric Root Extract (Turmeric 500 mg Capsule) 1 Each Capsule, 1 EACH PO DAILY, (Reported) Entered as Reported by: VASQUEZ ANDERSEN on 12/25/191124 Review of Systems Review of Systems Constitutional: No chills, No fever EENTM: No Symptoms Reported Respiratory: No Symptoms Reported Cardiovascular: No Symptoms Reported Gastrointestinal: See HPI Genitourinary: Denies Burning Musculoskeletal: no symptoms reported Skin: no symptoms reported Psychiatric/Neurological: Anxiety Past Nnserjq-Twdmnc-Wjkfje Hx Patient Social History Tobacco Use?: No Immunizations Up To Date First/Initial COVID19 Vaccinat: SEPTEMBER 2020 Second COVID19 Vaccination Micheal: OCTOBER 2020 Seasonal Allergies Seasonal Allergies: No Past Medical History Surgery/Hospitalization HX: Breast Cancer, Bilateral Mastectomy, Colon mass Surgeries: Yes (Bilateral Mastectomy, port, ear sx x4) Appendectomy, Breast, Gallbladder, Hysterectomy Respiratory: No Cardiac: Yes (heart cath x 2) High Cholesterol, Irregular Heartbeat, Palpitations Neurological: No [employer]ER History: Hysterectomy Genitourinary: No Gastrointestinal: No Musculoskeletal: No Endocrine: No HEENT: No Cancer: Yes (in remission as of 06/08/18) Breast Did You Recieve Any Treatments: Yes What Type of Treatment Did You: Chemotherapy, Surgical Intervention Psychosocial: Yes Anxiety Integumentary: No Blood Disorders: No Physical Exam Vital Signs Vital Signs - First Documented 04/16/21 14:09 Temp 35.5 Pulse 97 Resp 18 B/P (MAP) 140/85 (103) Pulse Ox 98 O2 Delivery Room Air Capillary Refill : Height/Weight/BMI Height: 5'3.00" Weight: 173lbs. oz. 78.083489tr; 28.51 BMI Method:Stated General Appearance: WD/WN, other (anxious) HEENT: PERRL/EOMI, pharynx normal Neck: non-tender Respiratory: chest non-tender, lungs clear, normal breath sounds, no respiratory distress, no accessory muscle use Cardiovascular: normal peripheral pulses, regular rate, rhythm Gastrointestinal: normal bowel sounds, soft, no pulsatile mass, distended (slightly distended abdomen); No guarding, No rebound; tenderness (mild diffuse tenderness to palpation) Rectal: deferred Extremities: normal range of motion, non-tender, normal capillary refill Neurologic/Psychiatric: rail filler II-XII nml as tested, no motor/sensory deficits, alert, oriented x 3 Skin: normal color, warm/dry; No rash Progress/Results/Core Measures Results/Orders Lab Results Laboratory Tests Test 04/16/21 14:10 04/16/21 14:20 Range/Units Urine Color YELLOW Urine Clarity SL CLOUDY Urine pH 8.0 5-9 Urine Specific [place] 1.015 L 1.016-1.022 Urine Protein NEGATIVE NEGATIVE Urine Glucose (UA) NEGATIVE NEGATIVE Urine Ketones NEGATIVE NEGATIVE Urine Nitrite NEGATIVE NEGATIVE Urine Bilirubin NEGATIVE NEGATIVE Urine Urobilinogen 0.2 < = 1.0 MG/DL Urine Leukocyte Esterase NEGATIVE NEGATIVE Urine RBC (Auto) NEGATIVE NEGATIVE Urine RBC NONE /HPF Urine WBC NONE /HPF Urine Squamous Epithelial Cells 0-2 /HPF Urine Crystals PRESENT H /LPF Urine Amorphous Sediment MOD DANII PHOSPHATE H /LPF Urine Bacteria NEGATIVE /HPF Urine Casts NONE /LPF Urine Mucus SMALL H /LPF Urine Culture Indicated NO White Blood Count 8.7 4.3-11.0 10^3/uL Red Blood Count 4.87 3.80-5.11 10^6/uL Hemoglobin 14.9 11.5-16.0 g/dL Hematocrit 44 35-52 % Mean Corpuscular Volume 90 80-99 fL Mean Corpuscular Hemoglobin 31 25-34 pg Mean Corpuscular Hemoglobin Concent 34 32-36 g/dL Red Cell Distribution Width 13.4 10.0-14.5 % Platelet Count 314 130-400 10^3/uL Mean Platelet Volume 9.2 9.0-12.2 fL Immature Granulocyte % (Auto) 1 % Neutrophils (%) (Auto) 58 42-75 % Lymphocytes (%) (Auto) 28 12-44 % Monocytes (%) (Auto) 11 0-12 % Eosinophils (%) (Auto) 2 0-10 % Basophils (%) (Auto) 1 0-10 % Neutrophils # (Auto) 5.0 1.8-7.8 10^3/uL Lymphocytes # (Auto) 2.5 1.0-4.0 10^3/uL Monocytes # (Auto) 0.9 0.0-1.0 10^3/uL Eosinophils # (Auto) 0.2 0.0-0.3 10^3/uL Basophils # (Auto) 0.1 0.0-0.1 10^3/uL Immature Granulocyte # (Auto) 0.0 0.0-0.1 10^3/uL Sodium Level 137 135-145 MMOL/L Potassium Level 3.7 3.6-5.0 MMOL/L Chloride Level 101 98-107 MMOL/L Carbon Dioxide Level 24 21-32 MMOL/L Anion Gap 12 5-14 MMOL/L Blood Urea Nitrogen 13 7-18 MG/DL Creatinine 1.07 0.60-1.30 MG/DL Estimat Glomerular Filtration Rate 59 BUN/Creatinine Ratio 12 Glucose Level 96 70-105 MG/DL Calcium Level 9.8 8.5-10.1 MG/DL Corrected Calcium 9.6 8.5-10.1 MG/DL Total Bilirubin 0.5 0.1-1.0 MG/DL Aspartate Amino Transf (AST/SGOT) 21 5-34 U/L Alanine Aminotransferase (ALT/SGPT) 21 0-55 U/L Alkaline Phosphatase 69 40-136 U/L Total Protein 7.0 6.4-8.2 GM/DL Albumin 4.3 3.2-4.5 GM/DL Lipase 80 H 8-78 U/L My Orders Orders - JOSH BAL MD Comprehensive Metabolic Panel (04/16/21 14:10) Lipase (04/16/21 14:10) Ua Culture If Indicated (04/16/21 14:10) Ed Iv/Invasive Line Start (04/16/21 14:10) Cbc With Automated Diff (04/16/21 14:10) Ct Abdomen/Pelvis W (04/16/21 14:23) Dicyclomine Injection (Bentyl Injection) (04/16/21 14:23) Ondansetron Injection (Zofran Injectio (04/16/21 14:23) Ns Iv 1000 Ml (Sodium Chloride 0.9%) (04/16/21 14:23) Iohexol Injection (Omnipaque 350 Mg/Ml 1 (04/16/21 15:00) Received Contrast (Hold Metformin- Contr (04/16/21 15:00) Sodium Chloride Flush (Catheter Flush Sy (04/16/21 15:00) Ns (Ivpb) (Sodium Chloride 0.9% Ivpb Bag (04/16/21 15:00) Medications Given in ED Current Medications Medications Dose Ordered Sig/Tacho Route Start Time Stop Time Status Last Admin Dose Admin Iohexol 100 ml ONCE ONCE IV 04/16/21 15:00 04/16/21 15:01 DC 04/16/21 15:06 100 ML Sodium Chloride 10 ml NEEDED PRN IV 04/16/21 15:00 04/16/21 16:59 DC 04/16/21 15:06 10 ML Sodium Chloride 100 ml ONCE ONCE IV 04/16/21 15:00 04/16/21 15:01 DC 04/16/21 15:06 100 ML Vital Signs/I&O 04/16/21 04/16/21 14:09 16:56 Temp 35.5 36.5 Pulse 97 82 Resp 18 16 B/P (MAP) 140/85 (103) 135/92 Pulse Ox 98 98 O2 Delivery Room Air Progress Progress Note #1: Progress Note Obtain labs and check CT scan of the abdomen pelvis to look for signs of an obstruction or blockage. Patient is concerned that she has a mass or tumor. She does have active bowel sounds and is not exhibiting signs of bowel obstruction or having a large abdominal mass. Counseled that she may need a colonoscopy still to be able to pick out hand any of the symptoms well. Progress Note #2: Progress Note Labs appear stable without acute significant abnormality. Her CT scan came back showing no sign of blockage or obstruction. She did have evidence of gastritis with some thickening of the stomach wall. Her outlet of the bladder appeared to have a hyperdense area for possible mass. Recommend follow-up with urology. I discussed these results and findings with the patient and encouraged her to check back with Dr. Malloy and the clinic. Certainly getting the colonoscopy and she may even need an EGD would be best to further evaluate for possible abdominal mass and bloating sensation. We will try treating for gastritis and nausea. Encouraged to follow-up with her regular provider as well Diagnostic Imaging Diagonstic Imaging: CT Plain Films/CT/US/NM/MRI: abdomen, pelvis Comments [facility]. [place], [place] NAME: CHRISTIE [facility] REC#: [id number] PT STATUS: DEP ER : 1960 PHYSICIAN: JOSH BAL MD ADMIT DATE: 04/16/21/ER FS Signed Date of Exam:04/16/21 CT ABDOMEN/PELVIS W CLINICAL INDICATION: Patient with right-sided abdominal pain, distention and nausea x2 weeks. Patient has history of breast cancer. Past surgical history of cholecystectomy and appendectomy. EXAM: Axial CT scan of the abdomen and pelvis performed with 100 mL of Omnipaque 350 IV contrast. Sagittal and coronal reformatted images are created. Auto Exposure Controls were utilized during the CT exam to meet ALARA standards for radiation dose reduction. COMPARISON: CT scan of the abdomen and pelvis with contrast dated 11/10/2018. FINDINGS: Again seen are mild airspace opacities involving the posterior aspects of both lungs, which may represent atelectasis. There is lower lumbar spine facet arthropathy. There are degenerative spurs involving the visualized lower thoracic spine. Gallbladder is surgically absent as noted on the prior study. There is slight diffuse low density seen throughout the liver, which may be related to diffuse fatty infiltration. Otherwise, the liver is unremarkable. The spleen, pancreas, and adrenal glands are unremarkable. There is interval development of a 7 mm cyst involving the inferolateral aspect of the left kidney. Both kidneys are otherwise unremarkable with no hydronephrosis or stone. Amorphous small area of increased density in the low pelvis in the expected region of the urethra near the base of the bladder. This is nonspecific. There is slight exophytic protrusion into the base of the bladder. This is best seen on the sagittal reformatted images. This lobulated area measures 12 mm in greatest AP dimension and is grossly similar. Bladder is fluid filled and otherwise unremarkable. There is no intestinal obstruction. Uterus is decompressed. There is wall thickening which may be related to contraction. There is wall thickening of the pylorus which is nonspecific. There is no intra-abdominal free air or free fluid. There is no lymphadenopathy. The appendix is surgically absent. The colon is unremarkable. The extra-abdominal and extrapelvic soft tissue structures are unremarkable. IMPRESSION: 1: There is wall thickening involving the stomach, but the stomach is decompressed. There is also wall thickening involving the pylorus. These findings are nonspecific, but gastritis and antritis may be considered. 2: The remainder of the abdomen and pelvis shows no acute abdominal or pelvic process. 3: Again noted lobulated amorphous density near the base of the bladder region. There is also slight exophytic protrusion at the base of the bladder. This is nonspecific, but a mass should be excluded. Urology consultation is suggested. 4: There is interval development of a simple-appearing cyst involving the left kidney. Dictated by: Dictated on workstation # [id number] Dict: 04/16/21 1520 Trans: 04/16/21 1731 [id number] Interpreted by: KIM ARMSTRONG MD Electronically signed by: KIM ARMSTRONG MD 04/16/21 1731 Reviewed: Reviewed by Me Departure Impression Primary Impression: Gastritis Qualified Codes: K29.70 - Gastritis, unspecified, without bleeding Additional Impressions: Abdominal bloating Bladder filling defect Disposition: HOME, SELF-CARE Condition: Stable Departure-Patient Inst. Decision time for Depature: 16:51 Referrals: KEVYN GAMBLE APRN (PCP) Primary Care Physician [facility] (Family) Primary Care Physician Patient Instructions: Gastritis ED, Ulcer and Gastritis Diet Add. Discharge Instructions: Follow a low-fat bland diet. Use the medicine for acid with gastritis and irritation to her stomach. Follow-up with urology about the density or filling defect at the base of your bladder. Keep follow up with doctor for the colonoscopy to evaluate your colon. Consider a scope of your stomach to look for ulcers All discharge instructions reviewed with patient and/or family. Voiced understanding. Scripts Pantoprazole Sodium (Pantoprazole Sodium) 40 Mg Tablet.dr 40 MG PO DAILY for gastritis for 30 Days, #30 TAB 0 Refills Prov: JOSH BAL MD 04/16/21 Ondansetron (Ondansetron Odt) 4 Mg Tab.rapdis 4 MG PO Q6H PRN for NAUSEA/VOMITING for 5 Days, #20 TAB 0 Refills Prov: JOSH BAL MD 04/16/21 JOSH BAL MD Apr 16, 2021 14:27
[2021-04-16 14:29] LABS: BASOPHILS # (AUTO) 0.1 10^3/uL (0.0-0.1); BASOPHILS % (AUTO) 1 % (0-10); EOSINOPHILS # (AUTO) 0.2 10^3/uL (0.0-0.3); EOSINOPHILS % (AUTO) 2 % (0-10); HEMATOCRIT 44 % (35-52); HEMOGLOBIN 14.9 g/dL (11.5-16.0); LYMPHOCYTES # (AUTO) 2.5 10^3/uL (1.0-4.0); LYMPHOCYTES % (AUTO) 28 % (12-44); MEAN CORPUSCULAR HEMOGLOBIN 31 pg (25-34); MEAN CORPUSCULAR HGB CONC 34 g/dL (32-36); MEAN CORPUSCULAR VOLUME 90 fL (80-99); MEAN PLATELET VOLUME 9.2 fL (9.0-12.2); MONOCYTES # (AUTO) 0.9 10^3/uL (0.0-1.0); MONOCYTES % (AUTO) 11 % (0-12); NEUTROPHILS % (AUTO) 58 % (42-75); PLATELET COUNT 314 10^3/uL (130-400); WHITE BLOOD COUNT 8.7 10^3/uL (4.3-11.0)
[2021-04-16 14:30] LABS: BILIRUBIN,URINE NEGATIVE (NEGATIVE); CLARITY,URINE SL CLOUDY; COLOR,URINE YELLOW; GLUCOSE, URINE (UA) NEGATIVE (NEGATIVE); KETONES,URINE NEGATIVE (NEGATIVE); LEUKOCYTE ESTERASE ,URINE NEGATIVE (NEGATIVE); NITRITE,URINE NEGATIVE (NEGATIVE); PROTEIN,URINE NEGATIVE (NEGATIVE)
[2021-04-16 14:38] LABS: AMORPHOUS SEDIMENT,UR MOD AMOR PHOSPHATE /LPF; BACTERIA,URINE NEGATIVE /HPF; SQUAMOUS EPITHELIAL CELL,UR 0-2 /HPF
[2021-04-16 14:46] LABS: ALBUMIN 4.3 GM/DL (3.2-4.5); BILIRUBIN,TOTAL 0.5 MG/DL (0.1-1.0); CALCIUM 9.8 MG/DL (8.5-10.1); CREATININE SERUM 1.07 MG/DL (0.60-1.30); POTASSIUM 3.7 MMOL/L (3.6-5.0)
[2021-04-16] MEDS ORDERED: IOHEXOL 350 MG/ML 100 ML (OMNIPAQUE 350) VIAL IV ONE (15:00)
[2021-04-16] MEDS ORDERED: NS 100 ML (IVPB) BAG IV ONE (15:00)
[2021-04-16] MEDS ORDERED: CATHETER FLUSH 10 ML SYR IV PRN (15:00)
[2021-04-16] MEDS ORDERED: HOLD METFORMIN - RECEIVED CONTRAST 20 ML VIAL IV SCH (15:00)
--- NOTE | 2021-04-16 15:37 | Diagnostic Imaging Report ---
CLINICAL INDICATION: Patient with right-sided abdominal pain, distention and nausea x2 weeks. Patient has history of breast cancer. Past surgical history of cholecystectomy and appendectomy. EXAM: Axial CT scan of the abdomen and pelvis performed with 100 mL of Omnipaque 350 IV contrast. Sagittal and coronal reformatted images are created. Auto Exposure Controls were utilized during the CT exam to meet ALARA standards for radiation dose reduction. COMPARISON: CT scan of the abdomen and pelvis with contrast dated 11/10/2018. FINDINGS: Again seen are mild airspace opacities involving the posterior aspects of both lungs, which may represent atelectasis. There is lower lumbar spine facet arthropathy. There are degenerative spurs involving the visualized lower thoracic spine. Gallbladder is surgically absent as noted on the prior study. There is slight diffuse low density seen throughout the liver, which may be related to diffuse fatty infiltration. Otherwise, the liver is unremarkable. The spleen, pancreas, and adrenal glands are unremarkable. There is interval development of a 7 mm cyst involving the inferolateral aspect of the left kidney. Both kidneys are otherwise unremarkable with no hydronephrosis or stone. Amorphous small area of increased density in the low pelvis in the expected region of the urethra near the base of the bladder. This is nonspecific. There is slight exophytic protrusion into the base of the bladder. This is best seen on the sagittal reformatted images. This lobulated area measures 12 mm in greatest AP dimension and is grossly similar. Bladder is fluid filled and otherwise unremarkable. There is no intestinal obstruction. Uterus is decompressed. There is wall thickening which may be related to contraction. There is wall thickening of the pylorus which is nonspecific. There is no intra-abdominal free air or free fluid. There is no lymphadenopathy. The appendix is surgically absent. The colon is unremarkable. The extra-abdominal and extrapelvic soft tissue structures are unremarkable. IMPRESSION: 1: There is wall thickening involving the stomach, but the stomach is decompressed. There is also wall thickening involving the pylorus. These findings are nonspecific, but gastritis and antritis may be considered. 2: The remainder of the abdomen and pelvis shows no acute abdominal or pelvic process. 3: Again noted lobulated amorphous density near the base of the bladder region. There is also slight exophytic protrusion at the base of the bladder. This is nonspecific, but a mass should be excluded. Urology consultation is suggested. 4: There is interval development of a simple-appearing cyst involving the left kidney. Dictated by: Dictated on workstation # [id number]
[2021-04-16 16:56] VITALS: BP 135/92
[2021-04-16] MEDS ORDERED: ONDA4TAB11 PO (16:56)
[2021-04-16] MEDS ORDERED: PANT40TA52 PO (16:56)
== END 2021-04-16 16:58 | disposition home or self-care (01) ==
LOC: EDUNIT# 14:06 → ER FS 14:07
DX: K29.70 Gastritis, unspecified, without bleeding (principal); R14.0 Abdominal distension (gaseous); R93.49 Abnormal radiologic findings on diagnostic imaging of other urinary organs; F41.9 Anxiety disorder, unspecified; Z79.899 Other long term (current) drug therapy
CPT/HCPCS: 36415; 74177; 80053; 81000; 83690; 85025

== ENCOUNTER 2021-04-30 05:33 | Outpatient (RCR) | payer MEDICAID ==
[~2021-04-30] VITALS: Ht 160 cm; Wt 73.5 kg
[~2021-04-30 05:33] MED LIST changes: -ASPI-999 PO; -ATOR80TA76 PO; -CLOP75TA28 PO; -MV-M1TAB20 PO
[2021-04-30] MEDS ORDERED: ATOR80TA76 PO (12:47)
[2021-04-30] MEDS ORDERED: ASPI-999 PO (12:47)
[2021-04-30] MEDS ORDERED: CLOP75TA28 PO (12:47)
[2021-04-30] MEDS ORDERED: MV-M1TAB20 PO (12:47)
== END 2021-04-30 14:04 | disposition home or self-care (01) ==
LOC: PREOP 05:33 → EDSTATUS 09:30 → PREOP 14:04
PROVIDERS: ATTEND Surgery
DX: Z01.818 Encounter for other preprocedural examination (principal)

== ENCOUNTER → 2021-04-30 | Outpatient (CLI) | payer MEDICAID ==
[~2021-04-30] MED LIST changes: +ASPI-999 PO; +ATOR80TA76 PO; +CLOP75TA28 PO; +MV-M1TAB20 PO; +ONDA4TAB11 PO; +PANT40TA52 PO
== END ==
LOC: LAB FS 13:04
PROVIDERS: ATTEND Surgery
DX: C67.9 Malignant neoplasm of bladder, unspecified (principal); K29.70 Gastritis, unspecified, without bleeding; Z86.010 Personal history of colon polyps; Z20.822 Contact with and (suspected) exposure to COVID-19
CPT/HCPCS: 87635

== ENCOUNTER 2021-05-02 09:52 | Day surgery (SDC) | payer MEDICAID ==
[~2021-05-02] VITALS: Ht 160 cm; Wt 73.5 kg
[~2021-05-02 09:52] MED LIST changes: +ASPI-999 PO; +ATOR80TA76 PO; +CLOP75TA28 PO; +MV-M1TAB20 PO
[2021-05-02] MEDS ORDERED: LACTATED RINGERS 1,000 ML IV STA (09:54)
[2021-05-02] MEDS ORDERED: LACTATED RINGERS 1,000 ML IV ONE (09:57)
[2021-05-02 10:00] VITALS: BP 140/89
[2021-05-02] MEDS ORDERED: HURRICAINE EXT TUBE (BENZOCAINE) XX PRN (10:00)
[2021-05-02] MEDS ORDERED: ONDANSETRON 4 MG/2 ML (SDV) Z0FRAN ONE (10:42)
[2021-05-02] MEDS ORDERED: PROPOFOL INJECTION 50 ML IV ONE (10:42)
[2021-05-02] MEDS ORDERED: MIDAZOLAM 2 MG/2 ML (VERSED) VIAL ONE (10:42)
--- NOTE | 2021-05-02 13:08 | Progress Note-Pre Operative ---
Pre-Operative Progress Note H&P Reviewed The H&P was reviewed, patient examined and no changes noted. Time Seen by Provider: 13:07 Date H&P Reviewed: May 02, 2021 Time H&P Reviewed: 13:06 Pre-Operative Diagnosis: Abd pain, hx of polyps, bladder CA, hx of breast CA FITZ SHAH DO May 02, 2021 13:08
[2021-05-02 14:10] VITALS: BP 132/77
[2021-05-02 14:14] VITALS: BP 132/77
--- NOTE | 2021-05-02 14:17 | Progress Note-Post Operative ---
Post-Operative Progess Note Surgeon (s)/Collections Specialist (s) Surgeon FITZ SHAH DO Collections Specialist: KVNG Ramírez Pre-Operative Diagnosis Abd pain, hx of polyps, bladder CA, hx of breast CA Post-Operative Diagnosis Gastritis Hiatal Hernia Polyps Int hemorrhoids Procedure & Operative Findings Date of Procedure 05/02/21 Procedure Performed/Findings EGD with bx Colonoscopy with snare polypectomy Colonoscopy with hot bx PROCEDURE NOTE: After informed consent was obtained, the patient was brought to the endoscopy suite, placed in bed in left lateral decubitus position. She was administered IV sedation by the MANAGER ELECTRONIC who then monitored vitals the entire time, heart rate, blood pressure and pulse ox and the scope was inserted down the mouth through the esophagus into the stomach. Pushed into the stomach, pushed past the antrum into the duodenum; duodenum looked good. Pulled back and did a biopsy of the antrum; there was some mild Gastritis. Then retroflexed the scope and saw a very small hiatal hernia, took a picture of this and then pulled the scope into the GE junction. Took a picture of the GE junction and then did a biopsy. Pushed the scope back into the stomach, suctioned all the air out of the stomach. At this point pulled the scope up the esophagus and out the mouth. Switched camera, switched gloves, went down below, started the colonoscopy. Pushed all the way into about 140 cm to get all the way to cecum. On the way in, in the descending colon saw a small flat polyp and elected to remove it with a hot biopsy. Found another flat polyp in the cecum and did another hot biopsy. Took a picture of the appendiceal orifice and noted the ileocecal valve and then slowly withdrew the scope. Insufflating to look circumferentially at the snyder and found a large polyp just distal to the ileo- cecal valve and removed it with snare polyptectomy; had to take it in multiple pieces. Found another larger polyp in the ascecnding colon and removed it completely with snare polypectomhy. Continued up the ascending colon to the hepatic flexure, then down the transverse colon, splenic flexure, into the descending colon, down into the sigmoid and finally into the rectum, retroflexed in the rectal vault, saw some minimal internal hemorrhoids and took a picture of this. The patient tolerated the procedure and she recovered in the endoscopy suite. Anesthesia Type IV sedation by Anesthesia Estimated Blood Loss Estimated blood loss (mL): scant Specimens/Packing Specimens Removed antral bx GE jxn bx desc colon polyp cecal polyp x 2 asc colon polyp FITZ SHAH DO May 02, 2021 14:17
--- NOTE | 2021-05-02 14:40 | Endoscopy Discharge Instruct ---
Endo Procedure/Findings Findings 1.: Gastritis 2.: Hiatal Hernia 3.: Internal Hemorrhoids Discharge Instructions - Activity: You might feel a little sleepy until tomorrow. This is due to the medicine you received to relax you. Until tomorrow, you should: NOT drive a car, operate machinery or power tools. NOT drink any alcoholic beverages. NOT make any important decisions or sign importortant papers. Do not return to work until tomorrow, unless otherwise instructed. Resume previous activities tomorrow. Diet: Start by taking liquids. If you tolerate liquids, advance to solid food. 1.: EGD in 3 years 2.: Colonscopy in 5 years Notify Physician - If you experience excessive bleeding, unusual abdominal pain, fever, or chest pain, contact your doctor immediately. FITZ SHAH DO May 02, 2021 14:40
--- NOTE | 2021-05-02 14:44 | Anesthesia-General Post-Op ---
MAC Patient Condition Mental Status/LOC: Same as Preop Cardiovascular: Satisfactory Nausea/Vomiting: Absent Respiratory: Satisfactory Pain: Controlled Complications: Absent Post Op Complications Complications None Follow Up Care/Instructions Patient Instructions None needed. Anesthesiology Discharge Order Discharge Order Patient is doing well, no complaints, stable vital signs, no apparent adverse anesthesia problems. LAUREN MORAES DO May 02, 2021 14:44
[2021-05-02 14:45] VITALS: BP 118/74
== END 2021-05-02 15:05 | disposition home or self-care (01) ==
LOC: ENDO 09:52
PROVIDERS: ATTEND Surgery
DX: K29.70 Gastritis, unspecified, without bleeding (principal); K22.70 Barrett's esophagus without dysplasia; K31.A15 Gastric intestinal metaplasia without dysplasia, involving multiple sites; D12.4 Benign neoplasm of descending colon; D12.0 Benign neoplasm of cecum; K63.5 Polyp of colon; K44.9 Diaphragmatic hernia without obstruction or gangrene; K64.8 Other hemorrhoids; I10 Essential (primary) hypertension; C67.9 Malignant neoplasm of bladder, unspecified; E78.2 Mixed hyperlipidemia; Z85.3 Personal history of malignant neoplasm of breast; Z79.899 Other long term (current) drug therapy; Z79.82 Long term (current) use of aspirin; Z79.02 Long term (current) use of antithrombotics/antiplatelets; Z79.811 Long term (current) use of aromatase inhibitors; Z87.891 Personal history of nicotine dependence

== ENCOUNTER 2021-05-14 10:12 | Outpatient (RCR) | payer MEDICAID | END 2021-05-19 | LOC: ONC 10:12 | PROVIDERS: ATTEND Internal Medicine Hematology & Oncology | DX: C67.9 Malignant neoplasm of bladder, unspecified (principal) | CPT/HCPCS: 99214 ==

== ENCOUNTER 2021-06-02 20:14 | Emergency (ER) | payer MEDICAID ==
--- NOTE | 2021-06-02 20:24 | ED General ---
General Stated Complaint: RT SHOULDER BIOPSY BLEEDING Source of Information: Patient Exam Limitations: No Limitations History of Present Illness Date Seen by Provider: Jun 02, 2021 Time Seen by Provider: 20:16 Initial Comments 60-year-old female with past medical history of CVA on Plavix coming in due to continued bleeding from a biopsy site on her right shoulder. She said around 2 PM today a doctor in [place] biopsied her right shoulder for skin cancer. She says it is continue to bleed. She changed her dressing 3 times, and when she changes it it continues to drip down her chest with active oozing this low. She last took her Plavix this morning. She denies any trauma to the area. She is otherwise denying any other acute complaints. Allergies and Home Medications Allergies Coded Allergies: acetaminophen (Verified Adverse Reaction, Unknown, itching, 07/16/20) oxycodone (Verified Adverse Reaction, Unknown, itching, 07/16/20) Patient Home Medication List Home Medication List Reviewed: Yes Aspirin (Aspirin) 81 Mg Tab.chew, 81 MG PO DAILY, (Reported) Entered as Reported by: MARILYN VERGARA on 04/30/21 1247 Atorvastatin Calcium (Atorvastatin Calcium) 80 Mg Tablet, 80 MG PO DAILY, (Reported) Entered as Reported by: MARILYN VERGARA on 04/30/21 1247 Calcium Carbonate (Calcium) 600 Mg Tablet, 600 MG PO DAILY, (Reported) Entered as Reported by: VASQUEZ ANDERSEN on 12/25/19 1125 Clonazepam (Clonazepam) 0.5 Mg Tablet, 0.5 MG PO DAILY, (Reported) Entered as Reported by: VASQUEZ ANDERSEN on 12/25/19 1125 Clopidogrel Bisulfate (Clopidogrel) 75 Mg Tablet, 75 MG PO DAILY, (Reported) Entered as Reported by: MARILYN VERGARA on 04/30/21 1247 Duloxetine HCl (Duloxetine HCl) 60 Mg Capsule.dr, 60 MG PO BID, (Reported) Entered as Reported by: VASQUEZ ANDERSEN on 12/25/19 1125 Exemestane (Exemestane) 25 Mg Tablet, 25 MG PO DAILY, (Reported) Entered as Reported by: MARISA MCCLELLAN on 07/24/18 0733 Mv-Mn/Iron/FA/Herbal Cmplx#190 (Vitamin D3 Complete Caplet) 1 Each Tablet, 1 EACH PO DAILY, (Reported) Entered as Reported by: MARILYN VERGARA on 04/30/21 1247 Ondansetron (Ondansetron Odt) 4 Mg Tab.rapdis, 4 MG PO Q6H PRN for NAUSEA/VOMITING Prescribed by: JOSH BAL on 04/16/21 165 Pantoprazole Sodium (Pantoprazole Sodium) 40 Mg Tablet.dr, 40 MG PO DAILY Prescribed by: JOSH BAL on 04/16/211655 Review of Systems Review of Systems Constitutional: No chills, No fever EENTM: No blurred vision Cardiovascular: No chest pain Gastrointestinal: no symptoms reported Genitourinary: no symptoms reported Musculoskeletal: no symptoms reported Skin: hx of skin cancer, other (Bleeding wound) Psychiatric/Neurological: No Symptoms Reported Hematologic/Lymphatic: No Symptoms Reported Immunological/Allergic: no symptoms reported All Other Systems Reviewed Negative Unless Noted: Yes Past Fdtuvqz-Jmzebu-Yqxbqj Hx Patient Social History Tobacco Use?: No Immunizations Up To Date First/Initial COVID19 Vaccinat: Nov 2020 Second COVID19 Vaccination Micheal: Dec 2020 Seasonal Allergies Seasonal Allergies: No Past Medical History Surgery/Hospitalization HX: Breast Cancer, Bilateral Mastectomy, Colon mass Surgeries: Yes (Bilateral Mastectomy, port, ear sx x4, LOOP RECORDER) Appendectomy, Breast, Gallbladder, Hysterectomy Respiratory: No Cardiac: Yes (heart cath x 2, loop recorder) High Cholesterol, Irregular Heartbeat, Palpitations 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 oz. [id number]; 28.71 BMI Method:Stated General Appearance: No Apparent Distress, WD/WN Eyes: Bilateral Eye Normal Inspection HEENT: PERRL/EOMI, Normal ENT Inspection, Pharynx Normal Neck: Full Range of Motion, Normal Inspection, Non Tender, Supple Respiratory: Chest Non Tender, Lungs Clear, Normal Breath Sounds, No Accessory Muscle Use, No Respiratory Distress Cardiovascular: Regular Rate, Rhythm, No Edema, Normal Peripheral Pulses Gastrointestinal: Normal Bowel Sounds, Non Tender, Soft Back: Normal Inspection Extremity: Normal Capillary Refill, Normal Inspection, Normal Range of Motion, Non Tender, No Calf Tenderness Neurologic/Psychiatric: Alert, No Motor/Sensory Deficits, Normal Mood/Affect Skin: Other (Bleeding wound to the right shoulder that has a slow ooze, superficial biopsy site) Lymphatic: No Adenopathy Progress/Results/Core Measures Suspected Sepsis SIRS Temperature: Pulse: Respiratory Rate: Blood Pressure / Mean: Results/Orders My Orders Orders - PATTI HORTON MD Tranexamic Acid Injection (Cyklokapron I (06/02/21 20:30) Lidocaine/Epi 2% 1:100,000 (Xylocaine/Ep (06/02/21 21:00) Medications Given in ED Current Medications Medications Dose Ordered Sig/Tacho Route Start Time Stop Time Status Last Admin Dose Admin Lidocaine/ Epinephrine 20 ml ONCE ONCE INJ 06/02/21 21:00 06/02/21 21:01 DC 06/02/21 20:59 20 ML Tranexamic Acid ONCE ONCE NA 06/02/21 20:30 06/02/21 20:31 DC 06/02/21 20:25 1,000 MG Vital Signs/I&O 06/02/21 20:18 Pulse 97 Resp 18 B/P (MAP) 143/99 (114) Pulse Ox 100 O2 Delivery Room Air Capillary Refill : Progress Note : Progress Note 60-year-old female with above history coming in due to a bleeding wound on her right shoulder from a skin biopsy. Is a very superficial biopsy on physical exam and it does have a very slow amount of bleeding that forms a drop of blood about every 10 seconds. I used TXA soaked gauze and applied manual pressure. Did this twice and continued to have a slow drip. Then injected it with lidocaine with epinephrine which stopped the bleeding. I believe the patient is stable for discharge with outpatient follow-up. She was sent home with strict return precautions. I instructed her to call the doctor's office tomorrow if there is any bleeding at all. Departure Impression Primary Impression: Bleeding from wound Disposition: HOME, SELF-CARE Condition: Stable Departure-Patient Inst. Decision time for Depature: 21:30 Referrals: [facility]/ANNE MARIE (PCP) Primary Care Physician KEVYN GAMBLE APRN (Family) Primary Care Physician Patient Instructions: Bleeding After Surgery Add. Discharge Instructions: You were seen in the emergency department for your wound that was bleeding. We applied a special medicine that can help clot the blood and applied pressure. Leave the bandage on until tomorrow, if you have any bleeding tomorrow please call the doctor back that did it to see if they can see you in clinic. If you have a significant amount of bleeding or you are worried then you can come back to the ER. PATTI HORTON MD Jun 02, 2021 20:24
[2021-06-02] MEDS ORDERED: TRANEXAMIC ACID 100 MG/ML 10 ML INJECTION ONE (20:30)
[2021-06-02] MEDS ORDERED: LIDOCAINE/EPI 2% 1:100,00 (XYLOCAINE) 20 ML VIAL INJ ONE (21:00)
[2021-06-02 21:29] VITALS: BP 143/99
[2021-06-03] MEDS ORDERED: OXYC1TAB11 PO (19:38)
[2021-06-03] MEDS ORDERED: METH-732 PO (19:38)
== END 2021-06-02 21:30 | disposition home or self-care (01) ==
LOC: EDUNIT# 20:14 → ER FS 20:16
DX: L76.22 Postprocedural hemorrhage of skin and subcutaneous tissue following other procedure (principal); Z86.73 Personal history of transient ischemic attack (TIA), and cerebral infarction without residual deficits; Z79.02 Long term (current) use of antithrombotics/antiplatelets
CPT/HCPCS: 99281

== ENCOUNTER 2021-06-03 17:38 | Emergency (ER) | payer MEDICAID ==
[~2021-06-03] VITALS: Ht 165 cm; Wt 80.0 kg
[2021-06-03] MEDS ORDERED: KETOROLAC 30 MG/ML VIAL IVP STA (17:53)
[2021-06-03] MEDS ORDERED: NS IV 1000 ML 1,000 ML IV STA (17:53)
[2021-06-03] MEDS ORDERED: fentaNYL INJ 100 MCG/2 ML AMP IVP STA (17:53)
[2021-06-03] MEDS ORDERED: ORPHENADRINE 60 MG/2 ML (NORFLEX) AMP (ED ONLY) IVP STA (17:53)
[2021-06-03] MEDS ORDERED: diphenhydrAMINE 50 MG/ML INJ (BENADRYL) IVP STA (17:53)
[2021-06-03 18:06] LABS: BASOPHILS # (AUTO) 0.1 10^3/uL (0.0-0.1); BASOPHILS % (AUTO) 1 % (0-10); EOSINOPHILS # (AUTO) 0.2 10^3/uL (0.0-0.3); EOSINOPHILS % (AUTO) 2 % (0-10); HEMATOCRIT 39 % (35-52); HEMOGLOBIN 13.5 g/dL (11.5-16.0); LYMPHOCYTES # (AUTO) 1.7 10^3/uL (1.0-4.0); LYMPHOCYTES % (AUTO) 23 % (12-44); MEAN CORPUSCULAR HEMOGLOBIN 31 pg (25-34); MEAN CORPUSCULAR HGB CONC 35 g/dL (32-36); MEAN CORPUSCULAR VOLUME 89 fL (80-99); MEAN PLATELET VOLUME 9.6 fL (9.0-12.2); MONOCYTES # (AUTO) 0.8 10^3/uL (0.0-1.0); MONOCYTES % (AUTO) 11 % (0-12); NEUTROPHILS # (AUTO) 4.6 10^3/uL (1.8-7.8); NEUTROPHILS % (AUTO) 62 % (42-75); PLATELET COUNT 284 10^3/uL (130-400); WHITE BLOOD COUNT 7.5 10^3/uL (4.3-11.0)
[2021-06-03 18:23] LABS: BILIRUBIN,TOTAL 0.4 MG/DL (0.1-1.0); CALCIUM 9.3 MG/DL (8.5-10.1); CREATININE SERUM 0.91 MG/DL (0.60-1.30); POTASSIUM 3.6 MMOL/L (3.6-5.0)
[2021-06-03 18:24] LABS: ALBUMIN 4.2 GM/DL (3.2-4.5); TOTAL PROTEIN 6.7 GM/DL (6.4-8.2)
--- NOTE | 2021-06-03 18:33 | Diagnostic Imaging Report ---
PROCEDURE: CT head and CT cervical spine without contrast. TECHNIQUE: Multiple contiguous axial images were obtained through the brain and cervical spine without the use of intravenous contrast. Sagittal and coronal reformations through the cervical spine were then performed. Auto Exposure Controls were utilized during the CT exam to meet ALARA standards for radiation dose reduction. INDICATION: Fall. Head pain. Neck pain. COMPARISON: 12/15/2020. FINDINGS: CT HEAD: Ventricles and cortical sulci are age appropriate. There is no midline shift or mass-effect. No acute intra-axial hemorrhage is seen. There are no abnormal areas of increased or decreased density to suggest acute hemorrhage or edema. No extra-axial masses or collections are present. The bony calvarium is intact. The visualized paranasal sinuses are unremarkable. The mastoid air cells show postsurgical changes of mastoidectomy on the left. CT CERVICAL SPINE: Evaluation of the static alignment shows slight reversal of normal lordotic curvature. Findings may relate to patient positioning, as well as spasm. There is no significant minal or retrolisthesis. There is no evidence of jumped facets. Vertebral body heights are maintained. There is no acute fracture. No bony fragments are seen within the spinal canal. Moderate multilevel degenerative changes are noted consistent with intervertebral disc height loss with multilevel large anterior and posterior endplate osteophyte formations. There is also large bridging osteophyte posteriorly at the C5-C6 level. This does result in focal narrowing of the spinal canal. Pre and paravertebral soft tissue structures are unremarkable. Included portions of the lung apices are clear IMPRESSION: 1. No acute intracranial abnormality. No CT evidence of mass, acute infarct or intracranial hemorrhage. 2. No acute fracture or dislocation of the cervical spine. 3. Moderate multilevel degenerative changes. Dictated by: Dictated on workstation # [id number]
--- NOTE | 2021-06-03 18:40 | Diagnostic Imaging Report ---
PROCEDURE: CT chest without contrast. TECHNIQUE: Multiple contiguous axial images were obtained through the chest without the use of intravenous contrast. Auto Exposure Controls were utilized during the CT exam to meet ALARA standards for radiation dose reduction. INDICATION: Fall. Chest pain. COMPARISON: 10/07/2017. FINDINGS: Cardiomediastinal structures show normal heart size. There is no large pericardial effusion. Moderate calcified coronary atherosclerosis is noted. No pathologically enlarged or morphologically abnormal adenopathy is seen within the mediastinum, bandar, nor axilla. Lungs are clear. There is no focal consolidation, large effusion, nor pneumothorax. No suspicious pulmonary nodules or masses are seen. No displaced rib fractures are seen. No suspicious lytic or blastic bony lesions are identified. Included portions of the upper abdomen are unremarkable as well. IMPRESSION: 1. No acute cardiopulmonary process. Dictated by: Dictated on workstation # [id number]
--- NOTE | 2021-06-03 18:40 | Diagnostic Imaging Report ---
PROCEDURE: CT thoracic and lumbar spine without contrast. TECHNIQUE: Multiple contiguous axial images were obtained through the thoracic and lumbar spine without the use of intravenous contrast. Sagittal and coronal reformations were then performed. All CT scans use one or more of the following dose optimizing techniques: Automated exposure control, MA and/or KvP adjustment based on a patient size and exam type, or iterative reconstruction. INDICATION: Fall. Worsening back pain. COMPARISON: CT abdomen and pelvis dated 04/16/2021. FINDINGS: CT THORACIC SPINE: Static alignment of the thoracic spine is maintained. There is no significant minal- or retro-listhesis. There is no evidence of jumped facets. Vertebral body heights are maintained. There is no acute fracture. No bony fragments are seen within the spinal canal. Mild multilevel degenerative changes are present. Pre- and para-vertebral soft tissue structures are unremarkable. Included portions of the lungs are clear. Please note, dedicated CT of the chest was also separately performed and separately dictated. CT LUMBAR SPINE: Static alignment shows mild grade 1 anterolisthesis at L4-L5. There is no evidence of jumped facets. Vertebral body heights are maintained. There is no acute fracture. No bony fragments are seen within the spinal canal. Pre- and para-vertebral soft tissue structures are unremarkable. IMPRESSION: 1. No acute fracture or dislocation of the thoracic or lumbar spine. Dictated by: Dictated on workstation # [id number]
--- NOTE | 2021-06-03 18:51 | ED Back Pain ---
General Chief Complaint: Back Problems Stated Complaint: FALL Nursing Triage Note: Patient has been brought to ER by EMS with cc of back pain. Patient reports that today she had lifted a case of water and had left rib pain, this afternoon she was folding laundry when she had sudden pain from her neck to her lower back. She went to her knees and was helped up by friends. She did take a flexeril at home at about 1630 but the pain continues. She called EMS and was brought to ER for evaluation. Source of Information: Patient, EMS History of Present Illness Date Seen by Provider: Jun 03, 2021 Time Seen by Provider: 17:38 Initial Comments 60-year-old female presenting with EMS due to increased pain to the left chest and ribs as well as her cervical spine, thoracic spine, lumbar spine. She does have a history of chronic back pain but states that she does not usually take medicine all the time for it. She had lifted a heavy case of water earlier today and started having some problems with her chest and upper back after that. Then she was trying to do some laundry this afternoon and while trying to shake out the clothes and pulled them she had sudden pain in her back that made her have spasm and dropped to her knees. She then went down to her buttocks and had to lay down on the floor. She feels like her back is out of alignment. She denies any direct trauma to her back or neck. She has no new numbness or tingling in her arms or legs. She had to have her family and neighbors help get her up off the floor. She took a flexeril she had at home to try and help with her pain. Location: C-Spine, Lumbar Spine, Paraspinous Muscles, T-Spine, Other (left lateral ribs and chest wall) Timing/Duration: 4-6 Hours Severity: Severe Method of Injury: Unknown Modifying Factors: Worse With Movement Associated Symptoms: muscle spasms; No fever, No weakness, No numbness in legs/feet, No tingling in legs/feet, No sensory/motor loss; lower back pain; No loss of bladder control, No loss of bowel control Allergies and Home Medications Allergies Coded Allergies: acetaminophen (Verified Adverse Reaction, Unknown, itching, 07/16/20) oxycodone (Verified Adverse Reaction, Unknown, itching, 07/16/20) Patient Home Medication List Home Medication List Reviewed: Yes Aspirin (Aspirin) 81 Mg Tab.chew, 81 MG PO DAILY, (Reported) Entered as Reported by: MARILYN VERGARA on 04/30/21 124 Atorvastatin Calcium (Atorvastatin Calcium) 80 Mg Tablet, 80 MG PO DAILY, (Reported) Entered as Reported by: MARILYN VERGARA on 04/30/21 1247 Calcium Carbonate (Calcium) 600 Mg Tablet, 600 MG PO DAILY, (Reported) Entered as Reported by: VASQUEZ ANDERSEN on 12/25/19 1125 Clonazepam (Clonazepam) 0.5 Mg Tablet, 0.5 MG PO DAILY, (Reported) Entered as Reported by: VASQUEZ ANDERSEN on 12/25/19 1125 Clopidogrel Bisulfate (Clopidogrel) 75 Mg Tablet, 75 MG PO DAILY, (Reported) Entered as Reported by: MARILYN VERGARA on 04/30/21 124 Duloxetine HCl (Duloxetine HCl) 60 Mg Capsule.dr, 60 MG PO BID, (Reported) Entered as Reported by: VASQUEZ ANDERSEN on 12/25/19 112 Exemestane (Exemestane) 25 Mg Tablet, 25 MG PO DAILY, (Reported) Entered as Reported by: MARISA MCCLELLAN on 07/24/18 0733 Methocarbamol (Methocarbamol) 750 Mg Tablet, 1,500 MG PO Q8H PRN for MUSCLE SPASMS Prescribed by: JOSH BAL on 06/03/211937 Mv-Mn/Iron/FA/Herbal Cmplx#190 (Vitamin D3 Complete Caplet) 1 Each Tablet, 1 EACH PO DAILY, (Reported) Entered as Reported by: MARILYN VERGARA on 04/30/21 124 Ondansetron (Ondansetron Odt) 4 Mg Tab.rapdis, 4 MG PO Q6H PRN for NAUSEA/VOMITING Prescribed by: JOSH BAL on 04/16/211655 Oxycodone HCl/Acetaminophen (Oxycodone-Acetaminophen 5-325) 1 Each Tablet, 1 EACH PO Q6H PRN for PAIN-SEVERE (8-10) Prescribed by: JOSH BAL on 06/03/211938 Pantoprazole Sodium (Pantoprazole Sodium) 40 Mg Tablet.dr, 40 MG PO DAILY Prescribed by: JOSH BAL on 1/26/22 1656 Review of Systems Constitutional: No chills, No fever EENTM: no symptoms reported Respiratory: no symptoms reported Cardiovascular: no symptoms reported Gastrointestinal: no symptoms reported Genitourinary: no symptoms reported Musculoskeletal: see HPI Skin: No change in color, No rash Psychiatric/Neurological: Anxiety Past Qkabvfn-Zonsan-Urctxk Hx Patient Social History Tobacco Use?: No Use of E-Cig and/or Vaping dev: No Substance use?: No Alcohol Use?: No Immunizations Up To Date First/Initial COVID19 Vaccinat: Nov 2020 Second COVID19 Vaccination Micheal: Dec 2020 Seasonal Allergies Seasonal Allergies: No Past Medical History Surgery/Hospitalization HX: Breast Cancer, Bilateral Mastectomy, Colon mass Surgeries: Yes (Bilateral Mastectomy, port, ear sx x4, LOOP RECORDER) Appendectomy, Breast, Gallbladder, Hysterectomy Respiratory: No Cardiac: Yes (heart cath x 2, loop recorder) High Cholesterol, Irregular Heartbeat, Palpitations Neurological: No ADMISSION NURSE History: Hysterectomy Genitourinary: No Gastrointestinal: No Musculoskeletal: No Endocrine: No HEENT: No 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 oz. 78.318137uz; 29.00 BMI Method:Stated General Appearance: Anxious, Moderate Distress HEENT: PERRL/EOMI, Pharynx Normal Neck: Full Range of Motion, Supple, Tender Lateral Cardiovascular: Regular Rate, Rhythm, Normal Peripheral Pulses Respiratory: Lungs Clear, Normal Breath Sounds, No Accessory Muscle Use, No Respiratory Distress, Other (tender to palpation along left lateral ribs/chest wall without crepitus) Gastrointestinal: Normal Bowel Sounds, No Pulsatile Mass, Non Tender, Soft Extremity: Normal Capillary Refill, Normal Inspection, No Pedal Edema Neurologic/Psychiatric: Alert, Oriented x3, No Motor/Sensory Deficits, sign language interpreter II- XII Norm as Tested Skin: Normal Color, Warm/Dry Progress/Results/Core Measures Results/Orders Lab Results Laboratory Tests Test 06/03/21 17:41 Range/Units White Blood Count 7.5 4.3-11.0 10^3/uL Red Blood Count 4.37 3.80-5.11 10^6/uL Hemoglobin 13.5 11.5-16.0 g/dL Hematocrit 39 35-52 % Mean Corpuscular Volume 89 80-99 fL Mean Corpuscular Hemoglobin 31 25-34 pg Mean Corpuscular Hemoglobin Concent 35 32-36 g/dL Red Cell Distribution Width 13.4 10.0-14.5 % Platelet Count 284 130-400 10^3/uL Mean Platelet Volume 9.6 9.0-12.2 fL Immature Granulocyte % (Auto) 1 % Neutrophils (%) (Auto) 62 42-75 % Lymphocytes (%) (Auto) 23 12-44 % Monocytes (%) (Auto) 11 0-12 % Eosinophils (%) (Auto) 2 0-10 % Basophils (%) (Auto) 1 0-10 % Neutrophils # (Auto) 4.6 1.8-7.8 10^3/uL Lymphocytes # (Auto) 1.7 1.0-4.0 10^3/uL Monocytes # (Auto) 0.8 0.0-1.0 10^3/uL Eosinophils # (Auto) 0.2 0.0-0.3 10^3/uL Basophils # (Auto) 0.1 0.0-0.1 10^3/uL Immature Granulocyte # (Auto) 0.1 0.0-0.1 10^3/uL Sodium Level 140 135-145 MMOL/L Potassium Level 3.6 3.6-5.0 MMOL/L Chloride Level 104 98-107 MMOL/L Carbon Dioxide Level 22 21-32 MMOL/L Anion Gap 14 5-14 MMOL/L Blood Urea Nitrogen 22 H 7-18 MG/DL Creatinine 0.91 0.60-1.30 MG/DL Estimat Glomerular Filtration Rate 72 BUN/Creatinine Ratio 24 Glucose Level 104 70-105 MG/DL Calcium Level 9.3 8.5-10.1 MG/DL Corrected Calcium 9.1 8.5-10.1 MG/DL Total Bilirubin 0.4 0.1-1.0 MG/DL Aspartate Amino Transf (AST/SGOT) 19 5-34 U/L Alanine Aminotransferase (ALT/SGPT) 20 0-55 U/L Alkaline Phosphatase 66 40-136 U/L Total Protein 6.7 6.4-8.2 GM/DL Albumin 4.2 3.2-4.5 GM/DL My Orders Orders - JOSH BAL MD Comprehensive Metabolic Panel (06/03/21 17:50) Ed Iv/Invasive Line Start (06/03/21 17:50) Cbc With Automated Diff (06/03/21 17:50) Ct Head/Cervical Spine Wo (06/03/21 17:50) Ct Chest Wo (06/03/21 17:50) Ct Thoracic/Lumbar Spine Wo (06/03/21 17:50) Ns Iv 1000 Ml (Sodium Chloride 0.9%) (06/03/21 17:53) Orphenadrine Inj (Ed Only) (Norflex Inje (06/03/21 17:53) Ketorolac Injection (Toradol Injection) (06/03/21 17:53) Fentanyl Inj (Sublimaze Injection) (06/03/21 17:53) Diphenhydramine Injection (Benadryl Inje (06/03/21 17:53) Methylprednisolone Acetate Inj (Depo-Med (06/03/21 19:31) Rx-Oxycodone/Apap 5-325 Mg (Rx-Percocet (06/03/21 19:45) Dexamethasone Injection (Decadron Inje (06/03/21 19:35) Medications Given in ED Current Medications Medications Dose Ordered Sig/Tacho Route Start Time Stop Time Status Last Admin Dose Admin Oxycodone/ Acetaminophen 1 ea Q6H PRN PO 06/03/21 19:45 06/03/21 19:56 DC 06/03/21 19:42 1 EA Vital Signs/I&O 06/03/21 06/03/21 17:51 19:51 Temp 36.7 Pulse 99 89 Resp 18 18 B/P (MAP) 133/78 (96) 133/57 Pulse Ox 99 98 O2 Delivery Room Air Room Air Blood Pressure Mean: 96 Progress Progress Note #1: Progress Note check basic labs and CT scan of head and cervical spine since she complains of pain to occiput and lateral cervical spine muscle pain. CT of Thoracic and Lumbar spine with complaint of pain and feeling like spine is out of alignment. CT chest wall since she feels left ribs are displaced or hurt and has increased pain with movement and deep breaths. Try IV Fentanyl for pain. She reports narcotics make her itch so will give Benadryl with this. Toradol for inflammation, Norflex for muscle spasm, NS 1 L IV bolus for hydration to help flush out inflammation. Progress Note #2: Progress Note On recheck patient reports that she was feeling better. She still has some pain but it is significantly improved from when she first arrived. Reassured patient that the CT scan imaging does not show any signs of bleeding, fractures, broken bones, dislocated bones, alignment issues. She does have arthritic changes. There is no acute compression fractures. Patient counseled the trying a differ ent muscle relaxer than cyclobenzaprine may help more with her spasms. Since she does have a history of gastritis will try a dose of steroids as Decadron and Depo-Medrol so that she does not take oral medicines to irritate her gastritis. This would continue to still help with inflammation but not irritate her stomach. Will write for a few days of pain medicine and patient states that she tolerates Percocet but has to take some allergy medicine with it to help with itching. Advised to check back with her regular provider for continued concerns and if not improving as she may need physical therapy or further imaging if she is not improving. Diagnostic Imaging Diagonstic Imaging: CT Plain Films/CT/US/NM/MRI: c-spine, head Comments [facility] [place] NAME: CHRISTIE CHILDERS [facility] REC#: [id number] PT STATUS: REG ER : 1960 PHYSICIAN: JOSH BAL MD ADMIT DATE: 06/03/21/ER FS Draft Date of Exam:06/03/21 CT HEAD/CERVICAL SPINE WO PROCEDURE: CT head and CT cervical spine without contrast. TECHNIQUE: Multiple contiguous axial images were obtained through the brain and cervical spine without the use of intravenous contrast. Sagittal and coronal reformations through the cervical spine were then performed. Auto Exposure Controls were utilized during the CT exam to meet ALARA standards for radiation dose reduction. INDICATION: Fall. Head pain. Neck pain. COMPARISON: 12/15/2020. FINDINGS: CT HEAD: Ventricles and cortical sulci are age appropriate. There is no midline shift or mass-effect. No acute intra-axial hemorrhage is seen. There are no abnormal areas of increased or decreased density to suggest acute hemorrhage or edema. No extra-axial masses or collections are present. The bony calvarium is intact. The visualized paranasal sinuses are unremarkable. The mastoid air cells show postsurgical changes of mastoidectomy on the left. CT CERVICAL SPINE: Evaluation of the static alignment shows slight reversal of normal lordotic curvature. Findings may relate to patient positioning, as well as spasm. There is no significant minal or retrolisthesis. There is no evidence of jumped facets. Vertebral body heights are maintained. There is no acute fracture. No bony fragments are seen within the spinal canal. Moderate multilevel degenerative changes are noted consistent with intervertebral disc height loss with multilevel large anterior and posterior endplate osteophyte formations. There is also large bridging osteophyte posteriorly at the C5-C6 level. This does result in focal narrowing of the spinal canal. Pre and paravertebral soft tissue structures are unremarkable. Included portions of the lung apices are clear IMPRESSION: 1. No acute intracranial abnormality. No CT evidence of mass, acute infarct or intracranial hemorrhage. 2. No acute fracture or dislocation of the cervical spine. 3. Moderate multilevel degenerative changes. Dictated on workstation # [id number] Dict: 06/03/21 1823 Trans: 06/03/21 1833 AS6 [id number] Interpreted by: INDY WOO MD Electronically signed by: Reviewed: Reviewed by Ks Diagonstic Imaging: CT Plain Films/CT/US/NM/MRI: chest Comments [facility] [place] NAME: CHRISTIE CHILDERS [facility] REC#: [id number] PT STATUS: REG ER : 1960 PHYSICIAN: JOSH BAL MD ADMIT DATE: 06/03/21/ER FS Draft Date of Exam:06/03/21 CT CHEST WO PROCEDURE: CT chest without contrast. TECHNIQUE: Multiple contiguous axial images were obtained through the chest without the use of intravenous contrast. Auto Exposure Controls were utilized during the CT exam to meet ALARA standards for radiation dose reduction. INDICATION: Fall. Chest pain. COMPARISON: 10/07/2017. FINDINGS: Cardiomediastinal structures show normal heart size. There is no large pericardial effusion. Moderate calcified coronary atherosclerosis is noted. No pathologically enlarged or morphologically abnormal adenopathy is seen within the mediastinum, bandar, nor axilla. Lungs are clear. There is no focal consolidation, large effusion, nor pneumothorax. No suspicious pulmonary nodules or masses are seen. No displaced rib fractures are seen. No suspicious lytic or blastic bony lesions are identified. Included portions of the upper abdomen are unremarkable as well. IMPRESSION: 1. No acute cardiopulmonary process. Dictated on workstation # [id number] Dict: 06/03/211828 Trans: 06/03/211838 AS6 [id number] Interpreted by: INDY WOO MD Electronically signed by: Reviewed: Reviewed by Me Diagonstic Imaging: CT Plain Films/CT/US/NM/MRI: other (Thoracic and Lumbar spine) Comments [facility] [place] NAME: CHRISTIE CHILDERS [facility] REC#: [id number] PT STATUS: REG ER : 1960 PHYSICIAN: JOSH BAL MD ADMIT DATE: 06/03/21/ER FS Draft Date of Exam:06/03/21 CT THORACIC/LUMBAR SPINE WO PROCEDURE: CT thoracic and lumbar spine without contrast. TECHNIQUE: Multiple contiguous axial images were obtained through the thoracic and lumbar spine without the use of intravenous contrast. Sagittal and coronal reformations were then performed. All CT scans use one or more of the following dose optimizing techniques: Automated exposure control, MA and/or KvP adjustment based on a patient size and exam type, or iterative reconstruction. INDICATION: Fall. Worsening back pain. COMPARISON: CT abdomen and pelvis dated 04/16/2021. FINDINGS: CT THORACIC SPINE: Static alignment of the thoracic spine is maintained. There is no significant minal- or retro-listhesis. There is no evidence of jumped facets. Vertebral body heights are maintained. There is no acute fracture. No bony fragments are seen within the spinal canal. Mild multilevel degenerative changes are present. Pre- and para-vertebral soft tissue structures are unremarkable. Included portions of the lungs are clear. Please note, dedicated CT of the chest was also separately performed and separately dictated. CT LUMBAR SPINE: Static alignment shows mild grade 1 anterolisthesis at L4-L5. There is no evidence of jumped facets. Vertebral body heights are maintained. There is no acute fracture. No bony fragments are seen within the spinal canal. Pre- and para-vertebral soft tissue structures are unremarkable. IMPRESSION: 1. No acute fracture or dislocation of the thoracic or lumbar spine. Dictated on workstation # [id number] Dict: 06/03/21 1833 Trans: 06/03/21 1840 [id number] Interpreted by: INDY WOO MD Electronically signed by: Reviewed: Reviewed by Me Departure Impression Primary Impression: Left-sided chest wall pain Additional Impressions: Acute thoracic myofascial strain Qualified Codes: S29.019A - Strain of muscle and tendon of unspecified wall of thorax, initial encounter Acute lumbar myofascial strain Qualified Codes: S39.012A - Strain of muscle, fascia and tendon of lower back, initial encounter Disposition: 01 HOME, SELF-CARE Condition: Improved Departure-Patient Inst. Decision time for Depature: 19:34 Referrals: [facility]/ (PCP) Primary Care Physician KEVYN GAMBLE APRN (Family) Primary Care Physician Patient Instructions: Upper Back Pain ED, Muscle Strain ED, Low Back Pain ED Add. Discharge Instructions: The steroid shots from tonight will continue to work over the next 1 to 2 weeks to help with inflammation. You should use the Percocet pain pills for severe pain. Consider taking Miralax or a laxative to prevent constipation while taking narcotics. Stop your Cyclobenzaprine (Flexeril) and try the Methocarbamol (Robaxin) for muscle spasms instead. Check with clinic if not improving as they may need to have you do some physical therapy to help with your muscle strain and back pain All discharge instructions reviewed with patient and/or family. Voiced understanding. Scripts Methocarbamol (Methocarbamol) 750 Mg Tablet 1500 MG PO Q8H PRN for MUSCLE SPASMS for 10 Days, #60 TAB 0 Refills Prov: JOSH BAL MD 06/03/21 Oxycodone HCl/Acetaminophen (Oxycodone-Acetaminophen 5-325) 1 Each Tablet 1 EACH PO Q6H PRN for PAIN-SEVERE (8-10) MDD 6 for 5 Days, #20 TAB 0 Refills Prov: JSOH BAL MD 06/03/21 JOSH BAL MD Jun 03, 2021 18:51
[2021-06-03] MEDS ORDERED: methylPREDNISolone 80 MG/ML (DEPO MEDROL) VIAL IM STA (19:31)
[2021-06-03] MEDS ORDERED: OXYC1TAB11 PO (19:38)
[2021-06-03] MEDS ORDERED: METH-732 PO (19:38)
[2021-06-03] MEDS ORDERED: RX-OXYCODONE/APAP 5-325 MG #4 TAB PK PO PRN (19:45)
[2021-06-03 19:51] VITALS: BP 133/57
== END 2021-06-03 19:52 | disposition home or self-care (01) ==
LOC: EDUNIT# 17:38 → ER FS 17:39
DX: S29.019A Strain of muscle and tendon of unspecified wall of thorax, initial encounter (principal); S39.012A Strain of muscle, fascia and tendon of lower back, initial encounter; R07.89 Other chest pain; X50.0XXA Overexertion from strenuous movement or load, initial encounter
CPT/HCPCS: 36415; 70450; 71250; 72125; 72128; 72131; 80053; 85025

== ENCOUNTER → 2021-07-01 | Outpatient (CLI) | payer MEDICAID ==
[~2021-07-01] MED LIST changes: +METH-732 PO; +OXYC1TAB11 PO
[2021-07-01 18:13] LABS: BASOPHILS # (AUTO) 0.1 10^3/uL (0.0-0.1); BASOPHILS % (AUTO) 1 % (0-10); EOSINOPHILS # (AUTO) 0.2 10^3/uL (0.0-0.3); EOSINOPHILS % (AUTO) 3 % (0-10); HEMATOCRIT 39 % (35-52); LYMPHOCYTES # (AUTO) 2.4 10^3/uL (1.0-4.0); LYMPHOCYTES % (AUTO) 27 % (12-44); MEAN CORPUSCULAR HEMOGLOBIN 30 pg (25-34); MEAN CORPUSCULAR HGB CONC 33 g/dL (32-36); MEAN CORPUSCULAR VOLUME 91 fL (80-99); MEAN PLATELET VOLUME 9.6 fL (9.0-12.2); MONOCYTES # (AUTO) 0.9 10^3/uL (0.0-1.0); MONOCYTES % (AUTO) 11 % (0-12); NEUTROPHILS % (AUTO) 58 % (42-75); PLATELET COUNT 403 10^3/uL (130-400); WHITE BLOOD COUNT 8.8 10^3/uL (4.3-11.0)
[2021-07-01 18:42] LABS: BILIRUBIN,TOTAL 0.2 MG/DL (0.1-1.0); CALCIUM 9.4 MG/DL (8.5-10.1); CREATININE SERUM 0.98 MG/DL (0.60-1.30); POTASSIUM 3.6 MMOL/L (3.6-5.0)
[2021-07-01 18:43] LABS: ALBUMIN 4.1 GM/DL (3.2-4.5); TOTAL PROTEIN 7.2 GM/DL (6.4-8.2)
== END ==
LOC: IHC 15:37
PROVIDERS: ATTEND Internal Medicine Infectious Disease
DX: L03.113 Cellulitis of right upper limb (principal)
CPT/HCPCS: 80053; 85025

== ENCOUNTER → 2021-07-07 | Outpatient (CLI) | payer MEDICAID ==
[2021-07-07 15:15] LABS: BASOPHILS # (AUTO) 0.1 10^3/uL (0.0-0.1); BASOPHILS % (AUTO) 1 % (0-10); EOSINOPHILS # (AUTO) 0.2 10^3/uL (0.0-0.3); EOSINOPHILS % (AUTO) 3 % (0-10); HEMATOCRIT 40 % (35-52); HEMOGLOBIN 13.6 g/dL (11.5-16.0); LYMPHOCYTES # (AUTO) 2.2 10^3/uL (1.0-4.0); LYMPHOCYTES % (AUTO) 27 % (12-44); MEAN CORPUSCULAR HEMOGLOBIN 30 pg (25-34); MEAN CORPUSCULAR HGB CONC 34 g/dL (32-36); MEAN CORPUSCULAR VOLUME 89 fL (80-99); MEAN PLATELET VOLUME 9.5 fL (9.0-12.2); MONOCYTES # (AUTO) 0.8 10^3/uL (0.0-1.0); MONOCYTES % (AUTO) 10 % (0-12); NEUTROPHILS # (AUTO) 4.8 10^3/uL (1.8-7.8); NEUTROPHILS % (AUTO) 59 % (42-75); PLATELET COUNT 372 10^3/uL (130-400); WHITE BLOOD COUNT 8.1 10^3/uL (4.3-11.0)
[2021-07-07 15:17] LABS: BILIRUBIN,TOTAL 0.4 MG/DL (0.1-1.0); CALCIUM 9.7 MG/DL (8.5-10.1); CREATININE SERUM 0.88 MG/DL (0.60-1.30); POTASSIUM 3.7 MMOL/L (3.6-5.0); TOTAL PROTEIN 7.1 GM/DL (6.4-8.2)
[2021-07-07 15:18] LABS: ALBUMIN 4.2 GM/DL (3.2-4.5)
== END ==
LOC: LAB FS 14:42
PROVIDERS: ATTEND Internal Medicine Hematology & Oncology
DX: L03.113 Cellulitis of right upper limb (principal)
CPT/HCPCS: 36415; 80053; 85025

== ENCOUNTER → 2021-09-01 | Emergency (ER) | payer MEDICAID ==
[~2021-09-01] VITALS: Ht 160 cm; Wt 75.0 kg
[~2021-09-01] MED LIST changes: +ASPIRIN 81 MG CHEW (CHILDREN'S ASA) PO STA; +DEXTROSE 50% 50 ML (IMS) SYR IV STA; +NITROGLYCERIN 0.4 MG SL TABS BTL 25'S SL PRN
--- NOTE | 2021-09-01 14:55 | ED Chest Pain ---
General Chief Complaint: Cardiac/General Problems Stated Complaint: CHEST PAIN History of Present Illness Date Seen by Provider: Sep 01, 2021 Time Seen by Provider: 14:48 Initial Comments 61-year-old female with PMH of breast cancer and mastectomy, is here with complaints of 10/10 left-sided chest pain which began today. Pain is exacerbated by movement. Patient denies fever, nausea and vomiting, shortness of breath, abdominal pain, dizziness, diarrhea, dysuria, palpitations. Allergies and Home Medications Allergies Coded Allergies: acetaminophen (Verified Adverse Reaction, Unknown, itching, 07/16/20) oxycodone (Verified Adverse Reaction, Unknown, itching, 07/16/20) Patient Home Medication List Home Medication List Reviewed: Yes Aspirin (Aspirin) 81 Mg Tab.chew, 81 MG PO DAILY, (Reported) Entered as Reported by: MARILYN VERGARA on 04/30/21 1247 Atorvastatin Calcium (Atorvastatin Calcium) 80 Mg Tablet, 80 MG PO DAILY, (Reported) Entered as Reported by: MARILYN VERGARA on 04/30/21 1247 Calcium Carbonate (Calcium) 600 Mg Tablet, 600 MG PO DAILY, (Reported) Entered as Reported by: VASQUEZ ANDERSEN on 12/25/19 1125 Clonazepam (Clonazepam) 0.5 Mg Tablet, 0.5 MG PO DAILY, (Reported) Entered as Reported by: VASQUEZ ANDERSEN on 12/25/19 1125 Clopidogrel Bisulfate (Clopidogrel) 75 Mg Tablet, 75 MG PO DAILY, (Reported) Entered as Reported by: MARILYN VERGARA on 04/30/21 1247 Duloxetine HCl (Duloxetine HCl) 60 Mg Capsule.dr, 60 MG PO BID, (Reported) Entered as Reported by: VASQUEZ ANDERSEN on 12/25/19 1125 Exemestane (Exemestane) 25 Mg Tablet, 25 MG PO DAILY, (Reported) Entered as Reported by: MARISA MCCLELLAN on 07/24/18 0733 Methocarbamol (Methocarbamol) 750 Mg Tablet, 1,500 MG PO Q8H PRN for MUSCLE SPASMS Prescribed by: JOSH BAL on 06/03/21 193 Mv-Mn/Iron/FA/Herbal Cmplx#190 (Vitamin D3 Complete Caplet) 1 Each Tablet, 1 EACH PO DAILY, (Reported) Entered as Reported by: MARILYN VERGARA on 04/30/21 1247 Ondansetron (Ondansetron Odt) 4 Mg Tab.rapdis, 4 MG PO Q6H PRN for NAUSEA/VOMITING Prescribed by: JOSH BAL on 04/16/21 165 Oxycodone HCl/Acetaminophen (Oxycodone-Acetaminophen 5-325) 1 Each Tablet, 1 EACH PO Q6H PRN for PAIN-SEVERE (8-10) Prescribed by: JOSH BAL on 06/03/21 193 Pantoprazole Sodium (Pantoprazole Sodium) 40 Mg Tablet.dr, 40 MG PO DAILY Prescribed by: JOSH BAL on 04/16/21 165 Review of Systems Review of Systems Constitutional: no symptoms reported EENTM: No Symptoms Reported Respiratory: No Symptoms Reported Cardiovascular: Chest Pain Gastrointestinal: No Symptoms Reported Genitourinary: No Symptoms Reported Musculoskeletal: no symptoms reported Skin: no symptoms reported Psychiatric/Neurological: No Symptoms Reported Endocrine: No Symptoms Reported Hematologic/Lymphatic: No Symptoms Reported Past Mjbhnam-Oafpya-Encuia Hx Immunizations Up To Date First/Initial COVID19 Vaccinat: Nov 2020 Second COVID19 Vaccination Micheal: Dec 2020 Seasonal Allergies Seasonal Allergies: No Past Medical History Surgery/Hospitalization HX: Breast Cancer, Bilateral Mastectomy, Colon mass Surgeries: Yes (Bilateral Mastectomy, port, ear sx x4, LOOP RECORDER) Appendectomy, Breast, Gallbladder, Hysterectomy Respiratory: No Cardiac: Yes (heart cath x 2, loop recorder) High Cholesterol, Irregular Heartbeat, Palpitations 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 oz. [id number]; 29.00 BMI Method:Stated General Appearance: Moderate Distress HEENT: PERRL/EOMI Neck: Full Range of Motion Respiratory: Chest Non Tender, Lungs Clear, Normal Breath Sounds Cardiovascular: Regular Rate, Rhythm, No Edema Gastrointestinal: Normal Bowel Sounds, Non Tender, Soft Neurologic/Psychiatric: Alert, Oriented x3, No Motor/Sensory Deficits, Normal Mood/Affect Skin: Normal Color Focused Exam Lactate Level 09/01/21 15:05: Lactic Acid Level 2.17*H 09/01/21 17:02: Lactic Acid Level 1.51 Lactic Acid Level Laboratory Tests Test 09/01/21 15:05 09/01/21 17:02 Lactic Acid Level 2.17 MMOL/L (0.50-2.00) *H 1.51 MMOL/L (0.50-2.00) Progress/Results/Core Measures Results/Orders Lab Results Laboratory Tests Test 09/01/21 14:55 09/01/21 15:05 09/01/21 16:26 09/01/21 17:02 Range/Units White Blood Count 8.8 4.3-11.0 10^3/uL Red Blood Count 4.89 3.80-5.11 10^6/uL Hemoglobin 14.5 11.5-16.0 g/dL Hematocrit 43 35-52 % Mean Corpuscular Volume 88 80-99 fL Mean Corpuscular Hemoglobin 30 25-34 pg Mean Corpuscular Hemoglobin Concent 34 32-36 g/dL Red Cell Distribution Width 13.8 10.0-14.5 % Platelet Count 353 130-400 10^3/uL Mean Platelet Volume 9.3 9.0-12.2 fL Immature Granulocyte % (Auto) 1 % Neutrophils (%) (Auto) 57 42-75 % Lymphocytes (%) (Auto) 28 12-44 % Monocytes (%) (Auto) 11 0-12 % Eosinophils (%) (Auto) 3 0-10 % Basophils (%) (Auto) 1 0-10 % Neutrophils # (Auto) 5.0 1.8-7.8 10^3/uL Lymphocytes # (Auto) 2.4 1.0-4.0 10^3/uL Monocytes # (Auto) 1.0 0.0-1.0 10^3/uL Eosinophils # (Auto) 0.2 0.0-0.3 10^3/uL Basophils # (Auto) 0.0 0.0-0.1 10^3/uL Immature Granulocyte # (Auto) 0.1 0.0-0.1 10^3/uL Prothrombin Time 12.7 12.2-14.7 SEC INR Comment 0.9 0.8-1.4 Activated Partial Thromboplast Time 24 24-35 SEC D-Dimer 0.36 0.00-0.49 UG/ML Sodium Level 141 135-145 MMOL/L Potassium Level 3.5 L 3.6-5.0 MMOL/L Chloride Level 102 98-107 MMOL/L Carbon Dioxide Level 27 21-32 MMOL/L Anion Gap 12 5-14 MMOL/L Blood Urea Nitrogen 13 7-18 MG/DL Creatinine 1.18 0.60-1.30 MG/DL Estimat Glomerular Filtration Rate 53 BUN/Creatinine Ratio 11 Glucose Level 58 *L 70-105 MG/DL Calcium Level 9.8 8.5-10.1 MG/DL Corrected Calcium 9.4 8.5-10.1 MG/DL Magnesium Level 1.9 1.6-2.4 MG/DL Total Bilirubin 0.3 0.1-1.0 MG/DL Aspartate Amino Transf (AST/SGOT) 19 5-34 U/L Alanine Aminotransferase (ALT/SGPT) 21 0-55 U/L Alkaline Phosphatase 79 40-136 U/L Troponin I < 0.30 <0.30 NG/ML Pro-B-Type Natriuretic Peptide 15.2 <75.0 PG/ML Total Protein 7.2 6.4-8.2 GM/DL Albumin 4.5 3.2-4.5 GM/DL Lactic Acid Level 2.17 *H 1.51 0.50-2.00 MMOL/L Urine Color YELLOW Urine Clarity CLEAR Urine pH 7.5 5-9 Urine Specific [place] 1.010 L 1.016-1.022 Urine Protein NEGATIVE NEGATIVE Urine Glucose (UA) 1+ H NEGATIVE Urine Ketones NEGATIVE NEGATIVE Urine Nitrite NEGATIVE NEGATIVE Urine Bilirubin NEGATIVE NEGATIVE Urine Urobilinogen 0.2 < = 1.0 MG/DL Urine Leukocyte Esterase TRACE H NEGATIVE Urine RBC (Auto) NEGATIVE NEGATIVE Urine RBC NONE /HPF Urine WBC 0-2 /HPF Urine Squamous Epithelial Cells NONE /HPF Urine Renal Epithelial Cells NONE /HPF Urine Crystals PRESENT H /LPF Urine Amorphous Sediment FEW DANII PHOSPHATE H /LPF Urine Bacteria NEGATIVE /HPF Urine Casts NONE /LPF Urine Mucus NEGATIVE /LPF Urine Culture Indicated NO Urine Opiates Screen NEGATIVE NEGATIVE Urine Oxycodone Screen NEGATIVE NEGATIVE Urine Methadone Screen NEGATIVE NEGATIVE Urine Propoxyphene Screen NEGATIVE NEGATIVE Urine Barbiturates Screen NEGATIVE NEGATIVE Ur Tricyclic Antidepressants Screen NEGATIVE NEGATIVE Urine Phencyclidine Screen NEGATIVE NEGATIVE Urine Amphetamines Screen NEGATIVE NEGATIVE Urine Methamphetamines Screen NEGATIVE NEGATIVE Urine Benzodiazepines Screen NEGATIVE NEGATIVE Urine Cocaine Screen NEGATIVE NEGATIVE Urine Cannabinoids Screen NEGATIVE NEGATIVE Test 09/01/21 17:05 Range/Units Glucometer 118 H 70-110 MG/DL My Orders Orders - ASPEN BENOIT MD Nitroglycerin 0.4 Mg Btl 25's (Nitrostat (09/01/21 15:00) Aspirin Chewable Tablet (Baby Aspirin Ch (09/01/21 14:55) Cbc With Automated Diff (09/01/21 14:56) Comprehensive Metabolic Panel (09/01/21 14:56) Fibrin Degradation Products (09/01/21 14:56) Drug Screen Stat (Urine) (09/01/21 14:56) Lactic Acid Analyzer (09/01/21 14:56) Magnesium (09/01/21 14:56) Protime With Inr (09/01/21 14:56) Partial Thromboplastin Time (09/01/21 14:56) Ua Culture If Indicated (09/01/21 14:56) Probnp Fs (09/01/21 14:56) Troponin I Fs (09/01/21 14:56) Chest 1 View Ap/Pa Only (09/01/21 14:57) D50w (Emergency) Syringe (Dextrose 50% 5 (09/01/21 15:44) Vital Signs/I&O 09/01/21 17:00 Pulse 101 Resp 20 B/P (MAP) 138/81 (100) Pulse Ox 100 Progress Progress Note : Progress Note 1. CHEST PAIN: ACS RULE OUT: - CXR: - Troponin/ EKG: - Labs/ UA/ UDS: blood glucose 58, pt given juice and snacks with improvement in blood sugar - ASA 324mg STAT - Nitro sublingual STAT - Pt's chest pain completely resolved and she left AMA saying she is fine and didn't need to be in the ER any longer. Risks and benefits explained, but pt left AMA - UA shows mild UTI but pt left before all the labs came back Departure Impression Primary Impression: Chest pain Qualified Codes: R07.9 - Chest pain, unspecified Additional Impressions: Ruled out for myocardial infarction Left against medical advice UTI (urinary tract infection) Disposition: 07 AGAINST MEDICAL ADVICE Condition: Against Medical Advice Departure-Patient Inst. Referrals: KEVYN GAMBLE APRN (PCP) Primary Care Physician [facility] (Family) Primary Care Physician ASPEN BENOIT MD Sep 01, 2021 14:54
[2021-09-01 15:02] LABS: BASOPHILS % (AUTO) 1 % (0-10); EOSINOPHILS # (AUTO) 0.2 10^3/uL (0.0-0.3); EOSINOPHILS % (AUTO) 3 % (0-10); HEMATOCRIT 43 % (35-52); HEMOGLOBIN 14.5 g/dL (11.5-16.0); LYMPHOCYTES # (AUTO) 2.4 10^3/uL (1.0-4.0); LYMPHOCYTES % (AUTO) 28 % (12-44); MEAN CORPUSCULAR HEMOGLOBIN 30 pg (25-34); MEAN CORPUSCULAR HGB CONC 34 g/dL (32-36); MEAN CORPUSCULAR VOLUME 88 fL (80-99); MEAN PLATELET VOLUME 9.3 fL (9.0-12.2); MONOCYTES % (AUTO) 11 % (0-12); NEUTROPHILS % (AUTO) 57 % (42-75); PLATELET COUNT 353 10^3/uL (130-400); WHITE BLOOD COUNT 8.8 10^3/uL (4.3-11.0)
--- NOTE | 2021-09-01 15:17 | Diagnostic Imaging Report ---
Indication: Chest pain. Compared: 02/03/2019 Findings: Lungs are clear. No failure, effusion or pneumothorax. Impression: No acute-appearing abnormality. Dictated by: Dictated on workstation # [id number]
[2021-09-01 15:24] LABS: FIBRIN DEGRADATION PRODUCTS 0.36 UG/ML (0.00-0.49); INR 0.9 (0.8-1.4); PROTHROMBIN TIME PATIENT 12.7 SEC (12.2-14.7)
[2021-09-01 15:36] LABS: BUN/CREATININE RATIO 11; CARBON DIOXIDE 27 MMOL/L (21-32); CHLORIDE 102 MMOL/L (98-107); CREATININE SERUM 1.18 MG/DL (0.60-1.30); GFR ESTIMATED 53; POTASSIUM 3.5 MMOL/L (3.6-5.0); SODIUM 141 MMOL/L (135-145)
[2021-09-01 15:38] LABS: ALANINE AMINOTRANSFERASE 21 U/L (0-55); ALBUMIN 4.5 GM/DL (3.2-4.5); ALKALINE PHOSPHATASE 79 U/L (40-136); BILIRUBIN,TOTAL 0.3 MG/DL (0.1-1.0); CALCIUM 9.8 MG/DL (8.5-10.1); MAGNESIUM 1.9 MG/DL (1.6-2.4); TOTAL PROTEIN 7.2 GM/DL (6.4-8.2)
[2021-09-01 15:40] LABS: GLUCOSE 58 MG/DL (70-105)
[2021-09-01 16:34] LABS: BILIRUBIN,URINE NEGATIVE (NEGATIVE); CLARITY,URINE CLEAR; COLOR,URINE YELLOW; GLUCOSE, URINE (UA) 1+ (NEGATIVE); KETONES,URINE NEGATIVE (NEGATIVE); LEUKOCYTE ESTERASE ,URINE TRACE (NEGATIVE); NITRITE,URINE NEGATIVE (NEGATIVE); PH,URINE 7.5 (5-9); PROTEIN,URINE NEGATIVE (NEGATIVE)
[2021-09-01 16:42] LABS: AMORPHOUS SEDIMENT,UR FEW AMOR PHOSPHATE /LPF; BACTERIA,URINE NEGATIVE /HPF; WBC,URINE 0-2 /HPF
[2021-09-01 16:56] LABS: AMPHETAMINE SCREEN, URINE NEGATIVE (NEGATIVE); BARBITURATE SCREEN URINE NEGATIVE (NEGATIVE); BENZODIAZEPINES SCREEN URINE NEGATIVE (NEGATIVE); CANNABINOID SCREEN, URINE NEGATIVE (NEGATIVE); COCAINE SCREEN URINE NEGATIVE (NEGATIVE); METHADONE STAT NEGATIVE (NEGATIVE); OPIATE SCREEN URINE NEGATIVE (NEGATIVE); OXYCODONE STAT NEGATIVE (NEGATIVE); PROPOXYPHENE STAT NEGATIVE (NEGATIVE); TRICYCLIC ANTIDEPRESSANTS SCRE NEGATIVE (NEGATIVE)
[2021-09-01 17:00] VITALS: BP 138/81
== END ==
LOC: EDUNIT# 14:45 → ER FS 14:47
DX: R07.89 Other chest pain (principal); N39.0 Urinary tract infection, site not specified; Z90.49 Acquired absence of other specified parts of digestive tract; Z90.710 Acquired absence of both cervix and uterus; Z85.3 Personal history of malignant neoplasm of breast; Z90.13 Acquired absence of bilateral breasts and nipples
CPT/HCPCS: 36415; 71045; 80053; 80306; 81000; 82947; 83605; 83735; 83880; 84484; 85025; 85379; 85610; 85730; 93005

== ENCOUNTER 2021-10-16 12:37 | Emergency (ER) | payer MEDICAID ==
[~2021-10-16] VITALS: Ht 160 cm; Wt 77.1 kg
[~2021-10-16 12:37] MED LIST changes: -CATHETER FLUSH 10 ML SYR IVP PRN; -CEPH500T PO; -SULF1TAB38 PO
[2021-10-16 13:18] LABS: BASOPHILS # (AUTO) 0.1 10^3/uL (0.0-0.1); BASOPHILS % (AUTO) 1 % (0-10); EOSINOPHILS # (AUTO) 0.2 10^3/uL (0.0-0.3); EOSINOPHILS % (AUTO) 2 % (0-10); HEMATOCRIT 43 % (35-52); HEMOGLOBIN 14.3 g/dL (11.5-16.0); LYMPHOCYTES # (AUTO) 1.9 10^3/uL (1.0-4.0); LYMPHOCYTES % (AUTO) 15 % (12-44); MEAN CORPUSCULAR HEMOGLOBIN 29 pg (25-34); MEAN CORPUSCULAR HGB CONC 33 g/dL (32-36); MEAN CORPUSCULAR VOLUME 88 fL (80-99); MEAN PLATELET VOLUME 9.4 fL (9.0-12.2); MONOCYTES # (AUTO) 1.1 10^3/uL (0.0-1.0); MONOCYTES % (AUTO) 9 % (0-12); NEUTROPHILS # (AUTO) 9.6 10^3/uL (1.8-7.8); NEUTROPHILS % (AUTO) 74 % (42-75); PLATELET COUNT 302 10^3/uL (130-400)
[2021-10-16 13:41] LABS: POTASSIUM 3.8 MMOL/L (3.6-5.0)
[2021-10-16 13:42] LABS: BILIRUBIN,TOTAL 0.7 MG/DL (0.1-1.0); CALCIUM 9.7 MG/DL (8.5-10.1); CREATININE SERUM 0.86 MG/DL (0.60-1.30); TOTAL PROTEIN 7.3 GM/DL (6.4-8.2)
[2021-10-16 13:43] LABS: ALBUMIN 4.4 GM/DL (3.2-4.5)
[2021-10-16] MEDS ORDERED: CLINDAMYCIN 600 MG/50 ML IVPB 50 ML IV ONE (13:45)
[2021-10-16] MEDS ORDERED: KETOROLAC 30 MG/ML VIAL IVP ONE (14:00)
[2021-10-16] MEDS ORDERED: SULF1TAB38 PO (14:35)
--- NOTE | 2021-10-16 14:36 | ED Integumentary General ---
General Chief Complaint: Skin/Wound Problems Stated Complaint: BACK SKIN INFECTION Nursing Triage Note: Patient reports she began feeling itching on her right upper back/shoulder last night, states it began hurting this morning. Small area of warmth, redness, and swelling to right upper back/shoulder, small scab present as well. Patient reports she is on oral chemotherapy for breast cancer and that she recently had sepsis from a similar wound. Source: patient Exam Limitations: no limitations History of Present Illness Date Seen by Provider: Oct 16, 2021 Time Seen by Provider: 13:10 Initial Comments 61-year-old female patient with history of hyperlipidemia, palpitation, anxiety, breast cancer on chemotherapy presented to ER with complaining of right upper back pain/itching since yesterday morning. Patient states she has small area of redness and warmth and swelling in her right upper back that gradually getting painful. Patient was seen by her oncologist for oral chemotherapy and doxycycline was ordered for her but patient states she had history of right arm MRSA wound and sepsis with hospitalization at [facility] few months ago and wonder if she has sepsis again. Allergies and Home Medications Allergies Coded Allergies: acetaminophen (Verified Adverse Reaction, Unknown, itching, 07/16/20) oxycodone (Verified Adverse Reaction, Unknown, itching, 07/16/20) Patient Home Medication List Home Medication List Reviewed: Yes Aspirin (Aspirin) 81 Mg Tab.chew, 81 MG PO DAILY, (Reported) Entered as Reported by: MARILYN VERGARA on 04/30/211246 Atorvastatin Calcium (Atorvastatin Calcium) 80 Mg Tablet, 80 MG PO DAILY, (Reported) Entered as Reported by: MARILYN VERGARA on 04/30/21 1247 Calcium Carbonate (Calcium) 600 Mg Tablet, 600 MG PO DAILY, (Reported) Entered as Reported by: VASQUEZ ANDERSEN on 12/25/19 1125 Clonazepam (Clonazepam) 0.5 Mg Tablet, 0.5 MG PO DAILY, (Reported) Entered as Reported by: VASQUEZ ANDERSEN on 12/25/19 112 Clopidogrel Bisulfate (Clopidogrel) 75 Mg Tablet, 75 MG PO DAILY, (Reported) Entered as Reported by: MARILYN VERGARA on 04/30/21 1247 Duloxetine HCl (Duloxetine HCl) 60 Mg Capsule.dr, 60 MG PO BID, (Reported) Entered as Reported by: VASQUEZ ANDERSEN on 12/25/19 1125 Exemestane (Exemestane) 25 Mg Tablet, 25 MG PO DAILY, (Reported) Entered as Reported by: MARISA MCCLELLAN on 07/24/18 0733 Methocarbamol (Methocarbamol) 750 Mg Tablet, 1,500 MG PO Q8H PRN for MUSCLE SPASMS Prescribed by: JOSH BAL on 06/03/21 1938 Mv-Mn/Iron/FA/Herbal Cmplx#190 (Vitamin D3 Complete Caplet) 1 Each Tablet, 1 EACH PO DAILY, (Reported) Entered as Reported by: MARILYN VERGARA on 04/30/21 1247 Ondansetron (Ondansetron Odt) 4 Mg Tab.rapdis, 4 MG PO Q6H PRN for NAUSEA/VOMITING Prescribed by: JOSH BAL on 04/16/21 165 Oxycodone HCl/Acetaminophen (Oxycodone-Acetaminophen 5-325) 1 Each Tablet, 1 EACH PO Q6H PRN for PAIN-SEVERE (8-10) Prescribed by: JOSH BAL on 06/03/21 193 Pantoprazole Sodium (Pantoprazole Sodium) 40 Mg Tablet.dr, 40 MG PO DAILY Prescribed by: JOSH BAL on 04/16/21 165 Sulfamethoxazole/Trimethoprim (Bactrim Ds Tablet) 1 Each Tablet, 1 EACH PO BID Prescribed by: Swapna mckeon on 10/16/21 1435 Review of Systems Review of Systems Constitutional: no symptoms reported EENTM: no symptoms reported Respiratory: no symptoms reported Cardiovascular: no symptoms reported Gastrointestinal: no symptoms reported Genitourinary: no symptoms reported Musculoskeletal: see HPI Skin: see HPI Psychiatric/Neurological: Anxiety Endocrine: No Symptoms Reported Hematologic/Lymphatic: No Symptoms Reported All Other Systems Reviewed Negative Unless Noted: Yes Past Ovwemev-Lkzcjd-Byfwib Hx Immunizations Up To Date First/Initial COVID19 Vaccinat: Nov 2020 Second COVID19 Vaccination Micheal: Dec 2020 Seasonal Allergies Seasonal Allergies: No Past Medical History Surgery/Hospitalization HX: Breast Cancer, Bilateral Mastectomy, Colon mass Surgeries: Yes (Bilateral Mastectomy, port, ear sx x4, LOOP RECORDER) Appendectomy, Breast, Gallbladder, Hysterectomy Respiratory: No Cardiac: Yes (heart cath x 2, loop recorder) High Cholesterol, Irregular Heartbeat, Palpitations 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 Genitourinary: No Gastrointestinal: No Musculoskeletal: No Endocrine: No HEENT: No Cancer: Yes (in remission as of 06/08/18, BLADDER 2021) Bladder, Breast Did You Recieve Any Treatments: Yes What Type of Treatment Did You: Chemotherapy, Surgical Intervention Psychosocial: Yes Anxiety Integumentary: No Blood Disorders: No Physical Exam Vital Signs Vital Signs - First Documented 10/16/21 12:45 Temp 36.6 Pulse 91 Resp 16 B/P (MAP) 116/81 (93) Pulse Ox 100 O2 Delivery Room Air Capillary Refill : Less Than 3 Seconds General Appearance: WD/WN, no apparent distress HEENT: PERRL/EOMI, normal ENT inspection Neck: non-tender, full range of motion Cardiovascular: regular rate, rhythm, no edema, no gallop Respiratory: chest non-tender, lungs clear, normal breath sounds, no respiratory distress, no accessory muscle use Skin: tattoos/piercings, other (Small area of edema on right upper back on a very dense tattoo area without fluctuation or drainage) Skin Problem Character: tenderness, warm Lymphatic: no adenopathy Progress/Results/Core Measures Results/Orders Lab Results Laboratory Tests Test 10/16/21 13:06 Range/Units White Blood Count 13.0 H 4.3-11.0 10^3/uL Red Blood Count 4.87 3.80-5.11 10^6/uL Hemoglobin 14.3 11.5-16.0 g/dL Hematocrit 43 35-52 % Mean Corpuscular Volume 88 80-99 fL Mean Corpuscular Hemoglobin 29 25-34 pg Mean Corpuscular Hemoglobin Concent 33 32-36 g/dL Red Cell Distribution Width 14.5 10.0-14.5 % Platelet Count 302 130-400 10^3/uL Mean Platelet Volume 9.4 9.0-12.2 fL Immature Granulocyte % (Auto) 0 % Neutrophils (%) (Auto) 74 42-75 % Lymphocytes (%) (Auto) 15 12-44 % Monocytes (%) (Auto) 9 0-12 % Eosinophils (%) (Auto) 2 0-10 % Basophils (%) (Auto) 1 0-10 % Neutrophils # (Auto) 9.6 H 1.8-7.8 10^3/uL Lymphocytes # (Auto) 1.9 1.0-4.0 10^3/uL Monocytes # (Auto) 1.1 H 0.0-1.0 10^3/uL Eosinophils # (Auto) 0.2 0.0-0.3 10^3/uL Basophils # (Auto) 0.1 0.0-0.1 10^3/uL Immature Granulocyte # (Auto) 0.1 0.0-0.1 10^3/uL Sodium Level 139 135-145 MMOL/L Potassium Level 3.8 3.6-5.0 MMOL/L Chloride Level 105 98-107 MMOL/L Carbon Dioxide Level 21 21-32 MMOL/L Anion Gap 13 5-14 MMOL/L Blood Urea Nitrogen 16 7-18 MG/DL Creatinine 0.86 0.60-1.30 MG/DL Estimat Glomerular Filtration Rate 77 BUN/Creatinine Ratio 19 Glucose Level 91 70-105 MG/DL Lactic Acid Level 1.20 0.50-2.00 MMOL/L Calcium Level 9.7 8.5-10.1 MG/DL Corrected Calcium 9.4 8.5-10.1 MG/DL Total Bilirubin 0.7 0.1-1.0 MG/DL Aspartate Amino Transf (AST/SGOT) 19 5-34 U/L Alanine Aminotransferase (ALT/SGPT) 17 0-55 U/L Alkaline Phosphatase 82 40-136 U/L Total Protein 7.3 6.4-8.2 GM/DL Albumin 4.4 3.2-4.5 GM/DL My Orders Orders - SWAPNA MCKEON MD Cbc With Automated Diff (10/16/21 12:57) Comprehensive Metabolic Panel (10/16/21 12:57) Blood Culture (10/16/21 12:57) Ed Iv/Invasive Line Start (10/16/21 12:57) Lactic Acid Analyzer (10/16/21 12:57) Clindamycin 600 Mg/50 Ml Ivpb (Cleocin P (10/16/21 13:45) Ketorolac Injection (Toradol Injection) (10/16/21 14:00) Medications Given in ED Current Medications Medications Dose Ordered Sig/Tacho Route Start Time Stop Time Status Last Admin Dose Admin Clindamycin Phosphate/Dextrose 50 ml @ 100 mls/hr ONCE ONCE IV 10/16/21 13:45 10/16/21 14:14 DC 10/16/21 14:07 100 MLS/HR Ketorolac Tromethamine 30 mg ONCE ONCE IVP 10/16/21 14:00 10/16/21 14:01 DC 10/16/21 14:07 30 MG Vital Signs/I&O 10/16/21 12:45 Temp 36.6 Pulse 91 Resp 16 B/P (MAP) 116/81 (93) Pulse Ox 100 O2 Delivery Room Air Blood Pressure Mean: 93 Progress Progress Note : Progress Note Evaluation of patient in ER showed 61-year-old female patient and oral chemotherapy and history of MRSA wound and sepsis and hospitalization complaining of another area of pain and itching in her back and concern for possible sepsis. Patient was seen by her oncologist and had prescription for doxycycline. Patient had area of cellulitis of right upper back without signs of abscess.'s white count was 13,000. Patient had CMP and lactic acid. Patient treated with clindamycin and Toradol in ER and advised to continue doxycycline and home narcotic pain medication. Prescription for Bactrim was given and a dvised to return to ER if develop fever or condition getting worse Departure Impression Primary Impression: Cellulitis of skin of back Additional Impression: History of chemotherapy Disposition: HOME, SELF-CARE Condition: Improved Departure-Patient Inst. Decision time for Depature: 14:34 Referrals: KEVYN GAMBLE APRN (PCP) Primary Care Physician [facility] (Family) Primary Care Physician Patient Instructions: MRSA (DC), Cellulitis (Skin Infection), Adult ED Add. Discharge Instructions: Return if develop fever or not getting better in 24 hours or condition getting worse Continue doxycycline prescribed by Dr. Lewis Take home pain medication Follow-up with your primary care physician/oncologist as needed All discharge instructions reviewed with patient and/or family. Voiced understanding. Scripts Sulfamethoxazole/Trimethoprim (Bactrim Ds Tablet) 1 Each Tablet 1 EACH PO BID, #14 TAB Prov: SWAPNA MCKEON MD 10/16/21 SWAPNA MCKEON MD Oct 16, 2021 14:35
[2021-10-16 14:45] VITALS: BP 125/74
[2021-10-17] MEDS ORDERED: CEPH500T PO (11:11)
== END 2021-10-16 14:45 | disposition home or self-care (01) ==
LOC: EDUNIT# 12:37 → ER FS 12:38
DX: L03.312 Cellulitis of back [any part except buttock and flank] (principal); Z92.21 Personal history of antineoplastic chemotherapy; Z86.14 Personal history of Methicillin resistant Staphylococcus aureus infection; Z86.19 Personal history of other infectious and parasitic diseases; Z79.2 Long term (current) use of antibiotics; Z79.891 Long term (current) use of opiate analgesic; Z85.51 Personal history of malignant neoplasm of bladder; Z85.3 Personal history of malignant neoplasm of breast; Z90.13 Acquired absence of bilateral breasts and nipples; Z88.5 Allergy status to narcotic agent
CPT/HCPCS: 36415; 80053; 83605; 85025; 87040

== ENCOUNTER → 2021-10-16 | Outpatient (CLI) | payer MEDICAID ==
[~2021-10-16] MED LIST changes: -ASPIRIN 81 MG CHEW (CHILDREN'S ASA) PO STA; +CATHETER FLUSH 10 ML SYR IVP PRN; +CEPH500T PO; -DEXTROSE 50% 50 ML (IMS) SYR IV STA; -NITROGLYCERIN 0.4 MG SL TABS BTL 25'S SL PRN; +SULF1TAB38 PO
[2021-10-16 10:17] VITALS: BP 151/94
== END ==
LOC: CARD 08:30
PROVIDERS: ATTEND Internal Medicine Cardiovascular Disease
DX: R94.31 Abnormal electrocardiogram [ECG] [EKG] (principal)
CPT/HCPCS: 78452; 93017; A9502

== ENCOUNTER 2021-10-17 10:48 | Emergency (ER) | payer MEDICAID ==
[~2021-10-17 10:48] MED LIST changes: +SULF1TAB38 PO
[2021-10-17] MEDS ORDERED: CEPH500T PO (11:11)
--- NOTE | 2021-10-17 11:12 | ED Integumentary General ---
General Chief Complaint: Skin/Wound Problems Stated Complaint: BACK SKIN INFECTION Source: patient Exam Limitations: no limitations History of Present Illness Date Seen by Provider: Oct 17, 2021 Time Seen by Provider: 10:51 Initial Comments 61-year-old female with past medical history of breast cancer on oral chemotherapy in remission coming in due to concerns for worsening skin infection. Patient states that it started 2 days ago, she was seen in the ER yesterday after being seen by her oncologist yesterday. Her oncologist placed her on doxycycline, and then added Bactrim in the ER later. On her right shoulder blade, she says the pain has actually been improving, but she noticed a small red spot to the left upper back which was new and wanted to get checked out. Denies any fever, nausea, vomiting, chest pain, shortness of breath, w eakness, numbness, or any other concerns. Allergies and Home Medications Allergies Coded Allergies: acetaminophen (Verified Adverse Reaction, Unknown, itching, 07/16/20) oxycodone (Verified Adverse Reaction, Unknown, itching, 07/16/20) Patient Home Medication List Home Medication List Reviewed: Yes Aspirin (Aspirin) 81 Mg Tab.chew, 81 MG PO DAILY, (Reported) Entered as Reported by: MARILYN VERGARA on 04/30/21 124 Atorvastatin Calcium (Atorvastatin Calcium) 80 Mg Tablet, 80 MG PO DAILY, (Reported) Entered as Reported by: MARILYN VERGARA on 04/30/21 124 Calcium Carbonate (Calcium) 600 Mg Tablet, 600 MG PO DAILY, (Reported) Entered as Reported by: VASQUEZ ANDERSEN on 12/25/19 112 Clonazepam (Clonazepam) 0.5 Mg Tablet, 0.5 MG PO DAILY, (Reported) Entered as Reported by: VASQUEZ ANDERSEN on 12/25/19 1125 Clopidogrel Bisulfate (Clopidogrel) 75 Mg Tablet, 75 MG PO DAILY, (Reported) Entered as Reported by: MARILYN VERGARA on 04/30/21 124 Duloxetine HCl (Duloxetine HCl) 60 Mg Capsule.dr, 60 MG PO BID, (Reported) Entered as Reported by: VASQUEZ ANDERSEN on 12/25/19 112 Exemestane (Exemestane) 25 Mg Tablet, 25 MG PO DAILY, (Reported) Entered as Reported by: MARISA MCCLELLAN on 07/24/18 0733 Methocarbamol (Methocarbamol) 750 Mg Tablet, 1,500 MG PO Q8H PRN for MUSCLE SPASMS Prescribed by: JOSH BAL on 06/03/211937 Mv-Mn/Iron/FA/Herbal Cmplx#190 (Vitamin D3 Complete Caplet) 1 Each Tablet, 1 EACH PO DAILY, (Reported) Entered as Reported by: MARILYN VERGARA on 04/30/21 1247 Ondansetron (Ondansetron Odt) 4 Mg Tab.rapdis, 4 MG PO Q6H PRN for NAUSEA/VOMITING Prescribed by: JOSH BAL on 04/16/21 165 Oxycodone HCl/Acetaminophen (Oxycodone-Acetaminophen 5-325) 1 Each Tablet, 1 EACH PO Q6H PRN for PAIN-SEVERE (8-10) Prescribed by: JOSH BAL on 06/03/211938 Pantoprazole Sodium (Pantoprazole Sodium) 40 Mg Tablet.dr, 40 MG PO DAILY Prescribed by: JOSH BAL on 04/16/211655 Sulfamethoxazole/Trimethoprim (Bactrim Ds Tablet) 1 Each Tablet, 1 EACH PO BID Prescribed by: Swapna granado on 10/16/21 1435 Review of Systems Review of Systems Constitutional: No chills, No fever EENTM: No blurred vision Respiratory: No cough Cardiovascular: No chest pain Gastrointestinal: No abdominal pain Genitourinary: no symptoms reported Musculoskeletal: no symptoms reported Skin: see HPI Psychiatric/Neurological: No Symptoms Reported Endocrine: No Symptoms Reported Hematologic/Lymphatic: No Symptoms Reported All Other Systems Reviewed Negative Unless Noted: Yes Past Dwfwvbp-Mqxrxw-Hsfehv Hx Patient Social History Tobacco Use?: No Substance use?: No Alcohol Use?: No Pt feels they are or have been: No Immunizations Up To Date First/Initial COVID19 Vaccinat: Nov 2020 Second COVID19 Vaccination Micheal: Dec 2020 Third COVID19 Vaccination Date: Nov 2020 Seasonal Allergies Seasonal Allergies: No Past Medical History Surgery/Hospitalization HX: breast cancer in remission on oral chemo; Cellulitis Surgeries: Yes (Bilateral Mastectomy, port, ear sx x4, LOOP RECORDER) Appendectomy, Breast, Gallbladder, Hysterectomy Respiratory: No Cardiac: Yes (heart cath x 2, loop recorder) High Cholesterol, Irregular Heartbeat, Palpitations 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 Genitourinary: No Gastrointestinal: No Musculoskeletal: No Endocrine: No HEENT: No Cancer: Yes (in remission as of 06/08/18, BLADDER 2021) Bladder, Breast Did You Recieve Any Treatments: Yes What Type of Treatment Did You: Chemotherapy, Surgical Intervention Psychosocial: Yes Anxiety Integumentary: No Blood Disorders: No Physical Exam Vital Signs Capillary Refill : General Appearance: WD/WN, no apparent distress HEENT: PERRL/EOMI, normal ENT inspection, pharynx normal Neck: non-tender, full range of motion, supple, normal inspection Cardiovascular: regular rate, rhythm, no edema, no murmur Respiratory: chest non-tender, lungs clear, normal breath sounds, no respiratory distress, no accessory muscle use Gastrointestinal: normal bowel sounds, non tender, soft; No distended, No guarding, No rebound Back: normal inspection, no CVA tenderness Extremities: normal range of motion, non-tender, normal inspection, no pedal edema, no calf tenderness Neurologic/Psychiatric: no motor/sensory deficits, alert, normal mood/affect Skin: normal color, warm/dry, rash (Area of induration to the right shoulder blade with overlying erythema, no fluctuance, very small less than half dollar size faint area of erythema to the left back just below the shoulder blade which is blanching and Nikolsky negative) Lymphatic: no adenopathy Progress/Results/Core Measures Progress Progress Note : Progress Note 61-year-old female with above history that is being treated for cellulitis for less than 24 hours coming in for skin recheck. She says the pain is actually improving on the right side of her back where she has been treated for less than 24 hours. She noticed a small spot on her left back which to me does not really appear infectious at this time. It would seem like if her pain is improving but clinically it seems to be improving. The redness where she is actively being treated seems consistent with what she was describing yesterday, and has not be en long enough to consider this a failure of oral antibiotics. I did a ioasi-jv-aqjs ultrasound as well to ensure there is no deeper infection or fluid collection that needs drained. She was on Doxy and was added on with Bactrim. This certainly would have good MRSA coverage. The only thing I could potentially think of is adding Keflex to cover strep more efficiently. I discussed this with the patient and we discussed the risks of multiple antibiotics including diarrhea. She says she would like to go forward with that. She is otherwise well-appearing with normal vitals and does not appear septic. I believe she is stable for discharge with outpatient follow-up. She was sent home with strict return precautions Departure Impression Primary Impression: Cellulitis Qualified Codes: L03.312 - Cellulitis of back [any part except buttock] Disposition: HOME, SELF-CARE Condition: Stable Departure-Patient Inst. Decision time for Depature: 11:10 Referrals: KEVYN GAMBLE APRN (PCP) Primary Care Physician [facility] (Family) Primary Care Physician Patient Instructions: Cellulitis (Skin Infection), Adult ED Add. Discharge Instructions: We will add 1 more antibiotic for you to take. If things are worsening you can call Dr. Isbell office or come back to the ER. Of course you could always go to if you are worried and that is where you have been seen in the past. Scripts Cephalexin (Cephalexin) 500 Mg Tablet 500 MG PO QID for 10 Days, #40 TAB Prov: PATTI HORTON MD 10/17/21 Work/School Note: Work Release Form Date Seen in the Emergency Department: Oct 17, 2021 Return to Work: Oct 18, 2021 Restrictions: No Restrictions PATTI HORTON MD Oct 17, 2021 11:12
[2021-10-17 11:13] VITALS: BP 135/80
== END 2021-10-17 11:16 | disposition home or self-care (01) ==
LOC: EDUNIT# 10:48 → ER FS 10:49
DX: L03.312 Cellulitis of back [any part except buttock and flank] (principal); Z85.3 Personal history of malignant neoplasm of breast; Z92.21 Personal history of antineoplastic chemotherapy
CPT/HCPCS: 99281

== ENCOUNTER 2021-11-27 13:37 | Emergency (ER) | payer MEDICAID ==
[~2021-11-27 13:37] MED LIST changes: +CEPH500T PO
--- NOTE | 2021-11-27 13:46 | ED Head Injury ---
General Chief Complaint: Trauma-Non Activation Stated Complaint: HEAD INJ History of Present Illness Date Seen by Provider: Nov 27, 2021 Time Seen by Provider: 13:45 Initial Comments 61-year-old female presents following a fall. Patient reports that she was standing on the edge of her couch put on a clock when she lost her balance fell backwards. She hit the back of her head. This happened yesterday and she is complaining of pain still. She also has some diffuse neck pain. She has no midline point tenderness. She presents today because she went to urgent care and they told her she needed to come in for imaging since still hurts. She does not have any nausea, vomiting, vision changes she does not think she lost consciousness. She has no other systemic complaints Allergies and Home Medications Allergies Coded Allergies: acetaminophen (Verified Adverse Reaction, Unknown, itching, 07/16/20) oxycodone (Verified Adverse Reaction, Unknown, itching, 07/16/20) Patient Home Medication List Home Medication List Reviewed: Yes Aspirin (Aspirin) 81 Mg Tab.chew, 81 MG PO DAILY, (Reported) Entered as Reported by: MARILYN VERGARA on 04/30/21 1247 Atorvastatin Calcium (Atorvastatin Calcium) 80 Mg Tablet, 80 MG PO DAILY, (Reported) Entered as Reported by: MARILYN VERGARA on 04/30/21 1247 Calcium Carbonate (Calcium) 600 Mg Tablet, 600 MG PO DAILY, (Reported) Entered as Reported by: VASQUEZ ANDERSEN on 12/25/19 1125 Cephalexin (Cephalexin) 500 Mg Tablet, 500 MG PO QID Prescribed by: PATTI HORTON on 10/17/21 1111 Clonazepam (Clonazepam) 0.5 Mg Tablet, 0.5 MG PO DAILY, (Reported) Entered as Reported by: VASQUEZ ANDERSEN on 12/25/19 1125 Clopidogrel Bisulfate (Clopidogrel) 75 Mg Tablet, 75 MG PO DAILY, (Reported) Entered as Reported by: MARILYN VERGARA on 04/30/21 124 Duloxetine HCl (Duloxetine HCl) 60 Mg Capsule.dr, 60 MG PO BID, (Reported) Entered as Reported by: VASQUEZ ANDERSEN on 12/25/19 1125 Exemestane (Exemestane) 25 Mg Tablet, 25 MG PO DAILY, (Reported) Entered as Reported by: MARISA MCCLELLAN on 07/24/18 0733 Methocarbamol (Methocarbamol) 750 Mg Tablet, 1,500 MG PO Q8H PRN for MUSCLE SPASMS Prescribed by: JOSH BAL on 06/03/211937 Mv-Mn/Iron/FA/Herbal Cmplx#190 (Vitamin D3 Complete Caplet) 1 Each Tablet, 1 EACH PO DAILY, (Reported) Entered as Reported by: MARILYN VERGARA on 04/30/21 1247 Ondansetron (Ondansetron Odt) 4 Mg Tab.rapdis, 4 MG PO Q6H PRN for NAUSEA/VOMITING Prescribed by: JOSH BAL on 04/16/21 165 Oxycodone HCl/Acetaminophen (Oxycodone-Acetaminophen 5-325) 1 Each Tablet, 1 EACH PO Q6H PRN for PAIN-SEVERE (8-10) Prescribed by: JOSH BAL on 06/03/211938 Pantoprazole Sodium (Pantoprazole Sodium) 40 Mg Tablet.dr, 40 MG PO DAILY Prescribed by: JOSH BAL on 04/16/211655 Sulfamethoxazole/Trimethoprim (Bactrim Ds Tablet) 1 Each Tablet, 1 EACH PO BID Prescribed by: Swapna granado on 10/16/21 1435 Review of Systems Review of Systems Constitutional: no symptoms reported Eyes: No Symptoms Reported Ears, Nose, Mouth, Throat: no symptoms reported Respiratory: no symptoms reported Cardiovascular: no symptoms reported Gastrointestinal: no symptoms reported Genitourinary: no symptoms reported Musculoskeletal: see HPI Skin: no symptoms reported Psychiatric/Neurological: No Symptoms Reported Endocrine: No Symptoms Reported Past Gtomcya-Cguzcw-Wuwlqo Hx Immunizations Up To Date First/Initial COVID19 Vaccinat: Nov 2020 Second COVID19 Vaccination Micheal: Dec 2020 Third COVID19 Vaccination Date: Nov 2020 Seasonal Allergies Seasonal Allergies: No Past Medical History Surgery/Hospitalization HX: breast cancer in remission on oral chemo; Cellulitis Surgeries: Yes (Bilateral Mastectomy, port, ear sx x4, LOOP RECORDER) Appendectomy, Breast, Gallbladder, Hysterectomy Respiratory: No Cardiac: Yes (heart cath x 2, loop recorder) High Cholesterol, Irregular Heartbeat, Palpitations 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 oz. [id number]; 30.00 BMI Method:Stated General Appearance: WD/WN, no apparent distress HEENT: PERRL/EOMI Neck: full range of motion, supple, tender lateral Cardiovascular: normal peripheral pulses, regular rate, rhythm Respiratory: lungs clear, normal breath sounds Gastrointestinal: non tender, soft Psychiatric: alert, oriented x 3 Crainal Nerves: normal hearing, normal speech, PERRL Coordination/Gait: normal gait Motor/Sensory: no motor deficit, no sensory deficit Skin: normal color, warm/dry Augusto Coma Score Best Eye Response: (4) Open Spontaneously Best Verbal Response: (5) Oriented Best Motor Response: (6) Obeys Commands Progress/Results/Core Measures Results/Orders My Orders Orders - MARIALUISA JONES DO Ct Head/Cervical Spine Wo (11/27/21 13:46) Vital Signs/I&O 11/27/21 13:43 Temp 36.2 Pulse 99 Resp 16 B/P (MAP) 125/82 (96) Pulse Ox 97 O2 Delivery Room Air Progress Progress Note : Progress Note Patient CT shows no acute findings. There is an osteophyte C5-C7 for an incidental finding I discussed with patient told her if she continues to have issues she can follow-up with her primary care provider and further evaluation. Patient is otherwise stable. She did request a soft cervical collar. I will place on these in the ER but recommended she does not wear it for an extended period of time. Recommended topical lidocaine for pain. Patient was stable discharged home Diagnostic Imaging Diagonstic Imaging: CT Plain Films/CT/US/NM/MRI: head Comments CT HEAD/CERVICAL SPINE WO PROCEDURE: CT head and CT cervical spine without contrast. TECHNIQUE: Multiple contiguous axial images were obtained through the brain and cervical spine without the use of intravenous contrast. Sagittal and coronal reformations through the cervical spine were then performed. Auto Exposure Controls were utilized during the CT exam to meet ALARA standards for radiation dose reduction. INDICATION: Trauma. Fall. Head and neck pain. COMPARISON: CT head and cervical spine without contrast from 06/03/2021. FINDINGS: CT HEAD: No intracranial hemorrhage, mass effect, hydrocephalus or extra-axial fluid collections. No CT evidence of a territorial infarction. The skull base and calvarium are intact. Paranasal sinuses are clear. Stable postoperative changes in the left mastoid. CT CERVICAL SPINE: Reversal of the normal cervical lordosis. Prmdtlsd-et-pejjcjxq degenerative endplate changes at C4-C5. Vertebral body heights are preserved. No fractures. Large posterior osteophyte formation and ossification of the posterior longitudinal ligament at C5-C7. This results in at least moderate spinal canal stenosis. No acute findings in the visualized paravertebral soft tissues. The lung apices are clear. IMPRESSION: 1. No acute intracranial or cervical spine CT findings. 2. Large posterior osteophyte formation and ossification of the posterior longitudinal ligament at C5-C7 results in at least moderate spinal canal stenosis. This could be further investigated with MRI, if clinically warranted. Reviewed: Reviewed by Me, Reviewed/Discussed Departure Impression Primary Impression: Fall from furniture Qualified Codes: W08.XXXA - Fall from other furniture, initial encounter Additional Impressions: Scalp contusion Qualified Codes: S00.03XA - Contusion of scalp, initial encounter Cervical strain, acute Qualified Codes: S16.1XXA - Strain of muscle, fascia and tendon at neck level, initial encounter Disposition: 01 HOME, SELF-CARE Condition: Stable Departure-Patient Inst. Referrals: KEVYN GAMBLE APRN (PCP) Primary Care Physician [facility] (Family) Primary Care Physician Patient Instructions: Whiplash, Minor Head Injury, Adult ED, Neck Pain Exercises Add. Discharge Instructions: Tylenol or ibuprofen as needed for discomfort 4% topical lidocaine with menthol to posterior neck as needed for pain, use as directed on package Warm moist heat for 20 to 30 minutes at a time 4-5 times daily to posterior neck Follow-up with your primary care provider in 7 to 10 days if symptoms are not improving All discharge instructions reviewed with patient and/or family. Voiced understanding. MARIALUISA JONES DO Nov 27, 2021 13:45
--- NOTE | 2021-11-27 14:33 | Diagnostic Imaging Report ---
PROCEDURE: CT head and CT cervical spine without contrast. TECHNIQUE: Multiple contiguous axial images were obtained through the brain and cervical spine without the use of intravenous contrast. Sagittal and coronal reformations through the cervical spine were then performed. Auto Exposure Controls were utilized during the CT exam to meet ALARA standards for radiation dose reduction. INDICATION: Trauma. Fall. Head and neck pain. COMPARISON: CT head and cervical spine without contrast from 06/03/2021. FINDINGS: CT HEAD: No intracranial hemorrhage, mass effect, hydrocephalus or extra-axial fluid collections. No CT evidence of a territorial infarction. The skull base and calvarium are intact. Paranasal sinuses are clear. Stable postoperative changes in the left mastoid. CT CERVICAL SPINE: Reversal of the normal cervical lordosis. Bfutmvrr-kn-eyqjplsd degenerative endplate changes at C4-C5. Vertebral body heights are preserved. No fractures. Large posterior osteophyte formation and ossification of the posterior longitudinal ligament at C5-C7. This results in at least moderate spinal canal stenosis. No acute findings in the visualized paravertebral soft tissues. The lung apices are clear. IMPRESSION: 1. No acute intracranial or cervical spine CT findings. 2. Large posterior osteophyte formation and ossification of the posterior longitudinal ligament at C5-C7 results in at least moderate spinal canal stenosis. This could be further investigated with MRI, if clinically warranted. Dictated by: Dictated on workstation # [id number]
[2021-11-27 14:52] VITALS: BP 125/82
== END 2021-11-27 14:53 | disposition home or self-care (01) ==
LOC: EDUNIT# 13:37 → ER FS 13:38
DX: S16.1XXA Strain of muscle, fascia and tendon at neck level, initial encounter (principal); S00.03XA Contusion of scalp, initial encounter; Z88.6 Allergy status to analgesic agent; Z88.5 Allergy status to narcotic agent; W08.XXXA Fall from other furniture, initial encounter; W22.8XXA Striking against or struck by other objects, initial encounter
CPT/HCPCS: 70450; 72125

== ENCOUNTER → 2021-11-28 | Outpatient (CLI) | payer MEDICAID ==
--- NOTE | 2021-11-28 11:18 | Diagnostic Imaging Report ---
HISTORY: Low back pain, fall COMPARISON: 11/22/2018 TECHNIQUE: 5 views of the lumbar spine FINDINGS: There is grade 1 anterolisthesis at L4-L5, otherwise alignment of the lumbar spine appears normal. There is mild disc height loss at L4-L5 and L5-S1. Vertebral body heights are preserved. No acute fracture is seen. There is no spondylolysis seen. Bilateral sacroiliac joints are patent. Cholecystectomy clips are noted. There is calcific atherosclerosis. IMPRESSION: 1. Grade 1 anterolisthesis at L4-L5 with mild disc height loss in the lower lumbar spine. Dictated by: Dictated on workstation # [id number]
== END ==
LOC: RAD FS 10:44
PROVIDERS: ATTEND Nurse Practitioner Family
DX: M43.16 Spondylolisthesis, lumbar region (principal); W19.XXXA Unspecified fall, initial encounter
CPT/HCPCS: 72110

== ENCOUNTER 2021-12-10 13:53 | Emergency (ER) | payer MEDICAID ==
[~2021-12-10] VITALS: Ht 160 cm; Wt 79.0 kg
--- NOTE | 2021-12-10 14:08 | ED Chest Pain ---
General Chief Complaint: Chest Pain Stated Complaint: CHEST PAIN Source: patient, EMS History of Present Illness Date Seen by Provider: Dec 10, 2021 Time Seen by Provider: 13:53 Initial Comments 61-year-old female presenting by EMS from home with complaints of sudden sensation of numbness in her arms and head. She then started having chest pain with that and became more anxious. She was feeling better after EMS had evaluated her but she still wanted to be seen in the emergency department. She did recently have a stress test and has a loop recorder in currently. She also just started taking thyroid medication today and did not know if that might have triggered her symptoms. She denied having nausea, vomiting, fever, chills, shor tness of breath. Timing/Duration: 1 hour Severity/Quality: severe (Numbness in both arms and in her head) Location: substernal Radiation: no radiation Activities at Onset: other (Urinating) Prior CP/Workup: echocardiography, stress test Modifying Factors: improves with other (Reassurance from EMS and transport to the emergency department) ASA po [place] FORMER: Yes NTG SL [place] FORMER: No Associated Symptoms: No abdominal pain, No back pain, No diaphoresis, No dizziness, No edema, No fatigue, No fever/chills, No headache, No heartburn, No nausea/vomiting, No rash, No shortness of breath, No syncope, No weakness Allergies and Home Medications Allergies Coded Allergies: oxycodone (Verified Adverse Reaction, Unknown, itching, 07/16/20) Patient Home Medication List Home Medication List Reviewed: Yes Aspirin (Aspirin) 81 Mg Tab.chew, 81 MG PO DAILY, (Reported) Entered as Reported by: MARILYN VERGARA on 04/30/21 1247 Atorvastatin Calcium (Atorvastatin Calcium) 80 Mg Tablet, 80 MG PO DAILY, (Reported) Entered as Reported by: MARILYN VERGARA on 04/30/21 1247 Calcium Carbonate (Calcium) 600 Mg Tablet, 600 MG PO DAILY, (Reported) Entered as Reported by: VASQUEZ ANDERSEN on 12/25/19 1125 Cephalexin (Cephalexin) 500 Mg Tablet, 500 MG PO QID Prescribed by: PATTI HORTON on 10/17/21 1111 Clonazepam (Clonazepam) 0.5 Mg Tablet, 0.5 MG PO DAILY, (Reported) Entered as Reported by: VASQUEZ ANDERSEN on 12/25/19 1125 Clopidogrel Bisulfate (Clopidogrel) 75 Mg Tablet, 75 MG PO DAILY, (Reported) Entered as Reported by: MARILYN VERGARA on 04/30/21 1247 Duloxetine HCl (Duloxetine HCl) 60 Mg Capsule.dr, 60 MG PO BID, (Reported) Entered as Reported by: VASQUEZ ANDERSEN on 12/25/19 1125 Exemestane (Exemestane) 25 Mg Tablet, 25 MG PO DAILY, (Reported) Entered as Reported by: MARISA MCCLELLAN on 07/24/18 0733 Methocarbamol (Methocarbamol) 750 Mg Tablet, 1,500 MG PO Q8H PRN for MUSCLE SPASMS Prescribed by: JOSH BAL on 06/03/21 193 Mv-Mn/Iron/FA/Herbal Cmplx#190 (Vitamin D3 Complete Caplet) 1 Each Tablet, 1 EACH PO DAILY, (Reported) Entered as Reported by: MARILYN VERGARA on 04/30/21 1247 Ondansetron (Ondansetron Odt) 4 Mg Tab.rapdis, 4 MG PO Q6H PRN for NAUSEA/V OMITING Prescribed by: JOSH BAL on 04/16/21 165 Oxycodone HCl/Acetaminophen (Oxycodone-Acetaminophen 5-325) 1 Each Tablet, 1 EACH PO Q6H PRN for PAIN-SEVERE (8-10) Prescribed by: JOSH BAL on 06/03/211938 Pantoprazole Sodium (Pantoprazole Sodium) 40 Mg Tablet.dr, 40 MG PO DAILY Prescribed by: JOSH BAL on 04/16/211655 Sulfamethoxazole/Trimethoprim (Bactrim Ds Tablet) 1 Each Tablet, 1 EACH PO BID Prescribed by: Swapna granado on 10/16/21 1435 Review of Systems Review of Systems Constitutional: No chills, No fever EENTM: No Symptoms Reported Respiratory: No Symptoms Reported Cardiovascular: See HPI Gastrointestinal: No Symptoms Reported Genitourinary: No Symptoms Reported Musculoskeletal: no symptoms reported Skin: No rash Psychiatric/Neurological: Numbness ([place] like both arms were numb and tingling as well as her head) Endocrine: No Symptoms Reported Hematologic/Lymphatic: Denies Blood Clots Past Wlvtlah-Jwwmsl-Ulbcqy Hx Patient Social History Tobacco Use?: No Use of E-Cig and/or Vaping dev: No Substance use?: No Alcohol Use?: No Pt feels they are or have been: No Immunizations Up To Date First/Initial COVID19 Vaccinat: Nov 2020 Second COVID19 Vaccination Micheal: Dec 2020 Third COVID19 Vaccination Date: Nov 2020 Seasonal Allergies Seasonal Allergies: No Past Medical History Surgery/Hospitalization HX: breast cancer in remission on oral chemo; Cellulitis Surgeries: Yes (Bilateral Mastectomy, port, ear sx x4, LOOP RECORDER) Appendectomy, Breast, Gallbladder, Hysterectomy Respiratory: No Cardiac: Yes (heart cath x 2, loop recorder) High Cholesterol, Irregular Heartbeat, Palpitations Neurological: No 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 oz. 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 as Tested Skin: Normal Color, Warm/Dry Progress/Results/Core Measures Results/Orders Lab Results Laboratory Tests Test 12/10/21 14:00 12/10/21 15:09 Range/Units White Blood Count 10.0 4.3-11.0 10^3/uL Red Blood Count 4.81 3.80-5.11 10^6/uL Hemoglobin 14.5 11.5-16.0 g/dL Hematocrit 42 35-52 % Mean Corpuscular Volume 87 80-99 fL Mean Corpuscular Hemoglobin 30 25-34 pg Mean Corpuscular Hemoglobin Concent 35 32-36 g/dL Red Cell Distribution Width 14.3 10.0-14.5 % Platelet Count 346 130-400 10^3/uL Mean Platelet Volume 9.5 9.0-12.2 fL Immature Granulocyte % (Auto) 1 % Neutrophils (%) (Auto) 53 42-75 % Lymphocytes (%) (Auto) 30 12-44 % Monocytes (%) (Auto) 11 0-12 % Eosinophils (%) (Auto) 4 0-10 % Basophils (%) (Auto) 1 0-10 % Neutrophils # (Auto) 5.3 1.8-7.8 10^3/uL Lymphocytes # (Auto) 3.0 1.0-4.0 10^3/uL Monocytes # (Auto) 1.1 H 0.0-1.0 10^3/uL Eosinophils # (Auto) 0.4 H 0.0-0.3 10^3/uL Basophils # (Auto) 0.1 0.0-0.1 10^3/uL Immature Granulocyte # (Auto) 0.1 0.0-0.1 10^3/uL Prothrombin Time 12.5 12.2-14.7 SEC INR Comment 0.9 0.8-1.4 Activated Partial Thromboplast Time 25 24-35 SEC Sodium Level 141 135-145 MMOL/L Potassium Level 3.8 3.6-5.0 MMOL/L Chloride Level 106 98-107 MMOL/L Carbon Dioxide Level 23 21-32 MMOL/L Anion Gap 12 5-14 MMOL/L Blood Urea Nitrogen 18 7-18 MG/DL Creatinine 0.94 0.60-1.30 MG/DL Estimat Glomerular Filtration Rate 69 BUN/Creatinine Ratio 19 Glucose Level 86 70-105 MG/DL Calcium Level 10.5 H 8.5-10.1 MG/DL Corrected Calcium 10.3 H 8.5-10.1 MG/DL Magnesium Level 1.8 1.6-2.4 MG/DL Total Bilirubin 0.3 0.1-1.0 MG/DL Aspartate Amino Transf (AST/SGOT) 17 5-34 U/L Alanine Aminotransferase (ALT/SGPT) 16 0-55 U/L Alkaline Phosphatase 87 40-136 U/L Troponin I < 0.30 <0.30 NG/ML Pro-B-Type Natriuretic Peptide 8.4 <125.0 PG/ML Total Protein 7.2 6.4-8.2 GM/DL Albumin 4.3 3.2-4.5 GM/DL Lipase 60 8-78 U/L Urine Color YELLOW Urine Clarity CLEAR Urine pH 7.5 5-9 Urine Specific Keavy 1.015 L 1.016-1.022 Urine Protein NEGATIVE NEGATIVE Urine Glucose (UA) NEGATIVE NEGATIVE Urine Ketones NEGATIVE NEGATIVE Urine Nitrite NEGATIVE NEGATIVE Urine Bilirubin NEGATIVE NEGATIVE Urine Urobilinogen 0.2 < = 1.0 MG/DL Urine Leukocyte Esterase NEGATIVE NEGATIVE Urine RBC (Auto) NEGATIVE NEGATIVE Urine RBC NONE /HPF Urine WBC 5-10 H /HPF Urine Squamous Epithelial Cells RARE /HPF Urine Crystals NONE /LPF Urine Bacteria TRACE /HPF Urine Casts NONE /LPF Urine Mucus NEGATIVE /LPF Urine Culture Indicated NO My Orders Orders - JOSH BAL MD Cbc With Automated Diff (12/10/21 14:01) Magnesium (12/10/21 14:01) Chest 1 View Ap/Pa Only (12/10/21 14:01) Ekg Tracing (12/10/21 14:01) Comprehensive Metabolic Panel (12/10/21 14:01) Protime With Inr (12/10/21 14:01) Partial Thromboplastin Time (12/10/21 14:01) O2 (12/10/21 14:01) Monitor-Rhythm Ecg Trace Only (12/10/21 14:01) Ed Iv/Invasive Line Start (12/10/21 14:01) Lipase (12/10/21 14:01) Troponin I Fs (12/10/21 14:01) Probnp Fs (12/10/21 14:01) Ua Culture If Indicated (12/10/21 14:04) Ketorolac Injection (Toradol Injection) (12/10/21 15:07) Vital Signs/I&O 12/10/21 12/10/21 14:00 15:47 Temp 36.5 36.5 Pulse 94 82 Resp 18 18 B/P (MAP) 119/100 (106) 125/78 Pulse Ox 98 98 O2 Delivery Room Air Room Air Progress Progress Note #1: Progress Note Reassured patient that her exam and vital signs all look good. Obtain basic labs including cardiac enzymes, EKG, chest x-ray. She was given aspirin by EMS prior to arrival Progress Note #2: Progress Note Labs are all stable without acute significant normality. She has no elevation of her troponin. She did complain of a headache so a dose of Toradol was administered. Counseled to follow-up with the clinic and primary care about her anxiety and other symptoms. Initial ECG Impression Date: Dec 10, 2021 Initial ECG Impression Time: 13:56 Initial ECG Rate: 82 Initial ECG Rhythm: Normal Sinus Initial ECG Comparisson: Unchanged Comment Normal sinus rhythm with heart rate of 82 bpm. RI interval [address] elevation. QT interval 362 ms with a QTc interval 400 ms. Overall appears similar to prior tracing from earlier this year Diagnostic Imaging Diagonstic Imaging: Xray Plain Films/CT/US/NM/MRI: chest Comments [facility], [place] NAME: CHRISTIE CHILDERS [employer] REC#: [id number] PT STATUS: REG ER : 1960 PHYSICIAN: JOSH BAL MD ADMIT DATE: 12/10/21/ER FS Draft Date of Exam:12/10/21 CHEST 1 VIEW AP/PA ONLY INDICATION: Chest pain. COMPARISON: 09/01/2021. FINDINGS: Single frontal view of the chest demonstrates normal heart size and pulmonary vascularity. The lungs are well aerated and clear. No large pleural effusion or pneumothorax is seen. The visualized osseous structures show no acute abnormalities. IMPRESSION: 1. No acute cardiopulmonary process. Dictated on workstation # [id number] Dict: 12/10/21 1413 Trans: 12/10/21 1414 [id number] Interpreted by: INDY WOO MD Electronically signed by: Reviewed: Reviewed by Me Departure Impression Primary Impression: Chest pain Qualified Codes: R07.9 - Chest pain, unspecified Additional Impressions: Anxiety Headache Qualified Codes: R51.9 - Headache, unspecified Disposition: 01 HOME, SELF-CARE Condition: Stable Departure-Patient Inst. Decision time for Depature: 15:38 Referrals: MAVISKEVYN Carroll APRN (PCP) Primary Care Physician [facility] (Family) Primary Care Physician Patient Instructions: Anxiety, Adult ED, Headache, Adult ED, Chest Pain, Adult ED, Tips to Help You [place] in Uncertain Times Add. Discharge Instructions: Stay well hydrated and drink plenty of fluids. Continue on your regular medicines at home. Follow up with the clinic for continued concerns. Your tests all looked good today. This episode may be from your thyroid disease or anxiety. Continue taking the medicine for your thyroid to give it more time to work. Check back with your regular provider for continued concerns. All discharge instructions reviewed with patient and/or family. Voiced understanding. JOSH BAL MD Dec 10, 2021 14:08
--- NOTE | 2021-12-10 14:14 | Diagnostic Imaging Report ---
INDICATION: Chest pain. COMPARISON: 09/01/2021. FINDINGS: Single frontal view of the chest demonstrates normal heart size and pulmonary vascularity. The lungs are well aerated and clear. No large pleural effusion or pneumothorax is seen. The visualized osseous structures show no acute abnormalities. IMPRESSION: 1. No acute cardiopulmonary process. Dictated by: Dictated on workstation # [id number]
[2021-12-10 14:19] LABS: BASOPHILS # (AUTO) 0.1 10^3/uL (0.0-0.1); BASOPHILS % (AUTO) 1 % (0-10); EOSINOPHILS # (AUTO) 0.4 10^3/uL (0.0-0.3); EOSINOPHILS % (AUTO) 4 % (0-10); HEMATOCRIT 42 % (35-52); HEMOGLOBIN 14.5 g/dL (11.5-16.0); LYMPHOCYTES % (AUTO) 30 % (12-44); MEAN CORPUSCULAR HEMOGLOBIN 30 pg (25-34); MEAN CORPUSCULAR HGB CONC 35 g/dL (32-36); MEAN CORPUSCULAR VOLUME 87 fL (80-99); MEAN PLATELET VOLUME 9.5 fL (9.0-12.2); MONOCYTES # (AUTO) 1.1 10^3/uL (0.0-1.0); MONOCYTES % (AUTO) 11 % (0-12); NEUTROPHILS # (AUTO) 5.3 10^3/uL (1.8-7.8); NEUTROPHILS % (AUTO) 53 % (42-75); PLATELET COUNT 346 10^3/uL (130-400)
[2021-12-10 14:30] LABS: INR 0.9 (0.8-1.4); PROTHROMBIN TIME PATIENT 12.5 SEC (12.2-14.7)
[2021-12-10 14:48] LABS: ALBUMIN 4.3 GM/DL (3.2-4.5); BILIRUBIN,TOTAL 0.3 MG/DL (0.1-1.0); CALCIUM 10.5 MG/DL (8.5-10.1); CREATININE SERUM 0.94 MG/DL (0.60-1.30); MAGNESIUM 1.8 MG/DL (1.6-2.4); POTASSIUM 3.8 MMOL/L (3.6-5.0); TOTAL PROTEIN 7.2 GM/DL (6.4-8.2)
[2021-12-10] MEDS ORDERED: KETOROLAC 30 MG/ML VIAL IVP STA (15:07)
[2021-12-10 15:28] LABS: BILIRUBIN,URINE NEGATIVE (NEGATIVE); CLARITY,URINE CLEAR; COLOR,URINE YELLOW; GLUCOSE, URINE (UA) NEGATIVE (NEGATIVE); KETONES,URINE NEGATIVE (NEGATIVE); LEUKOCYTE ESTERASE ,URINE NEGATIVE (NEGATIVE); NITRITE,URINE NEGATIVE (NEGATIVE); PH,URINE 7.5 (5-9); PROTEIN,URINE NEGATIVE (NEGATIVE)
[2021-12-10 15:40] LABS: BACTERIA,URINE TRACE /HPF; SQUAMOUS EPITHELIAL CELL,UR RARE /HPF
[2021-12-10 15:47] VITALS: BP 125/78
== END 2021-12-10 15:49 | disposition home or self-care (01) ==
LOC: EDUNIT# 13:53 → ER FS 13:54
DX: F41.9 Anxiety disorder, unspecified (principal); R51.9 Headache, unspecified; R07.9 Chest pain, unspecified
CPT/HCPCS: 36415; 71045; 80053; 81000; 83690; 83735; 83880; 84484; 85025; 85610; 85730; 93005; 93041

== ENCOUNTER 2022-04-16 13:23 | Emergency (ER) | payer MEDICAID ==
--- NOTE | 2022-04-16 13:32 | ED Neurological Problem ---
General Stated Complaint: STROKE-LIKE SYMPTOMS History of Present Illness Date Seen by Provider: Apr 16, 2022 Time Seen by Provider: 13:26 Initial Comments 61-year-old female presents with what she describes as difficulty with word finding has been gone for 5-6 days at least. Patient also reports that yesterday at 1 time she was visit was swimming and can only see half of her face. She reports that those symptoms resolved yesterday. Patient reports that she called [facility] because she has had a "blockage" to the main artery of her brain in the back of her head they told her to come to the ER to be evaluated. Patient also reports that she recently had a gas leak a couple days ago at her house that was just fixed. She is not currently having any symptoms at this time outside of may be some word finding difficulty. No focal deficits weakness or other symptoms. Allergies and Home Medications Allergies Coded Allergies: oxycodone (Verified Adverse Reaction, Unknown, itching, 07/16/20) Patient Home Medication List Home Medication List Reviewed: Yes Aspirin (Aspirin) 81 Mg Tab.chew, 81 MG PO DAILY, (Reported) Entered as Reported by: MARILYN VERGARA on 04/30/21 124 Atorvastatin Calcium (Atorvastatin Calcium) 80 Mg Tablet, 80 MG PO DAILY, (Reported) Entered as Reported by: MARILYN VERGARA on 04/30/21 124 Calcium Carbonate (Calcium) 600 Mg Tablet, 600 MG PO DAILY, (Reported) Entered as Reported by: VASQUEZ ANDERSEN on 12/25/19 1125 Cephalexin (Cephalexin) 500 Mg Tablet, 500 MG PO QID Prescribed by: PATTI HORTON on 10/17/21 1111 Clonazepam (Clonazepam) 0.5 Mg Tablet, 0.5 MG PO DAILY, (Reported) Entered as Reported by: VASQUEZ ANDERSEN on 12/25/19 112 Clopidogrel Bisulfate (Clopidogrel) 75 Mg Tablet, 75 MG PO DAILY, (Reported) Entered as Reported by: MARILYN VERGARA on 04/30/21 124 Duloxetine HCl (Duloxetine HCl) 60 Mg Capsule.dr, 60 MG PO BID, (Reported) Entered as Reported by: VASQUEZ ANDERSEN on 12/25/19 112 Exemestane (Exemestane) 25 Mg Tablet, 25 MG PO DAILY, (Reported) Entered as Reported by: MARISA MCCLELLAN on 07/24/18 0733 Methocarbamol (Methocarbamol) 750 Mg Tablet, 1,500 MG PO Q8H PRN for MUSCLE SPASMS Prescribed by: JOSH BAL on 06/03/211937 Mv-Mn/Iron/FA/Herbal Cmplx#190 (Vitamin D3 Complete Caplet) 1 Each Tablet, 1 EACH PO DAILY, (Reported) Entered as Reported by: MARILYN VERGARA on 04/30/21 1247 Ondansetron (Ondansetron Odt) 4 Mg Tab.rapdis, 4 MG PO Q6H PRN for NAUSEA/VOMITING Prescribed by: JOSH BAL on 04/16/21 165 Oxycodone HCl/Acetaminophen (Oxycodone-Acetaminophen 5-325) 1 Each Tablet, 1 EACH PO Q6H PRN for PAIN-SEVERE (8-10) Prescribed by: JOSH BAL on 06/03/211938 Pantoprazole Sodium (Pantoprazole Sodium) 40 Mg Tablet.dr, 40 MG PO DAILY Prescribed by: JOSH BAL on 04/16/211655 Sulfamethoxazole/Trimethoprim (Bactrim Ds Tablet) 1 Each Tablet, 1 EACH PO BID Prescribed by: Swapna granado on 10/16/21 1435 Review of Systems Review of Systems Constitutional: No dizziness, No weakness Eyes: No Symptoms Reported Ears, Nose, Mouth, Throat: no symptoms reported Respiratory: no symptoms reported Cardiovascular: no symptoms reported Gastrointestinal: no symptoms reported Genitourinary: no symptoms reported Musculoskeletal: no symptoms reported Skin: no symptoms reported Past Plhbulu-Vyzdzd-Abdelx Hx Immunizations Up To Date First/Initial COVID19 Vaccinat: Nov 2020 Second COVID19 Vaccination Micheal: Dec 2020 Third COVID19 Vaccination Date: Nov 2020 Seasonal Allergies Seasonal Allergies: No Past Medical History Surgery/Hospitalization HX: breast cancer in remission on oral chemo; Cellulitis Surgeries: Yes (Bilateral Mastectomy, port, ear sx x4, LOOP RECORDER) Appendectomy, Breast, Gallbladder, Hysterectomy Respiratory: No Cardiac: Yes (heart cath x 2, loop recorder) High Cholesterol, Irregular Heartbeat, Palpitations 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 oz. 78.696518xs; 30.00 BMI Method:Stated General Appearance: WD/WN, no apparent distress HEENT: PERRL/EOMI, TMs normal, pharynx normal Neck: full range of motion Respiratory: lungs clear, normal breath sounds Cardiovascular: normal peripheral pulses Gastrointestinal: non tender, soft Extremities: normal range of motion, non-tender Neurologic/Psychiatric: no motor/sensory deficits, alert, normal mood/affect Crainal Nerves: normal hearing, normal speech, PERRL Coordination/Gait: normal gait Motor/Sensory: no motor deficit, no sensory deficit Skin: normal color, warm/dry Stroke NIH Stroke Scale Assessment Level of Consciousness: 0=Alert (0), Level of Consciousness-Questions: 0=Answers both month/age (0), LOC Commands: 0=Performs both tasks (0), Gaze: Normal (0), Visual Eduardo: 0=No visual loss (0), Facial Movement (Facial Paresis): 0=Normal symmetrical mnt (0), Motor Function-Arms Right: 0=No drift (0), Motor Function-Arms Left: 0=No drift (0), Motor Function-Legs Right: 0=No drift (0), Motor Function-Legs Left: 0=No drift (0), Limb Ataxia: 0=Absent (0), Sensory: 0=Normal:no loss (0), Best Language: 0=No aphasia (0), Dysarthria: 0=Normal (0), Extinction & Inattention: 0=No abnormality (0), Total: 0 Progress/Results/Core Measures Results/Orders Lab Results Laboratory Tests Test 04/16/22 13:35 Range/Units White Blood Count 10.4 4.3-11.0 10^3/uL Red Blood Count 4.93 3.80-5.11 10^6/uL Hemoglobin 14.8 11.5-16.0 g/dL Hematocrit 43 35-52 % Mean Corpuscular Volume 88 80-99 fL Mean Corpuscular Hemoglobin 30 25-34 pg Mean Corpuscular Hemoglobin Concent 34 32-36 g/dL Red Cell Distribution Width 14.3 10.0-14.5 % Platelet Count 310 130-400 10^3/uL Mean Platelet Volume 9.3 9.0-12.2 fL Immature Granulocyte % (Auto) 1 % Neutrophils (%) (Auto) 57 42-75 % Lymphocytes (%) (Auto) 26 12-44 % Monocytes (%) (Auto) 12 0-12 % Eosinophils (%) (Auto) 4 0-10 % Basophils (%) (Auto) 1 0-10 % Neutrophils # (Auto) 5.9 1.8-7.8 10^3/uL Lymphocytes # (Auto) 2.7 1.0-4.0 10^3/uL Monocytes # (Auto) 1.3 H 0.0-1.0 10^3/uL Eosinophils # (Auto) 0.4 H 0.0-0.3 10^3/uL Basophils # (Auto) 0.1 0.0-0.1 10^3/uL Immature Granulocyte # (Auto) 0.1 0.0-0.1 10^3/uL Prothrombin Time 12.2 12.2-14.7 SEC INR Comment 0.9 0.8-1.4 Activated Partial Thromboplast Time 24 24-35 SEC Sodium Level 139 135-145 MMOL/L Potassium Level 3.9 3.6-5.0 MMOL/L Chloride Level 104 98-107 MMOL/L Carbon Dioxide Level 24 21-32 MMOL/L Anion Gap 11 5-14 MMOL/L Blood Urea Nitrogen 18 7-18 MG/DL Creatinine 0.94 0.60-1.30 MG/DL Estimat Glomerular Filtration Rate 69 BUN/Creatinine Ratio 19 Glucose Level 77 70-105 MG/DL Calcium Level 9.5 8.5-10.1 MG/DL Corrected Calcium 8.5-10.1 MG/DL Magnesium Level 2.0 1.6-2.4 MG/DL Total Bilirubin 0.3 0.1-1.0 MG/DL Aspartate Amino Transf (AST/SGOT) 18 5-34 U/L Alanine Aminotransferase (ALT/SGPT) 19 0-55 U/L Alkaline Phosphatase 94 40-136 U/L Total Protein 7.5 6.4-8.2 GM/DL Albumin 4.8 H 3.2-4.5 GM/DL My Orders Orders - JONES,MARIALUISA L DO Cbc With Automated Diff (04/16/22 13:33) Comprehensive Metabolic Panel (04/16/22 13:33) Magnesium (04/16/22 13:33) Protime With Inr (04/16/22 13:33) Partial Thromboplastin Time (04/16/22 13:33) Ct Angio Head/Neck (04/16/22 13:33) Ct Head Wo-R/O Stroke (04/16/22 13:33) Iohexol Injection (Omnipaque 350 Mg/Ml 1 (04/16/22 13:45) Received Contrast (Hold Metformin- Contr (04/16/22 13:45) Sodium Chloride Flush (Catheter Flush Sy (04/16/22 13:45) Ns (Ivpb) (Sodium Chloride 0.9% Ivpb Bag (04/16/22 13:45) Medications Given in ED Current Medications Medications Dose Ordered Sig/Tacho Route Start Time Stop Time Status Last Admin Dose Admin Iohexol 100 ml ONCE ONCE IV 04/16/22 13:45 04/16/22 13:46 DC 04/16/22 14:45 75 ML Sodium Chloride 10 ml NEEDED PRN IV 04/16/22 13:45 04/16/22 14:46 10 ML Sodium Chloride 100 ml ONCE ONCE IV 04/16/22 13:45 04/16/22 13:46 DC 04/16/22 14:45 100 ML Vital Signs/I&O 04/16/22 04/16/22 13:23 15:14 Temp 35.9 35.9 Pulse 97 84 Resp 16 16 B/P (MAP) 139/76 (97) 124/73 Pulse Ox 97 98 O2 Delivery Room Air Room Air Progress Progress Note : Progress Note Patient CT a was reviewed and compared to MRA dated 12/03/2020 is similar. Patient with no neurologic symptoms at this time. Discussed with neurologist Dr. Mendez [facility] who is patient's neurologist. They recommended outpatient MR a with contrast along with an outpatient cardiac echo. Called and discussed with [facility] which is patient's primary care provider and made him aware of the recommendations. Patient's testing can be done on outpatient basis and does not need to be done to the ER. Patient should call Dr. Mendez's office to follow-up. Patient stable and discharged Departure Impression Primary Impression: CVA (cerebral vascular accident) Qualified Codes: I63.9 - Cerebral infarction, unspecified Disposition: 01 HOME, SELF-CARE Condition: Stable Departure-Patient Inst. Referrals: KEVYN GAMBLE APRN (PCP) Primary Care Physician [facility] (Family) Primary Care Physician Patient Instructions: Transient Ischemic Attack (DC) Add. Discharge Instructions: please follow up with your pcp for further evaluation including a cardiac echo and mri. Please continue to take an 81 mg aspirin daily along with Plavix MARIALUISA JONES DO Apr 16, 2022 13:32
[2022-04-16] MEDS ORDERED: NS 100 ML (IVPB) BAG IV ONE (13:45)
[2022-04-16] MEDS ORDERED: IOHEXOL 350 MG/ML 100 ML (OMNIPAQUE 350) VIAL IV ONE (13:45)
[2022-04-16] MEDS ORDERED: CATHETER FLUSH 10 ML SYR IV PRN (13:45)
[2022-04-16] MEDS ORDERED: HOLD METFORMIN - RECEIVED CONTRAST 20 ML VIAL IV SCH (13:45)
[2022-04-16 13:53] LABS: BASOPHILS # (AUTO) 0.1 10^3/uL (0.0-0.1); BASOPHILS % (AUTO) 1 % (0-10); EOSINOPHILS # (AUTO) 0.4 10^3/uL (0.0-0.3); EOSINOPHILS % (AUTO) 4 % (0-10); HEMATOCRIT 43 % (35-52); HEMOGLOBIN 14.8 g/dL (11.5-16.0); LYMPHOCYTES # (AUTO) 2.7 10^3/uL (1.0-4.0); LYMPHOCYTES % (AUTO) 26 % (12-44); MEAN CORPUSCULAR HEMOGLOBIN 30 pg (25-34); MEAN CORPUSCULAR HGB CONC 34 g/dL (32-36); MEAN CORPUSCULAR VOLUME 88 fL (80-99); MEAN PLATELET VOLUME 9.3 fL (9.0-12.2); MONOCYTES # (AUTO) 1.3 10^3/uL (0.0-1.0); MONOCYTES % (AUTO) 12 % (0-12); NEUTROPHILS # (AUTO) 5.9 10^3/uL (1.8-7.8); NEUTROPHILS % (AUTO) 57 % (42-75); PLATELET COUNT 310 10^3/uL (130-400); WHITE BLOOD COUNT 10.4 10^3/uL (4.3-11.0)
[2022-04-16 14:08] LABS: INR 0.9 (0.8-1.4); PROTHROMBIN TIME PATIENT 12.2 SEC (12.2-14.7)
[2022-04-16 14:16] LABS: ALANINE AMINOTRANSFERASE 19 U/L (0-55); ALKALINE PHOSPHATASE 94 U/L (40-136); BILIRUBIN,TOTAL 0.3 MG/DL (0.1-1.0); BUN/CREATININE RATIO 19; CALCIUM 9.5 MG/DL (8.5-10.1); CARBON DIOXIDE 24 MMOL/L (21-32); CHLORIDE 104 MMOL/L (98-107); CREATININE SERUM 0.94 MG/DL (0.60-1.30); GFR ESTIMATED 69; GLUCOSE 77 MG/DL (70-105); POTASSIUM 3.9 MMOL/L (3.6-5.0); SODIUM 139 MMOL/L (135-145); TOTAL PROTEIN 7.5 GM/DL (6.4-8.2)
[2022-04-16 14:17] LABS: ALBUMIN 4.8 GM/DL (3.2-4.5)
--- NOTE | 2022-04-16 14:20 | Diagnostic Imaging Report ---
PROCEDURE: CT head wo r/o stroke. TECHNIQUE: Multiple contiguous axial images were obtained through the brain without the use of intravenous contrast. Auto Exposure Controls were utilized during the CT exam to meet ALARA standards for radiation dose reduction. INDICATION: Slurred speech and aphasia COMPARISON: 11/27/2021 CT HEAD: CT images of the head were obtained. FINDINGS: Ventricles and sulci are within normal limits for size. There is no intracranial hemorrhage identified. There is no abnormal mass effect or shift of midline structures. Surgical findings are again noted in the left mastoid air cells. IMPRESSION: Unremarkable CT of the head. Dictated by: Dictated on workstation # [id number]
--- NOTE | 2022-04-16 15:07 | Diagnostic Imaging Report ---
PROCEDURE: CT angiography of the head and CT angiography of the neck with and without contrast. TECHNIQUE: Contiguous noncontrast images were obtained from the skull base through the vertex. After intravenous contrast administration, helical CT angiography of the neck was performed. Source data was reformatted into 3D MIP projections. Delayed post contrast acquisition was also obtained. Auto Exposure Controls were utilized during the CT exam to meet ALARA standards for radiation dose reduction. INDICATION: Right-sided head pain, difficulty with speech, visual changes. FINDINGS: Head: Post-contrasted head CT showed no abnormal parenchymal or meningeal enhancement. No evidence of mass. The dural venous sinuses are patent. CT ANGIO NECK: There is conventional branching of the patent aortic arch. Cervical vertebrals are patent and codominant. The bilateral common internal and external carotids are patent. No hemodynamically significant stenosis or dissection. CT ANGIO HEAD: The intradural vertebral arteries, the basilar, and right PLANER FEEDER are patent. There is occlusion of the proximal left P2 segment with patent bilateral PCOMs. The left P1 is widely patent. The distal left PLANER FEEDER at its P3 and P4 segments is opacified and reconstituted. There were no findings of cortical edema or recent infarct in this patient with reported four to five days' history of complaints. The intracranial ICAs, the anterior and middle cerebral arterial segments and their primary branches were all patent. There is patency of the major dural venous sinuses. No intracranial aneurysm or vascular malformation. IMPRESSION: 1. No hemodynamically significant stenosis or acute arterial pathology in the neck. 2. Either critical stenosis versus short segmental occlusion of the proximal left P2 segment of the PLANER FEEDER with its distal reconstitution but the brain itself showing no findings of acute or subacute ischemia, this may be chronic. Follow-up with MRI may be useful to exclude marrow edema and/or any diffusion restriction if symptoms have not resolved like the tech note states. Dictated by: Dictated on workstation # [id number]
[2022-04-16 15:14] VITALS: BP 124/73
== END 2022-04-16 15:46 | disposition home or self-care (01) ==
LOC: EDUNIT# 13:23 → ER FS 13:24
DX: I63.9 Cerebral infarction, unspecified (principal)
CPT/HCPCS: 36415; 70450; 70496; 70498; 80053; 83735; 85025; 85610; 85730; Q9967

== ENCOUNTER 2022-04-29 06:21 | Outpatient (CLI) | payer MEDICAID ==
[~2022-04-29] VITALS: Ht 160 cm; Wt 79.4 kg
[2022-04-29] MEDS ORDERED: TUME1CAP PO (08:32)
[2022-04-29] MEDS ORDERED: LEVO25CA4 PO (08:32)
== END 2022-04-29 08:34 ==
LOC: PREOP 06:21
PROVIDERS: ATTEND Surgery
DX: Z01.818 Encounter for other preprocedural examination (principal)

== ENCOUNTER 2022-05-04 08:37 | Day surgery (SDC) | payer MEDICAID ==
[~2022-05-04] VITALS: Ht 160 cm; Wt 79.4 kg
[~2022-05-04 08:37] MED LIST changes: +LACTATED RINGERS 1,000 ML IV STA; +LEVO25CA4 PO; +TUME1CAP PO
--- NOTE | 2022-05-04 08:44 | Progress Note-Pre Operative ---
Pre-Operative Progress Note Date of Available H&P: Apr 28, 2022 Date H&P Reviewed: May 04, 2022 Time H&P Reviewed: 08:43 History & Physical: H&P Reviewed, Patient Examed, No changes noted Pre-Operative Diagnosis: Garcia's Esophagus, GERD FITZ SHAH DO May 04, 2022 08:44
[2022-05-04] MEDS ORDERED: HURRICAINE EXT TUBE (BENZOCAINE) XX PRN (08:45)
[2022-05-04 09:00] VITALS: BP 131/80
[2022-05-04] MEDS ORDERED: PROPOFOL INJECTION 50 ML IV ONE (09:16)
[2022-05-04 09:35] VITALS: BP 119/62
[2022-05-04 09:40] VITALS: BP 122/60
[2022-05-04 09:55] VITALS: BP 109/79
--- NOTE | 2022-05-04 09:58 | Progress Note-Post Operative ---
Post-Operative Progess Note Surgeon (s)/Personal Computer Network Analyst (s) Surgeon FITZ SHAH DO Personal Computer Network Analyst: none Pre-Operative Diagnosis Garcia's Esophagus, GERD Post-Operative Diagnosis Gastritis Esophagitis Small sliding hiatal hernia Procedure & Operative Findings Date of Procedure 05/04/22 Procedure Performed/Findings EGD with biopsy PROCEDURE NOTE: After informed consent was obtained, the patient was brought to the endoscopy suite, placed in bed in left lateral decubitus position. She was administered IV sedation by the [employer] who then monitored vitals the entire time, heart rate, blood pressure and pulse ox and the scope was inserted down the mouth through the esophagus into the stomach. On the way down, noted some mild esophagitis, took a picture, pushed into the stomach, pushed past the antrum into the duodenum. Duodenum looked good. Pulled back and did a biopsy of antrum, then retroflexed the scope, saw a very small sliding hiatal hernia; basically just the GE junction moving in and out of stomach. I took a picture of this and then pulled the scope into the GE junctionand then did a biopsy of the GE junction. Pushed the scope back into the stomach, suctioned all the air out of the stomach. At this point pulled the scope up the esophagus and out the mouth. The patient tolerated the procedure, and she recovered in endoscopy suite. Anesthesia Type IV sedation by [employer] Estimated Blood Loss Estimated blood loss (mL): scant Specimens/Packing Specimens Removed antral bx GE jxn bx FITZ SHAH DO May 04, 2022 09:58
--- NOTE | 2022-05-04 10:00 | Endoscopy Discharge Instruct ---
Endo Procedure/Findings Findings 1.: Gastritis 2.: Hiatal Hernia 3.: Other Findings (Esophagitis) Discharge Instructions - Activity: You might feel a little sleepy until tomorrow. This is due to the medicine you received to relax you. Until tomorrow, you should: NOT drive a car, operate machinery or power tools. NOT drink any alcoholic beverages. NOT make any important decisions or sign importortant papers. Do not return to work until tomorrow, unless otherwise instructed. Resume previous activities tomorrow. Diet: Start by taking liquids. If you tolerate liquids, advance to solid food. 1.: EGD in 3 years Notify Physician - If you experience excessive bleeding, unusual abdominal pain, fever, or chest pain, contact your doctor immediately. FITZ SHAH DO May 04, 2022 10:00
--- NOTE | 2022-05-04 10:01 | Anesthesia-General Post-Op ---
MAC Patient Condition Mental Status/LOC: Same as Preop Cardiovascular: Satisfactory Nausea/Vomiting: Absent Respiratory: Satisfactory Pain: Controlled Complications: Absent Post Op Complications Complications None Follow Up Care/Instructions Patient Instructions None needed. Anesthesiology Discharge Order Discharge Order Patient is doing well, no complaints, stable vital signs, no apparent adverse anesthesia problems. No complications reported per nursing. LUIS DOCKERY CRNA May 04, 2022 10:01
== END 2022-05-04 10:15 | disposition home or self-care (01) ==
LOC: ENDO 08:37
PROVIDERS: ATTEND Surgery
DX: K29.50 Unspecified chronic gastritis without bleeding (principal); K21.00 Gastro-esophageal reflux disease with esophagitis, without bleeding; K44.9 Diaphragmatic hernia without obstruction or gangrene; K31.89 Other diseases of stomach and duodenum; K22.70 Barrett's esophagus without dysplasia; E66.9 Obesity, unspecified; Z68.31 Body mass index [BMI] 31.0-31.9, adult; Z85.3 Personal history of malignant neoplasm of breast; Z87.891 Personal history of nicotine dependence; Z79.899 Other long term (current) drug therapy
CPT/HCPCS: 88305

== ENCOUNTER 2022-07-16 19:06 | Emergency (ER) | payer MEDICAID ==
[~2022-07-16] VITALS: Ht 160 cm; Wt 80.0 kg
[~2022-07-16 19:06] MED LIST changes: -LACTATED RINGERS 1,000 ML IV STA
[2022-07-16 19:10] VITALS: BP 129/78
--- NOTE | 2022-07-16 20:03 | ED Integumentary General ---
General Chief Complaint: Skin/Wound Problems Stated Complaint: MOLE REMOVED FROM BACK/EXCESSIVE BLEEDING Nursing Triage Note: PT AMB TO FS 02 W REPORTS OF MOLE REMOVED FROM LOWER BACK YESTERDAY, CONT BLEEDING AT SITE SX MOLE REMOVAL. PT A&OX4, DENIES PAIN. PT TAKES ASA AND PLAVIX. Source: patient History of Present Illness Date Seen by Provider: Jul 16, 2022 Time Seen by Provider: 19:09 Initial Comments 61-year-old female presenting from home with complaints of continued bleeding from the site of a mole removal performed at [facility] and [place] yesterday. She has tried applying pressure and doubling gauze but not had any improvement in getting the bleeding to stop. Since she was still having bl eeding tonight she came to the emergency department. She does take Plavix and aspirin due to narrowing of blood vessels to the back of her brain. She denies having any fever or chills. They had also biopsied 2 areas on her right face but those areas have stopped bleeding. Timing/Duration: yesterday Severity: moderate Location: torso (On her back) Associated Symptoms: No blisters, No change in skin texture, No edema, No fever, No flushing, No headache, No hives, No jaundice, No malaise, No nasal congestion, No numbness, No pallor, No paresthesia, No petechiae, No rash, No sore throat, No swelling/mass/lumps, No tingling Allergies and Home Medications Allergies Coded Allergies: oxycodone (Verified Adverse Reaction, Unknown, itching, 07/16/20) Patient Home Medication List Home Medication List Reviewed: Yes Aspirin (Aspirin) 81 Mg Tab.chew, 81 MG PO DAILY, (Reported) Entered as Reported by: MARILYN VERGARA on 04/30/21 1247 Atorvastatin Calcium (Atorvastatin Calcium) 80 Mg Tablet, 80 MG PO DAILY, (Reported) Entered as Reported by: MARILYN VERGARA on 04/30/21 1247 Calcium Carbonate (Calcium) 600 Mg Tablet, 600 MG PO DAILY, (Reported) Entered as Reported by: VASQUEZ ANDERSEN on 12/25/19 112 Clonazepam (Clonazepam) 0.5 Mg Tablet, 0.5 MG PO DAILY, (Reported) Entered as Reported by: VASQUEZ ANDERSEN on 12/25/19 1125 Clopidogrel Bisulfate (Clopidogrel) 75 Mg Tablet, 75 MG PO DAILY, (Reported) Entered as Reported by: MARILYN VERGARA on 04/30/21 1247 Duloxetine HCl (Duloxetine HCl) 60 Mg Capsule.dr, 60 MG PO BID, (Reported) Entered as Reported by: VASQUEZ ANDERSEN on 12/25/19 1125 Exemestane (Exemestane) 25 Mg Tablet, 25 MG PO DAILY, (Reported) Entered as Reported by: MAIRSA MCCLELLAN on 07/24/18 0733 Levothyroxine Sodium (Levothyroxine) 25 Mcg Capsule, 25 MCG PO, (Reported) Entered as Reported by: PATRICE CERVANTES on 04/29/22 0832 Methocarbamol (Methocarbamol) 750 Mg Tablet, 1,500 MG PO Q8H PRN for MUSCLE SPASMS Prescribed by: JOSH BAL on 06/03/21 193 Mv-Mn/Iron/FA/Herbal Cmplx#190 (Vitamin D3 Complete Caplet) 1 Each Tablet, 1 EACH PO DAILY, (Reported) Entered as Reported by: MARILYN VERGARA on 04/30/21 1247 Ondansetron (Ondansetron Odt) 4 Mg Tab.rapdis, 4 MG PO Q6H PRN for NAUSEA/VOMITING Prescribed by: JOSH BAL on 04/16/21 165 Pantoprazole Sodium (Pantoprazole Sodium) 40 Mg Tablet.dr, 40 MG PO DAILY Prescribed by: JOSH BAL on 04/16/21 1656 Tumeric/Ging/[place]/Oreg/Capryl (Candicidal Capsule) 100-150 Mg Capsule, 1 EACH PO, (Reported) Entered as Reported by: PATRICE CERVANTES on 04/29/22 0832 Review of Systems Review of Systems Constitutional: No chills, No fever EENTM: no symptoms reported Respiratory: no symptoms reported Cardiovascular: no symptoms reported Gastrointestinal: no symptoms reported Genitourinary: no symptoms reported Musculoskeletal: no symptoms reported Skin: see HPI Psychiatric/Neurological: No Symptoms Reported Past [id number] Hx Patient Social History Tobacco Use?: No Use of E-Cig and/or Vaping dev: No Substance use?: No Alcohol Use?: No Immunizations Up To Date Influenza Vaccine Up-to-Date: No; Not Current First/Initial COVID19 Vaccinat: Nov 2020 Second COVID19 Vaccination Micheal: Dec 2020 Third COVID19 Vaccination Date: NONE COVID19 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 Seasonal Allergies Seasonal Allergies: No Past Medical History Surgery/Hospitalization HX: breast cancer in remission on oral chemo Surgeries: Yes (Bilateral Mastectomy, port, ear sx x4, LOOP RECORDER, BILAT CATARACTS) Appendectomy, Breast, Gallbladder, Hysterectomy Respiratory: No Cardiac: Yes (heart cath x 2, loop recorder) High Cholesterol, Irregular Heartbeat, Palpitations Neurological: Yes 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 Genitourinary: No Gastrointestinal: No Gastroesophageal Reflux, Garcia's Esophagus, Hemorrhoids Musculoskeletal: Yes (OSTEOPENIA) Arthritis Endocrine: Yes Hypothyroidsim HEENT: Yes (BILAT EYE IMPLANTS, CATARACT SURGERY) Hearing Impairment: Hard of Hearing Cancer: Yes (in remission as of 06/08/18, BLADDER 2021) Bladder, Breast Did You Recieve Any Treatments: Yes What Type of Treatment Did You: Chemotherapy, Radiation, Surgical Intervention Psychosocial: Yes Anxiety Integumentary: No Blood Disorders: No Physical Exam Vital Signs Vital Signs - First Documented 07/16/22 19:10 Temp 36.6 Pulse 96 Resp 20 B/P (MAP) 129/78 (95) Pulse Ox 99 O2 Delivery Room Air Capillary Refill : Less Than 3 Seconds General Appearance: WD/WN, no apparent distress Cardiovascular: normal peripheral pulses Skin: warm/dry Skin Problem Location: torso (Left posterior back) Skin Problem Character: lesion (Area of biopsy on the left mid posterior back with continued bleeding) Procedures/Interventions Wound Location: Trunk (Left mid back) Wound Length (cm): 0.3 Wound's Depth, Shape: superficial Wound Explored: clean Progress After obtaining verbal consent from the patient the wound was uncovered and the dressing from home was removed. There was continued bleeding from the biopsy site. Using silver nitrate cautery stick the wound was cauterized. Patient tolerated procedure well without any immediate complication. After the cauterizing a continuous pressure for 5 minutes was held over the wound to help ensure bleeding was controlled and there was good hemostasis. A nonadherent Band-Aid was applied and we will recheck the wound prior to discharge. Progress/Results/Core Measures Results/Orders Vital Signs/I&O 07/16/22 19:10 Temp 36.6 Pulse 96 Resp 20 B/P (MAP) 129/78 (95) Pulse Ox 99 O2 Delivery Room Air Blood Pressure Mean: 95 Progress Progress Note : Progress Note The biopsy site that was bleeding was cauterized using silver nitrate stick. Patient tolerated procedure well without any immediate complication. After 15 minutes patient was still having a clean dry Band-Aid with no additional bleeding. Counseled on follow-up and return precautions. Advised if it started to bleed again and she could hold pressure for study 5 minutes and apply ice to help constrict the blood vessels. If that still is not working she would need to return for repeat cauterization or try a styptic pen. Encouraged to check back through the clinic for continued concerns. Departure Impression Primary Impression: Post-op bleeding Qualified Codes: L76.21 - Postprocedural hemorrhage of skin and subcutaneous tissue following a dermatologic procedure Disposition: HOME, SELF-CARE Condition: Stable Departure-Patient Inst. Decision time for Depature: 20:01 Referrals: KEVYN GAMBLE APRN (PCP) Primary Care Physician [facility]/ANNE MARIE (Family) Primary Care Physician Patient Instructions: Bleeding After Surgery Add. Discharge Instructions: Keep wound covered with a nonadhesive Band-Aid or dressing to give it more of a chance to heal. You may wash with soap and water but do not scrub at the area. If it starts to bleed or ooze again apply direct pressure for steady 5 minutes to see if that would help control it. You could also try applying an ice pack with pressure to get the blood vessels to constrict down and stop bleeding. If the bleeding continues or does not stay controlled return or go to the clinic as they may need to repeat the cautery procedure like you had tonight with the silver nitrate. All discharge instructions reviewed with patient and/or family. Voiced understanding. JOSH BAL MD Jul 16, 2022 20:03
== END 2022-07-16 20:09 | disposition home or self-care (01) ==
LOC: EDUNIT# 19:06 → ER FS 19:07
DX: L76.21 Postprocedural hemorrhage of skin and subcutaneous tissue following a dermatologic procedure (principal); I66.9 Occlusion and stenosis of unspecified cerebral artery; C50.919 Malignant neoplasm of unspecified site of unspecified female breast; Z79.899 Other long term (current) drug therapy; Z79.02 Long term (current) use of antithrombotics/antiplatelets; Z79.82 Long term (current) use of aspirin; Z92.3 Personal history of irradiation

== ENCOUNTER → 2022-09-24 | Outpatient (CLI) | payer MEDICAID ==
[~2022-09-24] MED LIST changes: +LACT20SO2 PO; +NA P133E22 RC; +ONDA4TAB11 SL; +SENN8.6T17 PO
== END ==
LOC: CARD 11:43
PROVIDERS: ATTEND Internal Medicine Cardiovascular Disease
DX: I10 Essential (primary) hypertension (principal); I25.10 Atherosclerotic heart disease of native coronary artery without angina pectoris
CPT/HCPCS: 93306

== ENCOUNTER 2022-09-25 12:30 | Emergency (ER) | payer MEDICAID ==
[~2022-09-25 12:30] MED LIST changes: -LACT20SO2 PO; -NA P133E22 RC; -ONDA4TAB11 SL; -SENN8.6T17 PO
--- NOTE | 2022-09-25 12:44 | ED GI ---
General Chief Complaint: Abdominal/GI Problems Stated Complaint: CONSTIPATION 1 MONTH History of Present Illness Date Seen by Provider: Sep 25, 2022 Time Seen by Provider: 12:39 Initial Comments 62-year-old female with PMH of A-fib and loop recorder, is here with complaints of constipation for a little bit over 1 month, and is here with complaints of abdominal discomfort, nausea, and bloating that she feels is worsening over the past couple of days. Patient did have a loose stool about 3 days ago. Prior to that she states that her stool comes out like cramps, but she cannot defecate much more than that. Patient is still able to eat and drink, however in the past couple of days she has had a poor appetite. Denies fever and chills, vomiting, dysuria, chest pain, shortness of breath, palpitations. Patient has been using stool softeners and MiraLAX and it has not been helping much. Patient states that her diet is normally bad however she has been trying to eat more fruits and vegetables for the past month since all of this has happened. Allergies and Home Medications Allergies Coded Allergies: oxycodone (Verified Adverse Reaction, Unknown, itching, 07/16/20) Patient Home Medication List Home Medication List Reviewed: Yes Aspirin (Aspirin) 81 Mg Tab.chew, 81 MG PO DAILY, (Reported) Entered as Reported by: MARILYN VERGARA on 04/30/211246 Atorvastatin Calcium (Atorvastatin Calcium) 80 Mg Tablet, 80 MG PO DAILY, (Reported) Entered as Reported by: MARILYN VERGARA on 04/30/21 124 Calcium Carbonate (Calcium) 600 Mg Tablet, 600 MG PO DAILY, (Reported) Entered as Reported by: VASQUEZ ANDERSEN on 12/25/19 112 Clonazepam (Clonazepam) 0.5 Mg Tablet, 0.5 MG PO DAILY, (Reported) Entered as Reported by: VASQUEZ ANDERSEN on 12/25/19 112 Clopidogrel Bisulfate (Clopidogrel) 75 Mg Tablet, 75 MG PO DAILY, (Reported) Entered as Reported by: MARILYN VERGARA on 04/30/21 124 Duloxetine HCl (Duloxetine HCl) 60 Mg Capsule.dr, 60 MG PO BID, (Reported) Entered as Reported by: VASQUEZ ANDERSEN on 12/25/19 112 Exemestane (Exemestane) 25 Mg Tablet, 25 MG PO DAILY, (Reported) Entered as Reported by: MARISA MCCLELLAN on 07/24/18 0733 Levothyroxine Sodium (Levothyroxine) 25 Mcg Capsule, 25 MCG PO, (Reported) Entered as Reported by: PATRICE CERVANTES on 04/29/22 0832 Methocarbamol (Methocarbamol) 750 Mg Tablet, 1,500 MG PO Q8H PRN for MUSCLE SPASMS Prescribed by: JOSH BAL on 06/03/21 1938 Mv-Mn/Iron/FA/Herbal Cmplx#190 (Vitamin D3 Complete Caplet) 1 Each Tablet, 1 EACH PO DAILY, (Reported) Entered as Reported by: MARILYN VERGARA on 04/30/21 1247 Ondansetron (Ondansetron Odt) 4 Mg Tab.rapdis, 4 MG PO Q6H PRN for LUZ SEA/VOMITING Prescribed by: JOSH BAL on 04/16/21 165 Pantoprazole Sodium (Pantoprazole Sodium) 40 Mg Tablet.dr, 40 MG PO DAILY Prescribed by: JOSH BAL on 04/16/21 165 Tumeric/Ging/[place]/Oreg/Capryl (Candicidal Capsule) 100-150 Mg Capsule, 1 EACH PO, (Reported) Entered as Reported by: PATRICE CERVANTES on 04/29/22 0832 Review of Systems Review of Systems Constitutional: no symptoms reported EENTM: No Symptoms Reported Respiratory: No Symptoms Reported Cardiovascular: No Symptoms Reported Gastrointestinal: See HPI, Constipated, Nausea, Poor Appetite Genitourinary: No Symptoms Reported Musculoskeletal: no symptoms reported Skin: no symptoms reported Psychiatric/Neurological: No Symptoms Reported Endocrine: No Symptoms Reported Hematologic/Lymphatic: No Symptoms Reported Past Dzwades-Egjxlr-Igcpzv Hx Immunizations Up To Date First/Initial COVID19 Vaccinat: Nov 2020 Second COVID19 Vaccination Mihceal: Dec 2020 Third COVID19 Vaccination Date: NONE Seasonal Allergies Seasonal Allergies: No Past Medical History Surgery/Hospitalization HX: breast cancer in remission on oral chemo Surgeries: Yes (Bilateral Mastectomy, port, ear sx x4, LOOP RECORDER, BILAT CATARACTS) Appendectomy, Breast, Gallbladder, Hysterectomy Respiratory: No Cardiac: Yes (heart cath x 2, loop recorder) High Cholesterol, Irregular Heartbeat, Palpitations 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 Genitourinary: No Gastrointestinal: No Gastroesophageal Reflux, Garcia's Esophagus, Hemorrhoids Musculoskeletal: Yes (OSTEOPENIA) Arthritis Endocrine: Yes Hypothyroidsim HEENT: Yes (BILAT EYE IMPLANTS, CATARACT SURGERY) Hearing Impairment: Hard of Hearing Cancer: Yes (in remission as of 06/08/18, BLADDER 2021) Bladder, Breast Did You Recieve Any Treatments: Yes What Type of Treatment Did You: Chemotherapy, Radiation, Surgical Intervention Psychosocial: Yes Anxiety Integumentary: No Blood Disorders: No Physical Exam Vital Signs Vital Signs - First Documented 09/25/22 12:36 Temp 35.9 Pulse 76 Resp 16 B/P (MAP) 128/81 (97) Pulse Ox 100 O2 Delivery Room Air Capillary Refill : Height/Weight/BMI Height: 5'3.00" Weight: 173lbs. oz. 78.591520ss; 31.00 BMI Method:Stated General Appearance: WD/WN, mild distress HEENT: PERRL/EOMI Neck: full range of motion Respiratory: chest non-tender, lungs clear, normal breath sounds Cardiovascular: regular rate, rhythm Gastrointestinal: normal bowel sounds, non tender, soft, no organomegaly Extremities: normal range of motion Back: no CVA tenderness Neurologic/Psychiatric: alert, normal mood/affect, oriented x 3 Skin: normal color Focused Exam Lactate Level 09/25/22 13:00: Lactic Acid Level 1.54 Lactic Acid Level Laboratory Tests Test 09/25/22 13:00 Lactic Acid Level 1.54 MMOL/L (0.50-2.00) Progress/Results/Core Measures Results/Orders Lab Results Laboratory Tests Test 09/25/22 12:55 09/25/22 13:00 Range/Units White Blood Count 8.5 4.3-11.0 10^3/uL Red Blood Count 4.60 3.80-5.11 10^6/uL Hemoglobin 14.1 11.5-16.0 g/dL Hematocrit 42 35-52 % Mean Corpuscular Volume 91 80-99 fL Mean Corpuscular Hemoglobin 31 25-34 pg Mean Corpuscular Hemoglobin Concent 34 32-36 g/dL Red Cell Distribution Width 14.3 10.0-14.5 % Platelet Count 332 130-400 10^3/uL Mean Platelet Volume 9.4 9.0-12.2 fL Immature Granulocyte % (Auto) 1 % Neutrophils (%) (Auto) 59 42-75 % Lymphocytes (%) (Auto) 25 12-44 % Monocytes (%) (Auto) 12 0-12 % Eosinophils (%) (Auto) 3 0-10 % Basophils (%) (Auto) 1 0-10 % Neutrophils # (Auto) 5.0 1.8-7.8 10^3/uL Lymphocytes # (Auto) 2.1 1.0-4.0 10^3/uL Monocytes # (Auto) 1.0 0.0-1.0 10^3/uL Eosinophils # (Auto) 0.2 0.0-0.3 10^3/uL Basophils # (Auto) 0.1 0.0-0.1 10^3/uL Immature Granulocyte # (Auto) 0.1 0.0-0.1 10^3/uL Sodium Level 143 135-145 MMOL/L Potassium Level 3.4 L 3.6-5.0 MMOL/L Chloride Level 104 98-107 MMOL/L Carbon Dioxide Level 26 21-32 MMOL/L Anion Gap 13 5-14 MMOL/L Blood Urea Nitrogen 12 7-18 MG/DL Creatinine 1.14 0.60-1.30 MG/DL Estimat Glomerular Filtration Rate 54 BUN/Creatinine Ratio 11 Glucose Level 108 H 70-105 MG/DL Calcium Level 10.4 H 8.5-10.1 MG/DL Corrected Calcium 10.2 H 8.5-10.1 MG/DL Total Bilirubin 0.3 0.1-1.0 MG/DL Aspartate Amino Transf (AST/SGOT) 18 5-34 U/L Alanine Aminotransferase (ALT/SGPT) 19 0-55 U/L Alkaline Phosphatase 71 40-136 U/L Total Protein 6.9 6.4-8.2 GM/DL Albumin 4.2 3.2-4.5 GM/DL Lactic Acid Level 1.54 0.50-2.00 MMOL/L My Orders Orders - ASPEN BENOIT MD Cbc With Automated Diff (09/25/22 12:44) Comprehensive Metabolic Panel (09/25/22 12:44) Drug Screen Stat (Urine) (09/25/22 12:44) Lactic Acid Analyzer (09/25/22 12:44) Ua Culture If Indicated (09/25/22 12:44) Ct Abdomen/Pelvis W (09/25/22 12:45) Acetaminophen Tablet/Caplet (Tylenol T (09/25/22 13:15) Ondansetron Injection (Zofran Injectio (09/25/22 13:30) Ondansetron Injection (Zofran Injectio (09/25/22 13:23) Iohexol Injection (Omnipaque 350 Mg/Ml 1 (09/25/22 13:45) Received Contrast (Hold Metformin- Contr (09/25/22 13:45) Ns (Ivpb) (Sodium Chloride 0.9% Ivpb Bag (09/25/22 13:45) Medications Given in ED Current Medications Medications Dose Ordered Sig/Tacho Route Start Time Stop Time Status Last Admin Dose Admin Iohexol 100 ml ONCE ONCE IV 09/25/22 13:45 09/25/22 13:46 DC 09/25/22 13:37 80 ML Ondansetron HCl 4 mg ONCE ONCE IVP 09/25/22 13:30 09/25/22 13:31 DC 09/25/22 13:26 4 MG Sodium Chloride 100 ml ONCE ONCE IV 09/25/22 13:45 09/25/22 13:46 DC 09/25/22 13:38 100 ML Vital Signs/I&O 09/25/22 12:36 Temp 35.9 Pulse 76 Resp 16 B/P (MAP) 128/81 (97) Pulse Ox 100 O2 Delivery Room Air Progress Progress Note : Progress Note 1. CHRONIC CONSTIPATION: - CT ABD: no acute findings, no obstruction or impaction of stool - CBC/ CMP: unreamrkable - UA/ UDS: negative - Will advise fleet enema and follow up with PCP for further assessment and management. Pt has an appointment next Wednesday. - Advised high fiber diet and adequate water intake. - Prescriptions given for : Zofran ODT to take as needed Q6H for nausea and vomiting, Diagnostic Imaging Diagonstic Imaging: CT Plain Films/CT/US/NM/MRI: abdomen Comments [facility]. [place], [place] NAME: CHRISTIE CHILDERS [facility] REC#: [id number] PT STATUS: REG ER : 1960 PHYSICIAN: ASPEN BENOIT MD ADMIT DATE: 09/25/22/ER FS Draft Date of Exam:09/25/22 CT ABDOMEN/PELVIS W PROCEDURE: CT abdomen and pelvis with contrast. TECHNIQUE: Multiple contiguous axial images were obtained through the abdomen and pelvis after administration of intravenous contrast. Auto Exposure Controls were utilized during the CT exam to meet ALARA standards for radiation dose reduction. All CT scans use one or more of the following dose optimizing techniques: automated exposure control, MA and/or KvP adjustment based on patient size and exam type or iterative reconstruction. INDICATION: Constipation for one month. COMPARISON: Correlation is made with prior CT from 04/16/2021. FINDINGS: The lung bases are clear. No liver mass is detected. Gallbladder is surgically absent. There is no biliary ductal dilatation. The pancreas and spleen are unremarkable. No adrenal mass is detected. Kidneys are unremarkable apart from a tiny cortical low-attenuation lesion in the lower pole of the left kidney, stable when compared with prior study and likely a tiny cyst. The aorta is calcified but nonaneurysmal. Small and large bowel loops are normal in caliber. There is no obstruction. Area of higher density in the midline low pelvis in the region of the urethra adjacent to the bladder base appears similar to prior exam. No abdominal or pelvic lymphadenopathy is identified. Bony structures are unremarkable. IMPRESSION: Overall stable CT of the abdomen and pelvis since exam from 04/16/2021. No acute process is detected. Dictated on workstation # [id number] Dict: 09/25/22 1342 Trans: 09/25/22 1351 [id number] Interpreted by: MADHAVI MENDENHALL MD Electronically signed by: Departure Impression Primary Impression: Chronic constipation Disposition: HOME, SELF-CARE Condition: Stable Departure-Patient Inst. Referrals: KEVYN GAMBLE APRN (PCP) Primary Care Physician [facility] (Family) Primary Care Physician Patient Instructions: Constipation, Adult ED, High Fiber Diet Scripts Sennosides (Senna Laxative) 8.6 Mg Tablet 8.6 MG PO DAILY for 5 Days, #5 TAB Prov: ASPEN BENOIT MD 09/25/22 Na Phos,M-B/Na Phos,Di-Ba (Fleet Enema) 19 Gram-7 Gram/118 Ml Enema 133 ML RC DAILY for 2 Days, #2 EA Prov: ASPEN BENOIT MD 09/25/22 Ondansetron (Ondansetron Odt) 4 Mg Tab.rapdis 4 MG SL Q6H PRN for NAUSEA/VOMITING for 5 Days, #15 TAB Prov: ASPEN BENOIT MD 09/25/22 Lactulose (Lactulose) 20 Gram/30 Ml Solution 20 GM PO ONCE for 1 Day, #1 EA Prov: ASPEN BENOIT MD 09/25/22 ASPEN BENOIT MD Sep 25, 2022 12:44
[2022-09-25 12:58] LABS: BASOPHILS # (AUTO) 0.1 10^3/uL (0.0-0.1); BASOPHILS % (AUTO) 1 % (0-10); EOSINOPHILS # (AUTO) 0.2 10^3/uL (0.0-0.3); EOSINOPHILS % (AUTO) 3 % (0-10); HEMATOCRIT 42 % (35-52); HEMOGLOBIN 14.1 g/dL (11.5-16.0); LYMPHOCYTES # (AUTO) 2.1 10^3/uL (1.0-4.0); LYMPHOCYTES % (AUTO) 25 % (12-44); MEAN CORPUSCULAR HEMOGLOBIN 31 pg (25-34); MEAN CORPUSCULAR HGB CONC 34 g/dL (32-36); MEAN CORPUSCULAR VOLUME 91 fL (80-99); MEAN PLATELET VOLUME 9.4 fL (9.0-12.2); MONOCYTES % (AUTO) 12 % (0-12); NEUTROPHILS % (AUTO) 59 % (42-75); PLATELET COUNT 332 10^3/uL (130-400); WHITE BLOOD COUNT 8.5 10^3/uL (4.3-11.0)
[2022-09-25] MEDS ORDERED: ACETAMINOPHEN 325 MG TABLET PO ONE (13:15)
[2022-09-25 13:19] LABS: POTASSIUM 3.4 MMOL/L (3.6-5.0)
[2022-09-25 13:20] LABS: ALBUMIN 4.2 GM/DL (3.2-4.5); BILIRUBIN,TOTAL 0.3 MG/DL (0.1-1.0); CALCIUM 10.4 MG/DL (8.5-10.1); CREATININE SERUM 1.14 MG/DL (0.60-1.30); TOTAL PROTEIN 6.9 GM/DL (6.4-8.2)
[2022-09-25] MEDS ORDERED: ONDANSETRON 4 MG/2 ML (SDV) Z0FRAN ONE (13:23)
[2022-09-25] MEDS ORDERED: ONDANSETRON 4 MG/2 ML (SDV) Z0FRAN IVP ONE (13:30)
[2022-09-25] MEDS ORDERED: IOHEXOL 350 MG/ML 100 ML (OMNIPAQUE 350) VIAL IV ONE (13:45)
[2022-09-25] MEDS ORDERED: HOLD METFORMIN - RECEIVED CONTRAST 20 ML VIAL IV SCH (13:45)
[2022-09-25] MEDS ORDERED: NS 100 ML (IVPB) BAG IV ONE (13:45)
--- NOTE | 2022-09-25 13:51 | Diagnostic Imaging Report ---
PROCEDURE: CT abdomen and pelvis with contrast. TECHNIQUE: Multiple contiguous axial images were obtained through the abdomen and pelvis after administration of intravenous contrast. Auto Exposure Controls were utilized during the CT exam to meet ALARA standards for radiation dose reduction. All CT scans use one or more of the following dose optimizing techniques: automated exposure control, MA and/or KvP adjustment based on patient size and exam type or iterative reconstruction. INDICATION: Constipation for one month. COMPARISON: Correlation is made with prior CT from 04/16/2021. FINDINGS: The lung bases are clear. No liver mass is detected. Gallbladder is surgically absent. There is no biliary ductal dilatation. The pancreas and spleen are unremarkable. No adrenal mass is detected. Kidneys are unremarkable apart from a tiny cortical low-attenuation lesion in the lower pole of the left kidney, stable when compared with prior study and likely a tiny cyst. The aorta is calcified but nonaneurysmal. Small and large bowel loops are normal in caliber. There is no obstruction. Area of higher density in the midline low pelvis in the region of the urethra adjacent to the bladder base appears similar to prior exam. No abdominal or pelvic lymphadenopathy is identified. Bony structures are unremarkable. IMPRESSION: Overall stable CT of the abdomen and pelvis since exam from 04/16/2021. No acute process is detected. Dictated by: Dictated on workstation # [id number]
[2022-09-25] MEDS ORDERED: LACT20SO2 PO (14:40)
[2022-09-25] MEDS ORDERED: ONDA4TAB11 SL (14:40)
[2022-09-25] MEDS ORDERED: SENN8.6T17 PO (14:40)
[2022-09-25] MEDS ORDERED: NA P133E22 RC (14:40)
[2022-09-25 14:44] VITALS: BP 128/81
[2022-09-25 14:46] LABS: BACTERIA,URINE NEGATIVE /HPF; BILIRUBIN,URINE NEGATIVE (NEGATIVE); CLARITY,URINE CLEAR; COLOR,URINE YELLOW; GLUCOSE, URINE (UA) NEGATIVE (NEGATIVE); HYALINE CASTS, URINE 0-2 /LPF; KETONES,URINE NEGATIVE (NEGATIVE); LEUKOCYTE ESTERASE ,URINE NEGATIVE (NEGATIVE); NITRITE,URINE NEGATIVE (NEGATIVE); PROTEIN,URINE NEGATIVE (NEGATIVE)
[2022-09-25 14:51] LABS: AMPHETAMINE SCREEN, URINE NEGATIVE (NEGATIVE); BARBITURATE SCREEN URINE NEGATIVE (NEGATIVE); BENZODIAZEPINES SCREEN URINE NEGATIVE (NEGATIVE); CANNABINOID SCREEN, URINE NEGATIVE (NEGATIVE); COCAINE SCREEN URINE NEGATIVE (NEGATIVE); METHADONE STAT NEGATIVE (NEGATIVE); OPIATE SCREEN URINE NEGATIVE (NEGATIVE); OXYCODONE STAT NEGATIVE (NEGATIVE); PROPOXYPHENE STAT NEGATIVE (NEGATIVE); TRICYCLIC ANTIDEPRESSANTS SCRE NEGATIVE (NEGATIVE)
== END 2022-09-25 14:45 | disposition home or self-care (01) ==
LOC: EDUNIT# 12:30 → ER FS 12:32
DX: K59.09 Other constipation (principal); C50.919 Malignant neoplasm of unspecified site of unspecified female breast; R11.0 Nausea
CPT/HCPCS: 36415; 74177; 80053; 80306; 81000; 83605; 85025; 96374

== ENCOUNTER → 2022-10-01 | Outpatient (CLI) | payer MEDICAID ==
[~2022-10-01] MED LIST changes: +LACT20SO2 PO; +NA P133E22 RC; +ONDA4TAB11 SL; +SENN8.6T17 PO
== END ==
LOC: PREOP 05:36
PROVIDERS: ATTEND Surgery
DX: Z01.818 Encounter for other preprocedural examination (principal)

== ENCOUNTER → 2022-10-14 | Outpatient (CLI) | payer MEDICAID ==
[~2022-10-14] VITALS: Ht 160 cm; Wt 78.0 kg
[~2022-10-14] MED LIST changes: +CATHETER FLUSH 10 ML SYR IVP PRN; +FURO20TA4 PO; +POTA-179 PO; +REGADENOSON 0.4 MG/5 ML SYR (LEXISCAN) IV ONE
[2022-10-14 13:08] VITALS: BP 122/80
[2022-10-14 13:14] VITALS: BP 135/79
[2022-10-14 13:18] VITALS: BP 160/90
--- NOTE | 2022-10-14 16:18 | Cardiology Stress Test Report ---
Stress Test Report Date of Procedure/Referring: Date of Procedure: Oct 14, 2022 PCP Cindi Esquivel Aprn Admitting Physician Admitting Physician: Attending Physician: Kati Russell MD Baseline Heart Rate: 78 Baseline Blood Pressure: Blood Pressure Systolic: 160 Blood Pressure Diastolic: 90 Baseline Vitals Vital Signs Date Time Temp Pulse Resp B/P (MAP) Pulse Ox O2 Delivery O2 Flow Rate FiO2 10/14/22 13:08 95 122/80 (94) 10/14/22 13:14 17 99 Baseline EKG: Baseline EKG: NSR Summary After explaining the procedure to the patient, she signed a consent and then brought to the stress nuclear laboratory. Patient received 0.4 mg Lexiscan for stress test, ECG, heart rate and blood pressure were monitored continuously. Resting and stress dose of radio tracer were injected, imaging was acquired and reviewed in short axis, horizontal long axis and vertical long axis views. TID: 1.2 SSS: 6 SDS: 6 EF: 74 Patient tolerated Lexiscan well Diaphragmatic attenuation, there is mild reversible ischemia at the basal to mid inferior wall, overall there is no significant ischemia or infarction on SPECT images Normal left ventricular size, ejection fraction 74% Copy Copies To 1: [facility] [place] KATI RUSSELL MD Oct 14, 2022 16:18
== END ==
LOC: CARD 11:30
PROVIDERS: ATTEND Internal Medicine Cardiovascular Disease
DX: I10 Essential (primary) hypertension (principal); I25.10 Atherosclerotic heart disease of native coronary artery without angina pectoris
CPT/HCPCS: 78452; 93017; A9502